=== PATIENT | female | born 1940 | race Caucasian/White ===

== ENCOUNTER 2017-01-10 08:39 | Observation (INO) | payer OTHER ==
--- NOTE | 2017-01-10 08:49 | PDOC ---
History of Present Illness <Tiffanie Hernandez - Last Filed: 01/10/17 09:53> - History of Present Illness Initial Comments: 01/10/17 09:20 The patient is a 76 year old female, with a significant past medical history of hypertension, colitis, non-insulin dependent diabetes (diet controlled), hyperlipidemia, and anemia, who presents to the emergency department via ems from [facility] for blood transfusion today. She recalls her blood count was about 7 this morning. The patient denies any complaints of abdominal pain or lethargy. She states she had a revision done to her knee recently and reports rupturing her patellar tendon a week ago at physical therapy and is scheduled for surgery in 2 weeks. She does, however, report pain to her knee. She denies chest pain, shortness of breath, headache and dizziness. She denies fever, chills, nausea, vomit, diarrhea and constipation. She denies dysuria, frequency, urgency and hematuria. Allergies: penicillins Past surgical history: bilateral knee replacements, small bowel obstruction ( 2014) Social history: denies toxic habits PCP - Dr. Mao/Dr. Adame <Isis Cavanaugh - Last Filed: 01/10/17 12:06> - General Stated Complaint: BLOOD TRANSFUSION Time Seen by Provider: 01/10/17 08:47 Past History - Past Medical History Cardiac Disorders: (tachycardia) HTN: Yes Hypercholesterolemia: Yes - Psycho/Social/Smoking Cessation Hx Anxiety: No Suicidal Ideation: No Smoking History: Former smoker Have you smoked in the past 12 months: No If you are a former smoker, when did you quit?: 20 years ago Hx Alcohol Use: No Substance Use Type: None <Tiffanie Hernandez - Last Filed: 01/10/17 09:53> <Isis Cavanaugh - Last Filed: 01/10/17 12:06> - Past Medical History Allergies/Adverse Reactions: Allergies Allergy/AdvReac Type Severity Reaction Status Date / Time Penicillins Allergy Verified 01/10/17 09:05 Home Medications: Ambulatory Orders Aspirin [ASA -] 81 mg PO DAILY 10/02/14 Cholecalciferol (Vitamin D3) [Vitamin D3] 1,000 unit PO DAILY 10/02/14 Enalapril Maleate [Vasotec -] 20 mg PO DAILY 10/02/14 Gemfibrozil [Lopid] 600 mg PO HS 10/02/14 Glipizide [Glipizide ER] 5 mg PO DAILY 10/02/14 Metoprolol Succinate [Toprol Xl] 100 mg PO DAILY 10/02/14 Simvastatin [Zocor -] 20 mg PO HS 10/02/14 Triamterene/Hydrochlorothiazid [Triamterene-Hctz 37.5-25 mg Cp] 1 each PO DAILY 10/02/14 Acetaminophen [Tylenol -] 1,000 mg PO Q8H PRN 01/10/17 Ascorbate Calcium [Vitamin C] 1,000 mg PO ASDIR 01/10/17 Cyanocobalamin (Vitamin B-12) [Vitamin B12] 1,000 mcg PO DAILY 01/10/17 Docusate Sodium [Colace -] 100 mg PO TID PRN 01/10/17 Enoxaparin [Lovenox -] 40 unit SQ DAILY 01/10/17 Insulin Lispro [Humalog] 0 unit SQ TID 01/10/17 Menthol [Bengay Ultra Strength] 1 each TP DAILY 01/10/17 Mesalamine [Lialda] 1 - 2 tab PO DAILY 01/10/17 Oxycodone HCl [Roxicodone -] 5 mg PO Q4H PRN 01/10/17 Pantoprazole Sodium [Protonix] 40 mg PO DAILY 01/10/17 Review of Systems - Review of Systems Able to Perform ROS?: Yes Comments:: 01/10/17 09:20 GENERAL/CONSTITUTIONAL: No fever or chills. No weakness. HEAD, EYES, EARS, NOSE AND THROAT: No change in vision. No ear pain or discharge. No sore throat. CARDIOVASCULAR: No chest pain or shortness of breath. RESPIRATORY: No cough, wheezing, or hemoptysis. GASTROINTESTINAL: No nausea, vomiting, diarrhea or constipation. GENITOURINARY: No dysuria, frequency, or change in urination. MUSCULOSKELETAL: No joint or muscle swelling or pain. No neck or back pain. SKIN: No rash NEUROLOGIC: No headache, vertigo, loss of consciousness, or change in strength/ sensation. ENDOCRINE: No increased thirst. No abnormal weight change. HEMATOLOGIC/LYMPHATIC: No anemia, easy bleeding, or history of blood clots. ALLERGIC/IMMUNOLOGIC: No hives or skin allergy. <Isis Cavanaugh - Last Filed: 01/10/17 12:06> *Physical Exam - Physical Exam Comments: GENERAL: Awake, alert, and fully oriented, in no acute distress HEAD: No signs of trauma EYES: PERRLA, EOMI, sclera anicteric, conjunctiva clear ENT: Auricles normal inspection, hearing grossly normal, nares patent, oropharynx clear without exudates. Moist mucosa NECK: Normal ROM, supple, no lymphadenopathy, JVD, or masses LUNGS: Breath sounds equal, clear to auscultation bilaterally. No wheezes, and no crackles HEART: Regular rate and rhythm, normal S1 and S2, no murmurs, rubs or gallops ABDOMEN: Soft, nontender, normoactive bowel sounds. No guarding, no rebound. No masses EXTREMITIES: +Well-healed scar overlying the R knee, FROM. +Immobilizer to L knee. Remainder of extremities with normal range of motion, no edema. No clubbing or cyanosis. No cords, erythema, or tenderness NEUROLOGICAL: Cranial nerves II through XII grossly intact. Normal speech. Gait not tested due to recent orthopedic surgery. Motor and sensation intact. SKIN: Warm, Dry, normal turgor, no rashes or lesions noted. <Tiffanie Hernandez - Last Filed: 01/10/17 09:53> - Vital Signs Last Vital Signs Temp Pulse Resp BP Pulse Ox 99.4 F 97 H 18 121/54 100 01/10/17 08:40 01/10/17 08:40 01/10/17 08:40 01/10/17 08:40 01/10/17 08:40 - Physical Exam Comments: 01/10/17 09:20 GENERAL: Awake, alert, and fully oriented, in no acute distress HEAD: No signs of trauma EYES: PERRLA, EOMI, sclera anicteric, conjunctiva clear ENT: Auricles normal inspection, hearing grossly normal, nares patent, oropharynx clear without exudates. Moist mucosa NECK: Normal ROM, supple, no lymphadenopathy, JVD, or masses LUNGS: Breath sounds equal, clear to auscultation bilaterally. No wheezes, and no crackles HEART: Regular rate and rhythm, normal S1 and S2, no murmurs, rubs or gallops ABDOMEN: Soft, nontender, normoactive bowel sounds. No guarding, no rebound. No masses EXTREMITIES: (+) non-ambulatory s/p knee replacement and recent patellar tendon rupture. Normal range of motion, no edema. No clubbing or cyanosis. No cords, erythema, or tenderness NEUROLOGICAL: Cranial nerves II through XII grossly intact. Normal speech, SKIN: Warm, Dry, normal turgor, no rashes or lesions noted. <Isis Cavanaugh - Last Filed: 01/10/17 12:06> ED Treatment Course - LABORATORY CBC & Chemistry Diagram: 01/10/17 09:13 01/10/17 09:13 <Tiffanie Hernandez - Last Filed: 01/10/17 09:53> - LABORATORY CBC & Chemistry Diagram: 01/10/17 09:13 01/10/17 09:13 <Isis Cavanaugh - Last Filed: 01/10/17 12:06> *DC/Admit/Observation/Transfer - Discharge Dispostion Admit: Yes <Tiffanie Hernandez - Last Filed: 01/10/17 09:53> - Attestations Scribe Attestion: 01/10/17 09:21 Documentation prepared by Isis Cavanaugh, acting as medical record transcriber for Tiffanie Hernandez MD, MD <Isis Cavanaugh - Last Filed: 01/10/17 12:06> Diagnosis at time of Disposition: Anemia Qualifiers: Anemia type: unspecified type Qualified Code(s): D64.9 - Anemia, unspecified - Discharge Dispostion Condition at time of disposition: Stable - Referrals
[2017-01-10 09:05] VITALS: BMI 38.5
[2017-01-10 09:45] LABS: BASOPHIL 1.2 % (0-2.0); EOSINOPHIL 12.3 % (0-4.5); MCH 29.2 pg (25.7-33.7); MCHC 32.6 g/dl (32.0-36.0); MEAN CELL VOLUME 89.6 fl (80-96); MEAN PLT VOLUME 7.9 fl (7.5-11.1); NEUTROPHILS 65.7 % (42.8-82.8); PLATELET COUNT 386 K/MM3 (134-434); RDW 15.1 % (11.6-15.6); WHITE BLOOD COUNT 6.3 K/mm3 (4.0-10.0)
[2017-01-10] MEDS ORDERED: PATIENT'S OWN MEDICATION (NON-FORMULARY) (Enalapril Maleate [Vasotec -] 20 MG) PO SCH (10:00)
[2017-01-10 10:05] LABS: ALBUMIN 3.1 g/dl (3.4-5.0); ANION GAP 9 (8-16); BILIRUBIN,TOTAL 0.3 mg/dL (0.2-1.0); CALCIUM 8.7 mg/dL (8.5-10.1); CO2 24 mmol/L (21-32); COCKROFT - GAULT 106.5305; CREATININE 0.7 mg/dL (0.55-1.02); GLUCOSE,RANDOM 211 mg/dL (74-106); LDH 318 U/L (84-246); SGOT/AST 15 U/L (15-37); SGPT/ALT 14 U/L (12-78); TOT PROT 6.3 g/dl (6.4-8.2)
[2017-01-10 10:07] LABS: ALK PHOS 88 U/L (45-117); FERRITIN 253.667 ng/ml (6.9-282.5)
[2017-01-10] MEDS ORDERED: glipiZIDE-XL 2.5 MG TAB.ER.24 PO SCH ×2 (10:15→22:31)
[2017-01-10] MEDS: METOPROLOL SUCCINATE 100 MG TAB.SR.24H (FP) PO SCH (10:15)
[2017-01-10] MEDS ORDERED: MESALAMINE 2.4 GM PO SCH (10:15)
[2017-01-10] MEDS ORDERED: GEMFIBROZIL 600 MG TABLET (FP) PO SCH ×2 (10:15→11:12)
[2017-01-10] MEDS: TRIAMTERENE AND HCTZ - 37.5 MG/25 MG CAPSULE PO SCH (10:15)
[2017-01-10] MEDS ORDERED: ENALAPRIL MALEATE 10 MG TABLET (FP) PO SCH (10:57)
[2017-01-10] MEDS ORDERED: OXYCODONE/APAP 5/325MG COMBO TABLET PO ONE (12:06)
[2017-01-10] MEDS ORDERED: OXYCODONE/APAP 5/325MG COMBO TABLET ONE (12:08)
--- NOTE | 2017-01-10 13:51 | HP ---
Admitting History and Physical - Admission Chief Complaint: anemia History of Present Illness: Sent from [place] for anemia. Recently had revision, re-total left knee placement for loosened hardware. Had surgery in [facility] and then was undergoing physical therapy in [place], when she felt and heard a "crack" in her knee and was found to have a ruptured patella tendon. Will now need to have tendon repair, but since surgery for knee revision has been anemic (hgb 7.5, dropping to 6.9 reportedly yesterday). Prior to surgery has been advised to have blood transfusion. Notes some weakness, but no shortness of breath or chest pain. History Source: Patient, Medical Record Limitations to Obtaining History: No Limitations - Past Medical History Cardiovascular: Yes: HTN, Hyperlipdemia Gastrointestinal: Yes: Ulcerative Colitis Endocrine: Yes: Diabetes Mellitus Additional Past Medical History: patella tendon rupture left leg - Past Surgical History Past Surgical History: Yes: Colonoscopy, Joint Replacement (left knee, s/p recent revision) - Smoking History Smoking history: Former smoker Have you smoked in the past 12 months: No If you are a former smoker, when did you quit?: 20 years ago - Alcohol/Substance Use Hx Alcohol Use: No Home Medications - Allergies Allergies/Adverse Reactions: Allergies Allergy/AdvReac Type Severity Reaction Status Date / Time morphine Allergy Verified 01/10/17 13:01 Penicillins Allergy Verified 01/10/17 09:05 - Home Medications Home Medications: Ambulatory Orders Aspirin [ASA -] 81 mg PO DAILY 10/02/14 Cholecalciferol (Vitamin D3) [Vitamin D3] 1,000 unit PO DAILY 10/02/14 Enalapril Maleate [Vasotec -] 20 mg PO DAILY 10/02/14 Gemfibrozil [Lopid] 600 mg PO HS 10/02/14 Glipizide [Glipizide ER] 5 mg PO DAILY 10/02/14 Metoprolol Succinate [Toprol Xl] 100 mg PO DAILY 10/02/14 Simvastatin [Zocor -] 20 mg PO HS 10/02/14 Triamterene/Hydrochlorothiazid [Triamterene-Hctz 37.5-25 mg Cp] 1 each PO DAILY 10/02/14 Acetaminophen [Tylenol -] 1,000 mg PO Q8H PRN 01/10/17 Ascorbate Calcium [Vitamin C] 1,000 mg PO ASDIR 01/10/17 Cyanocobalamin (Vitamin B-12) [Vitamin B12] 1,000 mcg PO DAILY 01/10/17 Docusate Sodium [Colace -] 100 mg PO TID PRN 01/10/17 Enoxaparin [Lovenox -] 40 unit SQ DAILY 01/10/17 Insulin Lispro [Humalog] 0 unit SQ TID 01/10/17 Menthol [Bengay Ultra Strength] 1 each TP DAILY 01/10/17 Mesalamine [Lialda] 1 - 2 tab PO DAILY 01/10/17 Oxycodone HCl [Roxicodone -] 5 mg PO Q4H PRN 01/10/17 Pantoprazole Sodium [Protonix] 40 mg PO DAILY 01/10/17 Family Disease History - Family Disease History Family History: Unremarkable Review of Systems - Review of Systems Constitutional: denies: Lethargy, Loss of Appetite Eyes: reports: No Symptoms HENT: denies: Difficult Swallowing, Epistaxis, Ringing in Ears Neck: reports: No Symptoms Cardiovascular: denies: Chest Pain, Palpitations Respiratory: denies: Cough, SOB, Wheezing Gastrointestinal: denies: Abdominal Pain, Diarrhea, Nausea, Vomiting Genitourinary: denies: Burning, Discharge, Dysuria Neurological: denies: Change in LOC Physical Examination Vital Signs: Vital Signs Temperature 98.2 F 01/10/17 12:22 Pulse Rate 83 01/10/17 12:22 Respiratory Rate 20 01/10/17 12:22 Blood Pressure 133/56 01/10/17 12:22 O2 Sat by Pulse Oximetry (%) 96 01/10/17 12:22 Constitutional: Yes: No Distress, Calm Eyes: Yes: EOM Intact, PERRL HENT: Yes: Atraumatic, Normocephalic Cardiovascular: Yes: Regular Rate and Rhythm, S1, S2. No: Murmur Respiratory: Yes: Regular, CTA Bilaterally. No: Rales, Rhonchi, Wheezes Gastrointestinal: Yes: Normal Bowel Sounds, Soft. No: Distention, Tenderness Extremities: Yes: Other (left leg with brace, healing incision on knee) Neurological: Yes: Alert, Oriented Labs: Laboratory Results - last 24 hr 01/10/17 01/10/17 01/10/17 09:13 09:13 09:13 WBC 6.3 RBC 2.61 L Hgb 7.6 L D Hct 23.4 L D MCV 89.6 MCHC 32.6 RDW 15.1 D Plt Count 386 MPV 7.9 Neutrophils % 65.7 Lymphocytes % 13.2 Monocytes % 7.6 Eosinophils % 12.3 H D Basophils % 1.2 Retic Count 3.46 H INR 1.71 H Sodium Potassium Chloride Carbon Dioxide Anion Gap BUN Creatinine Creat Clearance w eGFR Random Glucose Calcium Ferritin Total Bilirubin AST ALT Alkaline Phosphatase LD Total Total Protein Albumin Blood Type O POSITIVE Antibody Screen Negative Crossmatch See Detail 01/10/17 09:13 WBC RBC Hgb Hct MCV MCHC RDW Plt Count MPV Neutrophils % Lymphocytes % Monocytes % Eosinophils % Basophils % Retic Count INR Sodium 140 Potassium 4.3 Chloride 107 Carbon Dioxide 24 Anion Gap 9 BUN 17 D Creatinine 0.7 D Creat Clearance w eGFR > 60 Random Glucose 211 H D Calcium 8.7 Ferritin 253.667 Total Bilirubin 0.3 D AST 15 D ALT 14 D Alkaline Phosphatase 88 LD Total 318 H Total Protein 6.3 L Albumin 3.1 L Blood Type Antibody Screen Crossmatch Problem List - Problems (1) Anemia Assessment/Plan: -due to recent surgery (left knee revision of TKR)-will transfuse 2 units PRBC Code(s): D64.9 - ANEMIA, UNSPECIFIED Qualifiers: Anemia type: iron deficiency Qualified Code(s): D64.9 - Anemia, unspecified (2) Patellar tendon rupture Assessment/Plan: -will require further surgery, so to get blood transfusion to optimize for procedure Code(s): S86.819A - STRAIN OF MUSC/TEND AT LOWER LEG LEVEL, UNSP LEG, INIT (3) Status post revision of total replacement of left knee Assessment/Plan: -stable Code(s): Z96.652 - PRESENCE OF LEFT ARTIFICIAL KNEE JOINT (4) Diabetes mellitus Assessment/Plan: -on glipizide Code(s): E11.9 - TYPE 2 DIABETES MELLITUS WITHOUT COMPLICATIONS (5) Hypertension Assessment/Plan: -cont antihypertensives Code(s): I10 - ESSENTIAL (PRIMARY) HYPERTENSION (6) Ulcerative colitis Assessment/Plan: -cot lialda Code(s): K51.90 - ULCERATIVE COLITIS, UNSPECIFIED, WITHOUT COMPLICATIONS
[2017-01-10] MEDS ORDERED: OXYCODONE/APAP 5/325MG COMBO TABLET PO PRN (14:10)
[2017-01-10] MEDS ORDERED: ACETAMINOPHEN 325 MG TABLET (FP) PO PRN (15:08)
[2017-01-10] MEDS ORDERED: oxyCODONE HCL 5 MG TABLET PO PRN (15:08)
[2017-01-10 19:21] LABS: BASOPHIL 1.2 % (0-2.0); EOSINOPHIL 10.8 % (0-4.5); MCH 28.8 pg (25.7-33.7); MEAN CELL VOLUME 87.4 fl (80-96); MEAN PLT VOLUME 8.4 fl (7.5-11.1); NEUTROPHILS 63.7 % (42.8-82.8); PLATELET COUNT 382 K/MM3 (134-434); RDW 15.2 % (11.6-15.6); WHITE BLOOD COUNT 7.5 K/mm3 (4.0-10.0)
[2017-01-10] MEDS ORDERED: ATORVASTATIN CA 10 MG TABLET (FP) PO SCH (22:00)
[2017-01-11 06:41] LABS: SERUM IRON 54 ug/dL (27-139); TOTAL IRON BINDING CAPACITY 229 ug/dL (250-450); UIBC 175 ug/dL (118-369)
[2017-01-11 07:34] LABS: MCH 28.9 pg (25.7-33.7); MCHC 33.7 g/dl (32.0-36.0); MEAN CELL VOLUME 85.9 fl (80-96); MEAN PLT VOLUME 7.9 fl (7.5-11.1); PLATELET COUNT 352 K/MM3 (134-434); RDW 16.2 % (11.6-15.6)
[2017-01-11 07:48] LABS: CALCIUM 9.1 mg/dL (8.5-10.1); COCKROFT - GAULT 149.141; CREATININE 0.5 mg/dL (0.55-1.02)
[2017-01-11 08:11] LABS: HAPTOGLOBIN 320 mg/dL (34-200); TRANSFERRIN 189 mg/dL (200-370)
[2017-01-11 08:55] VITALS: BP 154/69; PULSE 79; TEMP 98
[2017-01-11] MEDS ORDERED: PT OWN MED DRAWER 7, Y5N ONE (09:06)
[2017-01-11] MEDS: TRIAMTERENE AND HCTZ - 37.5 MG/25 MG CAPSULE PO SCH (09:09)
[2017-01-11] MEDS: METOPROLOL SUCCINATE 100 MG TAB.SR.24H (FP) PO SCH (09:09)
[2017-01-11] MEDS ORDERED: CHOLECALCIFEROL (VITAMIN D3) 1,000 UNIT TABLET (FP) PO SCH (10:00)
[2017-01-11] MEDS ORDERED: ASPIRIN 81 MG CHEWABLE TABLETS PO SCH (10:00)
--- NOTE | 2017-01-11 10:25 | DS ---
Physical Examination Vital Signs: Vital Signs Temperature 98 F 01/11/17 08:00 Pulse Rate 79 01/11/17 08:00 Respiratory Rate 18 01/11/17 08:00 Blood Pressure 154/69 01/11/17 08:00 O2 Sat by Pulse Oximetry (%) 99 01/10/17 22:00 Constitutional: Yes: No Distress, Calm Neck: Yes: Supple, Trachea Midline Cardiovascular: Yes: Regular Rate and Rhythm, S1, S2. No: Murmur Respiratory: Yes: Regular, CTA Bilaterally. No: Rales, Rhonchi, Wheezes Gastrointestinal: Yes: Normal Bowel Sounds, Soft, Abdomen, Obese. No: Distention, Tenderness Extremities: Yes: Other (left knee healing incision) Edema: No Neurological: Yes: Alert, Oriented Labs: CBC, BMP 01/11/17 06:00 01/11/17 06:00 Discharge Summary Reason For Visit: ANEMIA Current Active Problems Anemia (Acute) Diabetes mellitus (Acute) Hypertension (Acute) Patellar tendon rupture (Acute) Status post revision of total replacement of left knee (Acute) Ulcerative colitis (Acute) Hospital Course: 76 yo female recent revision of left TKR, admitted for blood transfusion, as found to be anemic after her surgery and will now require tendon repair of left patella tendon, which had ruptured during her physical therapy following the knee replacement Condition: Stable - Instructions Referrals: Eugene Mao MD [Primary Care Provider] - Disposition: [facility] - Home Medications Comprehensive Discharge Medication List: Ambulatory Orders Aspirin [ASA -] 81 mg PO DAILY 10/02/14 Cholecalciferol (Vitamin D3) [Vitamin D3] 1,000 unit PO DAILY 10/02/14 Enalapril Maleate [Vasotec -] 20 mg PO DAILY 10/02/14 Gemfibrozil [Lopid] 600 mg PO HS 10/02/14 Glipizide [Glipizide ER] 5 mg PO DAILY 10/02/14 Metoprolol Succinate [Toprol Xl] 100 mg PO DAILY 10/02/14 Simvastatin [Zocor -] 20 mg PO HS 10/02/14 Triamterene/Hydrochlorothiazid [Triamterene-Hctz 37.5-25 mg Cp] 1 each PO DAILY 10/02/14 Acetaminophen [Tylenol .Extra-Strength -] 1,000 mg PO Q8H PRN 01/10/17 Ascorbate Calcium [Vitamin C] 1,000 mg PO ASDIR 01/10/17 Cyanocobalamin (Vitamin B-12) [Vitamin B12] 1,000 mcg PO DAILY 01/10/17 Docusate Sodium [Colace -] 100 mg PO TID PRN 01/10/17 Enoxaparin [Lovenox -] 40 unit SQ DAILY 01/10/17 Insulin Lispro [Humalog] 0 unit SQ TID 01/10/17 Menthol [Bengay Ultra Strength] 1 each TP DAILY 01/10/17 Mesalamine [Lialda] 1 - 2 tab PO DAILY 01/10/17 Oxycodone HCl [Roxicodone -] 5 mg PO Q4H PRN 01/10/17 Pantoprazole Sodium [Protonix] 40 mg PO DAILY 01/10/17
[2017-01-11] MEDS ORDERED: ENOXAPARIN NA (PORCINE) 40 MG/0.4 ML DISP.SYRIN SQ ONE (11:30)
== END 2017-01-11 14:43 ==
LOC: JER 08:39 → JERBED 09:53 → J8W 16:40
PROVIDERS: ADMIT Specialist; ATTEND Specialist
PROC: 3E013GC Introduction of Other Therapeutic Substance into Subcutaneous Tissue, Percutaneous Approach (ICD-10-PCS; principal; 2017-01-11)
DX: D64.9 Anemia, unspecified (principal); I10 Essential (primary) hypertension; R73.03 Prediabetes; E78.5 Hyperlipidemia, unspecified; R00.0 Tachycardia, unspecified; Z87.891 Personal history of nicotine dependence; Z87.19 Personal history of other diseases of the digestive system; Z79.82 Long term (current) use of aspirin; Z96.652 Presence of left artificial knee joint; Z88.1 Allergy status to other antibiotic agents; Z88.8 Allergy status to other drugs, medicaments and biological substances; Z88.5 Allergy status to narcotic agent
CPT/HCPCS: 36415; 36430; 80048; 80053; 82728; 83010; 83540; 83550; 83615; 84466; 85025; 85027; 85044; 85610; 86850; 86900; 86901; 86922; 99284-25; G0378; P9038; P9058

== ENCOUNTER 2017-02-03 13:15 | Observation (INO) | payer OTHER ==
[2017-02-03 13:47] VITALS: BMI 36.7
--- NOTE | 2017-02-03 14:24 | PDOC ---
History of Present Illness - General History Source: Patient Exam Limitations: No Limitations - History of Present Illness Initial Comments: 02/03/17 15:03 The patient is a 76 year old female brought via [facility] from [facility] living, with a significant past medical history of hypertension, osteoarthritsis, DVT, GI bleed , ulcerative enterocolitis, non-insulin dependent diabetes (diet controlled), hyperlipidemia, and anemia, who presents to the emergency department to be evaluated for anemia and possible blood transfusion. The patient had a debridement of the left knee last week. Prior to that she was worked up for anemia and was administered a blood transfusion after the initial knee surgery in early December 2016. Blood work from the [facility] yesterday showed a hemoglobin of 6.0 and today showed hemoglobin of 5.5 and hematocrit of 17. The patient denies chest pain, shortness of breath, headache and dizziness. Denies fever, chills, nausea, vomit, diarrhea and constipation. Denies dysuria, frequency, urgency and hematuria. Allergies: Morphine, Penicillins Past surgical history: bilateral knee replacements, small bowel obstruction ( 2014) Social history: denies toxic habits PCP - Dr. Mao <Houston Aguilera - Last Filed: 02/03/17 15:03> - General History Source: Patient Exam Limitations: No Limitations <Jennifer Castellano - Last Filed: 02/03/17 17:15> - General Chief Complaint: Blood Transfusion Stated Complaint: BLOOD TRANSFUSION Time Seen by Provider: 02/03/17 13:41 Past History <Houston Aguilera - Last Filed: 02/03/17 15:03> - Past Medical History Anemia: Yes (iron deficiency, vit b12 deficiency) Cardiac Disorders: (tachycardia) GI Disorders: Yes (gerd) HTN: Yes Hypercholesterolemia: Yes - Psycho/Social/Smoking Cessation Hx Anxiety: No Suicidal Ideation: No Smoking History: Former smoker Have you smoked in the past 12 months: No If you are a former smoker, when did you quit?: 30 YEARS AGO Information on smoking cessation initiated: No Hx Alcohol Use: No Drug/Substance Use Hx: No Substance Use Type: None Hx Substance Use Treatment: No <Jennifer Castellano - Last Filed: 02/03/17 17:15> - Past Medical History Allergies/Adverse Reactions: Allergies Allergy/AdvReac Type Severity Reaction Status Date / Time morphine Allergy Severe Nausea Verified 02/03/17 13:47 Penicillins Allergy Unknown Verified 02/03/17 13:47 Home Medications: Ambulatory Orders Aspirin [ASA -] 81 mg PO DAILY 10/02/14 Cholecalciferol (Vitamin D3) [Vitamin D3] 1,000 unit PO DAILY 10/02/14 Enalapril Maleate [Vasotec -] 20 mg PO DAILY 10/02/14 Gemfibrozil [Lopid] 600 mg PO HS 10/02/14 Glipizide [Glipizide ER] 5 mg PO DAILY 10/02/14 Metoprolol Succinate [Toprol Xl] 100 mg PO DAILY 10/02/14 Simvastatin [Zocor -] 20 mg PO HS 10/02/14 Triamterene/Hydrochlorothiazid [Triamterene-Hctz 37.5-25 mg Cp] 1 each PO DAILY 10/02/14 Acetaminophen [Tylenol .Extra-Strength -] 1,000 mg PO Q8H PRN 01/10/17 Ascorbate Calcium [Vitamin C] 1,000 mg PO ASDIR 01/10/17 Docusate Sodium [Colace -] 100 mg PO TID PRN 01/10/17 Insulin Lispro [Humalog] 0 unit SQ TID 01/10/17 Mesalamine [Lialda] 1 - 2 tab PO DAILY 01/10/17 Oxycodone HCl [Roxicodone -] 5 mg PO Q4H PRN 01/10/17 Pantoprazole Sodium [Protonix] 40 mg PO DAILY 01/10/17 Cefazolin (Pre-Docked) [Ancef 1Gm Ivpb (Pre-Docked)] 1 gm IVPB TID 02/03/17 Lactobacillus Acidophilus [Acidophilus] 1 each PO BID 02/03/17 Rifampin 300 mg PO DAILY 02/03/17 Warfarin Na [Coumadin Protocol] 1 each PO HS 02/03/17 Review of Systems - Review of Systems Able to Perform ROS?: Yes Comments:: 02/03/17 15:03 GENERAL/CONSTITUTIONAL: No: fever, chills, weakness, loss of appetite. HEAD, EYES, EARS, NOSE AND THROAT: No: change in vision, ear pain, discharge, sore throat, throat swelling. CARDIOVASCULAR: No: chest pain, lightheadedness, palpitations, syncope RESPIRATORY: No: cough, shortness of breath, wheezing, hemoptysis, stridor. GASTROINTESTINAL: No: nausea, vomiting, abdominal cramping, diarrhea, rectal bleeding, constipation. GENITOURINARY: No: dysuria, hematuria, frequency, urgency, flank pain. MUSCULOSKELET AL: No: back pain, neck pain, joint pain, muscle swelling or pain SKIN AND BREASTS: No: lesions, pallor, rash or easy bruising. NEUROLOGIC: No: headache, vertigo, paresthesias, weakness ENDOCRINE: No: unexplained weight gain or loss HEMATOLOGIC/LYMPHATIC: No: anemia, easy bleeding, swelling nodes <Houston Aguilera - Last Filed: 02/03/17 15:03> *Physical Exam - Vital Signs Last Vital Signs Temp Pulse Resp BP Pulse Ox 98.5 F 95 H 20 118/35 99 02/03/17 13:42 02/03/17 13:42 02/03/17 13:42 02/03/17 13:42 02/03/17 13:42 - Physical Exam Comments: 02/03/17 15:04 GENERAL: (+) Pale appearing. The patient is in no acute distress. HEAD: Normal with no signs of trauma. EYES: PERRLA, EOMI, sclera anicteric, conjunctiva clear. ENT: Ears normal, nares patent, oropharynx clear without exudates. Moist mucous membranes. NECK: Normal range of motion, supple without lymphadenopathy, JVD, or masses. LUNGS: Breath sounds equal, clear to auscultation bilaterally. No wheezes, and no crackles. HEART:Regular rate and rhythm, normal S1 and S2 without murmur, rub or gallop. ABDOMEN: Soft, nontender, normoactive bowel sounds. No guarding, no rebound. EXTREMITIES: Normal range of motion, no edema. No clubbing or cyanosis. No erythema, or tenderness. NEUROLOGICAL: Cranial nerves II through XII grossly intact. Normal speech. No focal neurological deficits. MUSCULOSKELETAL: Back non-tender to palpation, no CVA tenderness SKIN: Warm, Dry, normal turgor, no rashes or lesions noted. <Houston Augilera - Last Filed: 02/03/17 15:03> - Vital Signs Last Vital Signs Temp Pulse Resp BP Pulse Ox 98.5 F 95 H 20 118/35 99 02/03/17 13:42 02/03/17 13:42 02/03/17 13:42 02/03/17 13:42 02/03/17 13:42 <Jennifer Castellano - Last Filed: 02/03/17 17:15> Heart Score/ECG Review #1 ECG reviewed & interpreted by me at: 17:08 02/03/17 17:08 Twelve-lead EKG was performed and reviewed by me. There is normal sinus rhythm with a normal rate of 93bpm. The axis is normal. The intervals are normal - pr: 158ms, QRS:68ms, QTc:432ms. There are no ST elevations or depressions. T waves upright <Jennifer Castellano - Last Filed: 02/03/17 17:15> ED Treatment Course - LABORATORY CBC & Chemistry Diagram: 02/03/17 14:10 02/03/17 14:10 - ADDITIONAL ORDERS Additional order review: Laboratory Results 02/03/17 02/03/17 14:10 14:10 INR 1.43 H Sodium 140 Potassium 4.9 Chloride 102 Carbon Dioxide 24 Anion Gap 14 BUN 15 Creatinine 0.7 D Creat Clearance w eGFR > 60 Random Glucose 100 D Calcium 9.1 Total Bilirubin 0.4 D AST 12 L ALT 11 L D Alkaline Phosphatase 97 Total Protein 6.5 Albumin 2.8 L 02/03/17 14:10 RBC 2.36 L D MCV 87.4 MCHC 32.6 RDW 16.3 H MPV 8.4 Neutrophils % 71.4 Lymphocytes % 12.6 Monocytes % 8.8 Eosinophils % 6.4 H Basophils % 0.8 <Houston Aguilera - Last Filed: 02/03/17 15:03> - LABORATORY CBC & Chemistry Diagram: 02/03/17 14:10 02/03/17 14:10 <Jennifer Castellano - Last Filed: 02/03/17 17:15> Medical Decision Making - Medical Decision Making 02/03/17 14:23 A portion of this note was documented by scribe services under my direction. I have reviewed the details of the note, within reason, and agree with the documentation with the following case summary and management plan written by me. Nursing documentation reviewed and incorporated into medical decision making 02/03/17 15:06 This is a 76 yo F presenting to the ER due to anemia Briefly, she is s/p knee replacement 11/2016 Her post operative course was complicated by patella tendon rupture She was then transferred back to [facility] for repair Pt was returned to the [facility] home and last week was noted to have drainage from her left knee She was returned to [facility] and is s/p wash out On 01/28, Hgb 9.2 Pt noted to have a gradual trend down of her Hgb No chest pain, no shortness of breath, no palpitations, No melena No bloody stools Will repeat labs Will transfuse if necessary Laboratory Tests 02/03/17 02/03/17 02/03/17 14:10 14:10 14:10 WBC 8.2 Hgb 6.7 L* D Hct 20.6 L D Plt Count 330 Neutrophils % 71.4 Lymphocytes % 12.6 INR 1.43 H Sodium 140 Potassium 4.9 Chloride 102 Carbon Dioxide 24 BUN 15 Creatinine 0.7 D Random Glucose 100 D AST 12 L ALT 11 L D 02/03/17 15:[address] Gutierrez Will admit to his service Will order 2 units PRBC 02/03/17 15:07 <Jennifer Castellano - Last Filed: 02/03/17 17:15> *DC/Admit/Observation/Transfer - Attestations Scribe Attestion: 02/03/17 15:05 Documentation prepared by Houston Aguilera, acting as medical technologist for Jennifer Castellano MD <Houston Aguilera - Last Filed: 02/03/17 15:03> - Discharge Dispostion Admit: Yes <Jennifer Castellano - Last Filed: 02/03/17 17:15> Diagnosis at time of Disposition: Anemia Qualifiers: Other causes of anemia: acute posthemorrhagic Qualified Code(s): D64.9 - Anemia , unspecified - Discharge Dispostion Condition at time of disposition: Stable - Referrals
[2017-02-03 14:30] LABS: BASOPHIL 0.8 % (0-2.0); EOSINOPHIL 6.4 % (0-4.5); MCH 28.5 pg (25.7-33.7); MCHC 32.6 g/dl (32.0-36.0); MEAN CELL VOLUME 87.4 fl (80-96); MEAN PLT VOLUME 8.4 fl (7.5-11.1); NEUTROPHILS 71.4 % (42.8-82.8); PLATELET COUNT 330 K/MM3 (134-434); RDW 16.3 % (11.6-15.6); WHITE BLOOD COUNT 8.2 K/mm3 (4.0-10.0)
[2017-02-03 14:45] LABS: INR 1.43 (0.82-1.09); PROTHROMBIN TIME (PATIENT) 15.8 SEC (9.98-11.88)
[2017-02-03 14:46] LABS: ALBUMIN 2.8 g/dl (3.4-5.0); ANION GAP 14 (8-16); BILIRUBIN,TOTAL 0.4 mg/dL (0.2-1.0); CALCIUM 9.1 mg/dL (8.5-10.1); CO2 24 mmol/L (21-32); COCKROFT - GAULT 101.4815; CREATININE 0.7 mg/dL (0.55-1.02); GLUCOSE,RANDOM 100 mg/dL (74-106); SGOT/AST 12 U/L (15-37); SGPT/ALT 11 U/L (12-78); TOT PROT 6.5 g/dl (6.4-8.2)
[2017-02-03 14:47] LABS: ALK PHOS 97 U/L (45-117)
[2017-02-03] MEDS ORDERED: CEFAZOLIN (PRE-DOCKED) 50 ML IVPB ONE (15:57)
[2017-02-03] MEDS ORDERED: DOCUSATE SODIUM 100 MG CAPSULE (FP) PO PRN (16:03)
--- NOTE | 2017-02-03 16:07 | HP ---
Admitting History and Physical - Primary Care Physician PCP: Eugene Mao - Admission Chief Complaint: I feel fine History of Present Illness: Ms Haile is a 76 year old female sent from the SNF for blood transfusion. She states she was recently released from another hospital after having revision of her L TKR and wash out secondary to infection. She says she was released this past weekend and after she left she was found to have a Hgb in the 6s. She went back to the SNF and has been doing well. She says she is feeling fine and is without complaint. She denies lightheadedness, dizziness, passing out, chest pain, palpitations, shortness of breath, nausea, vomiting, diarrhea, constipation, difficulty or pain on urination, or pain in her leg. On history she is very upset about having to stay overnight for blood transfusion. History Source: Patient Limitations to Obtaining History: No Limitations - Past Medical History Cardiovascular: Yes: HTN, Hyperlipdemia Gastrointestinal: Yes: Ulcerative Colitis Endocrine: Yes: Diabetes Mellitus - Past Surgical History Past Surgical History: Yes: Colonoscopy, Joint Replacement (left knee, s/p recent revision) - Smoking History Smoking history: Former smoker Have you smoked in the past 12 months: No If you are a former smoker, when did you quit?: 30 YEARS AGO - Alcohol/Substance Use Hx Alcohol Use: No History of Substance Use: reports: None - Social History Usual Living Arrangement: Yes: [facility] ADL: Independent History of Recent Travel: No Home Medications - Allergies Allergies/Adverse Reactions: Allergies Allergy/AdvReac Type Severity Reaction Status Date / Time morphine Allergy Severe Nausea Verified 02/03/17 13:47 Penicillins Allergy Unknown Verified 02/03/17 13:47 - Home Medications Home Medications: Ambulatory Orders RX: Aspirin [ASA -] 81 mg PO DAILY 10/02/14 RX: Cholecalciferol (Vitamin D3) [Vitamin D3] 1,000 unit PO DAILY 10/02/14 RX: Enalapril Maleate [Vasotec -] 20 mg PO DAILY 10/02/14 RX: Gemfibrozil [Lopid] 600 mg PO HS 10/02/14 RX: Glipizide [Glipizide ER] 5 mg PO DAILY 10/02/14 RX: Metoprolol Succinate [Toprol Xl] 100 mg PO DAILY 10/02/14 RX: Simvastatin [Zocor -] 20 mg PO HS 10/02/14 RX: Triamterene/Hydrochlorothiazid [Triamterene-Hctz 37.5-25 mg Cp] 1 each PO DAILY 10/02/14 Mesalamine [Lialda] 1 - 2 tab PO DAILY 01/10/17 RX: Acetaminophen [Tylenol .Extra-Strength -] 1,000 mg PO Q8H PRN 01/10/17 RX: Ascorbate Calcium [Vitamin C] 1,000 mg PO ASDIR 01/10/17 RX: Docusate Sodium [Colace -] 100 mg PO TID PRN 01/10/17 RX: Insulin Lispro [Humalog] 0 unit SQ TID 01/10/17 RX: Oxycodone HCl [Roxicodone -] 5 mg PO Q4H PRN 01/10/17 RX: Pantoprazole Sodium [Protonix] 40 mg PO DAILY 01/10/17 Cefazolin (Pre-Docked) [Ancef 1Gm Ivpb (Pre-Docked)] 1 gm IVPB TID 02/03/17 Lactobacillus Acidophilus [Acidophilus] 1 each PO BID 02/03/17 RX: Rifampin 300 mg PO DAILY 02/03/17 Warfarin Na [Coumadin Protocol] 1 each PO HS 02/03/17 Family Disease History - Family Disease History Family History: Unremarkable Review of Systems Findings/Remarks: Full review of systems obtained, as per HPI and otherwise negative Physical Examination Vital Signs: Vital Signs Temperature 98.5 F 02/03/17 13:42 Pulse Rate 95 H 02/03/17 13:42 Respiratory Rate 20 02/03/17 13:42 Blood Pressure 118/35 02/03/17 13:42 O2 Sat by Pulse Oximetry (%) 99 02/03/17 13:42 Constitutional: Yes: Well Nourished, No Distress Eyes: Yes: Conjunctiva Clear, EOM Intact HENT: Yes: Atraumatic, Normocephalic Cardiovascular: Yes: Regular Rate and Rhythm. No: Pulse Irregular, Gallop, Murmur, Rub Respiratory: Yes: Regular, CTA Bilaterally. No: Rales, Rhonchi, Wheezes Gastrointestinal: Yes: Normal Bowel Sounds, Soft. No: Distention, Tenderness Extremities: Yes: Other (L knee in brace) Edema: No Labs: CBC, BMP 02/03/17 14:10 02/03/17 14:10 Imaging - Results Chest X-ray: Image Reviewed Problem List - Problems (1) Anemia Assessment/Plan: -admit patient under observation -transfuse 2 units -recheck cbc in am -plan for discharge to continue rehab at [facility] Code(s): D64.9 - ANEMIA, UNSPECIFIED Qualifiers: Other causes of anemia: acute posthemorrhagic Qualified Code(s): D64.9 - Anemia, unspecified (2) Diabetes mellitus Assessment/Plan: -continue home regimen -diabetic diet -FSBS and SSI Code(s): E11.9 - TYPE 2 DIABETES MELLITUS WITHOUT COMPLICATIONS Qualifiers: Diabetes mellitus type: type 2 Diabetes mellitus complication status: without complication Diabetes mellitus equipment operator intermodal yard insulin use: without mcc use Qualified Code(s): E11.9 - Type 2 diabetes mellitus without complications (3) Hypertension Assessment/Plan: -continue home regimen Code(s): I10 - ESSENTIAL (PRIMARY) HYPERTENSION Qualifiers: Hypertension type: essential hypertension Qualified Code(s): I10 - Essential (primary) hypertension (4) Status post revision of total replacement of left knee Assessment/Plan: -with recent washout for infected joint -continue ancef Code(s): Z96.652 - PRESENCE OF LEFT ARTIFICIAL KNEE JOINT
[2017-02-03] MEDS ORDERED: CEFAZOLIN (PRE-DOCKED) 1 GM in DEXTROSE 5%-WATER - 50 ML IVPB ONE (16:11)
[2017-02-03] MEDS: INSULIN SLIDING SCALE (NOVOLOG) 1 VIAL SQ SCH ×2 (20:32→22:07)
[2017-02-03] MEDS ORDERED: PT OWN MED DRAWER 7, Y5N ONE (21:28)
[2017-02-03] MEDS: oxyCODONE HCL 5 MG TABLET PO PRN (21:52)
[2017-02-03] MEDS: ACETAMINOPHEN 500 MG TABLET (FP) PO PRN (21:53)
[2017-02-03] MEDS: LACTOBACILLUS ACIDOPHILUS 1 EACH TAB (FP) PO SCH (21:53)
[2017-02-03] MEDS ORDERED: INSULIN (NOVOLOG) ASPART 100 UNITS/ML 10ML VIAL ONE (21:59)
[2017-02-03] MEDS ORDERED: GEMFIBROZIL 600 MG TABLET (FP) PO SCH (22:00)
[2017-02-04] MEDS ORDERED: PT OWN MED DRAWER 7, Y5N ONE ×2 (06:05→10:54)
[2017-02-04] MEDS: INSULIN SLIDING SCALE (NOVOLOG) 1 VIAL SQ SCH ×2 (06:21→13:12)
[2017-02-04] MEDS ORDERED: glipiZIDE-XL 2.5 MG TAB.ER.24 PO SCH ×2 (07:00→10:00)
[2017-02-04 07:34] LABS: BASOPHIL 1.3 % (0-2.0); EOSINOPHIL 6.8 % (0-4.5); MCH 28.8 pg (25.7-33.7); MCHC 33.7 g/dl (32.0-36.0); MEAN CELL VOLUME 85.4 fl (80-96); MEAN PLT VOLUME 7.6 fl (7.5-11.1); NEUTROPHILS 69.9 % (42.8-82.8); PLATELET COUNT 305 K/MM3 (134-434); RDW 16.1 % (11.6-15.6); WHITE BLOOD COUNT 6.7 K/mm3 (4.0-10.0)
[2017-02-04 07:45] LABS: INR 1.35 (0.82-1.09); PROTHROMBIN TIME (PATIENT) 14.9 SEC (9.98-11.88)
[2017-02-04 08:48] LABS: CALCIUM 8.5 mg/dL (8.5-10.1); COCKROFT - GAULT 127.755; CREATININE 0.6 mg/dL (0.55-1.02); MAGNESIUM 1.7 mg/dL (1.8-2.4); PHOSPHOROUS 2.9 mg/dL (2.5-4.9)
[2017-02-04] MEDS ORDERED: ASCORBIC ACID 500 MG TABLET (FP) PO SCH (10:00)
[2017-02-04] MEDS ORDERED: TRIAMTERENE AND HCTZ - 37.5 MG/25 MG CAPSULE PO SCH (10:00)
[2017-02-04] MEDS ORDERED: METOPROLOL SUCCINATE 100 MG TAB.SR.24H (FP) PO SCH (10:00)
[2017-02-04] MEDS ORDERED: ENALAPRIL MALEATE 10 MG TABLET (FP) PO SCH (10:00)
[2017-02-04] MEDS ORDERED: RIFAMPIN 300 MG CAPSULE PO SCH (10:00)
[2017-02-04] MEDS ORDERED: ASPIRIN 81 MG CHEWABLE TABLETS PO SCH (10:00)
[2017-02-04] MEDS ORDERED: MESALAMINE PO SCH (10:00)
[2017-02-04] MEDS ORDERED: CHOLECALCIFEROL (VITAMIN D3) 1,000 UNIT TABLET (FP) PO SCH (10:00)
[2017-02-04] MEDS ORDERED: PANTOPRAZOLE 40 MG TABLET (FP) PO SCH (10:00)
[2017-02-04] MEDS: LACTOBACILLUS ACIDOPHILUS 1 EACH TAB (FP) PO SCH (10:56)
--- NOTE | 2017-02-04 12:28 | DS ---
Physical Examination Vital Signs: Vital Signs Temperature 99.5 F 02/04/17 09:10 Pulse Rate 91 H 02/04/17 09:10 Respiratory Rate 20 02/04/17 09:10 Blood Pressure 145/65 02/04/17 09:10 O2 Sat by Pulse Oximetry (%) 96 02/04/17 08:00 Constitutional: Yes: Well Nourished, No Distress, Calm Cardiovascular: Yes: Regular Rate and Rhythm. No: Gallop, Murmur, Rub Respiratory: Yes: Regular, CTA Bilaterally. No: Rales, Rhonchi, Wheezes Gastrointestinal: Yes: Normal Bowel Sounds, Soft. No: Distention, Tenderness Extremities: Yes: Other (L knee in brace) Edema: No Labs: CBC, BMP 02/04/17 06:00 02/04/17 06:00 Discharge Summary Reason For Visit: ANEMIA Current Active Problems Anemia (Acute) Hospital Course: (1) Anemia Code(s): D64.9 - ANEMIA, UNSPECIFIED Qualifiers: Other causes of anemia: acute posthemorrhagic Qualified Code(s): D64.9 - Anemia, unspecified (2) Diabetes mellitus Code(s): E11.9 - TYPE 2 DIABETES MELLITUS WITHOUT COMPLICATIONS Qualifiers: Diabetes mellitus type: type 2 Diabetes mellitus complication status: without complication Diabetes mellitus termite technician insulin use: without termite technician use Qualified Code(s): E11.9 - Type 2 diabetes mellitus without complications (3) Hypertension Code(s): I10 - ESSENTIAL (PRIMARY) HYPERTENSION Qualifiers: Hypertension type: essential hypertension Qualified Code(s): I10 - Essential (primary) hypertension (4) Status post revision of total replacement of left knee Code(s): Z96.652 - PRESENCE OF LEFT ARTIFICIAL KNEE JOINT Ms Haile is a 76 year old female who came in for blood transfusion secondary to ABLA. She was without complaint and doing well at rehab, but her CBC was checked and her Hgb was 5.7. She was sent here and her Hgb was 6.7, her baseline is around 9-10. She was admitted under observation and transfused. She tolerated the transfusion well and without difficulty. She is safe for discharge back to SNF. Condition: Good - Instructions Diet, Activity, Other Instructions: resume previous diet and activity Referrals: Eugene Mao MD [Primary Care Provider] - Disposition: HALF-WAY FACILITY - Home Medications Comprehensive Discharge Medication List: Ambulatory Orders Aspirin [ASA -] 81 mg PO DAILY 10/02/14 Cholecalciferol (Vitamin D3) [Vitamin D3] 1,000 unit PO DAILY 10/02/14 Enalapril Maleate [Vasotec -] 20 mg PO DAILY 10/02/14 Gemfibrozil [Lopid] 600 mg PO HS 10/02/14 Glipizide [Glipizide ER] 5 mg PO DAILY 10/02/14 Metoprolol Succinate [Toprol Xl] 100 mg PO DAILY 10/02/14 Simvastatin [Zocor -] 20 mg PO HS 10/02/14 Triamterene/Hydrochlorothiazid [Triamterene-Hctz 37.5-25 mg Cp] 1 each PO DAILY 10/02/14 Acetaminophen [Tylenol .Extra-Strength -] 1,000 mg PO Q8H PRN 01/10/17 Ascorbate Calcium [Vitamin C] 1,000 mg PO ASDIR 01/10/17 Docusate Sodium [Colace -] 100 mg PO TID PRN 01/10/17 Insulin Lispro [Humalog] 0 unit SQ TID 01/10/17 Mesalamine [Lialda] 1 - 2 tab PO DAILY 01/10/17 Oxycodone HCl [Roxicodone -] 5 mg PO Q4H PRN 01/10/17 Pantoprazole Sodium [Protonix] 40 mg PO DAILY 01/10/17 Cefazolin (Pre-Docked) [Ancef 1Gm Ivpb (Pre-Docked)] 1 gm IVPB TID 02/03/17 Lactobacillus Acidophilus [Acidophilus] 1 each PO BID 02/03/17 Rifampin 300 mg PO DAILY 02/03/17 Warfarin Na [Coumadin Protocol] 1 each PO HS 02/03/17
--- NOTE | 2017-02-04 13:27 | EKG ---
Test Reason : Blood Pressure : / mmHG Vent. Rate : 093 BPM Atrial Rate : 093 BPM P-R Int : 158 ms QRS Dur : 068 ms QT Int : 348 ms P-R-T Axes : 000 001 020 degrees QTc Int : 432 ms POOR DATA QUALITY, INTERPRETATION MAY BE ADVERSELY AFFECTED SINUS RHYTHM WITH PREMATURE SUPRAVENTRICULAR COMPLEXES OTHERWISE NORMAL ECG WHEN COMPARED WITH ECG OF 02-OCT-2014 09:42, PREMATURE SUPRAVENTRICULAR COMPLEXES ARE NOW PRESENT Confirmed by SAMIA BEY, ELIGIO ([id number]) on 02/04/2017 1:26:57 PM Referred By: Confirmed By:ELIGIO GRACIA MD
[2017-02-04] MEDS: ACETAMINOPHEN 500 MG TABLET (FP) PO PRN (14:11)
[2017-02-04] MEDS: oxyCODONE HCL 5 MG TABLET PO PRN (14:12)
[2017-02-04 15:22] VITALS: BP 135/57; PULSE 90; TEMP 99
== END 2017-02-04 15:21 ==
LOC: JER 13:15 → JERBED 15:11 → J7W 19:05
PROVIDERS: ADMIT Internal Medicine; ATTEND Internal Medicine
PROC: 3E03329 Introduction of Other Anti-infective into Peripheral Vein, Percutaneous Approach (ICD-10-PCS; principal; 2017-02-03)
PROC: 30243N1 Transfusion of Nonautologous Red Blood Cells into Central Vein, Percutaneous Approach (ICD-10-PCS; 2017-02-03)
DX: D50.0 Iron deficiency anemia secondary to blood loss (chronic) (principal); E11.9 Type 2 diabetes mellitus without complications; I10 Essential (primary) hypertension; E78.5 Hyperlipidemia, unspecified; M19.90 Unspecified osteoarthritis, unspecified site; Z96.652 Presence of left artificial knee joint; Z86.718 Personal history of other venous thrombosis and embolism
CPT/HCPCS: 36415; 36430; 71010-TC; 80048; 80053; 83735; 84100; 85025; 85610; 86850; 86900; 86901; 86922; 93005; 93010; 99285-25; G0378; P9038; P9058

== ENCOUNTER 2017-06-25 16:19 | Inpatient (IN) | payer OTHER ==
--- NOTE | 2017-06-25 16:42 | PDOC ---
Attending Attestation - HPI HPI: 06/25/17 18:01 Pt is a 77 yo F with a PMHx of Anemia, HTN, HLD, GERD, Vitamin B12 Deficiency who presents to the ED with UTI. Patient was seen by Dr. Marcial and was prescribed Macrobid however UTI symptoms still persists. Patient reports for IV abx. Patient denied fevers or chills. She denies frequency, urgency or hematuria. - Physicial Exam PE: 06/25/17 18:01 GENERAL: Awake, alert, and fully oriented, in no acute distress HEAD: No signs of trauma EYES: PERRLA, EOMI, sclera anicteric, conjunctiva clear ENT: Auricles normal inspection, hearing grossly normal, nares patent, oropharynx clear without exudates. Moist mucosa NECK: Normal ROM, supple, no lymphadenopathy, JVD, or masses LUNGS: Breath sounds equal, clear to auscultation bilaterally. No wheezes, and no crackles HEART: Regular rate and rhythm, normal S1 and S2, no murmurs, rubs or gallops ABDOMEN: Soft, nontender, normoactive bowel sounds. No guarding, no rebound. No masses EXTREMITIES: Normal range of motion, no edema. No clubbing or cyanosis. No cords, erythema, or tenderness. +Bilateral knee incisions well healed. NEUROLOGICAL: Cranial nerves II through XII grossly intact. Normal speech, normal gait SKIN: Warm, Dry, normal turgor, no rashes or lesions noted. - Medical Decision Making 06/25/17 18:01 Documentation prepared by Selin Renee, acting as emergency medicine medical director for Nanci Umanzor DO <Selin Renee - Last Filed: 06/25/17 18:01> - Resident Resident Name: HuDahlia - ED Attending Attestation I have performed the following: I have examined & evaluated the patient, The case was reviewed & discussed with the resident, I agree w/resident's findings & plan, Exceptions are as noted - Medical Decision Making 06/25/17 16:42 I, Dr. Nanci Umanzor DO, attest that this document has been prepared under my direction and personally reviewed by me in its entirety. I further attest, that it accurately reflects all work, treatment, procedures and medical decision -making performed by me. 09/28/17 17:18 a/p: 77yo female with ESBL UTI that failed outpt abx -labs -straight cath for ua and ucx -admit for IV ABX 06/25/17 17:[address] marcial for culture results. 06/25/17 18:15 for culture results, sensitive to merrem. ID consult placed. Pt will be admitted to hospitalist for iv abx. 06/25/17 18:33 <Nanci Umanzor - Last Filed: 06/25/17 18:33>
--- NOTE | 2017-06-25 16:53 | PDOC ---
History of Present Illness - General Chief Complaint: Urinary Problem Stated Complaint: REVISIT, ABNORMAL LABS Time Seen by Provider: 06/25/17 16:41 History Source: Patient - History of Present Illness Initial Comments: 06/25/17 16:57 Patient presents at the behest of her PCP, Dr. Mao for IV antibiotic therapy after failed outpatient UTI treatment. Patient's PCP, Dr. Mao, contacted and noted patient was treated with Macrobid (10 days) and urine cultures showed ESBL sensitive to ertapenem and meropenem. Patient denies any SiSx of UTI including hematuria, dysuria, increased urgency/frequency or flank pain. Past History - Past Medical History Allergies/Adverse Reactions: Allergies Allergy/AdvReac Type Severity Reaction Status Date / Time morphine Allergy Severe Nausea Verified 06/25/17 16:37 Penicillins Allergy Unknown Verified 06/25/17 16:37 Home Medications: Ambulatory Orders Albuterol Sulfate [Proair Respiclick] 90 mcg IH Q4H PRN 06/25/17 Ascorbate Calcium [Vitamin C] 500 mg PO DAILY 06/25/17 Aspirin [ASA -] 81 mg PO DAILY 06/25/17 Cholecalciferol (Vitamin D3) [Vitamin D3] 1,000 unit PO DAILY 06/25/17 Cyanocobalamin (Vitamin B-12) [Vitamin B12] 1,000 mcg PO HS 06/25/17 Doxycycline Monohydrate [Mondoxyne Nl] 100 mg PO BID 06/25/17 Ferrous Sulfate 325 mg PO TID 06/25/17 Furosemide 20 mg PO DAILY 06/25/17 Gemfibrozil 600 mg PO HS 06/25/17 Hydralazine HCl 10 mg PO TID 06/25/17 Lansoprazole [Prevacid] 40 mg PO DAILY 06/25/17 Mesalamine 4.8 gm PO DAILY 06/25/17 Metoprolol Tartrate 100 mg PO DAILY 06/25/17 Oxycodone HCl/Acetaminophen [Percocet 5-325 mg Tablet] 2 tab PO PRN PRN Repaglinide [Prandin] 1 mg PO TIDCM 06/25/17 Simvastatin 20 mg PO HS 06/25/17 Anemia: Yes (iron deficiency, vit b12 deficiency) Cardiac Disorders: (tachycardia) GI Disorders: Yes (gerd) HTN: Yes Hypercholesterolemia: Yes - Surgical History Orthopedic Surgery: Yes (L Total Knee Replacement, S/P revision) - Suicide/Smoking/Psychosocial Hx Smoking History: Never smoked Have you smoked in the past 12 months: No If you are a former smoker, when did you quit?: 30 YEARS AGO Information on smoking cessation initiated: No Hx Alcohol Use: No Drug/Substance Use Hx: No Substance Use Type: None Hx Substance Use Treatment: No Review of Systems - Review of Systems Constitutional: No: Chills, Fever HEENTM: No: Eye Pain, Blurred Vision Respiratory: No: Cough, Shortness of Breath Cardiac (ROS): No: Chest Pain, Irregular Heart Rate, Lightheadedness, Palpitations ABD/GI: No: Constipated, Nausea, Vomiting : No: Burning, Dysuria Neurological: No: Headache, Numbness, Tingling, Tremors Psychiatric: No: Anxiety, Depression All Other Systems: Reviewed and Negative *Physical Exam - Vital Signs Last Vital Signs Temp Pulse Resp BP Pulse Ox 98.4 F 85 18 151/64 100 06/25/17 16:35 06/25/17 16:35 06/25/17 16:35 06/25/17 16:35 06/25/17 16:35 - Physical Exam General Appearance: Yes: Nourished, Appropriately Dressed HEENT: positive: EOMI, NANCY Neck: positive: Trachea midline, Supple Cardiovascular: positive: Regular Rhythm, Regular Rate, S1, S2 Gastrointestinal/Abdominal: positive: Normal Bowel Sounds, Soft Musculoskeletal: positive: Normal Inspection. negative: CVA Tenderness Extremity: positive: Normal Capillary Refill, Normal Inspection Integumentary: positive: Normal Color, Dry, Warm Neurologic: positive: cigarette catcher II-XII NML intact, Fully Oriented, Alert ED Treatment Course - LABORATORY CBC & Chemistry Diagram: 06/28/17 06:00 06/28/17 06:00 Medical Decision Making - Medical Decision Making 06/25/17 16:56 Patient is a 77 y.o. female who presents at behest of Dr. Mao for admission for IV antibiotic therapy after failed outpatient treatment on Macrobid. PLAN: 1. UA/UTI 2. ID consult 3. Admission to inpatient medicine service under Dr. Ambrosio. *DC/Admit/Observation/Transfer Diagnosis at time of Disposition: Urinary tract infection due to Enterococcus - Discharge Dispostion Condition at time of disposition: Fair Admit: Yes
[2017-06-25 17:07] LABS: BASOPHIL 1.3 % (0-2.0); EOSINOPHIL 6.1 % (0-4.5); MCH 30.8 pg (25.7-33.7); MCHC 32.7 g/dl (32.0-36.0); MEAN CELL VOLUME 94.3 fl (80-96); MEAN PLT VOLUME 8.1 fl (7.5-11.1); NEUTROPHILS 72.8 % (42.8-82.8); PLATELET COUNT 270 K/MM3 (134-434); RDW 15.9 % (11.6-15.6); WHITE BLOOD COUNT 6.9 K/mm3 (4.0-10.0)
[2017-06-25 17:40] LABS: URINE APPEARANCE SLCLOUDY; URINE BILIRUBIN NEGATIVE (NEGATIVE); URINE BLOOD NEGATIVE (NEGATIVE); URINE COLOR YELLOW; URINE GLUCOSE (UA) NEGATIVE (NEGATIVE); URINE KETONE NEGATIVE (NEGATIVE); URINE LEUK ESTERASE TRACE (NEGATIVE); URINE NITRITE POSITIVE (NEGATIVE); URINE UROBILINOGEN NEGATIVE mg/dL (0.2-1.0)
[2017-06-25 17:43] LABS: ALBUMIN 3.9 g/dl (3.4-5.0); ALK PHOS 106 U/L (45-117); ANION GAP 10 (8-16); BILIRUBIN,TOTAL 0.2 mg/dL (0.2-1.0); CALCIUM 8.8 mg/dL (8.5-10.1); CO2 26 mmol/L (21-32); CREATININE 1.3 mg/dL (0.55-1.02); GLUCOSE,RANDOM 118 mg/dL (74-106); SGOT/AST 14 U/L (15-37); SGPT/ALT 16 U/L (12-78); TOT PROT 6.7 g/dl (6.4-8.2)
[2017-06-25 17:56] LABS: URINE PROTEIN 1+ (NEGATIVE)
[2017-06-25 17:58] LABS: URINE BACTERIA MANY /hpf (NONE SEEN); URINE MUCUS RARE; URINE RBC 6 /hpf (0-3); URINE WBC 21 /hpf (3-5)
[2017-06-25] MEDS ORDERED: MEROPENEM 1,000 MG in DEXTROSE 5%-WATER - 100 ML IVPB ONE (18:01)
[2017-06-25] MEDS ORDERED: ACETAMINOPHEN 325 MG TABLET (FP) PO PRN ×2 (18:17→20:48)
[2017-06-25] MEDS ORDERED: ALBUTEROL SO4 18 GM HFA INHALER IH PRN (18:22)
--- NOTE | 2017-06-25 18:27 | HP ---
CHIEF COMPLAINT: urinary burning PCP: Dr. Mao HISTORY OF PRESENT ILLNESS: This is 77 year old female who was sent over to Er by her primary. Patient was recently treated for a urinary tract infection, on macrobid for 7 days. SHe did not feel improvement of her symptoms to she returned to her primary. Previous urinary culture were taken that were positive for ESBL, sensitive to ertapenam and meropenam. Patient endorses dysuria, and denies fever, chills, hematuria, changes in urinary frequency or flank pain. ER course was notable for: stable vital, anemic with hemoglobin of 7.6. Serum creatinine 1.3. Recent Travel: no PAST MEDICAL HISTORY: Anemia, DM, GERD, HTN, HLD, Bit B 12 def, ulcerative colitis PAST SURGICAL HISTORY: Social History: Smoking:no Alcohol:no Drugs: no Family History: Allergies morphine Allergy (Severe, Verified 06/25/17 16:37) Nausea Penicillins Allergy (Unknown, Verified 06/25/17 16:37) HOME MEDICATIONS: Home Medications Medication Instructions Recorded Albuterol Sulfate [Proair 90 mcg IH Q4H PRN 06/25/17 Respiclick] Ascorbate Calcium [Vitamin C] 500 mg PO DAILY 06/25/17 Aspirin [ASA -] 81 mg PO DAILY 06/25/17 Cholecalciferol (Vitamin D3) 1,000 unit PO DAILY 06/25/17 [Vitamin D3] Cyanocobalamin (Vitamin B-12) 1,000 mcg PO HS 06/25/17 [Vitamin B12] Doxycycline Monohydrate [Mondoxyne 100 mg PO BID 06/25/17 Nl] Ferrous Sulfate 325 mg PO TID 06/25/17 Furosemide 20 mg PO DAILY 06/25/17 Gemfibrozil 600 mg PO HS 06/25/17 Hydralazine HCl 10 mg PO TID 06/25/17 Lansoprazole [Prevacid] 40 mg PO DAILY 06/25/17 Mesalamine 4.8 gm PO DAILY 06/25/17 Metoprolol Tartrate 100 mg PO DAILY 06/25/17 Oxycodone HCl/Acetaminophen 2 tab PO PRN PRN 06/25/17 [Percocet 5-325 mg Tablet] Repaglinide [Prandin] 1 mg PO TIDCM 06/25/17 Simvastatin 20 mg PO HS 06/25/17 REVIEW OF SYSTEMS CONSTITUTIONAL: Absent: fever, chills, diaphoresis, generalized weakness, malaise, loss of appetite, weight change HEENT: Absent: rhinorrhea, nasal congestion, throat pain, throat swelling, difficulty swallowing, mouth swelling, ear pain, eye pain, visual changes CARDIOVASCULAR: Absent: chest pain, syncope, palpitations, irregular heart rate, lightheadedness , peripheral edema RESPIRATORY: Absent: cough, shortness of breath, dyspnea with exertion, orthopnea, wheezing, stridor, hemoptysis GASTROINTESTINAL: Absent: abdominal pain, abdominal distension, nausea, vomiting, diarrhea, constipation, melena, hematochezia GENITOURINARY: Positive:dysuria Absent: , frequency, urgency, hesitancy, hematuria, flank pain, genital pain MUSCULOSKELETAL: Absent: myalgia, arthralgia, joint swelling, back pain, neck pain SKIN: Absent: rash, itching, pallor HEMATOLOGIC/IMMUNOLOGIC: Absent: easy bleeding, easy bruising, lymphadenopathy, frequent infections ENDOCRINE: Absent: unexplained weight gain, unexplained weight loss, heat intolerance, cold intolerance NEUROLOGIC: Absent: headache, focal weakness or paresthesias, dizziness, unsteady gait, seizure, mental status changes, bladder or bowel incontinence PSYCHIATRIC: Absent: anxiety, depression, suicidal or homicidal ideation, hallucinations. PHYSICAL EXAMINATION Vital Signs - 24 hr 06/25/17 16:35 Temperature 98.4 F Pulse Rate 85 Respiratory 18 Rate Blood Pressure 151/64 O2 Sat by Pulse 100 Oximetry (%) GENERAL: Awake, alert, and fully oriented, in no acute distress. HEAD: Normal with no signs of trauma. EYES: Pupils equal, round and reactive to light, extraocular movements intact, sclera anicteric, conjunctiva clear. No lid lag. EARS, NOSE, THROAT: Ears normal, nares patent, oropharynx clear without exudates. Moist mucous membranes. NECK: Normal range of motion, supple without lymphadenopathy, JVD, or masses. LUNGS: Breath sounds equal, clear to auscultation bilaterally. No wheezes, and no crackles. No accessory muscle use. HEART: Regular rate and rhythm, normal S1 and S2 without murmur, rub or gallop. ABDOMEN: Soft, nontender, not distended, normoactive bowel sounds, no guarding, no rebound, no masses. No hepatomegaly or splenomegaly. MUSCULOSKELETAL: Normal range of motion at all joints. No bony deformities or tenderness. No CVA tenderness. UPPER EXTREMITIES: 2+ pulses, warm, well-perfused. No cyanosis. No clubbing. No peripheral edema. LOWER EXTREMITIES: 2+ pulses, warm, well-perfused. No calf tenderness. No peripheral edema. NEUROLOGICAL: Cranial nerves II-XII intact. Normal speech. Normal gait. PSYCHIATRIC: Cooperative. Good eye contact. Appropriate mood and affect. SKIN: Warm, dry, normal turgor, no rashes or lesions noted, normal capillary refill. Laboratory Results - last 24 hr 06/25/17 06/25/17 06/25/17 17:00 17:00 17:18 WBC 6.9 RBC 2.47 L Hgb 7.6 L D Hct 23.3 L MCV 94.3 MCH 30.8 MCHC 32.7 RDW 15.9 H Plt Count 270 MPV 8.1 Neutrophils % 72.8 Lymphocytes % 11.6 Monocytes % 8.2 Eosinophils % 6.1 H Basophils % 1.3 Sodium 143 Potassium 3.9 D Chloride 107 Carbon Dioxide 26 Anion Gap 10 BUN 33 H D Creatinine 1.3 H D Creat Clearance w eGFR 39.93 Random Glucose 118 H D Calcium 8.8 Total Bilirubin 0.2 D AST 14 L ALT 16 D Alkaline Phosphatase 106 Total Protein 6.7 Albumin 3.9 D Urine Color Urine Appearance Urine pH Urine Protein Urine Glucose (UA) Urine Ketones Urine Blood Urine Nitrite Urine Bilirubin Urine Urobilinogen Urine RBC Urine WBC Ur Epithelial Cells Urine Bacteria Urine Mucus Blood Type O POSITIVE Antibody Screen Negative 06/25/17 17:30 WBC RBC Hgb Hct MCV MCH MCHC RDW Plt Count MPV Neutrophils % Lymphocytes % Monocytes % Eosinophils % Basophils % Sodium Potassium Chloride Carbon Dioxide Anion Gap BUN Creatinine Creat Clearance w eGFR Random Glucose Calcium Total Bilirubin AST ALT Alkaline Phosphatase Total Protein Albumin Urine Color Yellow Urine Appearance Slcloudy Urine pH 5.0 Urine Protein 1+ H Urine Glucose (UA) Negative Urine Ketones Negative Urine Blood Negative Urine Nitrite Positive Urine Bilirubin Negative Urine Urobilinogen Negative Urine RBC 6 Urine WBC 21 Ur Epithelial Cells Rare Urine Bacteria Many Urine Mucus Rare Blood Type Antibody Screen ASSESSMENT/PLAN: This is a 77 year old female with a past medical history of DM, HTN, HLD, UTI, sent over by primary for IV antibiotic for urinary tract infection. Patient has been on macrobid for the past 7 days. Recent urine culture from PCP grew esbl. #urinary tract infection that failed outpatient treatment -cbc -urine cultures/blood cultures -IVF -start meropenam 1gm IV q8h #acute kidney injury: -renal/ba=ladder US -urine electrolytes, creatinine -calculate FeNA -hold lasix -avoid nephrotoxic agents -nephro consult #Anemia most likely chronic -previous admission 02/11 patient here for total knee replacement; needed transfusion -on iron replacement at home -repeat cbc -if hemoglobin below 7, transfuse #HTN: -cotn home meds #HLD -cont statin #Diabetes type II: -insulin ss -bgm achs FEN: FLuids: NS 83ml/hr Electrolytes : f/u cmp Diet: diabetic GI prophylaxis: protonix DVT prophylaxis: sq heparin Disposition: med surg IV antibiotics
[2017-06-25] MEDS: SODIUM CHLORIDE 1,000 ML IV SCH (18:52)
--- NOTE | 2017-06-25 19:45 | HP ---
CHIEF COMPLAINT: sent by PCP for urine culture +ESBL PCP: Dr. Mao HISTORY OF PRESENT ILLNESS: This is 77 year old female who was sent over to Er by her primary due to urine culture positive for ESBL. Patient was recently treated for a urinary tract infection, on macrobid for 10 days. ESBL sensitive to ertapenam and meropenam. Patient denies fever, chills, hematuria, dysuria, changes in urinary frequency or flank pain. ER course was notable for: stable vital, anemic with hemoglobin of 7.6. Serum creatinine 1.3. Recent Travel: no PAST MEDICAL HISTORY: Anemia, DM, GERD, HTN, HLD, Bit B 12 def, ulcerative colitis PAST SURGICAL HISTORY: bilatera knee replacement Social History: Smoking:no Alcohol:no Drugs: no Family History: Allergies morphine Allergy (Severe, Verified 06/25/17 16:37) Nausea Penicillins Allergy (Unknown, Verified 06/25/17 16:37) HOME MEDICATIONS: Home Medications Medication Instructions Recorded Albuterol Sulfate [Proair 90 mcg IH Q4H PRN 06/25/17 Respiclick] Ascorbate Calcium [Vitamin C] 500 mg PO DAILY 06/25/17 Aspirin [ASA -] 81 mg PO DAILY 06/25/17 Cholecalciferol (Vitamin D3) 1,000 unit PO DAILY 06/25/17 [Vitamin D3] Cyanocobalamin (Vitamin B-12) 1,000 mcg PO HS 06/25/17 [Vitamin B12] Doxycycline Monohydrate [Mondoxyne 100 mg PO BID 06/25/17 Nl] Ferrous Sulfate 325 mg PO TID 06/25/17 Furosemide 20 mg PO DAILY 06/25/17 Gemfibrozil 600 mg PO HS 06/25/17 Hydralazine HCl 10 mg PO TID 06/25/17 Lansoprazole [Prevacid] 40 mg PO DAILY 06/25/17 Mesalamine 4.8 gm PO DAILY 06/25/17 Metoprolol Tartrate 100 mg PO DAILY 06/25/17 Oxycodone HCl/Acetaminophen 2 tab PO PRN PRN 06/25/17 [Percocet 5-325 mg Tablet] Repaglinide [Prandin] 1 mg PO TIDCM 06/25/17 Simvastatin 20 mg PO HS 06/25/17 REVIEW OF SYSTEMS CONSTITUTIONAL: Absent: fever, chills, diaphoresis, generalized weakness, malaise, loss of appetite, weight change HEENT: Absent: rhinorrhea, nasal congestion, throat pain, throat swelling, difficulty swallowing, mouth swelling, ear pain, eye pain, visual changes CARDIOVASCULAR: Absent: chest pain, syncope, palpitations, irregular heart rate, lightheadedness , peripheral edema RESPIRATORY: Absent: cough, shortness of breath, dyspnea with exertion, orthopnea, wheezing, stridor, hemoptysis GASTROINTESTINAL: Absent: abdominal pain, abdominal distension, nausea, vomiting, diarrhea, constipation, melena, hematochezia GENITOURINARY: Absent: dysuria, frequency, urgency, hesitancy, hematuria, flank pain, genital pain MUSCULOSKELETAL: Absent: myalgia, arthralgia, joint swelling, back pain, neck pain SKIN: Absent: rash, itching, pallor HEMATOLOGIC/IMMUNOLOGIC: Absent: easy bleeding, easy bruising, lymphadenopathy, frequent infections ENDOCRINE: Absent: unexplained weight gain, unexplained weight loss, heat intolerance, cold intolerance NEUROLOGIC: Absent: headache, focal weakness or paresthesias, dizziness, unsteady gait, seizure, mental status changes, bladder or bowel incontinence PSYCHIATRIC: Absent: anxiety, depression, suicidal or homicidal ideation, hallucinations. PHYSICAL EXAMINATION GENERAL: Awake, alert, and fully oriented, in no acute distress. HEAD: Normal with no signs of trauma. EYES: Pupils equal, round and reactive to light, extraocular movements intact, sclera anicteric, conjunctiva clear. No lid lag. EARS, NOSE, THROAT: Ears normal, nares patent, oropharynx clear without exudates. Moist mucous membranes. NECK: Normal range of motion, supple without lymphadenopathy, JVD, or masses. LUNGS: Breath sounds equal, clear to auscultation bilaterally. No wheezes, and no crackles. No accessory muscle use. HEART: Regular rate and rhythm, normal S1 and S2 without murmur, rub or gallop. ABDOMEN: Soft, nontender, not distended, normoactive bowel sounds, no guarding, no rebound, no masses. No hepatomegaly or splenomegaly. MUSCULOSKELETAL: Normal range of motion at all joints. No bony deformities or tenderness. No CVA tenderness. UPPER EXTREMITIES: 2+ pulses, warm, well-perfused. No cyanosis. No clubbing. No peripheral edema. LOWER EXTREMITIES: 2+ pulses, warm, well-perfused. No calf tenderness. Bilateral 2+ pitting edema. Bilateral knee surgery scars, left knee scar slightly erythematous NEUROLOGICAL: Cranial nerves II-XII intact. Normal speech. Normal gait. PSYCHIATRIC: Cooperative. Good eye contact. Appropriate mood and affect. SKIN: Warm, dry, normal turgor, no rashes or lesions noted, normal capillary refill. ASSESSMENT/PLAN: This is a 77 year old female with a past medical history of DM, HTN, HLD, UTI, sent over by primary for IV antibiotic for urinary tract infection. Patient has been on macrobid for the past 7 days. Recent urine culture from PCP grew esbl. #urinary tract infection + ESBL -cbc -urine cultures/blood cultures -IVF -start meropenam 1gm IV q8h #acute kidney injury: -renal/ba=ladder US -urine electrolytes, creatinine -calculate FeNA -hold lasix -avoid nephrotoxic agents -nephro consult #Anemia most likely chronic -previous admission 02/11 patient here for total knee replacement; needed transfusion -on iron replacement at home -repeat cbc -if hemoglobin below 7, transfuse #HTN: -cotn home meds #HLD -cont statin #Diabetes type II: -insulin ss -bgm achs #hx of bilateral knee replacement: -left scar slight erythema FEN: FLuids: NS 83ml/hr Electrolytes : f/u cmp Diet: diabetic GI prophylaxis: protonix DVT prophylaxis: sq heparin Disposition: med surg IV antibiotics Visit type - Emergency Visit Emergency Visit: Yes ED Registration Date: 06/25/17 Care time: The patient presented to the Emergency Department on the above date and was hospitalized for further evaluation of their emergent condition. - New Patient This patient is new to me today: Yes Date on this admission: 06/25/17 - Critical Care Critical Care patient: No
--- NOTE | 2017-06-25 20:03 | PN ---
Teaching Attending Note Name of Resident: Rhonda Sharp ATTENDING PHYSICIAN STATEMENT I saw and evaluated the patient. I reviewed the resident's note and discussed the case with the resident. I agree with the resident's findings and plan as documented. SUBJECTIVE: This is a 77 year old woman with a history of HTN, hyperlipidemia, type 2 DM, anemia, GERD, B12 deficiency, ulcerative colitis who was sent to the ER by her PCP for treatment of a UTI. She has been having dysuria and was diagnosed with a UTI. She was treated with an oral antibiotic with no improvement in her symptoms. Urine culture grew ESBL. She followed up with Dr. Mao and was advised to be admitted for IV antibiotics. She denies fever, chills. OBJECTIVE: Vital Signs Period Temp Pulse Resp BP Sys/Henderson Pulse Ox Last 24 Hr 98.4 F 85 18 151/64 100 Home Medications Medication Instructions Recorded Albuterol Sulfate [Proair 90 mcg IH Q4H PRN 06/25/17 Respiclick] Ascorbate Calcium [Vitamin C] 500 mg PO DAILY 06/25/17 Aspirin [ASA -] 81 mg PO DAILY 06/25/17 Cholecalciferol (Vitamin D3) 1,000 unit PO DAILY 06/25/17 [Vitamin D3] Cyanocobalamin (Vitamin B-12) 1,000 mcg PO HS 06/25/17 [Vitamin B12] Doxycycline Monohydrate [Mondoxyne 100 mg PO BID 06/25/17 Nl] Ferrous Sulfate 325 mg PO TID 06/25/17 Furosemide 20 mg PO DAILY 06/25/17 Gemfibrozil 600 mg PO HS 06/25/17 Hydralazine HCl 10 mg PO TID 06/25/17 Lansoprazole [Prevacid] 40 mg PO DAILY 06/25/17 Mesalamine 4.8 gm PO DAILY 06/25/17 Metoprolol Tartrate 100 mg PO DAILY 06/25/17 Oxycodone HCl/Acetaminophen 2 tab PO PRN PRN 06/25/17 [Percocet 5-325 mg Tablet] Repaglinide [Prandin] 1 mg PO TIDCM 06/25/17 Simvastatin 20 mg PO HS 06/25/17 ASSESSMENT AND PLAN: This is a 77 year old woman with a history of HTN, hyperlipidemia, type 2 DM, anemia, GERD, B12 deficiency, ulcerative colitis who was sent to the ER by her PCP after failing outpatient treatment for ESBL UTI. 1. ESBL UTI - Failed outpatient treatment - Merrem given in ER - ID consult 2. Acute kidney injury - IV fluid - Hold Lasix - Monitor BUN, creatinine 3. Anemia, chronic - Continue B12, ferrous sulfate 4. HTN - Continue Hydralazine, Lopressor - Hold Lasix secondary to SHUBHAM 5. Hyperlipidemia - Continue Zocor, Lopid 6. Ulcerative colitis - Continue Mesalamine 7. Type 2 DM - Hold Prandin - Fingersticks with Novolog sliding scale 8. GERD - Continue Prevacid
[2017-06-25] MEDS ORDERED: oxyCODONE HCL 5 MG TABLET PO PRN (20:48)
[2017-06-25] MEDS ORDERED: INSULIN SLIDING SCALE (NOVOLOG) 1 VIAL SQ SCH (22:00)
[2017-06-25] MEDS: FERROUS SO4 325 MG TABLET (FP) PO SCH (22:49)
[2017-06-25] MEDS: CYANOCOBALAMIN 1,000 MCG TABLET (FP) PO SCH (22:49)
[2017-06-25] MEDS: INSULIN SLIDING SCALE (NOVOLOG) 1 VIAL SQ SCH (22:49)
[2017-06-25] MEDS: ATORVASTATIN CA 10 MG TABLET (FP) PO SCH (22:49)
[2017-06-25] MEDS: hydrALAZINE HCL 10 MG TABLET PO SCH (23:33)
[2017-06-26 00:20] VITALS: BMI 41.3
[2017-06-26] MEDS: HEPARIN NA (PORCINE) 5,000 UNITS/ML 1ML VIAL SQ SCH ×3 (02:38→18:47)
[2017-06-26] MEDS: FERROUS SO4 325 MG TABLET (FP) PO SCH ×3 (06:04→21:49)
[2017-06-26] MEDS: hydrALAZINE HCL 10 MG TABLET PO SCH ×3 (06:04→23:18)
[2017-06-26] MEDS: INSULIN SLIDING SCALE (NOVOLOG) 1 VIAL SQ SCH ×4 (06:04→23:18)
[2017-06-26] MEDS: SODIUM CHLORIDE 1,000 ML IV SCH ×2 (06:05→23:00)
--- NOTE | 2017-06-26 06:11 | PN ---
Physical Exam: SUBJECTIVE: Patient seen and examined OBJECTIVE: Vital Signs Period Temp Pulse Resp BP Sys/Henderson Pulse Ox Last 24 Hr 98.1 F-98.1 F 82-82 20-20 160-160/76-76 98-99 GENERAL: The patient is awake, alert, and fully oriented, in no acute distress. HEAD: Normal with no signs of trauma. EYES: PERRL, extraocular movements intact, sclera anicteric, conjunctiva clear. No ptosis. ENT: Ears normal, nares patent, oropharynx clear without exudates, moist mucous membranes. NECK: Trachea midline, full range of motion, supple. LUNGS: Breath sounds equal, clear to auscultation bilaterally, no wheezes, no crackles, no accessory muscle use. HEART: Regular rate and rhythm, S1, S2 without murmur, rub or gallop. ABDOMEN: Soft, nontender, nondistended, normoactive bowel sounds, no guarding, no rebound, no hepatosplenomegaly, no masses. EXTREMITIES: 2+ pulses, warm, well-perfused, no edema. NEUROLOGICAL: Cranial nerves II through XII grossly intact. Normal speech, gait not observed. PSYCH: Normal mood, normal affect. SKIN: Warm, dry, normal turgor, no rashes or lesions noted Laboratory Results - last 24 hr 06/25/17 22:48 POC Glucometer 131 Active Medications Generic Name Dose Route Start Last Admin Trade Name Freq PRN Reason Stop Dose Admin Acetaminophen 650 mg 06/25/17 18:17 Tylenol - PO Q4H PRN FEVER OR PAIN Acetaminophen 325 mg 06/25/17 20:48 Tylenol - PO Q6H PRN PAIN Albuterol Sulfate 1 puff 06/25/17 18:22 Ventolin Hfa Inhaler - IH Q4H PRN sob Ascorbic Acid 500 mg 06/26/17 10:00 Vitamin C - PO DAILY FORREST Aspirin 81 mg 06/26/17 10:00 Asa - PO DAILY FORREST Atorvastatin Calcium 10 mg 06/25/17 22:00 06/25/17 22:49 Lipitor - PO 10 mg HS FORREST Administration Cholecalciferol 1,000 unit 06/26/17 10:00 Vitamin D3 - PO DAILY FORREST Cyanocobalamin 1,000 mcg 06/25/17 22:00 06/25/17 22:49 Vitamin B12 - PO 1,000 mcg HS FORREST Administration Ferrous Sulfate 325 mg 06/25/17 22:00 06/25/17 22:49 Feosol - PO 325 mg TID FORREST Administration Heparin Sodium (Porcine) 5,000 unit 06/26/17 02:00 06/26/17 02:38 Heparin - SQ 5,000 unit Q8H-IV FORREST Administration Hydralazine HCl 10 mg 06/25/17 22:00 06/25/17 23:33 Apresoline - PO 10 mg TID FORREST Administration Sodium Chloride 1,000 mls @ 83 mls/hr 06/25/17 18:30 06/25/17 18:52 Normal Saline - IV 83 mls/hr ASDIR FORREST Administration Ertapenem 1 gm/ Sodium 50 mls @ 50 mls/hr 06/26/17 10:00 Chloride IVPB DAILY FORREST Protocol Insulin Aspart 1 vial 06/25/17 22:00 06/25/17 22:49 Novolog Vial Sliding Scale - SQ Not Given ACHS FORREST Protocol Metoprolol Tartrate 100 mg 06/26/17 10:00 Lopressor - PO DAILY FORREST Non-Formulary Medication 4.8 gm 06/26/17 10:00 Mesalamine [Mesalamine] PO DAILY FORREST Oxycodone HCl 5 mg 06/25/17 20:48 Roxicodone - PO Q6H PRN PAIN Pantoprazole Sodium 20 mg 06/26/17 10:00 Protonix - PO DAILY FORREST Pneumococcal 13-Valent Conj Vacc 0.5 ml 06/26/17 08:00 Prevnar 13 Syringe - IM 06/26/17 08:01 .ONCE ONE ASSESSMENT/PLAN: This is a 77 year old female with a past medical history of DM, HTN, HLD, UTI, sent over by primary for IV antibiotic for urinary tract infection. Patient has been on macrobid for the past 7 days. Recent urine culture from PCP grew esbl. #urinary tract infection + ESBL -cbc -urine cultures/blood cultures -IVF -start meropenam 1gm IV q8h #acute kidney injury: -renal/ba=ladder US -urine electrolytes, creatinine -calculate FeNA -hold lasix -avoid nephrotoxic agents -nephro consult #Anemia most likely chronic -previous admission 02/11 patient here for total knee replacement; needed transfusion -on iron replacement at home -repeat cbc -if hemoglobin below 7, transfuse #HTN: -cotn home meds #HLD -cont statin #Diabetes type II: -insulin ss -bgm achs #hx of bilateral knee replacement: -left scar slight erythema FEN: FLuids: NS 83ml/hr Electrolytes : f/u cmp Diet: diabetic GI prophylaxis: protonix DVT prophylaxis: sq heparin Disposition: med surg IV antibiotics
[2017-06-26 07:09] LABS: BASOPHIL 1.2 % (0-2.0); EOSINOPHIL 6.7 % (0-4.5); MCH 31.2 pg (25.7-33.7); MCHC 33.1 g/dl (32.0-36.0); MEAN CELL VOLUME 94.2 fl (80-96); MEAN PLT VOLUME 8.4 fl (7.5-11.1); NEUTROPHILS 67.5 % (42.8-82.8); PLATELET COUNT 226 K/MM3 (134-434); RDW 15.5 % (11.6-15.6); WHITE BLOOD COUNT 6.5 K/mm3 (4.0-10.0)
[2017-06-26 07:38] LABS: ALBUMIN 3.2 g/dl (3.4-5.0); ANION GAP 6 (8-16); CALCIUM 8.6 mg/dL (8.5-10.1); CO2 26 mmol/L (21-32); GLUCOSE,RANDOM 78 mg/dL (74-106); MAGNESIUM 1.9 mg/dL (1.8-2.4); PHOSPHOROUS 3.5 mg/dL (2.5-4.9); SGOT/AST 11 U/L (15-37); SGPT/ALT 12 U/L (12-78)
[2017-06-26 07:41] LABS: ALK PHOS 87 U/L (45-117); BILIRUBIN,TOTAL 0.4 mg/dL (0.2-1.0); TOT PROT 5.8 g/dl (6.4-8.2)
[2017-06-26] MEDS ORDERED: PNEUMOC 13-VAL CONJ-DIP CRM/PF 0.5 ML DISP.SYRIN IM ONE (08:00)
[2017-06-26] MEDS ORDERED: REPAGLINIDE 1 MG TABLET PO SCH (08:00)
[2017-06-26] MEDS ORDERED: MESALAMINE 4.8 GM PO SCH (10:00)
[2017-06-26] MEDS ORDERED: FUROSEMIDE 20 MG TABLET (FP) PO SCH (10:00)
--- NOTE | 2017-06-26 10:57 | CONSULT ---
Consult Consult Specialty:: Hematology - Oncology Referred by:: Dr. Mao Reason for Consultation:: Anemia - History of Present Illness Chief Complaint: Presented with ESBL UTI for therapy- found to be anemic- receiving packed cells. - History Source History Provided By: Patient, Medical Record Limitations to Obtaining History: No Limitations - Past Medical History Cardio/Vascular: Yes: HTN, Hyperlipdemia Gastrointestinal: Yes: Ulcerative Colitis ...: No Endocrine: Yes: Diabetes Mellitus - Past Surgical History Past Surgical History: Yes: Colonoscopy, Joint Replacement (left knee, s/p recent revision) Additional Surgical History: Right kneesurgery. 4 operations on left knee. left total knee- fractured patella, ligament tear with repeat knee surgery in 02/11 - Alcohol/Substance Use Hx Alcohol Use: No History of Substance Use: reports: None - Smoking History Smoking history: Former smoker Have you smoked in the past 12 months: No If you are a former smoker, when did you quit?: 30 YEARS AGO - Social History ADL: Independent Occupation: Retired nurse Place of : [facility] History of Recent Travel: No Home Medications - Allergies Allergies/Adverse Reactions: Allergies Allergy/AdvReac Type Severity Reaction Status Date / Time morphine Allergy Severe Nausea Verified 06/25/17 16:37 Penicillins Allergy Unknown Verified 06/25/17 16:37 - Home Medications Home Medications: Ambulatory Orders Albuterol Sulfate [Proair Respiclick] 90 mcg IH Q4H PRN 06/25/17 Ascorbate Calcium [Vitamin C] 500 mg PO DAILY 06/25/17 Aspirin [ASA -] 81 mg PO DAILY 06/25/17 Cholecalciferol (Vitamin D3) [Vitamin D3] 1,000 unit PO DAILY 06/25/17 Cyanocobalamin (Vitamin B-12) [Vitamin B12] 1,000 mcg PO HS 06/25/17 Doxycycline Monohydrate [Mondoxyne Nl] 100 mg PO BID 06/25/17 Ferrous Sulfate 325 mg PO TID 06/25/17 Furosemide 20 mg PO DAILY 06/25/17 Gemfibrozil 600 mg PO HS 06/25/17 Hydralazine HCl 10 mg PO TID 06/25/17 Lansoprazole [Prevacid] 40 mg PO DAILY 06/25/17 Mesalamine 4.8 gm PO DAILY 06/25/17 Metoprolol Tartrate 100 mg PO DAILY 06/25/17 Oxycodone HCl/Acetaminophen [Percocet 5-325 mg Tablet] 2 tab PO PRN PRN Repaglinide [Prandin] 1 mg PO TIDCM 06/25/17 Simvastatin 20 mg PO HS 06/25/17 Family Disease History - Family Disease History Family Disease History: Other: Grandparent (mGF stomach ca ), Father ( post ulcer surgery ) Review of Systems - Review of Systems Constitutional: denies: Fever, Lethargy, Loss of Appetite, Night Sweats, Unintentional Wgt. Loss, Weakness Eyes: denies: Blurred Vision, Double Vision, Recent Change in Vision HENT: denies: Nasal Congestion, Throat Pain Neck: denies: Stiffness, Tenderness Cardiovascular: denies: Chest Pain, Palpitations, Shortness of Breath Respiratory: denies: Hemoptysis, SOB, SOB on Exertion, Wheezing Gastrointestinal: denies: Diarrhea, Dysphagia, Nausea, Rectal Bleeding, Vomiting Genitourinary: denies: Burning, Dysuria, Flank Pain, Frequency, Hematuria, Incontinence Musculoskeletal: reports: Extremity Pain, Joint Pain. denies: Back Pain Integumentary: denies: Eczema, Erythema Neurological: reports: No Symptoms Endocrine: reports: No Symptoms Hematology/Lymphatic: denies: Easily Bruised, Excessive Bleeding, Swollen Glands Psychiatric: reports: No Symptoms Physical Exam Vital Signs: Vital Signs Temperature 98.8 F 06/26/17 06:13 Pulse Rate 83 06/26/17 06:13 Respiratory Rate 20 06/26/17 06:13 Blood Pressure 147/67 06/26/17 06:13 O2 Sat by Pulse Oximetry (%) 98 06/26/17 01:11 Constitutional: Yes: No Distress. No: Cachectic Eyes: Yes: Cataracts, PERRL, Other (s/p left cataract). No: Ptosis, Sclera Icterus HENT: Yes: Normocephalic, Other (dentures- upper and lower). No: Thrush Cardiovascular: Yes: Regular Rate and Rhythm Respiratory: Yes: Regular, CTA Bilaterally, Tachypnea Gastrointestinal: Yes: Abdomen, Obese. No: Distention, Palpable Mass, Splenomegaly Renal/: No: CVA Tenderness - Left, CVA Tenderness - Right Breast(s): Yes: WNL, Left, Right Musculoskeletal: Yes: Joint Swelling, Other (left knee brace) Extremities: No: Cool, Cyanosis Edema: Yes Edema: LLE: 3+, RLE: 3+ Integumentary: No: Erythema, Jaundice, Pressure Ulcer, Rash Neurological: Yes: Alert, Oriented ...Motor Strength: LLE, RLE Psychiatric: Yes: WNL Labs: CBC, BMP 06/26/17 07:02 06/26/17 07:02 Problem List - Problems (1) Anemia Assessment/Plan: November 2016 told by [facility] for [facility] Surgery of Fe++ deficiency. This was PRIOR to initial left knee replacement. Developed left patellar tear and fracture . In Jan, 2017 second knee replacement . Required transfusion of packed cells. Developed Staph infection requiring IV antibiotics for 6 weeks and has continued on oral antibiotics. Was on low dose coumadin and ASA with coumadin discontinued after 3 months post surgery. Review of prior records reveal a NC/NC anemia since November,. Previously as early as 2014had NC/NC anemia. In 01/12-- ferritin--253 Fe++/TIBC---54/229 FE++ sat-- 24% Haptoglobin-- 320 Retic-3.5% History of ulcerative colitis which has been quiescent. Has been on chronic Fe++ therapy , most recently raised from 2-3 pills/day. Had colonoscopy 2 years earlier and upper endscopy 5 yeas It is unclear if we are dealing with a chronic disease anemia , with superimposed infection (UTI), component of renal insufficiency , with a component of blood loss or other possibilities. Will plan for screening tests. . . Code(s): D64.9 - ANEMIA, UNSPECIFIED Qualifiers: Other causes of anemia: acute posthemorrhagic (2) UTI (urinary tract infection) Assessment/Plan: ON Meropenem for Resistant ESBL. Code(s): N39.0 - URINARY TRACT INFECTION, SITE NOT SPECIFIED Assessment/Plan Somewhat concerned about heparin therapy in face of possible blood loss as a contributing factor to anemia. To monitor closely and to obtain stool guaics.
[2017-06-26] MEDS: CHOLECALCIFEROL (VITAMIN D3) 1,000 UNIT TABLET (FP) PO SCH (11:02)
[2017-06-26] MEDS: PANTOPRAZOLE 20 MG TABLET (FP) PO SCH (11:02)
[2017-06-26] MEDS: ASCORBIC ACID 500 MG TABLET (FP) PO SCH (11:02)
[2017-06-26] MEDS: ASPIRIN 81 MG CHEWABLE TABLETS PO SCH (11:02)
[2017-06-26] MEDS: METOPROLOL TARTRATE 50 MG TABLET (FP) PO SCH (11:02)
[2017-06-26] MEDS: ERTAPENEM SODIUM 1 GM in SODIUM CHLORIDE 50 ML IVPB SCH (12:29)
[2017-06-26] MEDS ORDERED: PT OWN MED DRAWER 7, Y5N ONE (13:56)
--- NOTE | 2017-06-26 13:59 | CON.ID ---
Consult Consult Specialty:: infectious diseases Reason for Consultation:: esbl uti - History of Present Illness History of Present Illness: 77 year old female who was sent over to Er by her primary due to urine culture positive for ESBL. Patient was recently treated for a urinary tract infection, on macrobid for 10 days. ESBL sensitive to ertapenam and meropenam. Patient denies fever, chills, hematuria, dysuria, changes in urinary frequency or flank pain. patient has bilateral knee done patient had infection with probably mrsa after the knee surgery and is on chronic suppressive doxy therapy patient on anemia getting transfusion - History Source History Provided By: Patient Limitations to Obtaining History: No Limitations - Past Medical History Cardio/Vascular: Yes: HTN, Hyperlipdemia Gastrointestinal: Yes: Ulcerative Colitis ...: No Endocrine: Yes: Diabetes Mellitus - Past Surgical History Past Surgical History: Yes: Colonoscopy, Joint Replacement (left knee, s/p recent revision) Additional Surgical History: Right kneesurgery. 4 operations on left knee. left total knee- fractured patella, ligament tear with repeat knee surgery in 02/11 - Alcohol/Substance Use Hx Alcohol Use: No History of Substance Use: reports: None - Smoking History Smoking history: Former smoker Have you smoked in the past 12 months: No If you are a former smoker, when did you quit?: 30 YEARS AGO - Social History ADL: Independent Occupation: Retired nurse History of Recent Travel: No Home Medications - Allergies Allergies/Adverse Reactions: Allergies Allergy/AdvReac Type Severity Reaction Status Date / Time morphine Allergy Severe Nausea Verified 06/25/17 16:37 Penicillins Allergy Unknown Verified 06/25/17 16:37 - Home Medications Home Medications: Ambulatory Orders Albuterol Sulfate [Proair Respiclick] 90 mcg IH Q4H PRN 06/25/17 Ascorbate Calcium [Vitamin C] 500 mg PO DAILY 06/25/17 Aspirin [ASA -] 81 mg PO DAILY 06/25/17 Cholecalciferol (Vitamin D3) [Vitamin D3] 1,000 unit PO DAILY 06/25/17 Cyanocobalamin (Vitamin B-12) [Vitamin B12] 1,000 mcg PO HS 06/25/17 Doxycycline Monohydrate [Mondoxyne Nl] 100 mg PO BID 06/25/17 Ferrous Sulfate 325 mg PO TID 06/25/17 Furosemide 20 mg PO DAILY 06/25/17 Gemfibrozil 600 mg PO HS 06/25/17 Hydralazine HCl 10 mg PO TID 06/25/17 Lansoprazole [Prevacid] 40 mg PO DAILY 06/25/17 Mesalamine 4.8 gm PO DAILY 06/25/17 Metoprolol Tartrate 100 mg PO DAILY 06/25/17 Oxycodone HCl/Acetaminophen [Percocet 5-325 mg Tablet] 2 tab PO PRN PRN Repaglinide [Prandin] 1 mg PO TIDCM 06/25/17 Simvastatin 20 mg PO HS 06/25/17 Family Disease History - Family Disease History Family Disease History: Other: Grandparent (mGF stomach ca ), Father ( post ulcer surgery ) Review of Systems - Review of Systems Constitutional: reports: No Symptoms Eyes: reports: No Symptoms HENT: reports: No Symptoms Neck: reports: No Symptoms Cardiovascular: reports: No Symptoms Respiratory: reports: No Symptoms Gastrointestinal: reports: No Symptoms Genitourinary: reports: No Symptoms Breasts: reports: No Symptoms Reported Musculoskeletal: reports: No Symptoms Integumentary: reports: Erythema Neurological: reports: No Symptoms Endocrine: reports: No Symptoms Hematology/Lymphatic: reports: No Symptoms Psychiatric: reports: No Symptoms Physical Exam Vital Signs: Vital Signs Temperature 98.8 F 06/26/17 06:13 Pulse Rate 83 06/26/17 06:13 Respiratory Rate 20 06/26/17 06:13 Blood Pressure 147/67 06/26/17 06:13 O2 Sat by Pulse Oximetry (%) 98 06/26/17 01:11 Constitutional: Yes: Well Nourished, No Distress, Calm Eyes: Yes: Conjunctiva Clear HENT: Yes: Atraumatic Neck: Yes: Supple, Trachea Midline Cardiovascular: Yes: Regular Rate and Rhythm Respiratory: Yes: Regular, CTA Bilaterally Gastrointestinal: Yes: Normal Bowel Sounds, Soft Musculoskeletal: Yes: Other Extremities: Yes: Erythema (rt thigh noted and ankle) Edema: LLE: 1+, RLE: 1+ Neurological: Yes: Alert, Oriented Psychiatric: Yes: Alert, Oriented Labs: CBC, BMP 06/26/17 07:02 06/26/17 07:02 Imaging - Results Ultrasound: Report Reviewed, Image Reviewed Assessment/Plan anemia esbl uti patient has got one dose of meropenam plan will stop cuco and switch to ertapenam rest continue as per primary team
--- NOTE | 2017-06-26 14:03 | PN ---
Progress Note, Physician History of Present Illness: doing well leg looks much better - Current Medication List Current Medications: Active Medications Acetaminophen (Tylenol -) 650 mg PO Q4H PRN PRN Reason: FEVER OR PAIN Acetaminophen (Tylenol -) 325 mg PO Q6H PRN PRN Reason: PAIN Albuterol Sulfate (Ventolin Hfa Inhaler -) 1 puff IH Q4H PRN PRN Reason: sob Ascorbic Acid (Vitamin C -) 500 mg PO DAILY [facility] Last Admin: 06/26/17 11:02 Dose: 500 mg Aspirin (Asa -) 81 mg PO DAILY [facility] Last Admin: 06/26/17 11:02 Dose: 81 mg Atorvastatin Calcium (Lipitor -) 10 mg PO HS [facility] Last Admin: 06/25/17 22:49 Dose: 10 mg Cholecalciferol (Vitamin D3 -) 1,000 unit PO DAILY [facility] Last Admin: 06/26/17 11:02 Dose: 1,000 unit Cyanocobalamin (Vitamin B12 -) 1,000 mcg PO HS [facility] Last Admin: 06/25/17 22:49 Dose: 1,000 mcg Ferrous Sulfate (Feosol -) 325 mg PO TID [facility] Last Admin: 06/26/17 13:58 Dose: 325 mg Heparin Sodium (Porcine) (Heparin -) 5,000 unit SQ Q8H-IV [facility] Last Admin: 06/26/17 11:02 Dose: 5,000 unit Hydralazine HCl (Apresoline -) 10 mg PO TID [facility] Last Admin: 06/26/17 13:58 Dose: 10 mg Sodium Chloride (Normal Saline -) 1,000 mls @ 83 mls/hr IV ASDIR [facility] Last Admin: 06/26/17 06:05 Dose: 83 mls/hr Ertapenem 1 gm/ Sodium (Chloride) 50 mls @ 50 mls/hr IVPB DAILY [facility] PRN Reason: Protocol Last Admin: 06/26/17 12:29 Dose: 50 mls/hr Insulin Aspart (Novolog Vial Sliding Scale -) 1 vial SQ ACHS [facility] PRN Reason: Protocol Last Admin: 06/26/17 12:27 Dose: Not Given Metoprolol Tartrate (Lopressor -) 100 mg PO DAILY [facility] Last Admin: 06/26/17 11:02 Dose: 100 mg Non-Formulary Medication (Mesalamine [Mesalamine]) 4.8 gm PO DAILY [facility] Oxycodone HCl (Roxicodone -) 5 mg PO Q6H PRN PRN Reason: PAIN Pantoprazole Sodium (Protonix -) 20 mg PO DAILY [facility] Last Admin: 06/26/17 11:02 Dose: 20 mg Pneumococcal 13-Valent Conj Vacc (Prevnar 13 Syringe -) 0.5 ml IM .ONCE ONE Stop: 06/26/17 08:01 - Objective Vital Signs: Vital Signs Temperature 98.8 F 06/26/17 06:13 Pulse Rate 83 06/26/17 06:13 Respiratory Rate 20 06/26/17 06:13 Blood Pressure 147/67 06/26/17 06:13 O2 Sat by Pulse Oximetry (%) 98 06/26/17 01:11 Constitutional: Yes: No Distress, Calm, Obese Cardiovascular: Yes: Regular Rate and Rhythm Respiratory: Yes: Regular, CTA Bilaterally Gastrointestinal: Yes: Normal Bowel Sounds, Soft Edema: LLE: 1+, RLE: 1+ Neurological: Yes: Alert, Oriented Psychiatric: Yes: Alert, Oriented Labs: CBC, BMP 06/26/17 07:02 06/26/17 07:02 Assessment/Plan anemia esbl uti plan continue ertapenam cx reports still pending
--- NOTE | 2017-06-26 16:41 | PN ---
Progress Note, Physician Chief Complaint: Ms Haile is without complaint. Says she feels fine. Denies cp, sob, n/v. - Current Medication List Current Medications: Active Medications Acetaminophen (Tylenol -) 650 mg PO Q4H PRN PRN Reason: FEVER OR PAIN Acetaminophen (Tylenol -) 325 mg PO Q6H PRN PRN Reason: PAIN Albuterol Sulfate (Ventolin Hfa Inhaler -) 1 puff IH Q4H PRN PRN Reason: sob Ascorbic Acid (Vitamin C -) 500 mg PO DAILY [facility] Last Admin: 06/26/17 11:02 Dose: 500 mg Aspirin (Asa -) 81 mg PO DAILY [facility] Last Admin: 06/26/17 11:02 Dose: 81 mg Atorvastatin Calcium (Lipitor -) 10 mg PO HS [facility] Last Admin: 06/25/17 22:49 Dose: 10 mg Cholecalciferol (Vitamin D3 -) 1,000 unit PO DAILY [facility] Last Admin: 06/26/17 11:02 Dose: 1,000 unit Cyanocobalamin (Vitamin B12 -) 1,000 mcg PO HS [facility] Last Admin: 06/25/17 22:49 Dose: 1,000 mcg Ferrous Sulfate (Feosol -) 325 mg PO TID [facility] Last Admin: 06/26/17 13:58 Dose: 325 mg Heparin Sodium (Porcine) (Heparin -) 5,000 unit SQ Q8H-IV [facility] Last Admin: 06/26/17 11:02 Dose: 5,000 unit Hydralazine HCl (Apresoline -) 10 mg PO TID [facility] Last Admin: 06/26/17 13:58 Dose: 10 mg Sodium Chloride (Normal Saline -) 1,000 mls @ 83 mls/hr IV ASDIR [facility] Last Admin: 06/26/17 06:05 Dose: 83 mls/hr Ertapenem 1 gm/ Sodium (Chloride) 50 mls @ 50 mls/hr IVPB DAILY [facility] PRN Reason: Protocol Last Admin: 06/26/17 12:29 Dose: 50 mls/hr Insulin Aspart (Novolog Vial Sliding Scale -) 1 vial SQ ACHS [facility] PRN Reason: Protocol Last Admin: 06/26/17 12:27 Dose: Not Given Mesalamine (Asacol Hd -) 1,600 mg PO TID [facility] Metoprolol Tartrate (Lopressor -) 100 mg PO DAILY [facility] Last Admin: 06/26/17 11:02 Dose: 100 mg Oxycodone HCl (Roxicodone -) 5 mg PO Q6H PRN PRN Reason: PAIN Pantoprazole Sodium (Protonix -) 20 mg PO DAILY [facility] Last Admin: 06/26/17 11:02 Dose: 20 mg - Objective Vital Signs: Vital Signs Temperature 37.1 C 06/26/17 06:13 Pulse Rate 83 06/26/17 06:13 Respiratory Rate 20 06/26/17 10:00 Blood Pressure 147/67 06/26/17 06:13 O2 Sat by Pulse Oximetry (%) 98 06/26/17 10:00 Constitutional: Yes: No Distress, Calm, Obese Cardiovascular: Yes: Regular Rate and Rhythm. No: Gallop, Murmur, Rub Respiratory: Yes: Regular, CTA Bilaterally. No: Rales, Rhonchi, Wheezes Gastrointestinal: Yes: Normal Bowel Sounds, Soft. No: Distention, Tenderness Extremities: Yes: Other (L knee in brace) Edema: No Labs: CBC, BMP 06/26/17 07:02 06/26/17 07:02 Problem List - Problems (1) UTI (urinary tract infection) Assessment/Plan: -patient found to have ESBL in urine, sensitive to carbapenems -admitted to the hospital for IV antibiotics -ID following -on ertapenem Code(s): N39.0 - URINARY TRACT INFECTION, SITE NOT SPECIFIED (2) Anemia Assessment/Plan: -patient says has chronic history of anemia that periodically needs transfusion -transfuse 2 units today -recheck in am -transfuse as needed Code(s): D64.9 - ANEMIA, UNSPECIFIED Qualifiers: Other causes of anemia: acute posthemorrhagic (3) Diabetes mellitus Assessment/Plan: -diabetic diet -cover with SSI Code(s): E11.9 - TYPE 2 DIABETES MELLITUS WITHOUT COMPLICATIONS Qualifiers: Diabetes mellitus type: type 2 Diabetes mellitus complication status: without complication Diabetes mellitus fpc insulin use: without termite renewal inspector use Qualified Code(s): E11.9 - Type 2 diabetes mellitus without complications (4) Hypertension Assessment/Plan: -continue metoprolol and hydralazine Code(s): I10 - ESSENTIAL (PRIMARY) HYPERTENSION Qualifiers: Hypertension type: essential hypertension Qualified Code(s): I10 - Essential (primary) hypertension (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
[2017-06-26] MEDS: ATORVASTATIN CA 10 MG TABLET (FP) PO SCH (21:49)
[2017-06-26] MEDS: CYANOCOBALAMIN 1,000 MCG TABLET (FP) PO SCH (21:49)
[2017-06-26] MEDS ORDERED: DOXYCYCLINE HYCLATE 100 MG CAPSULE PO SCH (22:15)
[2017-06-26] MEDS: DOXYCYCLINE HYCLATE 100 MG CAPSULE PO SCH (23:17)
[2017-06-26] MEDS: MESALAMINE 800 MG TABLET.DR PO SCH (23:18)
[2017-06-27] MEDS ORDERED: FUROSEMIDE 40 MG/4 ML INJECTABLE VIAL IVPUSH ONE (06:44)
[2017-06-27] MEDS: HEPARIN NA (PORCINE) 5,000 UNITS/ML 1ML VIAL SQ SCH ×3 (07:05→18:00)
[2017-06-27] MEDS: MESALAMINE 800 MG TABLET.DR PO SCH ×2 (07:06→15:00)
[2017-06-27] MEDS: INSULIN SLIDING SCALE (NOVOLOG) 1 VIAL SQ SCH ×4 (07:49→22:02)
[2017-06-27] MEDS: hydrALAZINE HCL 10 MG TABLET PO SCH ×4 (07:49→22:03)
[2017-06-27] MEDS: FERROUS SO4 325 MG TABLET (FP) PO SCH ×3 (07:50→22:02)
[2017-06-27 08:02] LABS: BASOPHIL 1.2 % (0-2.0); EOSINOPHIL 4.6 % (0-4.5); MCH 30.6 pg (25.7-33.7); MCHC 33.5 g/dl (32.0-36.0); MEAN CELL VOLUME 91.5 fl (80-96); MEAN PLT VOLUME 8.9 fl (7.5-11.1); NEUTROPHILS 77.7 % (42.8-82.8); PLATELET COUNT 281 K/MM3 (134-434); RDW 16.2 % (11.6-15.6); WHITE BLOOD COUNT 12.7 K/mm3 (4.0-10.0)
[2017-06-27] MEDS: SODIUM CHLORIDE 1,000 ML IV SCH (08:02)
[2017-06-27 08:31] LABS: ANION GAP 9 (8-16); CALCIUM 9.3 mg/dL (8.5-10.1); CO2 23 mmol/L (21-32); CREATININE 1.1 mg/dL (0.55-1.02); GLUCOSE,RANDOM 180 mg/dL (74-106); MAGNESIUM 1.9 mg/dL (1.8-2.4); PHOSPHOROUS 3.7 mg/dL (2.5-4.9)
[2017-06-27] MEDS ORDERED: PT OWN MED DRAWER 7, Y5N ONE ×3 (08:38→22:03)
[2017-06-27 08:44] LABS: LDH 225 U/L (84-246); THYROID STIMULATING HORMONE 3.39 uIU/ml (0.358-3.74)
[2017-06-27] MEDS: DOXYCYCLINE HYCLATE 100 MG CAPSULE PO SCH ×2 (09:08→18:00)
[2017-06-27] MEDS: PANTOPRAZOLE 20 MG TABLET (FP) PO SCH (09:09)
[2017-06-27] MEDS: ASPIRIN 81 MG CHEWABLE TABLETS PO SCH (09:10)
[2017-06-27] MEDS: METOPROLOL TARTRATE 50 MG TABLET (FP) PO SCH (09:10)
[2017-06-27] MEDS: CHOLECALCIFEROL (VITAMIN D3) 1,000 UNIT TABLET (FP) PO SCH (09:10)
[2017-06-27] MEDS: ASCORBIC ACID 500 MG TABLET (FP) PO SCH ×2 (09:10→22:02)
[2017-06-27] MEDS: ERTAPENEM SODIUM 1 GM in SODIUM CHLORIDE 50 ML IVPB SCH (10:06)
[2017-06-27] MEDS ORDERED: INSULIN (NOVOLOG) ASPART 100 UNITS/ML 10ML VIAL ONE (12:14)
[2017-06-27] MEDS ORDERED: MESALAMINE 800 MG TABLET.DR PO SCH (13:15)
--- NOTE | 2017-06-27 13:15 | PN ---
Progress Note, Physician History of Present Illness: pt not happy and stated meds were not ordered the way she takes them - Current Medication List Current Medications: Active Medications Acetaminophen (Tylenol -) 650 mg PO Q4H PRN PRN Reason: FEVER OR PAIN Acetaminophen (Tylenol -) 325 mg PO Q6H PRN PRN Reason: PAIN Albuterol Sulfate (Ventolin Hfa Inhaler -) 1 puff IH Q4H PRN PRN Reason: sob Ascorbic Acid (Vitamin C -) 500 mg PO BID [facility] Aspirin (Asa -) 81 mg PO DAILY [facility] Last Admin: 06/27/17 09:10 Dose: 81 mg Atorvastatin Calcium (Lipitor -) 10 mg PO [facility] Last Admin: 06/26/17 21:49 Dose: 10 mg Cholecalciferol (Vitamin D3 -) 1,000 unit PO DAILY [facility] Last Admin: 06/27/17 09:10 Dose: 1,000 unit Cyanocobalamin (Vitamin B12 -) 1,000 mcg PO [facility] Last Admin: 06/26/17 21:49 Dose: 1,000 mcg Doxycycline Hyclate (Vibramycin -) 100 mg PO BID@,18 [facility] Last Admin: 06/27/17 09:08 Dose: 100 mg Ferrous Sulfate (Feosol -) 325 mg PO TID [facility] Last Admin: 06/27/17 07:50 Dose: Not Given Gemfibrozil (Lopid -) 600 mg PO DAILY@0700 [facility] Heparin Sodium (Porcine) (Heparin -) 5,000 unit SQ Q8H-IV [facility] Last Admin: 06/27/17 09:10 Dose: 5,000 unit Hydralazine HCl (Apresoline -) 10 mg PO TID [facility] Last Admin: 06/27/17 08:53 Dose: 10 mg Ertapenem 1 gm/ Sodium (Chloride) 50 mls @ 50 mls/hr IVPB DAILY [facility] PRN Reason: Protocol Last Admin: 06/27/17 10:06 Dose: 50 mls/hr Insulin Aspart (Novolog Vial Sliding Scale -) 1 vial SQ ACHS [facility] PRN Reason: Protocol Last Admin: 06/27/17 12:37 Dose: 2 units Lactobacillus Acidophilus (Bacid -) 1 tab PO DAILY [facility] Mesalamine (Asacol Hd -) 1,600 mg PO TID [facility] Last Admin: 06/27/17 07:06 Dose: Not Given Mesalamine (Asacol Hd -) 2,400 mg PO DAILY [facility] Metoprolol Tartrate (Lopressor -) 100 mg PO DAILY [facility] Last Admin: 06/27/17 09:10 Dose: 100 mg Oxycodone HCl (Roxicodone -) 5 mg PO Q6H PRN PRN Reason: PAIN Pantoprazole Sodium (Protonix -) 20 mg PO DAILY [facility] Last Admin: 06/27/17 09:09 Dose: 20 mg - Objective Vital Signs: Vital Signs Temperature 97.7 F 06/27/17 05:30 Pulse Rate 78 06/27/17 11:00 Respiratory Rate 18 06/27/17 11:00 Blood Pressure 128/58 06/27/17 11:00 O2 Sat by Pulse Oximetry (%) 98 06/26/17 21:00 Constitutional: Yes: No Distress HENT: Yes: Atraumatic Neck: Yes: Supple Cardiovascular: Yes: Regular Rate and Rhythm Respiratory: Yes: CTA Bilaterally Gastrointestinal: Yes: Normal Bowel Sounds Extremities: Yes: WNL Neurological: Yes: Alert, Oriented Labs: CBC, BMP 06/27/17 07:00 06/27/17 07:00 Problem List - Problems (1) UTI (urinary tract infection) Assessment/Plan: on iv abx id on board cxs noted Code(s): N39.0 - URINARY TRACT INFECTION, SITE NOT SPECIFIED (2) Diabetes mellitus Assessment/Plan: doing well on insulin and bgms Code(s): E11.9 - TYPE 2 DIABETES MELLITUS WITHOUT COMPLICATIONS Qualifiers: Diabetes mellitus type: type 2 Diabetes mellitus complication status: without complication Diabetes mellitus exterminator helper insulin use: without exterminator helper use Qualified Code(s): E11.9 - Type 2 diabetes mellitus without complications (3) Hypertension Assessment/Plan: on meds stable Code(s): I10 - ESSENTIAL (PRIMARY) HYPERTENSION Qualifiers: Hypertension type: essential hypertension Qualified Code(s): I10 - Essential (primary) hypertension (4) Ulcerative colitis Assessment/Plan: have adjusted her dose of asacol spoke to pharmacist ramiro about the right dose [phone]...[facility] Code(s): K51.90 - ULCERATIVE COLITIS, UNSPECIFIED, WITHOUT COMPLICATIONS (5) HLD (hyperlipidemia) Assessment/Plan: on meds started her on her gemfibrozil Code(s): E78.5 - HYPERLIPIDEMIA, UNSPECIFIED
--- NOTE | 2017-06-27 15:33 | PN ---
Progress Note, Physician History of Present Illness: Pt seen and examined. Chart/imaging/lab results reviewed. Pt states she feels well overall. Denies fever/chills/dysuria at this time - Current Medication List Current Medications: Active Medications Acetaminophen (Tylenol -) 650 mg PO Q4H PRN PRN Reason: FEVER OR PAIN Acetaminophen (Tylenol -) 325 mg PO Q6H PRN PRN Reason: PAIN Albuterol Sulfate (Ventolin Hfa Inhaler -) 1 puff IH Q4H PRN PRN Reason: sob Ascorbic Acid (Vitamin C -) 500 mg PO BID [facility] Aspirin (Asa -) 81 mg PO DAILY [facility] Last Admin: 06/27/17 09:10 Dose: 81 mg Atorvastatin Calcium (Lipitor -) 10 mg PO [facility] Last Admin: 06/26/17 21:49 Dose: 10 mg Cholecalciferol (Vitamin D3 -) 1,000 unit PO DAILY [facility] Last Admin: 06/27/17 09:10 Dose: 1,000 unit Cyanocobalamin (Vitamin B12 -) 1,000 mcg PO HS [facility] Last Admin: 06/26/17 21:49 Dose: 1,000 mcg Doxycycline Hyclate (Vibramycin -) 100 mg PO BID@10,18 [facility] Last Admin: 06/27/17 09:08 Dose: 100 mg Ferrous Sulfate (Feosol -) 325 mg PO TID [facility] Last Admin: 06/27/17 14:50 Dose: 325 mg Gemfibrozil (Lopid -) 600 mg PO DAILY@0700 [facility] Heparin Sodium (Porcine) (Heparin -) 5,000 unit SQ Q8H-IV [facility] Last Admin: 06/27/17 09:10 Dose: 5,000 unit Hydralazine HCl (Apresoline -) 10 mg PO TID [facility] Last Admin: 06/27/17 14:51 Dose: Not Given Ertapenem 1 gm/ Sodium (Chloride) 50 mls @ 50 mls/hr IVPB DAILY [facility] PRN Reason: Protocol Last Admin: 06/27/17 10:06 Dose: 50 mls/hr Insulin Aspart (Novolog Vial Sliding Scale -) 1 vial SQ ACHS [facility] PRN Reason: Protocol Last Admin: 06/27/17 12:37 Dose: 2 units Lactobacillus Acidophilus (Bacid -) 1 tab PO DAILY [facility] Mesalamine (Asacol Hd -) 2,400 mg PO DAILY [facility] Metoprolol Tartrate (Lopressor -) 100 mg PO DAILY [facility] Last Admin: 06/27/17 09:10 Dose: 100 mg Oxycodone HCl (Roxicodone -) 5 mg PO Q6H PRN PRN Reason: PAIN Pantoprazole Sodium (Protonix -) 20 mg PO DAILY [facility] Last Admin: 06/27/17 09:09 Dose: 20 mg - Objective Vital Signs: Vital Signs Temperature 97.7 F 06/27/17 05:30 Pulse Rate 78 06/27/17 11:00 Respiratory Rate 18 06/27/17 11:00 Blood Pressure 128/58 06/27/17 11:00 O2 Sat by Pulse Oximetry (%) 98 06/26/17 21:00 Constitutional: Yes: No Distress HENT: Yes: WNL Neck: Yes: Supple Cardiovascular: Yes: Regular Rate and Rhythm Respiratory: Yes: CTA Bilaterally Gastrointestinal: Yes: Normal Bowel Sounds, Soft Genitourinary: Yes: WNL Musculoskeletal: Yes: Other (Lt knee immobilizer) Wound/Incision: Yes: Clean/Dry Labs: CBC, BMP 06/27/17 07:00 06/27/17 07:00 Microbiology 06/25/17 17:30 Urine Culture - Preliminary Urine - Urine Clean Catch Lactose Fermenting Neg Bacilli 06/25/17 22:00 Blood Culture - Preliminary Blood - Peripheral Venous NO GROWTH OBTAINED AFTER 24 HOURS, INCUBATION TO CONTINUE FOR 4 DAYS. 06/25/17 22:00 Blood Culture - Preliminary Blood - Peripheral Venous NO GROWTH OBTAINED AFTER 24 HOURS, INCUBATION TO CONTINUE FOR 4 DAYS. Problem List - Problems (1) UTI (urinary tract infection) Code(s): N39.0 - URINARY TRACT INFECTION, SITE NOT SPECIFIED (2) Anemia Code(s): D64.9 - ANEMIA, UNSPECIFIED Qualifiers: Other causes of anemia: acute posthemorrhagic (3) Diabetes mellitus Code(s): E11.9 - TYPE 2 DIABETES MELLITUS WITHOUT COMPLICATIONS Qualifiers: Diabetes mellitus type: type 2 Diabetes mellitus complication status: without complication Diabetes mellitus registered dietetic technician insulin use: without registered dietetic technician use Qualified Code(s): E11.9 - Type 2 diabetes mellitus without complications (4) Status post revision of total replacement of left knee Code(s): Z96.652 - PRESENCE OF LEFT ARTIFICIAL KNEE JOINT Assessment/Plan UTI s/p b/L TKR Leukocytosis - wbc mildly elevated today - continue antibiotics - repeat cbc tomorrow - follow up urine culture isolate/sensitivities
[2017-06-27] MEDS: LACTOBACILLUS ACIDOPHILUS 1 EACH TAB (FP) PO SCH (18:00)
--- NOTE | 2017-06-27 18:09 | PN ---
Progress Note (short form) - Note Progress Note: PAtient seen and examined Denies any complaints Last Vital Signs Temp Pulse Resp BP Pulse Ox 98.7 F 79 16 127/67 98 06/27/17 15:43 06/27/17 15:43 06/27/17 15:43 06/27/17 15:43 06/26/17 21:00 Cor: RSR, No murmurs, No gallops Lungs: Clear to P&A Abd: Soft, Normal bowel sounds, No organomegaly Ext:No significant edema Skin: No rashes, Integument intact Abnormal Lab Results 06/27/17 06/27/17 06/27/17 07:00 07:00 07:00 WBC 12.7 H D RBC 3.37 L D Hgb 10.3 L D Hct 30.8 L D RDW 16.2 H Eosinophils % 4.6 H Retic Count 2.31 H D BUN 27 H Creatinine 1.1 H Random Glucose 180 H D Home Medication List Medication Instructions Recorded Confirmed Type Albuterol Sulfate [Proair 90 mcg IH Q4H PRN 06/25/17 06/25/17 History Respiclick] Ascorbate Calcium [Vitamin C] 500 mg PO DAILY 06/25/17 06/25/17 History Aspirin [ASA -] 81 mg PO DAILY 06/25/17 06/25/17 History Cholecalciferol (Vitamin D3) 1,000 unit PO DAILY 06/25/17 06/25/17 History [Vitamin D3] Cyanocobalamin (Vitamin B-12) 1,000 mcg PO HS 06/25/17 06/25/17 History [Vitamin B12] Doxycycline Monohydrate [Mondoxyne 100 mg PO BID 06/25/17 06/25/17 History Nl] Ferrous Sulfate 325 mg PO TID 06/25/17 06/25/17 History Furosemide 20 mg PO DAILY 06/25/17 06/25/17 History Gemfibrozil 600 mg PO HS 06/25/17 06/25/17 History Hydralazine HCl 10 mg PO TID 06/25/17 06/25/17 History Lansoprazole [Prevacid] 40 mg PO DAILY 06/25/17 06/25/17 History Mesalamine 4.8 gm PO DAILY 06/25/17 06/25/17 History Metoprolol Tartrate 100 mg PO DAILY 06/25/17 06/25/17 History Oxycodone HCl/Acetaminophen 2 tab PO PRN PRN 06/25/17 06/25/17 History [Percocet 5-325 mg Tablet] Repaglinide [Prandin] 1 mg PO TIDCM 06/25/17 06/25/17 History Simvastatin 20 mg PO HS 06/25/17 06/25/17 History Active Medications Generic Name Dose Route Start Last Admin Trade Name Freq PRN Reason Stop Dose Admin Acetaminophen 650 mg 06/25/17 18:17 Tylenol - PO Q4H PRN FEVER OR PAIN Acetaminophen 325 mg 06/25/17 20:48 Tylenol - PO Q6H PRN PAIN Albuterol Sulfate 1 puff 06/25/17 18:22 Ventolin Hfa Inhaler - IH Q4H PRN sob Ascorbic Acid 500 mg 06/27/17 22:00 Vitamin C - PO BID [facility] Aspirin 81 mg 06/26/17 10:00 06/27/17 09:10 Asa - PO 81 mg DAILY [facility] Administration Atorvastatin Calcium 10 mg 06/25/17 22:00 06/26/17 21:49 Lipitor - PO 10 mg HS [facility] Administration Cholecalciferol 1,000 unit 06/26/17 10:00 06/27/17 09:10 Vitamin D3 - PO 1,000 unit DAILY [facility] Administration Cyanocobalamin 1,000 mcg 06/25/17 22:00 06/26/17 21:49 Vitamin B12 - PO 1,000 mcg HS [facility] Administration Doxycycline Hyclate 100 mg 06/26/17 22:15 06/27/17 18:00 Vibramycin - PO 100 mg BID@ [facility] Administration Ferrous Sulfate 325 mg 06/25/17 22:00 06/27/17 14:50 Feosol - PO 325 mg TID [facility] Administration Gemfibrozil 600 mg 06/28/17 07:00 Lopid - PO DAILY@0700 [facility] Heparin Sodium (Porcine) 5,000 unit 06/26/17 02:00 06/27/17 18:00 Heparin - SQ 5,000 unit Q8H-IV [facility] Administration Hydralazine HCl 10 mg 06/25/17 22:00 06/27/17 14:51 Apresoline - PO Not Given TID [facility] Ertapenem 1 gm/ Sodium 50 mls @ 50 mls/hr 06/26/17 10:00 06/27/17 10:06 Chloride IVPB 50 mls/hr DAILY [facility] Administration Protocol Insulin Aspart 1 vial 06/25/17 22:00 06/27/17 17:31 Novolog Vial Sliding Scale - SQ Not Given ACHS [facility] Protocol Lactobacillus Acidophilus 1 tab 06/27/17 13:15 06/27/17 18:00 Bacid - PO 1 tab DAILY [facility] Administration Mesalamine 2,400 mg 06/27/17 13:15 Asacol Hd - PO DAILY [facility] Metoprolol Tartrate 100 mg 06/26/17 10:00 06/27/17 09:10 Lopressor - PO 100 mg DAILY [facility] Administration Oxycodone HCl 5 mg 06/25/17 20:48 Roxicodone - PO Q6H PRN PAIN Pantoprazole Sodium 20 mg 06/26/17 10:00 06/27/17 09:09 Protonix - PO 20 mg DAILY [facility] Administration A/P 77 y/o patient witharch 2017 told by [facility] of Fe++ deficiency. This was PRIOR to initial left knee replacement. Developed left patellar tear and fracture . In Jan, 2017 second knee replacement . Required transfusion of packed cells. Developed Staph infection requiring IV antibiotics for 6 weeks and has continued on oral antibiotics. Was on low dose coumadin and ASA with coumadin discontinued after 3 months post surgery. Review of prior records reveal a NC/NC anemia since November,. Previously as early as 2014had NC/NC anemia. In 01/12-- ferritin--253 Fe++/TIBC---54/229 FE++ sat-- 24% Haptoglobin-- 320 Retic-3.5% History of ulcerative colitis which has been quiescent. Has been on chronic Fe++ therapy , most recently raised from 2-3 pills/day. Had colonoscopy 2 years earlier and upper endscopy 2 yrs. ago has colonoscopy Q 2yrs. due to h/o ulcerative colitis check iron studies/ferritin/ESR/CRP on heparin [facility]
[2017-06-27] MEDS: ATORVASTATIN CA 10 MG TABLET (FP) PO SCH (22:02)
[2017-06-27] MEDS: CYANOCOBALAMIN 1,000 MCG TABLET (FP) PO SCH (22:02)
[2017-06-28] MEDS: HEPARIN NA (PORCINE) 5,000 UNITS/ML 1ML VIAL SQ SCH ×3 (01:52→17:51)
[2017-06-28] MEDS ORDERED: PT OWN MED DRAWER 7, Y5N ONE ×4 (06:10→20:59)
[2017-06-28] MEDS: FERROUS SO4 325 MG TABLET (FP) PO SCH ×3 (06:41→21:29)
[2017-06-28] MEDS: hydrALAZINE HCL 10 MG TABLET PO SCH ×3 (06:42→21:29)
[2017-06-28] MEDS: GEMFIBROZIL 600 MG TABLET (FP) PO SCH (06:42)
[2017-06-28] MEDS: INSULIN SLIDING SCALE (NOVOLOG) 1 VIAL SQ SCH ×4 (06:46→21:33)
[2017-06-28 07:17] LABS: ALBUMIN 3.4 g/dl (3.4-5.0); ANION GAP 10 (8-16); CO2 26 mmol/L (21-32); GLUCOSE,RANDOM 120 mg/dL (74-106)
[2017-06-28 07:20] LABS: ALK PHOS 83 U/L (45-117); BILIRUBIN,TOTAL 0.6 mg/dL (0.2-1.0); CREATININE 1.1 mg/dL (0.55-1.02); SGOT/AST 14 U/L (15-37); SGPT/ALT 14 U/L (12-78); TOT PROT 5.9 g/dl (6.4-8.2)
[2017-06-28 07:24] LABS: BASOPHIL 1.3 % (0-2.0); EOSINOPHIL 7.2 % (0-4.5); MCH 31.3 pg (25.7-33.7); MCHC 34.1 g/dl (32.0-36.0); MEAN CELL VOLUME 91.9 fl (80-96); MEAN PLT VOLUME 9.2 fl (7.5-11.1); NEUTROPHILS 68.6 % (42.8-82.8); PLATELET COUNT 228 K/MM3 (134-434); RDW 15.5 % (11.6-15.6); WHITE BLOOD COUNT 7.5 K/mm3 (4.0-10.0)
[2017-06-28] MEDS: ASCORBIC ACID 500 MG TABLET (FP) PO SCH ×2 (10:25→21:29)
[2017-06-28] MEDS: LACTOBACILLUS ACIDOPHILUS 1 EACH TAB (FP) PO SCH (10:25)
[2017-06-28] MEDS: CHOLECALCIFEROL (VITAMIN D3) 1,000 UNIT TABLET (FP) PO SCH (10:25)
[2017-06-28] MEDS: ASPIRIN 81 MG CHEWABLE TABLETS PO SCH (10:25)
[2017-06-28] MEDS: DOXYCYCLINE HYCLATE 100 MG CAPSULE PO SCH ×2 (10:25→17:51)
[2017-06-28] MEDS: METOPROLOL TARTRATE 50 MG TABLET (FP) PO SCH (10:25)
[2017-06-28] MEDS: PANTOPRAZOLE 20 MG TABLET (FP) PO SCH (10:26)
[2017-06-28] MEDS: ERTAPENEM SODIUM 1 GM in SODIUM CHLORIDE 50 ML IVPB SCH (10:26)
--- NOTE | 2017-06-28 13:07 | PN ---
Progress Note, Physician History of Present Illness: pt doing well still asacol dose she does not want to take as prescribed by dr phan the kind of asacol they have in hospital can keira be prescrobed the way dr phan did requested patient to bring her own meds - Current Medication List Current Medications: Active Medications Acetaminophen (Tylenol -) 650 mg PO Q4H PRN PRN Reason: FEVER OR PAIN Acetaminophen (Tylenol -) 325 mg PO Q6H PRN PRN Reason: PAIN Albuterol Sulfate (Ventolin Hfa Inhaler -) 1 puff IH Q4H PRN PRN Reason: sob Ascorbic Acid (Vitamin C -) 500 mg PO BID [facility] Last Admin: 06/28/17 10:25 Dose: 500 mg Aspirin (Asa -) 81 mg PO DAILY [facility] Last Admin: 06/28/17 10:25 Dose: 81 mg Atorvastatin Calcium (Lipitor -) 10 mg PO HS [facility] Last Admin: 06/27/17 22:02 Dose: 10 mg Cholecalciferol (Vitamin D3 -) 1,000 unit PO DAILY [facility] Last Admin: 06/28/17 10:25 Dose: 1,000 unit Cyanocobalamin (Vitamin B12 -) 1,000 mcg PO HS [facility] Last Admin: 06/27/17 22:02 Dose: 1,000 mcg Doxycycline Hyclate (Vibramycin -) 100 mg PO BID@18 [facility] Last Admin: 06/28/17 10:25 Dose: 100 mg Ferrous Sulfate (Feosol -) 325 mg PO TID [facility] Last Admin: 06/28/17 06:41 Dose: 325 mg Gemfibrozil (Lopid -) 600 mg PO DAILY@0700 [facility] Last Admin: 06/28/17 06:42 Dose: 600 mg Heparin Sodium (Porcine) (Heparin -) 5,000 unit SQ Q8H-IV [facility] Last Admin: 06/28/17 10:26 Dose: 5,000 unit Hydralazine HCl (Apresoline -) 10 mg PO TID [facility] Last Admin: 06/28/17 06:42 Dose: 10 mg Ertapenem 1 gm/ Sodium (Chloride) 50 mls @ 50 mls/hr IVPB DAILY [facility] PRN Reason: Protocol Last Admin: 06/28/17 10:26 Dose: 50 mls/hr Insulin Aspart (Novolog Vial Sliding Scale -) 1 vial SQ ACHS [facility] PRN Reason: Protocol Last Admin: 06/28/17 11:47 Dose: 2 units Lactobacillus Acidophilus (Bacid -) 1 tab PO DAILY [facility] Last Admin: 06/28/17 10:25 Dose: 1 tab Metoprolol Tartrate (Lopressor -) 100 mg PO DAILY [facility] Last Admin: 06/28/17 10:25 Dose: 100 mg Oxycodone HCl (Roxicodone -) 5 mg PO Q6H PRN PRN Reason: PAIN Pantoprazole Sodium (Protonix -) 20 mg PO DAILY [facility] Last Admin: 06/28/17 10:26 Dose: 20 mg - Objective Vital Signs: Vital Signs Temperature 98.2 F 06/28/17 07:36 Pulse Rate 90 06/28/17 10:00 Respiratory Rate 18 06/28/17 10:00 Blood Pressure 122/57 06/28/17 10:00 O2 Sat by Pulse Oximetry (%) 98 06/26/17 21:00 Constitutional: Yes: No Distress HENT: Yes: Atraumatic Neck: Yes: Supple Cardiovascular: Yes: Regular Rate and Rhythm Respiratory: Yes: CTA Bilaterally Gastrointestinal: Yes: Normal Bowel Sounds Extremities: Yes: WNL Neurological: Yes: Alert, Oriented Labs: CBC, BMP 06/28/17 06:00 06/28/17 06:00 Problem List - Problems (1) UTI (urinary tract infection) Assessment/Plan: on iv abx id on board cxs noted Code(s): N39.0 - URINARY TRACT INFECTION, SITE NOT SPECIFIED (2) Diabetes mellitus Assessment/Plan: doing well on insulin and bgms Code(s): E11.9 - TYPE 2 DIABETES MELLITUS WITHOUT COMPLICATIONS Qualifiers: Diabetes mellitus type: type 2 Diabetes mellitus complication status: without complication Diabetes mellitus [facility] insulin use: without [facility] use Qualified Code(s): E11.9 - Type 2 diabetes mellitus without complications; E11.9 - Type 2 diabetes mellitus without complications; E11.9 - Type 2 diabetes mellitus without complications; E11.9 - Type 2 diabetes mellitus without complications (3) Hypertension Assessment/Plan: on meds stable Code(s): I10 - ESSENTIAL (PRIMARY) HYPERTENSION Qualifiers: Hypertension type: essential hypertension Qualified Code(s): I10 - Essential (primary) hypertension; I10 - Essential (primary) hypertension; I10 - Essential (primary) hypertension (4) Ulcerative colitis Assessment/Plan: requested pt to bring her own meds she is refusing to take meds the way it is prescribed in hosp, i told her that we have different formulation of asacol in hosp Code(s): K51.90 - ULCERATIVE COLITIS, UNSPECIFIED, WITHOUT COMPLICATIONS (5) HLD (hyperlipidemia) Assessment/Plan: on meds started her on her gemfibrozil Code(s): E78.5 - HYPERLIPIDEMIA, UNSPECIFIED Assessment/Plan covering for dr phan
--- NOTE | 2017-06-28 13:20 | PN ---
Progress Note, Physician History of Present Illness: Patient states she feels well. Denies dysuria, suprapubic pain, or flank tenderness. - Current Medication List Current Medications: Active Medications Acetaminophen (Tylenol -) 650 mg PO Q4H PRN PRN Reason: FEVER OR PAIN Acetaminophen (Tylenol -) 325 mg PO Q6H PRN PRN Reason: PAIN Albuterol Sulfate (Ventolin Hfa Inhaler -) 1 puff IH Q4H PRN PRN Reason: sob Ascorbic Acid (Vitamin C -) 500 mg PO BID [facility] Last Admin: 06/28/17 10:25 Dose: 500 mg Aspirin (Asa -) 81 mg PO DAILY [facility] Last Admin: 06/28/17 10:25 Dose: 81 mg Atorvastatin Calcium (Lipitor -) 10 mg PO HS [facility] Last Admin: 06/27/17 22:02 Dose: 10 mg Cholecalciferol (Vitamin D3 -) 1,000 unit PO DAILY [facility] Last Admin: 06/28/17 10:25 Dose: 1,000 unit Cyanocobalamin (Vitamin B12 -) 1,000 mcg PO HS [facility] Last Admin: 06/27/17 22:02 Dose: 1,000 mcg Doxycycline Hyclate (Vibramycin -) 100 mg PO BID@10,18 [facility] Last Admin: 06/28/17 10:25 Dose: 100 mg Ferrous Sulfate (Feosol -) 325 mg PO TID [facility] Last Admin: 06/28/17 06:41 Dose: 325 mg Gemfibrozil (Lopid -) 600 mg PO DAILY@0700 [facility] Last Admin: 06/28/17 06:42 Dose: 600 mg Heparin Sodium (Porcine) (Heparin -) 5,000 unit SQ Q8H-IV [facility] Last Admin: 06/28/17 10:26 Dose: 5,000 unit Hydralazine HCl (Apresoline -) 10 mg PO TID [facility] Last Admin: 06/28/17 06:42 Dose: 10 mg Ertapenem 1 gm/ Sodium (Chloride) 50 mls @ 50 mls/hr IVPB DAILY [facility] PRN Reason: Protocol Last Admin: 06/28/17 10:26 Dose: 50 mls/hr Insulin Aspart (Novolog Vial Sliding Scale -) 1 vial SQ ACHS [facility] PRN Reason: Protocol Last Admin: 06/28/17 11:47 Dose: 2 units Lactobacillus Acidophilus (Bacid -) 1 tab PO DAILY [facility] Last Admin: 06/28/17 10:25 Dose: 1 tab Metoprolol Tartrate (Lopressor -) 100 mg PO DAILY [facility] Last Admin: 06/28/17 10:25 Dose: 100 mg Oxycodone HCl (Roxicodone -) 5 mg PO Q6H PRN PRN Reason: PAIN Pantoprazole Sodium (Protonix -) 20 mg PO DAILY [facility] Last Admin: 06/28/17 10:26 Dose: 20 mg - Objective Vital Signs: Vital Signs Temperature 98.2 F 06/28/17 07:36 Pulse Rate 90 06/28/17 10:00 Respiratory Rate 18 06/28/17 10:00 Blood Pressure 122/57 06/28/17 10:00 O2 Sat by Pulse Oximetry (%) 98 06/26/17 21:00 Constitutional: Yes: No Distress, Calm HENT: Yes: WNL Neck: Yes: Supple Cardiovascular: Yes: Regular Rate and Rhythm Respiratory: Yes: CTA Bilaterally Gastrointestinal: Yes: Normal Bowel Sounds, Soft Genitourinary: Yes: WNL Extremities: Yes: Other (b/l TKR) Integumentary: Yes: WNL Neurological: Yes: Alert Psychiatric: Yes: WNL Labs: CBC, BMP 06/28/17 06:00 06/28/17 06:00 Problem List - Problems (1) UTI (urinary tract infection) Code(s): N39.0 - URINARY TRACT INFECTION, SITE NOT SPECIFIED (2) Anemia Code(s): D64.9 - ANEMIA, UNSPECIFIED Qualifiers: Other causes of anemia: acute posthemorrhagic (3) Diabetes mellitus Code(s): E11.9 - TYPE 2 DIABETES MELLITUS WITHOUT COMPLICATIONS Qualifiers: Diabetes mellitus type: type 2 Diabetes mellitus complication status: without complication Diabetes mellitus detention insulin use: without detention use Qualified Code(s): E11.9 - Type 2 diabetes mellitus without complications; E11.9 - Type 2 diabetes mellitus without complications; E11.9 - Type 2 diabetes mellitus without complications; E11.9 - Type 2 diabetes mellitus without complications (4) Status post revision of total replacement of left knee Code(s): Z96.652 - PRESENCE OF LEFT ARTIFICIAL KNEE JOINT Assessment/Plan UTI ESBL + E. Coli s/p b/L TKR Leukocytosis - wbc normal today - continue current antibiotics, recommend 10 days total of Ertapenem - patient currently stable
[2017-06-28] MEDS: ATORVASTATIN CA 10 MG TABLET (FP) PO SCH (21:29)
[2017-06-28] MEDS: CYANOCOBALAMIN 1,000 MCG TABLET (FP) PO SCH (21:29)
[2017-06-28] MEDS: MESALAMINE 800 MG TABLET.DR PO SCH (21:30)
[2017-06-29] MEDS: HEPARIN NA (PORCINE) 5,000 UNITS/ML 1ML VIAL SQ SCH ×3 (02:08→18:05)
[2017-06-29] MEDS ORDERED: PT OWN MED DRAWER 7, Y5N ONE ×6 (05:50→21:03)
[2017-06-29 06:06] LABS: SERUM IRON 49 ug/dL (27-139); TOTAL IRON BINDING CAPACITY 239 ug/dL (250-450); UIBC 190 ug/dL (118-369)
[2017-06-29] MEDS: INSULIN SLIDING SCALE (NOVOLOG) 1 VIAL SQ SCH ×4 (06:16→21:31)
[2017-06-29] MEDS: GEMFIBROZIL 600 MG TABLET (FP) PO SCH ×2 (06:18→21:24)
[2017-06-29] MEDS: FERROUS SO4 325 MG TABLET (FP) PO SCH ×3 (06:18→21:30)
[2017-06-29] MEDS: hydrALAZINE HCL 10 MG TABLET PO SCH ×3 (06:18→21:30)
[2017-06-29] MEDS: MESALAMINE 800 MG TABLET.DR PO SCH ×5 (08:29→21:31)
[2017-06-29] MEDS: ERTAPENEM SODIUM 1 GM in SODIUM CHLORIDE 50 ML IVPB SCH (10:50)
[2017-06-29] MEDS: ASCORBIC ACID 500 MG TABLET (FP) PO SCH ×2 (10:51→21:30)
[2017-06-29] MEDS: PANTOPRAZOLE 20 MG TABLET (FP) PO SCH (10:51)
[2017-06-29] MEDS: ASPIRIN 81 MG CHEWABLE TABLETS PO SCH (10:51)
[2017-06-29] MEDS: DOXYCYCLINE HYCLATE 100 MG CAPSULE PO SCH ×2 (10:51→18:05)
[2017-06-29] MEDS: METOPROLOL TARTRATE 50 MG TABLET (FP) PO SCH (10:51)
[2017-06-29] MEDS: CHOLECALCIFEROL (VITAMIN D3) 1,000 UNIT TABLET (FP) PO SCH (10:51)
[2017-06-29] MEDS: LACTOBACILLUS ACIDOPHILUS 1 EACH TAB (FP) PO SCH (10:51)
--- NOTE | 2017-06-29 11:13 | PN ---
Progress Note, Physician Chief Complaint: Ms Haile is without complaint. Says she feels fine. Denies cp, sob, n/v. - Current Medication List Current Medications: Active Medications Acetaminophen (Tylenol -) 650 mg PO Q4H PRN PRN Reason: FEVER OR PAIN Acetaminophen (Tylenol -) 325 mg PO Q6H PRN PRN Reason: PAIN Albuterol Sulfate (Ventolin Hfa Inhaler -) 1 puff IH Q4H PRN PRN Reason: sob Ascorbic Acid (Vitamin C -) 500 mg PO BID [facility] Last Admin: 06/29/17 10:51 Dose: 500 mg Aspirin (Asa -) 81 mg PO DAILY [facility] Last Admin: 06/29/17 10:51 Dose: 81 mg Atorvastatin Calcium (Lipitor -) 10 mg PO HS [facility] Last Admin: 06/28/17 21:29 Dose: 10 mg Cholecalciferol (Vitamin D3 -) 1,000 unit PO DAILY [facility] Last Admin: 06/29/17 10:51 Dose: 1,000 unit Cyanocobalamin (Vitamin B12 -) 1,000 mcg PO HS [facility] Last Admin: 06/28/17 21:29 Dose: 1,000 mcg Doxycycline Hyclate (Vibramycin -) 100 mg PO BID@10,18 [facility] Last Admin: 06/29/17 10:51 Dose: 100 mg Ferrous Sulfate (Feosol -) 325 mg PO TID [facility] Last Admin: 06/29/17 06:18 Dose: 325 mg Gemfibrozil (Lopid -) 600 mg PO DAILY@2100 [facility] Heparin Sodium (Porcine) (Heparin -) 5,000 unit SQ Q8H-IV [facility] Last Admin: 06/29/17 10:50 Dose: 5,000 unit Hydralazine HCl (Apresoline -) 10 mg PO TID [facility] Last Admin: 06/29/17 06:18 Dose: 10 mg Ertapenem 1 gm/ Sodium (Chloride) 50 mls @ 50 mls/hr IVPB DAILY [facility] PRN Reason: Protocol Last Admin: 06/29/17 10:50 Dose: 50 mls/hr Insulin Aspart (Novolog Vial Sliding Scale -) 1 vial SQ ACHS [facility] PRN Reason: Protocol Last Admin: 06/29/17 06:16 Dose: Not Given Lactobacillus Acidophilus (Bacid -) 2 tab PO DAILY [facility] Mesalamine (Asacol Hd -) 1,600 mg PO TID [facility] Last Admin: 06/29/17 08:39 Dose: Not Given Metoprolol Tartrate (Lopressor -) 100 mg PO DAILY [facility] Last Admin: 06/29/17 10:51 Dose: 100 mg Pantoprazole Sodium (Protonix -) 20 mg PO DAILY [facility] Last Admin: 06/29/17 10:51 Dose: 20 mg - Objective Vital Signs: Vital Signs Temperature 36.5 C 06/29/17 06:56 Pulse Rate 91 H 06/29/17 06:56 Respiratory Rate 20 06/29/17 06:56 Blood Pressure 142/70 06/29/17 06:56 O2 Sat by Pulse Oximetry (%) 98 06/28/17 21:00 Constitutional: Yes: No Distress, Calm, Obese Cardiovascular: Yes: Regular Rate and Rhythm. No: Gallop, Murmur, Rub Respiratory: Yes: Regular, CTA Bilaterally. No: Rales, Rhonchi, Wheezes Gastrointestinal: Yes: Normal Bowel Sounds, Soft. No: Distention, Tenderness Extremities: Yes: Other (L knee in brace) Edema: No Labs: CBC, BMP 06/28/17 06:00 06/28/17 06:00 Problem List - Problems (1) UTI (urinary tract infection) Code(s): N39.0 - URINARY TRACT INFECTION, SITE NOT SPECIFIED (2) Anemia Code(s): D64.9 - ANEMIA, UNSPECIFIED Qualifiers: Other causes of anemia: acute posthemorrhagic (3) Diabetes mellitus Code(s): E11.9 - TYPE 2 DIABETES MELLITUS WITHOUT COMPLICATIONS Qualifiers: Diabetes mellitus type: type 2 Diabetes mellitus complication status: without complication Diabetes mellitus intermodal customer service insulin use: without intermodal customer service use Qualified Code(s): E11.9 - Type 2 diabetes mellitus without complications; E11.9 - Type 2 diabetes mellitus without complications; E11.9 - Type 2 diabetes mellitus without complications; E11.9 - Type 2 diabetes mellitus without complications (4) Hypertension Code(s): I10 - ESSENTIAL (PRIMARY) HYPERTENSION Qualifiers: Hypertension type: essential hypertension Qualified Code(s): I10 - Essential (primary) hypertension; I10 - Essential (primary) hypertension; I10 - Essential (primary) hypertension (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 Code(s): Z96.652 - PRESENCE OF LEFT ARTIFICIAL KNEE JOINT (6) Ulcerative colitis Code(s): K51.90 - ULCERATIVE COLITIS, UNSPECIFIED, WITHOUT COMPLICATIONS Assessment/Plan (1) UTI (urinary tract infection) Assessment/Plan: -patient found to have ESBL in urine, sensitive to carbapenems -ID following -continue ertapenem, day 5/10 -? if can have PICC line placed and finish course at home, will d/w ID Code(s): N39.0 - URINARY TRACT INFECTION, SITE NOT SPECIFIED (2) Anemia Assessment/Plan: -s/p 2 units -recheck today Code(s): D64.9 - ANEMIA, UNSPECIFIED Qualifiers: Other causes of anemia: acute posthemorrhagic (3) Diabetes mellitus Assessment/Plan: -diabetic diet -cover with SSI Code(s): E11.9 - TYPE 2 DIABETES MELLITUS WITHOUT COMPLICATIONS Qualifiers: Diabetes mellitus type: type 2 Diabetes mellitus complication status: without complication Diabetes mellitus chcf insulin use: without intermodal customer service use Qualified Code(s): E11.9 - Type 2 diabetes mellitus without complications (4) Hypertension Assessment/Plan: -continue metoprolol and hydralazine Code(s): I10 - ESSENTIAL (PRIMARY) HYPERTENSION Qualifiers: Hypertension type: essential hypertension Qualified Code(s): I10 - Essential (primary) hypertension (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 Disposition -possible discharge tomorrow on home antibiotics
--- NOTE | 2017-06-29 13:09 | PN ---
Progress Note, Physician History of Present Illness: doing well no issues - Current Medication List Current Medications: Active Medications Acetaminophen (Tylenol -) 650 mg PO Q4H PRN PRN Reason: FEVER OR PAIN Acetaminophen (Tylenol -) 325 mg PO Q6H PRN PRN Reason: PAIN Albuterol Sulfate (Ventolin Hfa Inhaler -) 1 puff IH Q4H PRN PRN Reason: sob Ascorbic Acid (Vitamin C -) 500 mg PO BID [facility] Last Admin: 06/29/17 10:51 Dose: 500 mg Aspirin (Asa -) 81 mg PO DAILY [facility] Last Admin: 06/29/17 10:51 Dose: 81 mg Atorvastatin Calcium (Lipitor -) 10 mg PO [facility] Last Admin: 06/28/17 21:29 Dose: 10 mg Cholecalciferol (Vitamin D3 -) 1,000 unit PO DAILY [facility] Last Admin: 06/29/17 10:51 Dose: 1,000 unit Cyanocobalamin (Vitamin B12 -) 1,000 mcg PO [facility] Last Admin: 06/28/17 21:29 Dose: 1,000 mcg Doxycycline Hyclate (Vibramycin -) 100 mg PO BID@18 [facility] Last Admin: 06/29/17 10:51 Dose: 100 mg Ferrous Sulfate (Feosol -) 325 mg PO TID [facility] Last Admin: 06/29/17 06:18 Dose: 325 mg Gemfibrozil (Lopid -) 600 mg PO DAILY@2100 [facility] Heparin Sodium (Porcine) (Heparin -) 5,000 unit SQ Q8H-IV [facility] Last Admin: 06/29/17 10:50 Dose: 5,000 unit Hydralazine HCl (Apresoline -) 10 mg PO TID [facility] Last Admin: 06/29/17 06:18 Dose: 10 mg Ertapenem 1 gm/ Sodium (Chloride) 50 mls @ 50 mls/hr IVPB DAILY [facility] PRN Reason: Protocol Last Admin: 06/29/17 10:50 Dose: 50 mls/hr Insulin Aspart (Novolog Vial Sliding Scale -) 1 vial SQ ACHS [facility] PRN Reason: Protocol Last Admin: 06/29/17 12:18 Dose: Not Given Lactobacillus Acidophilus (Bacid -) 2 tab PO DAILY [facility] Mesalamine (Asacol Hd -) 1,600 mg PO TID [facility] Last Admin: 06/29/17 08:39 Dose: Not Given Metoprolol Tartrate (Lopressor -) 100 mg PO DAILY [facility] Last Admin: 06/29/17 10:51 Dose: 100 mg Pantoprazole Sodium (Protonix -) 20 mg PO DAILY [facility] Last Admin: 06/29/17 10:51 Dose: 20 mg - Objective Vital Signs: Vital Signs Temperature 98.0 F 06/29/17 10:00 Pulse Rate 76 06/29/17 10:00 Respiratory Rate 18 06/29/17 10:00 Blood Pressure 136/72 06/29/17 10:00 O2 Sat by Pulse Oximetry (%) 98 06/28/17 21:00 Constitutional: Yes: No Distress, Calm Eyes: Yes: Conjunctiva Clear Cardiovascular: Yes: Regular Rate and Rhythm Respiratory: Yes: Regular, CTA Bilaterally Gastrointestinal: Yes: Normal Bowel Sounds, Soft Musculoskeletal: Yes: WNL Extremities: Yes: Other Neurological: Yes: Alert, Oriented Psychiatric: Yes: Alert, Oriented Labs: CBC, BMP 06/28/17 06:00 06/28/17 06:00 Assessment/Plan anemia esbl uti plan continue ertapenam cx reports noted 14 days total rest as per primary team
[2017-06-29 13:30] LABS: EOSINOPHIL 7.6 % (0-4.5); MCH 30.9 pg (25.7-33.7); MCHC 33.4 g/dl (32.0-36.0); MEAN CELL VOLUME 92.5 fl (80-96); PLATELET COUNT 254 K/MM3 (134-434); RDW 15.7 % (11.6-15.6); WHITE BLOOD COUNT 7.3 K/mm3 (4.0-10.0)
[2017-06-29 13:57] LABS: ANION GAP 11 (8-16); CO2 24 mmol/L (21-32); GLUCOSE,RANDOM 142 mg/dL (74-106); MAGNESIUM 1.9 mg/dL (1.8-2.4); PHOSPHOROUS 3.6 mg/dL (2.5-4.9)
[2017-06-29] MEDS: ATORVASTATIN CA 10 MG TABLET (FP) PO SCH (21:31)
[2017-06-29] MEDS: CYANOCOBALAMIN 1,000 MCG TABLET (FP) PO SCH (21:31)
[2017-06-30 00:06] LABS: A/G RATIO 1.3 (0.7-1.7); ALBUMIN 3.9 g/dL (2.9-4.4); ALPHA-1-GLOBULIN 0.3 g/dL (0.0-0.4); GAMMA GLOBULIN 0.7 g/dL (0.4-1.8); GLOBULIN, TOTAL 3.1 g/dL (2.2-3.9); M-SPIKE Not Observed g/dL (Not Observed)
[2017-06-30] MEDS: HEPARIN NA (PORCINE) 5,000 UNITS/ML 1ML VIAL SQ SCH ×3 (02:16→17:28)
[2017-06-30] MEDS: MESALAMINE 800 MG TABLET.DR PO SCH ×4 (06:21→22:39)
[2017-06-30] MEDS: FERROUS SO4 325 MG TABLET (FP) PO SCH ×3 (06:28→22:39)
[2017-06-30] MEDS: hydrALAZINE HCL 50 MG TABLET (FP) PO SCH ×3 (06:28→22:40)
[2017-06-30] MEDS: INSULIN SLIDING SCALE (NOVOLOG) 1 VIAL SQ SCH ×4 (06:31→23:08)
[2017-06-30 07:38] LABS: BASOPHIL 1.8 % (0-2.0); EOSINOPHIL 7.7 % (0-4.5); MCH 30.8 pg (25.7-33.7); MCHC 33.3 g/dl (32.0-36.0); MEAN CELL VOLUME 92.4 fl (80-96); MEAN PLT VOLUME 9.2 fl (7.5-11.1); NEUTROPHILS 62.3 % (42.8-82.8); PLATELET COUNT 202 K/MM3 (134-434); RDW 15.4 % (11.6-15.6); WHITE BLOOD COUNT 5.5 K/mm3 (4.0-10.0)
[2017-06-30 07:54] LABS: ANION GAP 7 (8-16); CALCIUM 8.8 mg/dL (8.5-10.1); CO2 25 mmol/L (21-32); GLUCOSE,RANDOM 101 mg/dL (74-106); MAGNESIUM 1.9 mg/dL (1.8-2.4); PHOSPHOROUS 3.9 mg/dL (2.5-4.9)
[2017-06-30] MEDS ORDERED: PICC LINE 8 ML FLUSH PROTOCOL IVPUSH PRN (09:19)
[2017-06-30] MEDS: DOXYCYCLINE HYCLATE 100 MG CAPSULE PO SCH ×2 (09:52→17:28)
[2017-06-30] MEDS: PANTOPRAZOLE 20 MG TABLET (FP) PO SCH (09:52)
[2017-06-30] MEDS: ASPIRIN 81 MG CHEWABLE TABLETS PO SCH (09:52)
[2017-06-30] MEDS: LACTOBACILLUS ACIDOPHILUS 1 EACH TAB (FP) PO SCH (09:52)
[2017-06-30] MEDS: METOPROLOL TARTRATE 50 MG TABLET (FP) PO SCH (09:52)
[2017-06-30] MEDS: CHOLECALCIFEROL (VITAMIN D3) 1,000 UNIT TABLET (FP) PO SCH (09:53)
[2017-06-30] MEDS: ASCORBIC ACID 500 MG TABLET (FP) PO SCH ×2 (09:53→22:40)
[2017-06-30] MEDS: ERTAPENEM SODIUM 1 GM in SODIUM CHLORIDE 50 ML IVPB SCH (09:55)
[2017-06-30] MEDS ORDERED: INSULIN (NOVOLOG) ASPART 100 UNITS/ML 10ML VIAL ONE ×2 (12:00→17:16)
--- NOTE | 2017-06-30 12:32 | PN ---
Progress Note, Physician Chief Complaint: Ms Haile is without complaint. Says she feels fine. Denies cp, sob, n/v. - Current Medication List Current Medications: Active Medications Acetaminophen (Tylenol -) 650 mg PO Q4H PRN PRN Reason: FEVER OR PAIN Acetaminophen (Tylenol -) 325 mg PO Q6H PRN PRN Reason: PAIN Albuterol Sulfate (Ventolin Hfa Inhaler -) 1 puff IH Q4H PRN PRN Reason: sob Ascorbic Acid (Vitamin C -) 500 mg PO BID [facility] Last Admin: 06/30/17 09:53 Dose: 500 mg Aspirin (Asa -) 81 mg PO DAILY [facility] Last Admin: 06/30/17 09:52 Dose: 81 mg Atorvastatin Calcium (Lipitor -) 10 mg PO HS [facility] Last Admin: 06/29/17 21:31 Dose: 10 mg Cholecalciferol (Vitamin D3 -) 1,000 unit PO DAILY [facility] Last Admin: 06/30/17 09:53 Dose: 1,000 unit Cyanocobalamin (Vitamin B12 -) 1,000 mcg PO HS [facility] Last Admin: 06/29/17 21:31 Dose: 1,000 mcg Doxycycline Hyclate (Vibramycin -) 100 mg PO BID@10,18 [facility] Last Admin: 06/30/17 09:52 Dose: 100 mg Ferrous Sulfate (Feosol -) 325 mg PO TID [facility] Last Admin: 06/30/17 06:28 Dose: 325 mg Gemfibrozil (Lopid -) 600 mg PO DAILY@2100 [facility] Last Admin: 06/29/17 21:24 Dose: Not Given Heparin Sodium (Porcine) (Heparin -) 5,000 unit SQ Q8H-IV [facility] Last Admin: 06/30/17 10:23 Dose: 5,000 unit Hydralazine HCl (Apresoline -) 50 mg PO TID [facility] Last Admin: 06/30/17 06:28 Dose: 50 mg IV Flush (Picc Line Flush) 8 ml IVPUSH PRN PRN PRN Reason: Protocol Ertapenem 1 gm/ Sodium (Chloride) 50 mls @ 50 mls/hr IVPB DAILY [facility] PRN Reason: Protocol Last Admin: 06/30/17 09:55 Dose: 50 mls/hr Insulin Aspart (Novolog Vial Sliding Scale -) 1 vial SQ ACHS [facility] PRN Reason: Protocol Last Admin: 06/30/17 11:52 Dose: 2 units Lactobacillus Acidophilus (Bacid -) 2 tab PO DAILY [facility] Last Admin: 06/30/17 09:52 Dose: 2 tab Mesalamine (Asacol Hd -) 1,600 mg PO TID [facility] Last Admin: 06/30/17 09:53 Dose: 1,600 mg Metoprolol Tartrate (Lopressor -) 100 mg PO DAILY [facility] Last Admin: 06/30/17 09:52 Dose: 100 mg Pantoprazole Sodium (Protonix -) 20 mg PO DAILY [facility] Last Admin: 06/30/17 09:52 Dose: 20 mg - Objective Vital Signs: Vital Signs Temperature 36.5 C 06/30/17 06:42 Pulse Rate 83 06/30/17 08:30 Respiratory Rate 20 06/30/17 08:30 Blood Pressure 144/74 06/30/17 08:30 O2 Sat by Pulse Oximetry (%) 97 06/30/17 09:00 Constitutional: Yes: No Distress, Calm, Obese Cardiovascular: Yes: Regular Rate and Rhythm. No: Gallop, Murmur, Rub Respiratory: Yes: Regular, CTA Bilaterally. No: Rales, Rhonchi, Wheezes Gastrointestinal: Yes: Normal Bowel Sounds, Soft. No: Distention, Tenderness Extremities: Yes: Other (L knee in brace) Edema: No Labs: CBC, BMP 06/30/17 06:30 06/30/17 06:30 Problem List - Problems (1) UTI (urinary tract infection) Code(s): N39.0 - URINARY TRACT INFECTION, SITE NOT SPECIFIED (2) Anemia Code(s): D64.9 - ANEMIA, UNSPECIFIED Qualifiers: Other causes of anemia: acute posthemorrhagic (3) Diabetes mellitus Code(s): E11.9 - TYPE 2 DIABETES MELLITUS WITHOUT COMPLICATIONS Qualifiers: Diabetes mellitus type: type 2 Diabetes mellitus complication status: without complication Diabetes mellitus assisted insulin use: without core laying machine operator use Qualified Code(s): E11.9 - Type 2 diabetes mellitus without complications; E11.9 - Type 2 diabetes mellitus without complications; E11.9 - Type 2 diabetes mellitus without complications; E11.9 - Type 2 diabetes mellitus without complications (4) Hypertension Code(s): I10 - ESSENTIAL (PRIMARY) HYPERTENSION Qualifiers: Hypertension type: essential hypertension Qualified Code(s): I10 - Essential (primary) hypertension; I10 - Essential (primary) hypertension; I10 - Essential (primary) hypertension (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 Code(s): Z96.652 - PRESENCE OF LEFT ARTIFICIAL KNEE JOINT (6) Ulcerative colitis Code(s): K51.90 - ULCERATIVE COLITIS, UNSPECIFIED, WITHOUT COMPLICATIONS Assessment/Plan (1) UTI (urinary tract infection) Assessment/Plan: -patient found to have ESBL in urine, sensitive to carbapenems -ID following -continue ertapenem, day 6/14 -may have to finish the course in the hospital Code(s): N39.0 - URINARY TRACT INFECTION, SITE NOT SPECIFIED (2) Anemia Assessment/Plan: -s/p 2 units -decreasing -hematology following -will recheck tomorrow, may need further transfusion Code(s): D64.9 - ANEMIA, UNSPECIFIED Qualifiers: Other causes of anemia: acute posthemorrhagic (3) Diabetes mellitus Assessment/Plan: -diabetic diet -cover with SSI Code(s): E11.9 - TYPE 2 DIABETES MELLITUS WITHOUT COMPLICATIONS Qualifiers: Diabetes mellitus type: type 2 Diabetes mellitus complication status: without complication Diabetes mellitus core laying machine operator insulin use: without assisted use Qualified Code(s): E11.9 - Type 2 diabetes mellitus without complications (4) Hypertension Assessment/Plan: -continue metoprolol and hydralazine Code(s): I10 - ESSENTIAL (PRIMARY) HYPERTENSION Qualifiers: Hypertension type: essential hypertension Qualified Code(s): I10 - Essential (primary) hypertension (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
--- NOTE | 2017-06-30 13:33 | PN ---
Progress Note, Physician History of Present Illness: stable no new issues - Current Medication List Current Medications: Active Medications Acetaminophen (Tylenol -) 650 mg PO Q4H PRN PRN Reason: FEVER OR PAIN Acetaminophen (Tylenol -) 325 mg PO Q6H PRN PRN Reason: PAIN Albuterol Sulfate (Ventolin Hfa Inhaler -) 1 puff IH Q4H PRN PRN Reason: sob Ascorbic Acid (Vitamin C -) 500 mg PO BID [facility] Last Admin: 06/30/17 09:53 Dose: 500 mg Aspirin (Asa -) 81 mg PO DAILY [facility] Last Admin: 06/30/17 09:52 Dose: 81 mg Atorvastatin Calcium (Lipitor -) 10 mg PO HS [facility] Last Admin: 06/29/17 21:31 Dose: 10 mg Cholecalciferol (Vitamin D3 -) 1,000 unit PO DAILY [facility] Last Admin: 06/30/17 09:53 Dose: 1,000 unit Cyanocobalamin (Vitamin B12 -) 1,000 mcg PO HS [facility] Last Admin: 06/29/17 21:31 Dose: 1,000 mcg Doxycycline Hyclate (Vibramycin -) 100 mg PO BID@1018 [facility] Last Admin: 06/30/17 09:52 Dose: 100 mg Ferrous Sulfate (Feosol -) 325 mg PO TID [facility] Last Admin: 06/30/17 06:28 Dose: 325 mg Gemfibrozil (Lopid -) 600 mg PO DAILY@2100 [facility] Last Admin: 06/29/17 21:24 Dose: Not Given Heparin Sodium (Porcine) (Heparin -) 5,000 unit SQ Q8H-IV [facility] Last Admin: 06/30/17 10:23 Dose: 5,000 unit Hydralazine HCl (Apresoline -) 50 mg PO TID [facility] Last Admin: 06/30/17 06:28 Dose: 50 mg IV Flush (Picc Line Flush) 8 ml IVPUSH PRN PRN PRN Reason: Protocol Ertapenem 1 gm/ Sodium (Chloride) 50 mls @ 50 mls/hr IVPB DAILY [facility] PRN Reason: Protocol Last Admin: 06/30/17 09:55 Dose: 50 mls/hr Insulin Aspart (Novolog Vial Sliding Scale -) 1 vial SQ ACHS [facility] PRN Reason: Protocol Last Admin: 06/30/17 11:52 Dose: 2 units Lactobacillus Acidophilus (Bacid -) 2 tab PO DAILY [facility] Last Admin: 06/30/17 09:52 Dose: 2 tab Mesalamine (Asacol Hd -) 1,600 mg PO TID [facility] Last Admin: 06/30/17 09:53 Dose: 1,600 mg Metoprolol Tartrate (Lopressor -) 100 mg PO DAILY [facility] Last Admin: 06/30/17 09:52 Dose: 100 mg Pantoprazole Sodium (Protonix -) 20 mg PO DAILY [facility] Last Admin: 06/30/17 09:52 Dose: 20 mg - Objective Vital Signs: Vital Signs Temperature 97.7 F 06/30/17 06:42 Pulse Rate 83 06/30/17 08:30 Respiratory Rate 20 06/30/17 08:30 Blood Pressure 144/74 06/30/17 08:30 O2 Sat by Pulse Oximetry (%) 97 06/30/17 09:00 Constitutional: Yes: No Distress, Calm Cardiovascular: Yes: Regular Rate and Rhythm Respiratory: Yes: Regular, CTA Bilaterally Gastrointestinal: Yes: Normal Bowel Sounds, Soft Musculoskeletal: Yes: WNL Extremities: Yes: Other Neurological: Yes: Alert, Oriented Psychiatric: Yes: Alert, Oriented Labs: CBC, BMP 06/30/17 06:30 06/30/17 06:30 Assessment/Plan Problem List - Problems (1) UTI (urinary tract infection) Code(s): N39.0 - URINARY TRACT INFECTION, SITE NOT SPECIFIED (2) Anemia Code(s): D64.9 - ANEMIA, UNSPECIFIED Qualifiers: Other causes of anemia: acute posthemorrhagic (3) Diabetes mellitus Code(s): E11.9 - TYPE 2 DIABETES MELLITUS WITHOUT COMPLICATIONS Qualifiers: Diabetes mellitus type: type 2 Diabetes mellitus complication status: without complication Diabetes mellitus rat exterminator insulin use: without rat exterminator use Qualified Code(s): E11.9 - Type 2 diabetes mellitus without complications; E11.9 - Type 2 diabetes mellitus without complications; E11.9 - Type 2 diabetes mellitus without complications; E11.9 - Type 2 diabetes mellitus without complications (4) Hypertension Code(s): I10 - ESSENTIAL (PRIMARY) HYPERTENSION Qualifiers: Hypertension type: essential hypertension Qualified Code(s): I10 - Essential (primary) hypertension; I10 - Essential (primary) hypertension; I10 - Essential (primary) hypertension (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 Code(s): Z96.652 - PRESENCE OF LEFT ARTIFICIAL KNEE JOINT (6) Ulcerative colitis Code(s): K51.90 - ULCERATIVE COLITIS, UNSPECIFIED, WITHOUT COMPLICATIONS plan continue ertapenam continue to monitor
--- NOTE | 2017-06-30 21:57 | PN ---
Progress Note (short form) - Note Progress Note: Pt seen and examined. Feels well. denies any complains, in chair ,Out of bed Cor: RSR, No murmurs, No gallops Lungs: Clear to P&A Abd: Soft, Normal bowel sounds, No organomegaly Ext:No significant edema Skin: No rashes, Integument intact LE: LLE in brace, no swelling noted bilaterally. Last Vital Signs Temp Pulse Resp BP Pulse Ox 98.7 F 71 20 138/75 97 06/30/17 18:19 06/30/17 18:19 06/30/17 18:19 06/30/17 18:19 06/30/17 09:00 CBC, BMP 06/30/17 06:30 06/30/17 06:30 Current Medications Generic Name Dose Route Start Last Admin Trade Name Freq PRN Reason Stop Dose Admin Acetaminophen 650 mg 06/25/17 18:17 Tylenol - PO Q4H PRN FEVER OR PAIN Acetaminophen 325 mg 06/25/17 20:48 Tylenol - PO Q6H PRN PAIN Albuterol Sulfate 1 puff 06/25/17 18:22 Ventolin Hfa Inhaler - IH Q4H PRN sob Ascorbic Acid 500 mg 06/27/17 22:00 06/30/17 09:53 Vitamin C - PO 500 mg BID [facility] Administration Aspirin 81 mg 06/26/17 10:00 06/30/17 09:52 Asa - PO 81 mg DAILY [facility] Administration Atorvastatin Calcium 10 mg 06/25/17 22:00 06/29/17 21:31 Lipitor - PO 10 mg HS [facility] Administration Cholecalciferol 1,000 unit 06/26/17 10:00 06/30/17 09:53 Vitamin D3 - PO 1,000 unit DAILY [facility] Administration Cyanocobalamin 1,000 mcg 06/25/17 22:00 06/29/17 21:31 Vitamin B12 - PO 1,000 mcg HS [facility] Administration Doxycycline Hyclate 100 mg 06/26/17 22:15 06/30/17 17:28 Vibramycin - PO 100 mg BID@ [facility] Administration Ferrous Sulfate 325 mg 06/25/17 22:00 06/30/17 13:59 Feosol - PO 325 mg TID [facility] Administration Gemfibrozil 600 mg 06/29/17 21:00 06/29/17 21:24 Lopid - PO Not Given DAILY@2100 [facility] Heparin Sodium (Porcine) 5,000 unit 06/26/17 02:00 06/30/17 17:28 Heparin - SQ 5,000 unit Q8H-IV [facility] Administration Hydralazine HCl 50 mg 06/30/17 06:00 06/30/17 13:59 Apresoline - PO 50 mg TID [facility] Administration IV Flush 8 ml 06/30/17 09:19 Picc Line Flush IVPUSH PRN PRN Protocol Ertapenem 1 gm/ Sodium 50 mls @ 50 mls/hr 06/26/17 10:00 06/30/17 09:55 Chloride IVPB 50 mls/hr DAILY [facility] Administration Protocol Insulin Aspart 1 vial 06/25/17 22:00 06/30/17 17:28 Novolog Vial Sliding Scale - SQ 2 units ACHS [facility] Administration Protocol Lactobacillus Acidophilus 2 tab 06/30/17 10:00 06/30/17 09:52 Bacid - PO 2 tab DAILY [facility] Administration Mesalamine 1,600 mg 06/28/17 22:00 06/30/17 13:59 Asacol Hd - PO 1,600 mg TID [facility] Administration Metoprolol Tartrate 100 mg 06/26/17 10:00 06/30/17 09:52 Lopressor - PO 100 mg DAILY [facility] Administration Pantoprazole Sodium 20 mg 06/26/17 10:00 06/30/17 09:52 Protonix - PO 20 mg DAILY [facility] Administration Patient with normochromic normocytic anemia ACD/ACI trend down of hgb noted check stool for occult will follow regular transfusion thresholds
[2017-06-30] MEDS: GEMFIBROZIL 600 MG TABLET (FP) PO SCH (22:39)
[2017-06-30] MEDS: CYANOCOBALAMIN 1,000 MCG TABLET (FP) PO SCH (22:40)
[2017-06-30] MEDS: ATORVASTATIN CA 10 MG TABLET (FP) PO SCH (22:40)
[2017-07-01] MEDS: HEPARIN NA (PORCINE) 5,000 UNITS/ML 1ML VIAL SQ SCH ×3 (01:48→17:32)
[2017-07-01] MEDS ORDERED: PT OWN MED DRAWER 7, Y5N ONE (06:17)
[2017-07-01] MEDS: FERROUS SO4 325 MG TABLET (FP) PO SCH ×3 (06:44→21:29)
[2017-07-01] MEDS: hydrALAZINE HCL 50 MG TABLET (FP) PO SCH ×3 (06:44→21:29)
[2017-07-01] MEDS: INSULIN SLIDING SCALE (NOVOLOG) 1 VIAL SQ SCH ×4 (06:48→21:30)
[2017-07-01 07:31] LABS: BASOPHIL 1.4 % (0-2.0); EOSINOPHIL 7.2 % (0-4.5); MCH 30.7 pg (25.7-33.7); MEAN CELL VOLUME 92.9 fl (80-96); MEAN PLT VOLUME 9.8 fl (7.5-11.1); RDW 15.4 % (11.6-15.6); WHITE BLOOD COUNT 6.2 K/mm3 (4.0-10.0)
[2017-07-01 08:02] LABS: ANION GAP 8 (8-16); CALCIUM 8.7 mg/dL (8.5-10.1); CO2 25 mmol/L (21-32); MAGNESIUM 1.9 mg/dL (1.8-2.4)
[2017-07-01 08:05] LABS: GLUCOSE,RANDOM 108 mg/dL (74-106); PHOSPHOROUS 3.7 mg/dL (2.5-4.9)
[2017-07-01] MEDS: MESALAMINE 800 MG TABLET.DR PO SCH ×2 (08:42→14:15)
[2017-07-01 09:37] LABS: PLATELET COMMENT2 FEW LARGE PLTS; PLATELET COUNT 198 K/MM3 (134-434); PLATELET ESTIMATE ADEQUATE (NORMAL)
[2017-07-01] MEDS: ASCORBIC ACID 500 MG TABLET (FP) PO SCH ×2 (10:23→21:29)
[2017-07-01] MEDS: ERTAPENEM SODIUM 1 GM in SODIUM CHLORIDE 50 ML IVPB SCH (10:23)
[2017-07-01] MEDS: LACTOBACILLUS ACIDOPHILUS 1 EACH TAB (FP) PO SCH (10:23)
[2017-07-01] MEDS: CHOLECALCIFEROL (VITAMIN D3) 1,000 UNIT TABLET (FP) PO SCH (10:23)
[2017-07-01] MEDS: METOPROLOL TARTRATE 50 MG TABLET (FP) PO SCH (10:24)
[2017-07-01] MEDS: ASPIRIN 81 MG CHEWABLE TABLETS PO SCH (10:24)
[2017-07-01] MEDS: DOXYCYCLINE HYCLATE 100 MG CAPSULE PO SCH ×2 (10:24→17:32)
[2017-07-01] MEDS: PANTOPRAZOLE 20 MG TABLET (FP) PO SCH (10:24)
[2017-07-01] MEDS ORDERED: INSULIN (NOVOLOG) ASPART 100 UNITS/ML 10ML VIAL ONE ×3 (11:52→20:37)
--- NOTE | 2017-07-01 14:28 | PN ---
Progress Note, Physician History of Present Illness: doing well no issues - Current Medication List Current Medications: Active Medications Acetaminophen (Tylenol -) 650 mg PO Q4H PRN PRN Reason: FEVER OR PAIN Acetaminophen (Tylenol -) 325 mg PO Q6H PRN PRN Reason: PAIN Albuterol Sulfate (Ventolin Hfa Inhaler -) 1 puff IH Q4H PRN PRN Reason: sob Ascorbic Acid (Vitamin C -) 500 mg PO BID [facility] Last Admin: 07/01/17 10:23 Dose: 500 mg Aspirin (Asa -) 81 mg PO DAILY [facility] Last Admin: 07/01/17 10:24 Dose: 81 mg Atorvastatin Calcium (Lipitor -) 10 mg PO HS [facility] Last Admin: 06/30/17 22:40 Dose: 10 mg Cholecalciferol (Vitamin D3 -) 1,000 unit PO DAILY [facility] Last Admin: 07/01/17 10:23 Dose: 1,000 unit Cyanocobalamin (Vitamin B12 -) 1,000 mcg PO HS [facility] Last Admin: 06/30/17 22:40 Dose: 1,000 mcg Doxycycline Hyclate (Vibramycin -) 100 mg PO BID@10,18 [facility] Last Admin: 07/01/17 10:24 Dose: 100 mg Ferrous Sulfate (Feosol -) 325 mg PO TID [facility] Last Admin: 07/01/17 14:14 Dose: 325 mg Gemfibrozil (Lopid -) 600 mg PO DAILY@2100 [facility] Last Admin: 06/30/17 22:39 Dose: 600 mg Heparin Sodium (Porcine) (Heparin -) 5,000 unit SQ Q8H-IV [facility] Last Admin: 07/01/17 10:23 Dose: 5,000 unit Hydralazine HCl (Apresoline -) 50 mg PO TID [facility] Last Admin: 07/01/17 14:14 Dose: 50 mg IV Flush (Picc Line Flush) 8 ml IVPUSH PRN PRN PRN Reason: Protocol Ertapenem 1 gm/ Sodium (Chloride) 50 mls @ 50 mls/hr IVPB DAILY [facility] PRN Reason: Protocol Last Admin: 07/01/17 10:23 Dose: 50 mls/hr Insulin Aspart (Novolog Vial Sliding Scale -) 1 vial SQ ACHS [facility] PRN Reason: Protocol Last Admin: 07/01/17 11:54 Dose: 2 units Lactobacillus Acidophilus (Bacid -) 2 tab PO DAILY [facility] Last Admin: 07/01/17 10:23 Dose: 2 tab Mesalamine (Asacol Hd -) 1,600 mg PO TID [facility] Last Admin: 07/01/17 14:15 Dose: 1,600 mg Metoprolol Tartrate (Lopressor -) 100 mg PO DAILY [facility] Last Admin: 07/01/17 10:24 Dose: 100 mg Pantoprazole Sodium (Protonix -) 20 mg PO DAILY [facility] Last Admin: 07/01/17 10:24 Dose: 20 mg - Objective Vital Signs: Vital Signs Temperature 98.6 F 07/01/17 09:17 Pulse Rate 88 07/01/17 09:17 Respiratory Rate 20 07/01/17 09:17 Blood Pressure 129/50 07/01/17 09:17 O2 Sat by Pulse Oximetry (%) 98 06/30/17 21:00 Constitutional: Yes: No Distress, Calm, Obese Cardiovascular: Yes: Regular Rate and Rhythm Respiratory: Yes: Regular, CTA Bilaterally Gastrointestinal: Yes: Normal Bowel Sounds, Soft Musculoskeletal: Yes: WNL Extremities: Yes: Other Neurological: Yes: Alert, Oriented Psychiatric: Yes: Alert, Oriented Labs: CBC, BMP 07/01/17 07:20 07/01/17 07:20 Assessment/Plan Problem List - Problems (1) UTI (urinary tract infection) Code(s): N39.0 - URINARY TRACT INFECTION, SITE NOT SPECIFIED (2) Anemia Code(s): D64.9 - ANEMIA, UNSPECIFIED Qualifiers: Other causes of anemia: acute posthemorrhagic (3) Diabetes mellitus Code(s): E11.9 - TYPE 2 DIABETES MELLITUS WITHOUT COMPLICATIONS Qualifiers: Diabetes mellitus type: type 2 Diabetes mellitus complication status: without complication Diabetes mellitus termite treater insulin use: without termite treater use Qualified Code(s): E11.9 - Type 2 diabetes mellitus without complications; E11.9 - Type 2 diabetes mellitus without complications; E11.9 - Type 2 diabetes mellitus without complications; E11.9 - Type 2 diabetes mellitus without complications (4) Hypertension Code(s): I10 - ESSENTIAL (PRIMARY) HYPERTENSION Qualifiers: Hypertension type: essential hypertension Qualified Code(s): I10 - Essential (primary) hypertension; I10 - Essential (primary) hypertension; I10 - Essential (primary) hypertension (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
--- NOTE | 2017-07-01 16:08 | PN ---
Progress Note, Physician Chief Complaint: Ms Haile is without complaint. Says she feels fine. Denies cp, sob, n/v. - Current Medication List Current Medications: Active Medications Acetaminophen (Tylenol -) 650 mg PO Q4H PRN PRN Reason: FEVER OR PAIN Acetaminophen (Tylenol -) 325 mg PO Q6H PRN PRN Reason: PAIN Albuterol Sulfate (Ventolin Hfa Inhaler -) 1 puff IH Q4H PRN PRN Reason: sob Ascorbic Acid (Vitamin C -) 500 mg PO BID [facility] Last Admin: 07/01/17 10:23 Dose: 500 mg Aspirin (Asa -) 81 mg PO DAILY [facility] Last Admin: 07/01/17 10:24 Dose: 81 mg Atorvastatin Calcium (Lipitor -) 10 mg PO HS [facility] Last Admin: 06/30/17 22:40 Dose: 10 mg Cholecalciferol (Vitamin D3 -) 1,000 unit PO DAILY [facility] Last Admin: 07/01/17 10:23 Dose: 1,000 unit Cyanocobalamin (Vitamin B12 -) 1,000 mcg PO HS [facility] Last Admin: 06/30/17 22:40 Dose: 1,000 mcg Doxycycline Hyclate (Vibramycin -) 100 mg PO BID@10,18 [facility] Last Admin: 07/01/17 10:24 Dose: 100 mg Ferrous Sulfate (Feosol -) 325 mg PO TID [facility] Last Admin: 07/01/17 14:14 Dose: 325 mg Gemfibrozil (Lopid -) 600 mg PO DAILY@2100 [facility] Last Admin: 06/30/17 22:39 Dose: 600 mg Heparin Sodium (Porcine) (Heparin -) 5,000 unit SQ Q8H-IV [facility] Last Admin: 07/01/17 10:23 Dose: 5,000 unit Hydralazine HCl (Apresoline -) 50 mg PO TID [facility] Last Admin: 07/01/17 14:14 Dose: 50 mg IV Flush (Picc Line Flush) 8 ml IVPUSH PRN PRN PRN Reason: Protocol Ertapenem 1 gm/ Sodium (Chloride) 50 mls @ 50 mls/hr IVPB DAILY [facility] PRN Reason: Protocol Last Admin: 07/01/17 10:23 Dose: 50 mls/hr Insulin Aspart (Novolog Vial Sliding Scale -) 1 vial SQ ACHS [facility] PRN Reason: Protocol Last Admin: 07/01/17 11:54 Dose: 2 units Lactobacillus Acidophilus (Bacid -) 2 tab PO DAILY [facility] Last Admin: 07/01/17 10:23 Dose: 2 tab Mesalamine (Asacol Hd -) 1,600 mg PO TID [facility] Last Admin: 07/01/17 14:15 Dose: 1,600 mg Metoprolol Tartrate (Lopressor -) 100 mg PO DAILY [facility] Last Admin: 07/01/17 10:24 Dose: 100 mg Pantoprazole Sodium (Protonix -) 20 mg PO DAILY [facility] Last Admin: 07/01/17 10:24 Dose: 20 mg - Objective Vital Signs: Vital Signs Temperature 36.9 C 07/01/17 15:44 Pulse Rate 71 07/01/17 15:44 Respiratory Rate 18 07/01/17 15:44 Blood Pressure 135/58 07/01/17 15:44 O2 Sat by Pulse Oximetry (%) 98 06/30/17 21:00 Constitutional: Yes: No Distress, Calm, Obese Cardiovascular: Yes: Regular Rate and Rhythm. No: Gallop, Murmur, Rub Respiratory: Yes: Regular, CTA Bilaterally. No: Rales, Rhonchi, Wheezes Gastrointestinal: Yes: Normal Bowel Sounds, Soft. No: Distention, Tenderness Extremities: Yes: Other (L knee in brace) Edema: No Labs: CBC, BMP 07/01/17 07:20 07/01/17 07:20 Problem List - Problems (1) UTI (urinary tract infection) Code(s): N39.0 - URINARY TRACT INFECTION, SITE NOT SPECIFIED (2) Anemia Code(s): D64.9 - ANEMIA, UNSPECIFIED Qualifiers: Other causes of anemia: acute posthemorrhagic (3) Diabetes mellitus Code(s): E11.9 - TYPE 2 DIABETES MELLITUS WITHOUT COMPLICATIONS Qualifiers: Diabetes mellitus type: type 2 Diabetes mellitus complication status: without complication Diabetes mellitus fci insulin use: without termite helper use Qualified Code(s): E11.9 - Type 2 diabetes mellitus without complications; E11.9 - Type 2 diabetes mellitus without complications; E11.9 - Type 2 diabetes mellitus without complications; E11.9 - Type 2 diabetes mellitus without complications (4) Hypertension Code(s): I10 - ESSENTIAL (PRIMARY) HYPERTENSION Qualifiers: Hypertension type: essential hypertension Qualified Code(s): I10 - Essential (primary) hypertension; I10 - Essential (primary) hypertension; I10 - Essential (primary) hypertension (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 Code(s): Z96.652 - PRESENCE OF LEFT ARTIFICIAL KNEE JOINT (6) Ulcerative colitis Code(s): K51.90 - ULCERATIVE COLITIS, UNSPECIFIED, WITHOUT COMPLICATIONS Assessment/Plan (1) UTI (urinary tract infection) Assessment/Plan: -patient found to have ESBL in urine, sensitive to carbapenems -ID following -continue ertapenem, day7/14 -may have to finish the course in the hospital Code(s): N39.0 - URINARY TRACT INFECTION, SITE NOT SPECIFIED (2) Anemia Assessment/Plan: -s/p 2 units -stable Code(s): D64.9 - ANEMIA, UNSPECIFIED Qualifiers: Other causes of anemia: acute posthemorrhagic (3) Diabetes mellitus Assessment/Plan: -diabetic diet -cover with SSI Code(s): E11.9 - TYPE 2 DIABETES MELLITUS WITHOUT COMPLICATIONS Qualifiers: Diabetes mellitus type: type 2 Diabetes mellitus complication status: without complication Diabetes mellitus termite helper insulin use: without termite helper use Qualified Code(s): E11.9 - Type 2 diabetes mellitus without complications (4) Hypertension Assessment/Plan: -continue metoprolol and hydralazine Code(s): I10 - ESSENTIAL (PRIMARY) HYPERTENSION Qualifiers: Hypertension type: essential hypertension Qualified Code(s): I10 - Essential (primary) hypertension (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
[2017-07-01] MEDS: GEMFIBROZIL 600 MG TABLET (FP) PO SCH (21:08)
[2017-07-01] MEDS: CYANOCOBALAMIN 1,000 MCG TABLET (FP) PO SCH (21:29)
[2017-07-01] MEDS: ATORVASTATIN CA 10 MG TABLET (FP) PO SCH (21:29)
[2017-07-01] MEDS: DEEP SEA IH SCH (22:10)
[2017-07-02] MEDS: HEPARIN NA (PORCINE) 5,000 UNITS/ML 1ML VIAL SQ SCH ×3 (01:58→18:45)
[2017-07-02] MEDS: hydrALAZINE HCL 50 MG TABLET (FP) PO SCH ×3 (05:41→21:43)
[2017-07-02] MEDS: FERROUS SO4 325 MG TABLET (FP) PO SCH ×3 (05:41→21:43)
[2017-07-02] MEDS: INSULIN SLIDING SCALE (NOVOLOG) 1 VIAL SQ SCH ×5 (06:15→21:47)
[2017-07-02 08:11] LABS: BASOPHIL 1.4 % (0-2.0); EOSINOPHIL 7.3 % (0-4.5); MCH 30.5 pg (25.7-33.7); MCHC 32.7 g/dl (32.0-36.0); MEAN CELL VOLUME 93.4 fl (80-96); MEAN PLT VOLUME 8.9 fl (7.5-11.1); NEUTROPHILS 67.5 % (42.8-82.8); PLATELET COUNT 196 K/MM3 (134-434); RDW 15.1 % (11.6-15.6); WHITE BLOOD COUNT 5.7 K/mm3 (4.0-10.0)
[2017-07-02 08:39] LABS: ANION GAP 11 (8-16); CALCIUM 9.1 mg/dL (8.5-10.1); CO2 23 mmol/L (21-32); CREATININE 0.9 mg/dL (0.55-1.02); GLUCOSE,RANDOM 125 mg/dL (74-106); MAGNESIUM 2.1 mg/dL (1.8-2.4); PHOSPHOROUS 3.7 mg/dL (2.5-4.9)
[2017-07-02] MEDS ORDERED: PT OWN MED DRAWER 7, Y5N ONE ×3 (09:33→18:39)
[2017-07-02] MEDS: [UNRECOGNIZED DRUG - REMARK] PO SCH (09:36)
[2017-07-02] MEDS: PANTOPRAZOLE 20 MG TABLET (FP) PO SCH (09:36)
[2017-07-02] MEDS: METOPROLOL TARTRATE 50 MG TABLET (FP) PO SCH (09:36)
[2017-07-02] MEDS: ERTAPENEM SODIUM 1 GM in SODIUM CHLORIDE 50 ML IVPB SCH (09:37)
[2017-07-02] MEDS: CHOLECALCIFEROL (VITAMIN D3) 1,000 UNIT TABLET (FP) PO SCH (09:37)
[2017-07-02] MEDS: ASPIRIN 81 MG CHEWABLE TABLETS PO SCH (09:37)
[2017-07-02] MEDS: DOXYCYCLINE HYCLATE 100 MG CAPSULE PO SCH ×2 (09:37→18:45)
[2017-07-02] MEDS: DEEP SEA IH SCH ×4 (09:37→21:50)
[2017-07-02] MEDS: LACTOBACILLUS ACIDOPHILUS 1 EACH TAB (FP) PO SCH (09:37)
[2017-07-02] MEDS: ASCORBIC ACID 500 MG TABLET (FP) PO SCH ×2 (09:37→21:43)
--- NOTE | 2017-07-02 11:53 | PN ---
Progress Note, Physician Chief Complaint: Ms Haile is without complaint. Says she feels fine. Denies cp, sob, n/v. - Current Medication List Current Medications: Active Medications Acetaminophen (Tylenol -) 650 mg PO Q4H PRN PRN Reason: FEVER OR PAIN Acetaminophen (Tylenol -) 325 mg PO Q6H PRN PRN Reason: PAIN Albuterol Sulfate (Ventolin Hfa Inhaler -) 1 puff IH Q4H PRN PRN Reason: sob Ascorbic Acid (Vitamin C -) 500 mg PO BID [facility] Last Admin: 07/02/17 09:37 Dose: 500 mg Aspirin (Asa -) 81 mg PO DAILY [facility] Last Admin: 07/02/17 09:37 Dose: 81 mg Atorvastatin Calcium (Lipitor -) 10 mg PO HS [facility] Last Admin: 07/01/17 21:29 Dose: 10 mg Cholecalciferol (Vitamin D3 -) 1,000 unit PO DAILY [facility] Last Admin: 07/02/17 09:37 Dose: 1,000 unit Cyanocobalamin (Vitamin B12 -) 1,000 mcg PO HS [facility] Last Admin: 07/01/17 21:29 Dose: 1,000 mcg Doxycycline Hyclate (Vibramycin -) 100 mg PO BID@10,18 [facility] Last Admin: 07/02/17 09:37 Dose: 100 mg Ferrous Sulfate (Feosol -) 325 mg PO TID [facility] Last Admin: 07/02/17 05:41 Dose: 325 mg Gemfibrozil (Lopid -) 600 mg PO DAILY@2100 [facility] Last Admin: 07/01/17 21:08 Dose: 600 mg Heparin Sodium (Porcine) (Heparin -) 5,000 unit SQ Q8H-IV [facility] Last Admin: 07/02/17 09:50 Dose: 5,000 unit Hydralazine HCl (Apresoline -) 50 mg PO TID [facility] Last Admin: 07/02/17 05:41 Dose: 50 mg IV Flush (Picc Line Flush) 8 ml IVPUSH PRN PRN PRN Reason: Protocol Ertapenem 1 gm/ Sodium (Chloride) 50 mls @ 50 mls/hr IVPB DAILY [facility] PRN Reason: Protocol Last Admin: 07/02/17 09:37 Dose: 50 mls/hr Insulin Aspart (Novolog Vial Sliding Scale -) 1 vial SQ ACHS [facility] PRN Reason: Protocol Last Admin: 07/02/17 09:41 Dose: 2 units Lactobacillus Acidophilus (Bacid -) 2 tab PO DAILY [facility] Last Admin: 07/02/17 09:37 Dose: 2 tab Metoprolol Tartrate (Lopressor -) 100 mg PO DAILY [facility] Last Admin: 07/02/17 09:36 Dose: 100 mg Non-Formulary Med- Mesalamine 1.2 Dr Tab 4 each PO AM@0800 [facility] Last Admin: 07/02/17 09:36 Dose: 4 each Non-Formulary Med- ([place]) 1 each IH QID [facility] Last Admin: 07/02/17 09:37 Dose: 1 each Pantoprazole Sodium (Protonix -) 20 mg PO DAILY [facility] Last Admin: 07/02/17 09:36 Dose: 20 mg - Objective Vital Signs: Vital Signs Temperature 36.8 C 07/02/17 07:28 Pulse Rate 82 07/02/17 07:28 Respiratory Rate 20 07/02/17 09:00 Blood Pressure 139/73 07/02/17 07:28 O2 Sat by Pulse Oximetry (%) 95 07/02/17 09:00 Constitutional: Yes: No Distress, Calm, Obese Cardiovascular: Yes: Regular Rate and Rhythm. No: Gallop, Murmur, Rub Respiratory: Yes: Regular, CTA Bilaterally. No: Rales, Rhonchi, Wheezes Gastrointestinal: Yes: Normal Bowel Sounds, Soft. No: Distention, Tenderness Extremities: Yes: Other (L knee in brace) Edema: No Labs: CBC, BMP 07/02/17 07:20 07/02/17 07:20 Problem List - Problems (1) UTI (urinary tract infection) Code(s): N39.0 - URINARY TRACT INFECTION, SITE NOT SPECIFIED (2) Anemia Code(s): D64.9 - ANEMIA, UNSPECIFIED Qualifiers: Other causes of anemia: acute posthemorrhagic (3) Diabetes mellitus Code(s): E11.9 - TYPE 2 DIABETES MELLITUS WITHOUT COMPLICATIONS Qualifiers: Diabetes mellitus type: type 2 Diabetes mellitus complication status: without complication Diabetes mellitus ferry terminal agent insulin use: without senior care use Qualified Code(s): E11.9 - Type 2 diabetes mellitus without complications; E11.9 - Type 2 diabetes mellitus without complications; E11.9 - Type 2 diabetes mellitus without complications; E11.9 - Type 2 diabetes mellitus without complications (4) Hypertension Code(s): I10 - ESSENTIAL (PRIMARY) HYPERTENSION Qualifiers: Hypertension type: essential hypertension Qualified Code(s): I10 - Essential (primary) hypertension; I10 - Essential (primary) hypertension; I10 - Essential (primary) hypertension (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 Code(s): Z96.652 - PRESENCE OF LEFT ARTIFICIAL KNEE JOINT (6) Ulcerative colitis Code(s): K51.90 - ULCERATIVE COLITIS, UNSPECIFIED, WITHOUT COMPLICATIONS Assessment/Plan (1) UTI (urinary tract infection) Assessment/Plan: -patient found to have ESBL in urine, sensitive to carbapenems -ID following -continue ertapenem, day8/14 -currently cannot set up home antibiotics, will finish course in hospital unless another option presents itself Code(s): N39.0 - URINARY TRACT INFECTION, SITE NOT SPECIFIED (2) Anemia Assessment/Plan: -s/p 2 units -stable Code(s): D64.9 - ANEMIA, UNSPECIFIED Qualifiers: Other causes of anemia: acute posthemorrhagic (3) Diabetes mellitus Assessment/Plan: -diabetic diet -cover with SSI Code(s): E11.9 - TYPE 2 DIABETES MELLITUS WITHOUT COMPLICATIONS Qualifiers: Diabetes mellitus type: type 2 Diabetes mellitus complication status: without complication Diabetes mellitus senior care insulin use: without senior care use Qualified Code(s): E11.9 - Type 2 diabetes mellitus without complications (4) Hypertension Assessment/Plan: -continue metoprolol and hydralazine Code(s): I10 - ESSENTIAL (PRIMARY) HYPERTENSION Qualifiers: Hypertension type: essential hypertension Qualified Code(s): I10 - Essential (primary) hypertension (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
--- NOTE | 2017-07-02 14:03 | PN ---
Progress Note, Physician History of Present Illness: doing well no issues - Current Medication List Current Medications: Active Medications Acetaminophen (Tylenol -) 650 mg PO Q4H PRN PRN Reason: FEVER OR PAIN Acetaminophen (Tylenol -) 325 mg PO Q6H PRN PRN Reason: PAIN Albuterol Sulfate (Ventolin Hfa Inhaler -) 1 puff IH Q4H PRN PRN Reason: sob Ascorbic Acid (Vitamin C -) 500 mg PO BID [facility] Last Admin: 07/02/17 09:37 Dose: 500 mg Aspirin (Asa -) 81 mg PO DAILY [facility] Last Admin: 07/02/17 09:37 Dose: 81 mg Atorvastatin Calcium (Lipitor -) 10 mg PO HS [facility] Last Admin: 07/01/17 21:29 Dose: 10 mg Cholecalciferol (Vitamin D3 -) 1,000 unit PO DAILY [facility] Last Admin: 07/02/17 09:37 Dose: 1,000 unit Cyanocobalamin (Vitamin B12 -) 1,000 mcg PO HS [facility] Last Admin: 07/01/17 21:29 Dose: 1,000 mcg Doxycycline Hyclate (Vibramycin -) 100 mg PO BID@1018 [facility] Last Admin: 07/02/17 09:37 Dose: 100 mg Ferrous Sulfate (Feosol -) 325 mg PO TID [facility] Last Admin: 07/02/17 05:41 Dose: 325 mg Gemfibrozil (Lopid -) 600 mg PO DAILY@2100 [facility] Last Admin: 07/01/17 21:08 Dose: 600 mg Heparin Sodium (Porcine) (Heparin -) 5,000 unit SQ Q8H-IV [facility] Last Admin: 07/02/17 09:50 Dose: 5,000 unit Hydralazine HCl (Apresoline -) 50 mg PO TID [facility] Last Admin: 07/02/17 05:41 Dose: 50 mg IV Flush (Picc Line Flush) 8 ml IVPUSH PRN PRN PRN Reason: Protocol Ertapenem 1 gm/ Sodium (Chloride) 50 mls @ 50 mls/hr IVPB DAILY [facility] PRN Reason: Protocol Last Admin: 07/02/17 09:37 Dose: 50 mls/hr Insulin Aspart (Novolog Vial Sliding Scale -) 1 vial SQ ACHS [facility] PRN Reason: Protocol Last Admin: 07/02/17 12:40 Dose: 2 units Lactobacillus Acidophilus (Bacid -) 2 tab PO DAILY [facility] Last Admin: 07/02/17 09:37 Dose: 2 tab Metoprolol Tartrate (Lopressor -) 100 mg PO DAILY [facility] Last Admin: 07/02/17 09:36 Dose: 100 mg Non-Formulary Med- Mesalamine 1.2 Tab 4 each PO AM@0800 [facility] Last Admin: 07/02/17 09:36 Dose: 4 each Non-Formulary Med- (Deep Sea Nasal [place]) 1 each IH QID [facility] Last Admin: 07/02/17 09:37 Dose: 1 each Pantoprazole Sodium (Protonix -) 20 mg PO DAILY [facility] Last Admin: 07/02/17 09:36 Dose: 20 mg - Objective Vital Signs: Vital Signs Temperature 98.2 F 07/02/17 07:28 Pulse Rate 82 07/02/17 07:28 Respiratory Rate 20 07/02/17 09:00 Blood Pressure 139/73 07/02/17 07:28 O2 Sat by Pulse Oximetry (%) 95 07/02/17 09:00 Constitutional: Yes: No Distress, Calm Cardiovascular: Yes: Regular Rate and Rhythm Respiratory: Yes: Regular, CTA Bilaterally Gastrointestinal: Yes: Normal Bowel Sounds, Soft Musculoskeletal: Yes: WNL Extremities: Yes: Other Neurological: Yes: Alert, Oriented Psychiatric: Yes: Alert, Oriented Labs: CBC, BMP 07/02/17 07:20 07/02/17 07:20 Assessment/Plan Problem List - Problems (1) UTI (urinary tract infection) Code(s): N39.0 - URINARY TRACT INFECTION, SITE NOT SPECIFIED (2) Anemia Code(s): D64.9 - ANEMIA, UNSPECIFIED Qualifiers: Other causes of anemia: acute posthemorrhagic (3) Diabetes mellitus Code(s): E11.9 - TYPE 2 DIABETES MELLITUS WITHOUT COMPLICATIONS Qualifiers: Diabetes mellitus type: type 2 Diabetes mellitus complication status: without complication Diabetes mellitus middle or intermediate school principal insulin use: without middle or intermediate school principal use Qualified Code(s): E11.9 - Type 2 diabetes mellitus without complications; E11.9 - Type 2 diabetes mellitus without complications; E11.9 - Type 2 diabetes mellitus without complications; E11.9 - Type 2 diabetes mellitus without complications (4) Hypertension Code(s): I10 - ESSENTIAL (PRIMARY) HYPERTENSION Qualifiers: Hypertension type: essential hypertension Qualified Code(s): I10 - Essential (primary) hypertension; I10 - Essential (primary) hypertension; I10 - Essential (primary) hypertension (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
[2017-07-02] MEDS: CYANOCOBALAMIN 1,000 MCG TABLET (FP) PO SCH (21:43)
[2017-07-02] MEDS: ATORVASTATIN CA 10 MG TABLET (FP) PO SCH (21:43)
[2017-07-02] MEDS: GEMFIBROZIL 600 MG TABLET (FP) PO SCH (21:43)
[2017-07-03] MEDS: HEPARIN NA (PORCINE) 5,000 UNITS/ML 1ML VIAL SQ SCH ×3 (01:41→21:46)
[2017-07-03] MEDS: INSULIN SLIDING SCALE (NOVOLOG) 1 VIAL SQ SCH ×4 (06:50→21:46)
[2017-07-03] MEDS: hydrALAZINE HCL 50 MG TABLET (FP) PO SCH ×3 (06:50→21:45)
[2017-07-03] MEDS: FERROUS SO4 325 MG TABLET (FP) PO SCH ×3 (06:50→21:45)
[2017-07-03] MEDS: ASPIRIN 81 MG CHEWABLE TABLETS PO SCH (10:20)
[2017-07-03] MEDS: CHOLECALCIFEROL (VITAMIN D3) 1,000 UNIT TABLET (FP) PO SCH (10:20)
[2017-07-03] MEDS: METOPROLOL TARTRATE 50 MG TABLET (FP) PO SCH (10:20)
[2017-07-03] MEDS: [UNRECOGNIZED DRUG - REMARK] PO SCH (10:20)
[2017-07-03] MEDS: PANTOPRAZOLE 20 MG TABLET (FP) PO SCH (10:20)
[2017-07-03] MEDS: ASCORBIC ACID 500 MG TABLET (FP) PO SCH ×2 (10:20→21:45)
[2017-07-03] MEDS: DOXYCYCLINE HYCLATE 100 MG CAPSULE PO SCH ×2 (10:20→17:38)
[2017-07-03] MEDS: LACTOBACILLUS ACIDOPHILUS 1 EACH TAB (FP) PO SCH (10:20)
[2017-07-03] MEDS: ERTAPENEM SODIUM 1 GM in SODIUM CHLORIDE 50 ML IVPB SCH (10:20)
[2017-07-03] MEDS: DEEP SEA IH SCH ×4 (10:21→21:46)
--- NOTE | 2017-07-03 12:42 | PN ---
Progress Note, Physician Chief Complaint: Ms Haile is without complaint. Says she feels fine. Denies cp, sob, n/v. - Current Medication List Current Medications: Active Medications Acetaminophen (Tylenol -) 650 mg PO Q4H PRN PRN Reason: FEVER OR PAIN Acetaminophen (Tylenol -) 325 mg PO Q6H PRN PRN Reason: PAIN Albuterol Sulfate (Ventolin Hfa Inhaler -) 1 puff IH Q4H PRN PRN Reason: sob Ascorbic Acid (Vitamin C -) 500 mg PO BID [facility] Last Admin: 07/03/17 10:20 Dose: 500 mg Aspirin (Asa -) 81 mg PO DAILY [facility] Last Admin: 07/03/17 10:20 Dose: 81 mg Atorvastatin Calcium (Lipitor -) 10 mg PO HS [facility] Last Admin: 07/02/17 21:43 Dose: 10 mg Cholecalciferol (Vitamin D3 -) 1,000 unit PO DAILY [facility] Last Admin: 07/03/17 10:20 Dose: 1,000 unit Cyanocobalamin (Vitamin B12 -) 1,000 mcg PO HS [facility] Last Admin: 07/02/17 21:43 Dose: 1,000 mcg Doxycycline Hyclate (Vibramycin -) 100 mg PO BID@10,18 [facility] Last Admin: 07/03/17 10:20 Dose: 100 mg Ferrous Sulfate (Feosol -) 325 mg PO TID [facility] Last Admin: 07/03/17 06:50 Dose: 325 mg Gemfibrozil (Lopid -) 600 mg PO DAILY@2100 [facility] Last Admin: 07/02/17 21:43 Dose: 600 mg Heparin Sodium (Porcine) (Heparin -) 5,000 unit SQ TID [facility] Hydralazine HCl (Apresoline -) 50 mg PO TID [facility] Last Admin: 07/03/17 06:50 Dose: 50 mg IV Flush (Picc Line Flush) 8 ml IVPUSH PRN PRN PRN Reason: Protocol Ertapenem 1 gm/ Sodium (Chloride) 50 mls @ 50 mls/hr IVPB DAILY [facility] PRN Reason: Protocol Last Admin: 07/03/17 10:20 Dose: 50 mls/hr Insulin Aspart (Novolog Vial Sliding Scale -) 1 vial SQ ACHS [facility] PRN Reason: Protocol Last Admin: 07/03/17 11:48 Dose: Not Given Lactobacillus Acidophilus (Bacid -) 2 tab PO DAILY [facility] Last Admin: 07/03/17 10:20 Dose: 2 tab Metoprolol Tartrate (Lopressor -) 100 mg PO DAILY [facility] Last Admin: 07/03/17 10:20 Dose: 100 mg Non-Formulary Med- Mesalamine 1.2 Dr Tab 4 each PO AM@0800 [facility] Last Admin: 07/03/17 10:20 Dose: 4 each Non-Formulary Med- (Deep Sea Nasal [place]) 1 each IH QID [facility] Last Admin: 07/03/17 10:21 Dose: 1 each Pantoprazole Sodium (Protonix -) 20 mg PO DAILY [facility] Last Admin: 07/03/17 10:20 Dose: 20 mg - Objective Vital Signs: Vital Signs Temperature 36.8 C 07/03/17 09:00 Pulse Rate 90 07/03/17 09:00 Respiratory Rate 18 07/03/17 09:00 Blood Pressure 157/67 07/03/17 09:00 O2 Sat by Pulse Oximetry (%) 98 07/02/17 21:00 Constitutional: Yes: No Distress, Calm, Obese Cardiovascular: Yes: Regular Rate and Rhythm. No: Gallop, Murmur, Rub Respiratory: Yes: Regular, CTA Bilaterally. No: Rales, Rhonchi, Wheezes Gastrointestinal: Yes: Normal Bowel Sounds, Soft. No: Distention, Tenderness Extremities: Yes: Other (L knee in brace) Edema: No Labs: CBC, BMP 07/02/17 07:20 07/02/17 07:20 Problem List - Problems (1) UTI (urinary tract infection) Code(s): N39.0 - URINARY TRACT INFECTION, SITE NOT SPECIFIED (2) Anemia Code(s): D64.9 - ANEMIA, UNSPECIFIED Qualifiers: Other causes of anemia: acute posthemorrhagic (3) Diabetes mellitus Code(s): E11.9 - TYPE 2 DIABETES MELLITUS WITHOUT COMPLICATIONS Qualifiers: Diabetes mellitus type: type 2 Diabetes mellitus complication status: without complication Diabetes mellitus manager long term care insulin use: without intermediate use Qualified Code(s): E11.9 - Type 2 diabetes mellitus without complications; E11.9 - Type 2 diabetes mellitus without complications; E11.9 - Type 2 diabetes mellitus without complications; E11.9 - Type 2 diabetes mellitus without complications (4) Hypertension Code(s): I10 - ESSENTIAL (PRIMARY) HYPERTENSION Qualifiers: Hypertension type: essential hypertension Qualified Code(s): I10 - Essential (primary) hypertension; I10 - Essential (primary) hypertension; I10 - Essential (primary) hypertension (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 Code(s): Z96.652 - PRESENCE OF LEFT ARTIFICIAL KNEE JOINT (6) Ulcerative colitis Code(s): K51.90 - ULCERATIVE COLITIS, UNSPECIFIED, WITHOUT COMPLICATIONS Assessment/Plan (1) UTI (urinary tract infection) Assessment/Plan: -patient found to have ESBL in urine, sensitive to carbapenems -ID following -continue ertapenem, day 06/11 -cannot do home antibiotics, finish course here Code(s): N39.0 - URINARY TRACT INFECTION, SITE NOT SPECIFIED (2) Anemia Assessment/Plan: -s/p 2 units -stable Code(s): D64.9 - ANEMIA, UNSPECIFIED Qualifiers: Other causes of anemia: acute posthemorrhagic (3) Diabetes mellitus Assessment/Plan: -diabetic diet -cover with SSI Code(s): E11.9 - TYPE 2 DIABETES MELLITUS WITHOUT COMPLICATIONS Qualifiers: Diabetes mellitus type: type 2 Diabetes mellitus complication status: without complication Diabetes mellitus intermediate insulin use: without manager long term care use Qualified Code(s): E11.9 - Type 2 diabetes mellitus without complications (4) Hypertension Assessment/Plan: -continue metoprolol and hydralazine Code(s): I10 - ESSENTIAL (PRIMARY) HYPERTENSION Qualifiers: Hypertension type: essential hypertension Qualified Code(s): I10 - Essential (primary) hypertension (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
--- NOTE | 2017-07-03 14:47 | PN ---
Progress Note, Physician History of Present Illness: patient stable no new issues - Current Medication List Current Medications: Active Medications Acetaminophen (Tylenol -) 650 mg PO Q4H PRN PRN Reason: FEVER OR PAIN Acetaminophen (Tylenol -) 325 mg PO Q6H PRN PRN Reason: PAIN Albuterol Sulfate (Ventolin Hfa Inhaler -) 1 puff IH Q4H PRN PRN Reason: sob Ascorbic Acid (Vitamin C -) 500 mg PO BID [facility] Last Admin: 07/03/17 10:20 Dose: 500 mg Aspirin (Asa -) 81 mg PO DAILY [facility] Last Admin: 07/03/17 10:20 Dose: 81 mg Atorvastatin Calcium (Lipitor -) 10 mg PO HS [facility] Last Admin: 07/02/17 21:43 Dose: 10 mg Cholecalciferol (Vitamin D3 -) 1,000 unit PO DAILY [facility] Last Admin: 07/03/17 10:20 Dose: 1,000 unit Cyanocobalamin (Vitamin B12 -) 1,000 mcg PO HS [facility] Last Admin: 07/02/17 21:43 Dose: 1,000 mcg Doxycycline Hyclate (Vibramycin -) 100 mg PO BID@10,18 [facility] Last Admin: 07/03/17 10:20 Dose: 100 mg Ferrous Sulfate (Feosol -) 325 mg PO TID [facility] Last Admin: 07/03/17 13:43 Dose: 325 mg Gemfibrozil (Lopid -) 600 mg PO DAILY@2100 [facility] Last Admin: 07/02/17 21:43 Dose: 600 mg Heparin Sodium (Porcine) (Heparin -) 5,000 unit SQ TID [facility] Last Admin: 07/03/17 13:43 Dose: 5,000 unit Hydralazine HCl (Apresoline -) 50 mg PO TID [facility] Last Admin: 07/03/17 13:43 Dose: 50 mg IV Flush (Picc Line Flush) 8 ml IVPUSH PRN PRN PRN Reason: Protocol Ertapenem 1 gm/ Sodium (Chloride) 50 mls @ 50 mls/hr IVPB DAILY [facility] PRN Reason: Protocol Last Admin: 07/03/17 10:20 Dose: 50 mls/hr Insulin Aspart (Novolog Vial Sliding Scale -) 1 vial SQ ACHS [facility] PRN Reason: Protocol Last Admin: 07/03/17 11:48 Dose: Not Given Lactobacillus Acidophilus (Bacid -) 2 tab PO DAILY [facility] Last Admin: 07/03/17 10:20 Dose: 2 tab Metoprolol Tartrate (Lopressor -) 100 mg PO DAILY [facility] Last Admin: 07/03/17 10:20 Dose: 100 mg Non-Formulary Med- Mesalamine 1.2 Dr Tab 4 each PO AM@0800 [facility] Last Admin: 07/03/17 10:20 Dose: 4 each Non-Formulary Med- (Deep Sea Nasal [place]) 1 each IH QID [facility] Last Admin: 07/03/17 13:44 Dose: Not Given Pantoprazole Sodium (Protonix -) 20 mg PO DAILY [facility] Last Admin: 07/03/17 10:20 Dose: 20 mg - Objective Vital Signs: Vital Signs Temperature 98.3 F 07/03/17 09:00 Pulse Rate 90 07/03/17 09:00 Respiratory Rate 18 07/03/17 09:00 Blood Pressure 157/67 07/03/17 09:00 O2 Sat by Pulse Oximetry (%) 96 07/03/17 09:00 Constitutional: Yes: No Distress, Calm Cardiovascular: Yes: Regular Rate and Rhythm Respiratory: Yes: Regular, CTA Bilaterally Gastrointestinal: Yes: Normal Bowel Sounds, Soft Musculoskeletal: Yes: WNL Extremities: Yes: WNL Neurological: Yes: Alert, Oriented Psychiatric: Yes: Alert, Oriented Labs: CBC, BMP 07/02/17 07:20 07/02/17 07:20 Assessment/Plan Problem List - Problems (1) UTI (urinary tract infection) Code(s): N39.0 - URINARY TRACT INFECTION, SITE NOT SPECIFIED (2) Anemia Code(s): D64.9 - ANEMIA, UNSPECIFIED Qualifiers: Other causes of anemia: acute posthemorrhagic (3) Diabetes mellitus Code(s): E11.9 - TYPE 2 DIABETES MELLITUS WITHOUT COMPLICATIONS Qualifiers: Diabetes mellitus type: type 2 Diabetes mellitus complication status: without complication Diabetes mellitus long term care social worker insulin use: without jail use Qualified Code(s): E11.9 - Type 2 diabetes mellitus without complications; E11.9 - Type 2 diabetes mellitus without complications; E11.9 - Type 2 diabetes mellitus without complications; E11.9 - Type 2 diabetes mellitus without complications (4) Hypertension Code(s): I10 - ESSENTIAL (PRIMARY) HYPERTENSION Qualifiers: Hypertension type: essential hypertension Qualified Code(s): I10 - Essential (primary) hypertension; I10 - Essential (primary) hypertension; I10 - Essential (primary) hypertension (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
[2017-07-03] MEDS: CYANOCOBALAMIN 1,000 MCG TABLET (FP) PO SCH (21:45)
[2017-07-03] MEDS: GEMFIBROZIL 600 MG TABLET (FP) PO SCH (21:45)
[2017-07-03] MEDS: ATORVASTATIN CA 10 MG TABLET (FP) PO SCH (21:45)
[2017-07-04] MEDS: HEPARIN NA (PORCINE) 5,000 UNITS/ML 1ML VIAL SQ SCH ×3 (06:02→22:48)
[2017-07-04] MEDS: FERROUS SO4 325 MG TABLET (FP) PO SCH ×3 (06:02→22:47)
[2017-07-04] MEDS: hydrALAZINE HCL 50 MG TABLET (FP) PO SCH ×3 (06:02→22:48)
[2017-07-04] MEDS: INSULIN SLIDING SCALE (NOVOLOG) 1 VIAL SQ SCH ×4 (06:05→22:49)
[2017-07-04] MEDS ORDERED: PT OWN MED DRAWER 7, Y5N ONE ×2 (11:04→22:37)
[2017-07-04] MEDS: ASPIRIN 81 MG CHEWABLE TABLETS PO SCH (11:17)
[2017-07-04] MEDS: DOXYCYCLINE HYCLATE 100 MG CAPSULE PO SCH ×2 (11:17→17:23)
[2017-07-04] MEDS: [UNRECOGNIZED DRUG - REMARK] PO SCH (11:17)
[2017-07-04] MEDS: CHOLECALCIFEROL (VITAMIN D3) 1,000 UNIT TABLET (FP) PO SCH (11:18)
[2017-07-04] MEDS: LACTOBACILLUS ACIDOPHILUS 1 EACH TAB (FP) PO SCH (11:18)
[2017-07-04] MEDS: METOPROLOL TARTRATE 50 MG TABLET (FP) PO SCH (11:18)
[2017-07-04] MEDS: ASCORBIC ACID 500 MG TABLET (FP) PO SCH ×2 (11:19→22:47)
[2017-07-04] MEDS: DEEP SEA IH SCH ×4 (11:19→22:58)
[2017-07-04] MEDS: ERTAPENEM SODIUM 1 GM in SODIUM CHLORIDE 50 ML IVPB SCH (11:19)
[2017-07-04] MEDS: PANTOPRAZOLE 20 MG TABLET (FP) PO SCH (11:19)
--- NOTE | 2017-07-04 12:02 | PN ---
Progress Note, Physician History of Present Illness: patient stable no new issues - Current Medication List Current Medications: Active Medications Acetaminophen (Tylenol -) 650 mg PO Q4H PRN PRN Reason: FEVER OR PAIN Acetaminophen (Tylenol -) 325 mg PO Q6H PRN PRN Reason: PAIN Albuterol Sulfate (Ventolin Hfa Inhaler -) 1 puff IH Q4H PRN PRN Reason: sob Ascorbic Acid (Vitamin C -) 500 mg PO BID [facility] Last Admin: 07/04/17 11:19 Dose: 500 mg Aspirin (Asa -) 81 mg PO DAILY [facility] Last Admin: 07/04/17 11:17 Dose: 81 mg Atorvastatin Calcium (Lipitor -) 10 mg PO HS [facility] Last Admin: 07/03/17 21:45 Dose: 10 mg Cholecalciferol (Vitamin D3 -) 1,000 unit PO DAILY [facility] Last Admin: 07/04/17 11:18 Dose: 1,000 unit Cyanocobalamin (Vitamin B12 -) 1,000 mcg PO [facility] Last Admin: 07/03/17 21:45 Dose: 1,000 mcg Doxycycline Hyclate (Vibramycin -) 100 mg PO BID@ [facility] Last Admin: 07/04/17 11:17 Dose: 100 mg Ferrous Sulfate (Feosol -) 325 mg PO TID [facility] Last Admin: 07/04/17 06:02 Dose: 325 mg Gemfibrozil (Lopid -) 600 mg PO DAILY@2100 [facility] Last Admin: 07/03/17 21:45 Dose: 600 mg Heparin Sodium (Porcine) (Heparin -) 5,000 unit SQ TID [facility] Last Admin: 07/04/17 06:02 Dose: 5,000 unit Hydralazine HCl (Apresoline -) 50 mg PO TID [facility] Last Admin: 07/04/17 06:02 Dose: 50 mg IV Flush (Picc Line Flush) 8 ml IVPUSH PRN PRN PRN Reason: Protocol Ertapenem 1 gm/ Sodium (Chloride) 50 mls @ 50 mls/hr IVPB DAILY [facility] PRN Reason: Protocol Last Admin: 07/04/17 11:19 Dose: 50 mls/hr Insulin Aspart (Novolog Vial Sliding Scale -) 1 vial SQ ACHS [facility] PRN Reason: Protocol Last Admin: 07/04/17 06:05 Dose: Not Given Lactobacillus Acidophilus (Bacid -) 2 tab PO DAILY [facility] Last Admin: 07/04/17 11:18 Dose: 2 tab Metoprolol Tartrate (Lopressor -) 100 mg PO DAILY [facility] Last Admin: 07/04/17 11:18 Dose: 100 mg Non-Formulary Med- Mesalamine 1.2 Dr Tab 4 each PO AM@0800 [facility] Last Admin: 07/04/17 11:17 Dose: 4 each Non-Formulary Med- (Deep Sea Nasal [place]) 1 each IH QID [facility] Last Admin: 07/04/17 11:19 Dose: 1 each Pantoprazole Sodium (Protonix -) 20 mg PO DAILY [facility] Last Admin: 07/04/17 11:19 Dose: 20 mg - Objective Vital Signs: Vital Signs Temperature 98.7 F 07/04/17 10:00 Pulse Rate 83 07/04/17 10:00 Respiratory Rate 18 07/04/17 10:00 Blood Pressure 132/54 07/04/17 10:00 O2 Sat by Pulse Oximetry (%) 98 07/03/17 21:00 Constitutional: Yes: No Distress, Calm Cardiovascular: Yes: Regular Rate and Rhythm Respiratory: Yes: Regular, CTA Bilaterally Gastrointestinal: Yes: Normal Bowel Sounds, Soft Musculoskeletal: Yes: WNL Extremities: Yes: WNL Neurological: Yes: Alert, Oriented Psychiatric: Yes: Alert, Oriented Labs: CBC, BMP 07/02/17 07:20 07/02/17 07:20 Assessment/Plan Problem List - Problems (1) UTI (urinary tract infection) Code(s): N39.0 - URINARY TRACT INFECTION, SITE NOT SPECIFIED (2) Anemia Code(s): D64.9 - ANEMIA, UNSPECIFIED Qualifiers: Other causes of anemia: acute posthemorrhagic (3) Diabetes mellitus Code(s): E11.9 - TYPE 2 DIABETES MELLITUS WITHOUT COMPLICATIONS Qualifiers: Diabetes mellitus type: type 2 Diabetes mellitus complication status: without complication Diabetes mellitus middle or intermediate school principal insulin use: without middle or intermediate school principal use Qualified Code(s): E11.9 - Type 2 diabetes mellitus without complications; E11.9 - Type 2 diabetes mellitus without complications; E11.9 - Type 2 diabetes mellitus without complications; E11.9 - Type 2 diabetes mellitus without complications (4) Hypertension Code(s): I10 - ESSENTIAL (PRIMARY) HYPERTENSION Qualifiers: Hypertension type: essential hypertension Qualified Code(s): I10 - Essential (primary) hypertension; I10 - Essential (primary) hypertension; I10 - Essential (primary) hypertension (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
--- NOTE | 2017-07-04 13:26 | PN ---
Progress Note, Physician Chief Complaint: Concerned about the long hospital stay for UTI History of Present Illness: Patient with a recent history of Urine C/S ESBL and anemia of chronic disease is sitting in chair in room. No dysuria and tolerating meals. On Antibiotics as per ID MD. Hb still low but stable. BGM stable range. - Current Medication List Current Medications: Active Medications Acetaminophen (Tylenol -) 650 mg PO Q4H PRN PRN Reason: FEVER OR PAIN Acetaminophen (Tylenol -) 325 mg PO Q6H PRN PRN Reason: PAIN Albuterol Sulfate (Ventolin Hfa Inhaler -) 1 puff IH Q4H PRN PRN Reason: sob Ascorbic Acid (Vitamin C -) 500 mg PO BID [facility] Last Admin: 07/04/17 11:19 Dose: 500 mg Aspirin (Asa -) 81 mg PO DAILY [facility] Last Admin: 07/04/17 11:17 Dose: 81 mg Atorvastatin Calcium (Lipitor -) 10 mg PO [facility] Last Admin: 07/03/17 21:45 Dose: 10 mg Cholecalciferol (Vitamin D3 -) 1,000 unit PO DAILY [facility] Last Admin: 07/04/17 11:18 Dose: 1,000 unit Cyanocobalamin (Vitamin B12 -) 1,000 mcg PO [facility] Last Admin: 07/03/17 21:45 Dose: 1,000 mcg Doxycycline Hyclate (Vibramycin -) 100 mg PO BID@10,18 [facility] Last Admin: 07/04/17 11:17 Dose: 100 mg Ferrous Sulfate (Feosol -) 325 mg PO TID [facility] Last Admin: 07/04/17 06:02 Dose: 325 mg Gemfibrozil (Lopid -) 600 mg PO DAILY@2100 [facility] Last Admin: 07/03/17 21:45 Dose: 600 mg Heparin Sodium (Porcine) (Heparin -) 5,000 unit SQ TID [facility] Last Admin: 07/04/17 06:02 Dose: 5,000 unit Hydralazine HCl (Apresoline -) 50 mg PO TID [facility] Last Admin: 07/04/17 06:02 Dose: 50 mg IV Flush (Picc Line Flush) 8 ml IVPUSH PRN PRN PRN Reason: Protocol Ertapenem 1 gm/ Sodium (Chloride) 50 mls @ 50 mls/hr IVPB DAILY [facility] PRN Reason: Protocol Last Admin: 07/04/17 11:19 Dose: 50 mls/hr Insulin Aspart (Novolog Vial Sliding Scale -) 1 vial SQ ACHS [facility] PRN Reason: Protocol Last Admin: 07/04/17 12:25 Dose: Not Given Lactobacillus Acidophilus (Bacid -) 2 tab PO DAILY [facility] Last Admin: 07/04/17 11:18 Dose: 2 tab Metoprolol Tartrate (Lopressor -) 100 mg PO DAILY [facility] Last Admin: 07/04/17 11:18 Dose: 100 mg Non-Formulary Med- Mesalamine 1.2 Dr Tab 4 each PO AM@0800 [facility] Last Admin: 07/04/17 11:17 Dose: 4 each Non-Formulary Med- (Deep Sea Nasal [place]) 1 each IH QID [facility] Last Admin: 07/04/17 11:19 Dose: 1 each Pantoprazole Sodium (Protonix -) 20 mg PO DAILY [facility] Last Admin: 07/04/17 11:19 Dose: 20 mg - Objective Vital Signs: Vital Signs Temperature 98.7 F 07/04/17 10:00 Pulse Rate 83 07/04/17 10:00 Respiratory Rate 18 07/04/17 10:00 Blood Pressure 132/54 07/04/17 10:00 O2 Sat by Pulse Oximetry (%) 98 07/03/17 21:00 Constitutional: Yes: Calm Cardiovascular: Yes: Regular Rate and Rhythm Respiratory: Yes: Diminished Genitourinary: No: CVA Tenderness - Left, CVA Tenderness - Right Edema: LLE: 1+ (Mild edema under brace) Neurological: Yes: Alert, Oriented Labs: CBC, BMP 07/02/17 07:20 07/02/17 07:20 Problem List - Problems (1) UTI (urinary tract infection) Assessment/Plan: On Antibiotics as per I.D. Afebrile Code(s): N39.0 - URINARY TRACT INFECTION, SITE NOT SPECIFIED (2) Anemia Assessment/Plan: Chronic but needed packed cells. Seen by Hematology MD Code(s): D64.9 - ANEMIA, UNSPECIFIED Qualifiers: Other causes of anemia: acute posthemorrhagic (3) Diabetes mellitus Assessment/Plan: BGM's being monitored and stable Code(s): E11.9 - TYPE 2 DIABETES MELLITUS WITHOUT COMPLICATIONS Qualifiers: Diabetes mellitus type: type 2 Diabetes mellitus complication status: without complication Diabetes mellitus intermediate school teacher insulin use: without nursing home use Qualified Code(s): E11.9 - Type 2 diabetes mellitus without complications; E11.9 - Type 2 diabetes mellitus without complications; E11.9 - Type 2 diabetes mellitus without complications; E11.9 - Type 2 diabetes mellitus without complications (4) Status post revision of total replacement of left knee Assessment/Plan: developed infection after revision performed [facility]. Code(s): Z96.652 - PRESENCE OF LEFT ARTIFICIAL KNEE JOINT
[2017-07-04] MEDS: ATORVASTATIN CA 10 MG TABLET (FP) PO SCH (22:47)
[2017-07-04] MEDS: GEMFIBROZIL 600 MG TABLET (FP) PO SCH (22:48)
[2017-07-04] MEDS: CYANOCOBALAMIN 1,000 MCG TABLET (FP) PO SCH (22:48)
[2017-07-05] MEDS: HEPARIN NA (PORCINE) 5,000 UNITS/ML 1ML VIAL SQ SCH ×3 (06:30→22:27)
[2017-07-05] MEDS: FERROUS SO4 325 MG TABLET (FP) PO SCH ×3 (06:30→22:27)
[2017-07-05] MEDS: hydrALAZINE HCL 50 MG TABLET (FP) PO SCH ×3 (06:30→22:27)
[2017-07-05] MEDS: INSULIN SLIDING SCALE (NOVOLOG) 1 VIAL SQ SCH ×4 (06:31→22:33)
[2017-07-05] MEDS ORDERED: PT OWN MED DRAWER 7, Y5N ONE (09:01)
[2017-07-05 09:09] LABS: ANION GAP 12 (8-16); CALCIUM 9.4 mg/dL (8.5-10.1); CO2 22 mmol/L (21-32); CREATININE 1.1 mg/dL (0.55-1.02); GLUCOSE,RANDOM 109 mg/dL (74-106)
[2017-07-05] MEDS: DOXYCYCLINE HYCLATE 100 MG CAPSULE PO SCH ×2 (10:05→18:02)
[2017-07-05] MEDS: ASCORBIC ACID 500 MG TABLET (FP) PO SCH ×2 (10:05→22:28)
[2017-07-05] MEDS: CHOLECALCIFEROL (VITAMIN D3) 1,000 UNIT TABLET (FP) PO SCH (10:05)
[2017-07-05] MEDS: METOPROLOL TARTRATE 50 MG TABLET (FP) PO SCH (10:05)
[2017-07-05] MEDS: PANTOPRAZOLE 20 MG TABLET (FP) PO SCH (10:05)
[2017-07-05] MEDS: LACTOBACILLUS ACIDOPHILUS 1 EACH TAB (FP) PO SCH (10:05)
[2017-07-05] MEDS: ASPIRIN 81 MG CHEWABLE TABLETS PO SCH (10:05)
[2017-07-05] MEDS: ERTAPENEM SODIUM 1 GM in SODIUM CHLORIDE 50 ML IVPB SCH (10:06)
[2017-07-05] MEDS: [UNRECOGNIZED DRUG - REMARK] PO SCH (10:06)
[2017-07-05] MEDS: DEEP SEA IH SCH ×4 (10:06→22:28)
[2017-07-05 10:25] LABS: BASOPHIL 1.4 % (0-2.0); EOSINOPHIL 8.1 % (0-4.5); MCH 30.4 pg (25.7-33.7); MCHC 32.9 g/dl (32.0-36.0); MEAN CELL VOLUME 92.5 fl (80-96); MEAN PLT VOLUME 9.7 fl (7.5-11.1); PLATELET COUNT 211 K/MM3 (134-434); RDW 15.1 % (11.6-15.6); WHITE BLOOD COUNT 5.5 K/mm3 (4.0-10.0)
[2017-07-05] MEDS ORDERED: INSULIN (NOVOLOG) ASPART 100 UNITS/ML 10ML VIAL ONE (10:37)
--- NOTE | 2017-07-05 11:53 | PN ---
Progress Note, Physician Chief Complaint: No complaints today.Sitting at bedside. History of Present Illness: Patient with complicate dhistory of revision of left knee replacement and ruptured patella tendon and fracture post op at S in [facility] is currently being treated for ESBL UTI and anemia. Hb stable at 9.2Gm today. BGM's in range. Slight increse in BUN/Creatinine; to repeat lab AM. - Current Medication List Current Medications: Active Medications Acetaminophen (Tylenol -) 650 mg PO Q4H PRN PRN Reason: FEVER OR PAIN Acetaminophen (Tylenol -) 325 mg PO Q6H PRN PRN Reason: PAIN Albuterol Sulfate (Ventolin Hfa Inhaler -) 1 puff IH Q4H PRN PRN Reason: sob Ascorbic Acid (Vitamin C -) 500 mg PO BID [facility] Last Admin: 07/05/17 10:05 Dose: 500 mg Aspirin (Asa -) 81 mg PO DAILY [facility] Last Admin: 07/05/17 10:05 Dose: 81 mg Atorvastatin Calcium (Lipitor -) 10 mg PO [facility] Last Admin: 07/04/17 22:47 Dose: 10 mg Cholecalciferol (Vitamin D3 -) 1,000 unit PO DAILY [facility] Last Admin: 07/05/17 10:05 Dose: 1,000 unit Cyanocobalamin (Vitamin B12 -) 1,000 mcg PO [facility] Last Admin: 07/04/17 22:48 Dose: 1,000 mcg Doxycycline Hyclate (Vibramycin -) 100 mg PO BID@10,18 [facility] Last Admin: 07/05/17 10:05 Dose: 100 mg Ferrous Sulfate (Feosol -) 325 mg PO TID [facility] Last Admin: 07/05/17 06:30 Dose: 325 mg Gemfibrozil (Lopid -) 600 mg PO DAILY@2100 [facility] Last Admin: 07/04/17 22:48 Dose: 600 mg Heparin Sodium (Porcine) (Heparin -) 5,000 unit SQ TID [facility] Last Admin: 07/05/17 06:30 Dose: 5,000 unit Hydralazine HCl (Apresoline -) 50 mg PO TID [facility] Last Admin: 07/05/17 06:30 Dose: 50 mg IV Flush (Picc Line Flush) 8 ml IVPUSH PRN PRN PRN Reason: Protocol Ertapenem 1 gm/ Sodium (Chloride) 50 mls @ 50 mls/hr IVPB DAILY [facility] PRN Reason: Protocol Last Admin: 07/05/17 10:06 Dose: 50 mls/hr Insulin Aspart (Novolog Vial Sliding Scale -) 1 vial SQ ACHS [facility] PRN Reason: Protocol Last Admin: 07/05/17 11:01 Dose: 2 units Lactobacillus Acidophilus (Bacid -) 2 tab PO DAILY [facility] Last Admin: 07/05/17 10:05 Dose: 2 tab Metoprolol Tartrate (Lopressor -) 100 mg PO DAILY [facility] Last Admin: 07/05/17 10:05 Dose: 100 mg Non-Formulary Med- Mesalamine 1.2 Dr Tab 4 each PO AM@0800 [facility] Last Admin: 07/05/17 10:06 Dose: 4 each Non-Formulary Med- (Deep Sea Nasal [place]) 1 each IH QID [facility] Last Admin: 07/05/17 10:06 Dose: Not Given Pantoprazole Sodium (Protonix -) 20 mg PO DAILY [facility] Last Admin: 07/05/17 10:05 Dose: 20 mg - Objective Vital Signs: Vital Signs Temperature 98.4 F 07/05/17 10:00 Pulse Rate 90 07/05/17 10:00 Respiratory Rate 18 07/05/17 10:00 Blood Pressure 144/67 07/05/17 10:00 O2 Sat by Pulse Oximetry (%) 97 07/04/17 21:08 Constitutional: Yes: Calm Cardiovascular: Yes: Regular Rate and Rhythm Respiratory: Yes: Diminished. No: Rales, Rhonchi Gastrointestinal: Yes: Soft, Abdomen, Obese Genitourinary: No: [place] Present Extremities: Yes: Other (left leg with Velcro brace.) Edema: LLE: 1+, RLE: 1+ Neurological: Yes: Alert, Oriented Labs: CBC, BMP 07/05/17 09:45 07/05/17 06:45 Problem List - Problems (1) UTI (urinary tract infection) Assessment/Plan: On IV antibiotics as per [facility]AV[facility]Y. Code(s): N39.0 - URINARY TRACT INFECTION, SITE NOT SPECIFIED (2) Anemia Assessment/Plan: Hemoglobin improved to 9.2 GM today. To Follow. Code(s): D64.9 - ANEMIA, UNSPECIFIED Qualifiers: Other causes of anemia: acute posthemorrhagic (3) Diabetes mellitus Assessment/Plan: BGM's noted. 143 last reading. Code(s): E11.9 - TYPE 2 DIABETES MELLITUS WITHOUT COMPLICATIONS Qualifiers: Diabetes mellitus type: type 2 Diabetes mellitus complication status: without complication Diabetes mellitus skilled nursing insulin use: without skilled nursing use Qualified Code(s): E11.9 - Type 2 diabetes mellitus without complications; E11.9 - Type 2 diabetes mellitus without complications; E11.9 - Type 2 diabetes mellitus without complications; E11.9 - Type 2 diabetes mellitus without complications (4) Status post revision of total replacement of left knee Assessment/Plan: leg elevated and non painful while at rest. Brace in place. Code(s): Z96.652 - PRESENCE OF LEFT ARTIFICIAL KNEE JOINT
--- NOTE | 2017-07-05 13:00 | PN ---
Progress Note, Physician History of Present Illness: patient stable no new issues - Current Medication List Current Medications: Active Medications Acetaminophen (Tylenol -) 650 mg PO Q4H PRN PRN Reason: FEVER OR PAIN Acetaminophen (Tylenol -) 325 mg PO Q6H PRN PRN Reason: PAIN Albuterol Sulfate (Ventolin Hfa Inhaler -) 1 puff IH Q4H PRN PRN Reason: sob Ascorbic Acid (Vitamin C -) 500 mg PO BID [facility] Last Admin: 07/05/17 10:05 Dose: 500 mg Aspirin (Asa -) 81 mg PO DAILY [facility] Last Admin: 07/05/17 10:05 Dose: 81 mg Atorvastatin Calcium (Lipitor -) 10 mg PO [facility] Last Admin: 07/04/17 22:47 Dose: 10 mg Cholecalciferol (Vitamin D3 -) 1,000 unit PO DAILY [facility] Last Admin: 07/05/17 10:05 Dose: 1,000 unit Cyanocobalamin (Vitamin B12 -) 1,000 mcg PO [facility] Last Admin: 07/04/17 22:48 Dose: 1,000 mcg Doxycycline Hyclate (Vibramycin -) 100 mg PO BID@10,18 [facility] Last Admin: 07/05/17 10:05 Dose: 100 mg Ferrous Sulfate (Feosol -) 325 mg PO TID [facility] Last Admin: 07/05/17 06:30 Dose: 325 mg Gemfibrozil (Lopid -) 600 mg PO DAILY@2100 [facility] Last Admin: 07/04/17 22:48 Dose: 600 mg Heparin Sodium (Porcine) (Heparin -) 5,000 unit SQ TID [facility] Last Admin: 07/05/17 06:30 Dose: 5,000 unit Hydralazine HCl (Apresoline -) 50 mg PO TID [facility] Last Admin: 07/05/17 06:30 Dose: 50 mg IV Flush (Picc Line Flush) 8 ml IVPUSH PRN PRN PRN Reason: Protocol Ertapenem 1 gm/ Sodium (Chloride) 50 mls @ 50 mls/hr IVPB DAILY [facility] PRN Reason: Protocol Last Admin: 07/05/17 10:06 Dose: 50 mls/hr Insulin Aspart (Novolog Vial Sliding Scale -) 1 vial SQ ACHS [facility] PRN Reason: Protocol Last Admin: 07/05/17 11:01 Dose: 2 units Lactobacillus Acidophilus (Bacid -) 2 tab PO DAILY [facility] Last Admin: 07/05/17 10:05 Dose: 2 tab Metoprolol Tartrate (Lopressor -) 100 mg PO DAILY [facility] Last Admin: 07/05/17 10:05 Dose: 100 mg Non-Formulary Med- Mesalamine 1.2 Dr Tab 4 each PO AM@0800 [facility] Last Admin: 07/05/17 10:06 Dose: 4 each Non-Formulary Med- (Deep Sea Nasal [place]) 1 each IH QID [facility] Last Admin: 07/05/17 10:06 Dose: Not Given Pantoprazole Sodium (Protonix -) 20 mg PO DAILY [facility] Last Admin: 07/05/17 10:05 Dose: 20 mg - Objective Vital Signs: Vital Signs Temperature 98.4 F 07/05/17 10:00 Pulse Rate 90 07/05/17 10:00 Respiratory Rate 18 07/05/17 10:00 Blood Pressure 144/67 07/05/17 10:00 O2 Sat by Pulse Oximetry (%) 98 07/05/17 10:00 Constitutional: Yes: No Distress, Calm Cardiovascular: Yes: Regular Rate and Rhythm Respiratory: Yes: Regular, CTA Bilaterally Gastrointestinal: Yes: Normal Bowel Sounds, Soft Musculoskeletal: Yes: WNL Extremities: Yes: WNL Neurological: Yes: Alert, Oriented Psychiatric: Yes: Alert Labs: CBC, BMP 07/05/17 09:45 07/05/17 06:45 Assessment/Plan Problem List - Problems (1) UTI (urinary tract infection) Code(s): N39.0 - URINARY TRACT INFECTION, SITE NOT SPECIFIED (2) Anemia Code(s): D64.9 - ANEMIA, UNSPECIFIED Qualifiers: Other causes of anemia: acute posthemorrhagic (3) Diabetes mellitus Code(s): E11.9 - TYPE 2 DIABETES MELLITUS WITHOUT COMPLICATIONS Qualifiers: Diabetes mellitus type: type 2 Diabetes mellitus complication status: without complication Diabetes mellitus shelter insulin use: without long term care pharmacist use Qualified Code(s): E11.9 - Type 2 diabetes mellitus without complications; E11.9 - Type 2 diabetes mellitus without complications; E11.9 - Type 2 diabetes mellitus without complications; E11.9 - Type 2 diabetes mellitus without complications (4) Hypertension Code(s): I10 - ESSENTIAL (PRIMARY) HYPERTENSION Qualifiers: Hypertension type: essential hypertension Qualified Code(s): I10 - Essential (primary) hypertension; I10 - Essential (primary) hypertension; I10 - Essential (primary) hypertension (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
[2017-07-05] MEDS: GEMFIBROZIL 600 MG TABLET (FP) PO SCH (21:51)
[2017-07-05] MEDS: ATORVASTATIN CA 10 MG TABLET (FP) PO SCH (22:27)
[2017-07-05] MEDS: CYANOCOBALAMIN 1,000 MCG TABLET (FP) PO SCH (22:28)
[2017-07-06] MEDS: FERROUS SO4 325 MG TABLET (FP) PO SCH ×3 (06:12→22:28)
[2017-07-06] MEDS: hydrALAZINE HCL 50 MG TABLET (FP) PO SCH ×3 (06:12→22:28)
[2017-07-06] MEDS: INSULIN SLIDING SCALE (NOVOLOG) 1 VIAL SQ SCH ×5 (06:13→22:38)
[2017-07-06] MEDS: HEPARIN NA (PORCINE) 5,000 UNITS/ML 1ML VIAL SQ SCH ×3 (06:13→22:28)
[2017-07-06 07:46] LABS: BASOPHIL 1.4 % (0-2.0); EOSINOPHIL 9.8 % (0-4.5); MCH 30.5 pg (25.7-33.7); MCHC 32.8 g/dl (32.0-36.0); MEAN PLT VOLUME 9.8 fl (7.5-11.1); NEUTROPHILS 64.4 % (42.8-82.8); PLATELET COUNT 198 K/MM3 (134-434); WHITE BLOOD COUNT 5.1 K/mm3 (4.0-10.0)
[2017-07-06 08:10] LABS: ANION GAP 9 (8-16); CALCIUM 9.2 mg/dL (8.5-10.1); CO2 23 mmol/L (21-32); CREATININE 0.9 mg/dL (0.55-1.02); GLUCOSE,RANDOM 121 mg/dL (74-106)
[2017-07-06] MEDS ORDERED: PT OWN MED DRAWER 7, Y5N ONE (08:33)
[2017-07-06] MEDS: ERTAPENEM SODIUM 1 GM in SODIUM CHLORIDE 50 ML IVPB SCH (10:44)
[2017-07-06] MEDS: METOPROLOL TARTRATE 50 MG TABLET (FP) PO SCH (10:45)
[2017-07-06] MEDS: ASPIRIN 81 MG CHEWABLE TABLETS PO SCH (10:45)
[2017-07-06] MEDS: CHOLECALCIFEROL (VITAMIN D3) 1,000 UNIT TABLET (FP) PO SCH (10:45)
[2017-07-06] MEDS: DOXYCYCLINE HYCLATE 100 MG CAPSULE PO SCH ×2 (10:45→17:45)
[2017-07-06] MEDS: LACTOBACILLUS ACIDOPHILUS 1 EACH TAB (FP) PO SCH (10:45)
[2017-07-06] MEDS: ASCORBIC ACID 500 MG TABLET (FP) PO SCH ×2 (10:45→22:28)
[2017-07-06] MEDS: PANTOPRAZOLE 20 MG TABLET (FP) PO SCH (10:45)
[2017-07-06] MEDS: DEEP SEA IH SCH ×4 (10:46→22:39)
[2017-07-06] MEDS: [UNRECOGNIZED DRUG - REMARK] PO SCH (10:46)
[2017-07-06] MEDS ORDERED: INSULIN (NOVOLOG) ASPART 100 UNITS/ML 10ML VIAL ONE (11:54)
--- NOTE | 2017-07-06 15:16 | PN ---
Physical Exam: SUBJECTIVE: Patient seen and examined OBJECTIVE: Vital Signs Period Temp Pulse Resp BP Sys/[place]erson Pulse Ox Last 24 Hr 97.4 F-99.8 F 69-86 16-18 118-160/6-88 97-99 GENERAL: The patient is awake, alert, and fully oriented, in no acute distress. HEAD: Normal with no signs of trauma. EYES: PERRL, extraocular movements intact, sclera anicteric, conjunctiva clear. No ptosis. ENT: Ears normal, nares patent, oropharynx clear without exudates, moist mucous membranes. NECK: Trachea midline, full range of motion, supple. LUNGS: Breath sounds equal, clear to auscultation bilaterally, no wheezes, no crackles, no accessory muscle use. HEART: Regular rate and rhythm, S1, S2 without murmur, rub or gallop. ABDOMEN: Soft, nontender, nondistended, normoactive bowel sounds, no guarding, no rebound, no hepatosplenomegaly, no masses. EXTREMITIES: 2+ pulses, warm, well-perfused, no edema. NEUROLOGICAL: Cranial nerves II through XII grossly intact. Normal speech, gait not observed. PSYCH: Normal mood, normal affect. SKIN: Warm, dry, normal turgor, no rashes or lesions noted Laboratory Results - last 24 hr 07/05/17 07/05/17 07/05/17 17:00 18:01 22:31 WBC RBC Hgb Hct MCV MCH MCHC RDW Plt Count MPV Neutrophils % Lymphocytes % Monocytes % Eosinophils % Basophils % Sodium Potassium Chloride Carbon Dioxide Anion Gap BUN Creatinine POC Glucometer 151 146 Random Glucose Calcium Stool Occult Blood Negative 07/06/17 07/06/17 07/06/17 06:11 06:45 06:45 WBC 5.1 RBC 2.70 L Hgb 8.2 L D Hct 25.1 L MCV 93.0 MCH 30.5 MCHC 32.8 RDW 15.0 Plt Count 198 MPV 9.8 Neutrophils % 64.4 Lymphocytes % 14.3 Monocytes % 10.1 Eosinophils % 9.8 H Basophils % 1.4 Sodium 143 Potassium 4.2 Chloride 111 H Carbon Dioxide 23 Anion Gap 9 BUN 32 H Creatinine 0.9 POC Glucometer 140 Random Glucose 121 H Calcium 9.2 Stool Occult Blood 07/06/17 11:59 WBC RBC Hgb Hct MCV MCH MCHC RDW Plt Count MPV Neutrophils % Lymphocytes % Monocytes % Eosinophils % Basophils % Sodium Potassium Chloride Carbon Dioxide Anion Gap BUN Creatinine POC Glucometer 167 Random Glucose Calcium Stool Occult Blood Active Medications Generic Name Dose Route Start Last Admin Trade Name Brenda PRN Reason Stop Dose Admin Acetaminophen 650 mg 06/25/17 18:17 Tylenol - PO Q4H PRN FEVER OR PAIN Acetaminophen 325 mg 06/25/17 20:48 Tylenol - PO Q6H PRN PAIN Albuterol Sulfate 1 puff 06/25/17 18:22 Ventolin Hfa Inhaler - IH Q4H PRN sob Ascorbic Acid 500 mg 06/27/17 22:00 07/06/17 10:45 Vitamin C - PO 500 mg BID [facility] Administration Aspirin 81 mg 06/26/17 10:00 07/06/17 10:45 Asa - PO 81 mg DAILY [facility] Administration Atorvastatin Calcium 10 mg 06/25/17 22:00 07/05/17 22:27 Lipitor - PO 10 mg HS [facility] Administration Cholecalciferol 1,000 unit 06/26/17 10:00 07/06/17 10:45 Vitamin D3 - PO 1,000 unit DAILY [facility] Administration Cyanocobalamin 1,000 mcg 06/25/17 22:00 07/05/17 22:28 Vitamin B12 - PO 1,000 mcg HS [facility] Administration Doxycycline Hyclate 100 mg 06/26/17 22:15 07/06/17 10:45 Vibramycin - PO 100 mg BID@18 [facility] Administration Ferrous Sulfate 325 mg 06/25/17 22:00 07/06/17 14:11 Feosol - PO 325 mg TID [facility] Administration Gemfibrozil 600 mg 06/29/17 21:00 07/05/17 21:51 Lopid - PO 600 mg DAILY@2100 [facility] Administration Heparin Sodium (Porcine) 5,000 unit 07/03/17 14:00 07/06/17 14:11 Heparin - SQ 5,000 unit TID [facility] Administration Hydralazine HCl 50 mg 06/30/17 06:00 07/06/17 14:11 Apresoline - PO 50 mg TID [facility] Administration IV Flush 8 ml 06/30/17 09:19 Picc Line Flush IVPUSH PRN PRN Protocol Ertapenem 1 gm/ Sodium 50 mls @ 50 mls/hr 06/26/17 10:00 07/06/17 10:44 Chloride IVPB 50 mls/hr DAILY [facility] Administration Protocol Insulin Aspart 1 vial 06/25/17 22:00 07/06/17 12:01 Novolog Vial Sliding Scale - SQ 2 units ACHS [facility] Administration Protocol Lactobacillus Acidophilus 2 tab 06/30/17 10:00 07/06/17 10:45 Bacid - PO 2 tab DAILY [facility] Administration Metoprolol Tartrate 100 mg 06/26/17 10:00 07/06/17 10:45 Lopressor - PO 100 mg DAILY [facility] Administration Non-Formulary Med- 4 each 07/02/17 08:00 07/06/17 10:[address] PO 4 each Tab AM@0800 [facility] Administration Non-Formulary Med- 1 each 07/01/17 22:00 07/06/17 14:14 Deep Sea Nasal [place] IH Not Given QID [facility] Pantoprazole Sodium 20 mg 06/26/17 10:00 07/06/17 10:45 Protonix - PO 20 mg DAILY [facility] Administration ASSESSMENT/PLAN: A: 77yo woman with UTI and asymptomatic anemia P: #UTI - Ertapenem - ID following #Anemia - trend CBC - no active bleeding noted - B12 - FeSO4 - transfuse for Hgb<7.0 #DM - FS qACHS - ISS #s/p revision of left TKR - doxycycline 100mg bid - partial weight bearing #HTN - metoprolol - hydralazine #HLD - Lopid - Lipitor F/E/N - replete prn - Low Na diabetic diet PPX - OOB - sqh Dispo- d/c home when hgb stabilizes Visit type - Emergency Visit Emergency Visit: Yes ED Registration Date: 06/25/17 Care time: The patient presented to the Emergency Department on the above date and was hospitalized for further evaluation of their emergent condition. - New Patient This patient is new to me today: Yes Date on this admission: 07/06/17 - Critical Care Critical Care patient: No
--- NOTE | 2017-07-06 18:40 | PN ---
Progress Note, Physician History of Present Illness: patient stable no new issues - Current Medication List Current Medications: Active Medications Acetaminophen (Tylenol -) 650 mg PO Q4H PRN PRN Reason: FEVER OR PAIN Acetaminophen (Tylenol -) 325 mg PO Q6H PRN PRN Reason: PAIN Albuterol Sulfate (Ventolin Hfa Inhaler -) 1 puff IH Q4H PRN PRN Reason: sob Ascorbic Acid (Vitamin C -) 500 mg PO BID [facility] Last Admin: 07/06/17 10:45 Dose: 500 mg Aspirin (Asa -) 81 mg PO DAILY [facility] Last Admin: 07/06/17 10:45 Dose: 81 mg Atorvastatin Calcium (Lipitor -) 10 mg PO HS [facility] Last Admin: 07/05/17 22:27 Dose: 10 mg Cholecalciferol (Vitamin D3 -) 1,000 unit PO DAILY [facility] Last Admin: 07/06/17 10:45 Dose: 1,000 unit Cyanocobalamin (Vitamin B12 -) 1,000 mcg PO [facility] Last Admin: 07/05/17 22:28 Dose: 1,000 mcg Doxycycline Hyclate (Vibramycin -) 100 mg PO BID@10,18 [facility] Last Admin: 07/06/17 17:45 Dose: 100 mg Ferrous Sulfate (Feosol -) 325 mg PO TID [facility] Last Admin: 07/06/17 14:11 Dose: 325 mg Gemfibrozil (Lopid -) 600 mg PO DAILY@2100 [facility] Last Admin: 07/05/17 21:51 Dose: 600 mg Heparin Sodium (Porcine) (Heparin -) 5,000 unit SQ TID [facility] Last Admin: 07/06/17 14:11 Dose: 5,000 unit Hydralazine HCl (Apresoline -) 50 mg PO TID [facility] Last Admin: 07/06/17 14:11 Dose: 50 mg IV Flush (Picc Line Flush) 8 ml IVPUSH PRN PRN PRN Reason: Protocol Ertapenem 1 gm/ Sodium (Chloride) 50 mls @ 50 mls/hr IVPB DAILY [facility] PRN Reason: Protocol Last Admin: 07/06/17 10:44 Dose: 50 mls/hr Insulin Aspart (Novolog Vial Sliding Scale -) 1 vial SQ ACHS [facility] PRN Reason: Protocol Last Admin: 07/06/17 17:45 Dose: Not Given Lactobacillus Acidophilus (Bacid -) 2 tab PO DAILY [facility] Last Admin: 07/06/17 10:45 Dose: 2 tab Metoprolol Tartrate (Lopressor -) 100 mg PO DAILY [facility] Last Admin: 07/06/17 10:45 Dose: 100 mg Non-Formulary Med- Mesalamine 1.2 Dr Tab 4 each PO AM@0800 [facility] Last Admin: 07/06/17 10:46 Dose: 4 each Non-Formulary Med- (Deep Sea Nasal [place]) 1 each IH QID [facility] Last Admin: 07/06/17 17:45 Dose: Not Given Pantoprazole Sodium (Protonix -) 20 mg PO DAILY [facility] Last Admin: 07/06/17 10:45 Dose: 20 mg - Objective Vital Signs: Vital Signs Temperature 98.7 F 07/06/17 17:46 Pulse Rate 70 07/06/17 17:46 Respiratory Rate 20 07/06/17 17:46 Blood Pressure 135/62 07/06/17 17:46 O2 Sat by Pulse Oximetry (%) 99 07/06/17 09:00 Constitutional: Yes: No Distress, Calm Gastrointestinal: Yes: Normal Bowel Sounds, Soft Musculoskeletal: Yes: WNL Extremities: Yes: WNL Neurological: Yes: Alert, Oriented Psychiatric: Yes: Alert, Oriented Labs: CBC, BMP 07/06/17 06:45 07/06/17 06:45 Assessment/Plan Problem List - Problems (1) UTI (urinary tract infection) Code(s): N39.0 - URINARY TRACT INFECTION, SITE NOT SPECIFIED (2) Anemia Code(s): D64.9 - ANEMIA, UNSPECIFIED Qualifiers: Other causes of anemia: acute posthemorrhagic (3) Diabetes mellitus Code(s): E11.9 - TYPE 2 DIABETES MELLITUS WITHOUT COMPLICATIONS Qualifiers: Diabetes mellitus type: type 2 Diabetes mellitus complication status: without complication Diabetes mellitus prison insulin use: without prison use Qualified Code(s): E11.9 - Type 2 diabetes mellitus without complications; E11.9 - Type 2 diabetes mellitus without complications; E11.9 - Type 2 diabetes mellitus without complications; E11.9 - Type 2 diabetes mellitus without complications (4) Hypertension Code(s): I10 - ESSENTIAL (PRIMARY) HYPERTENSION Qualifiers: Hypertension type: essential hypertension Qualified Code(s): I10 - Essential (primary) hypertension; I10 - Essential (primary) hypertension; I10 - Essential (primary) hypertension (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
[2017-07-06] MEDS: GEMFIBROZIL 600 MG TABLET (FP) PO SCH (20:51)
[2017-07-06] MEDS: ATORVASTATIN CA 10 MG TABLET (FP) PO SCH (22:28)
[2017-07-06] MEDS: CYANOCOBALAMIN 1,000 MCG TABLET (FP) PO SCH (22:28)
[2017-07-07] MEDS: FERROUS SO4 325 MG TABLET (FP) PO SCH ×3 (05:38→21:29)
[2017-07-07] MEDS: HEPARIN NA (PORCINE) 5,000 UNITS/ML 1ML VIAL SQ SCH ×3 (05:38→21:29)
[2017-07-07] MEDS: hydrALAZINE HCL 50 MG TABLET (FP) PO SCH ×3 (05:38→21:29)
[2017-07-07] MEDS: INSULIN SLIDING SCALE (NOVOLOG) 1 VIAL SQ SCH ×4 (06:26→23:00)
[2017-07-07 07:14] LABS: BASOPHIL 2.5 % (0-2.0); EOSINOPHIL 10.3 % (0-4.5); MCH 30.2 pg (25.7-33.7); MCHC 32.2 g/dl (32.0-36.0); MEAN CELL VOLUME 93.7 fl (80-96); MEAN PLT VOLUME 9.7 fl (7.5-11.1); NEUTROPHILS 59.6 % (42.8-82.8); PLATELET COUNT 204 K/MM3 (134-434); RDW 14.6 % (11.6-15.6); WHITE BLOOD COUNT 4.4 K/mm3 (4.0-10.0)
[2017-07-07 07:41] LABS: ANION GAP 10 (8-16); CALCIUM 8.9 mg/dL (8.5-10.1); CO2 23 mmol/L (21-32); CREATININE 0.9 mg/dL (0.55-1.02); GLUCOSE,RANDOM 110 mg/dL (74-106)
[2017-07-07] MEDS: ERTAPENEM SODIUM 1 GM in SODIUM CHLORIDE 50 ML IVPB SCH (10:34)
[2017-07-07] MEDS: CHOLECALCIFEROL (VITAMIN D3) 1,000 UNIT TABLET (FP) PO SCH (10:35)
[2017-07-07] MEDS: ASPIRIN 81 MG CHEWABLE TABLETS PO SCH (10:35)
[2017-07-07] MEDS: DEEP SEA IH SCH ×3 (10:35→21:35)
[2017-07-07] MEDS: DOXYCYCLINE HYCLATE 100 MG CAPSULE PO SCH ×2 (10:35→17:57)
[2017-07-07] MEDS: [UNRECOGNIZED DRUG - REMARK] PO SCH (10:35)
[2017-07-07] MEDS: LACTOBACILLUS ACIDOPHILUS 1 EACH TAB (FP) PO SCH (10:35)
[2017-07-07] MEDS: PANTOPRAZOLE 20 MG TABLET (FP) PO SCH (10:35)
[2017-07-07] MEDS: METOPROLOL TARTRATE 50 MG TABLET (FP) PO SCH (10:35)
[2017-07-07] MEDS: ASCORBIC ACID 500 MG TABLET (FP) PO SCH ×2 (10:35→21:29)
[2017-07-07] MEDS ORDERED: PT OWN MED DRAWER 7, Y5N ONE ×2 (11:11→15:10)
--- NOTE | 2017-07-07 11:24 | PN ---
Progress Note, Physician Chief Complaint: Ms Haile is without complaint. Says she feels fine. Denies cp, sob, n/v. - Current Medication List Current Medications: Active Medications Acetaminophen (Tylenol -) 650 mg PO Q4H PRN PRN Reason: FEVER OR PAIN Acetaminophen (Tylenol -) 325 mg PO Q6H PRN PRN Reason: PAIN Albuterol Sulfate (Ventolin Hfa Inhaler -) 1 puff IH Q4H PRN PRN Reason: sob Ascorbic Acid (Vitamin C -) 500 mg PO BID [facility] Last Admin: 07/07/17 10:35 Dose: 500 mg Aspirin (Asa -) 81 mg PO DAILY [facility] Last Admin: 07/07/17 10:35 Dose: 81 mg Atorvastatin Calcium (Lipitor -) 10 mg PO HS [facility] Last Admin: 07/06/17 22:28 Dose: 10 mg Cholecalciferol (Vitamin D3 -) 1,000 unit PO DAILY [facility] Last Admin: 07/07/17 10:35 Dose: 1,000 unit Cyanocobalamin (Vitamin B12 -) 1,000 mcg PO HS [facility] Last Admin: 07/06/17 22:28 Dose: 1,000 mcg Doxycycline Hyclate (Vibramycin -) 100 mg PO BID@10,18 [facility] Last Admin: 07/07/17 10:35 Dose: 100 mg Ferrous Sulfate (Feosol -) 325 mg PO TID [facility] Last Admin: 07/07/17 05:38 Dose: 325 mg Gemfibrozil (Lopid -) 600 mg PO DAILY@2100 [facility] Last Admin: 07/06/17 20:51 Dose: 600 mg Heparin Sodium (Porcine) (Heparin -) 5,000 unit SQ TID [facility] Last Admin: 07/07/17 05:38 Dose: 5,000 unit Hydralazine HCl (Apresoline -) 50 mg PO TID [facility] Last Admin: 07/07/17 05:38 Dose: 50 mg IV Flush (Picc Line Flush) 8 ml IVPUSH PRN PRN PRN Reason: Protocol Ertapenem 1 gm/ Sodium (Chloride) 50 mls @ 50 mls/hr IVPB DAILY [facility] PRN Reason: Protocol Last Admin: 07/07/17 10:34 Dose: 50 mls/hr Insulin Aspart (Novolog Vial Sliding Scale -) 1 vial SQ ACHS [facility] PRN Reason: Protocol Last Admin: 07/07/17 06:26 Dose: Not Given Lactobacillus Acidophilus (Bacid -) 2 tab PO DAILY [facility] Last Admin: 07/07/17 10:35 Dose: 2 tab Metoprolol Tartrate (Lopressor -) 100 mg PO DAILY [facility] Last Admin: 07/07/17 10:35 Dose: 100 mg Non-Formulary Med- Mesalamine 1.2 Dr Tab 4 each PO AM@0800 [facility] Last Admin: 07/07/17 10:35 Dose: 4 each Non-Formulary Med- (Deep Sea Nasal [place]) 1 each IH QID [facility] Last Admin: 07/07/17 10:35 Dose: Not Given Pantoprazole Sodium (Protonix -) 20 mg PO DAILY [facility] Last Admin: 07/07/17 10:35 Dose: 20 mg - Objective Vital Signs: Vital Signs Temperature 36.8 C 07/07/17 05:49 Pulse Rate 80 07/07/17 05:49 Respiratory Rate 20 07/07/17 05:49 Blood Pressure 132/45 07/07/17 05:49 O2 Sat by Pulse Oximetry (%) 99 07/06/17 21:00 Constitutional: Yes: Well Nourished, No Distress, Calm Cardiovascular: Yes: Regular Rate and Rhythm. No: Gallop, Murmur, Rub Respiratory: Yes: Regular, CTA Bilaterally. No: Rales, Rhonchi, Wheezes Gastrointestinal: Yes: Normal Bowel Sounds, Soft. No: Distention, Tenderness Extremities: Yes: Other (L knee in brace) Edema: No Labs: CBC, BMP 07/07/17 06:30 07/07/17 06:30 Problem List - Problems (1) UTI (urinary tract infection) Code(s): N39.0 - URINARY TRACT INFECTION, SITE NOT SPECIFIED (2) Anemia Code(s): D64.9 - ANEMIA, UNSPECIFIED Qualifiers: Other causes of anemia: acute posthemorrhagic (3) Diabetes mellitus Code(s): E11.9 - TYPE 2 DIABETES MELLITUS WITHOUT COMPLICATIONS Qualifiers: Diabetes mellitus type: type 2 Diabetes mellitus complication status: without complication Diabetes mellitus fdc insulin use: without fdc use Qualified Code(s): E11.9 - Type 2 diabetes mellitus without complications; E11.9 - Type 2 diabetes mellitus without complications; E11.9 - Type 2 diabetes mellitus without complications; E11.9 - Type 2 diabetes mellitus without complications (4) Hypertension Code(s): I10 - ESSENTIAL (PRIMARY) HYPERTENSION Qualifiers: Hypertension type: essential hypertension Qualified Code(s): I10 - Essential (primary) hypertension; I10 - Essential (primary) hypertension; I10 - Essential (primary) hypertension (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 Code(s): Z96.652 - PRESENCE OF LEFT ARTIFICIAL KNEE JOINT (6) Ulcerative colitis Code(s): K51.90 - ULCERATIVE COLITIS, UNSPECIFIED, WITHOUT COMPLICATIONS Assessment/Plan (1) UTI (urinary tract infection) Assessment/Plan: -patient found to have ESBL in urine, sensitive to carbapenems -ID following -continue ertapenem, day 13/14 -can discharge tomorrow after antibiotic dose Code(s): N39.0 - URINARY TRACT INFECTION, SITE NOT SPECIFIED (2) Anemia Assessment/Plan: -s/p 2 units -stable Code(s): D64.9 - ANEMIA, UNSPECIFIED Qualifiers: Other causes of anemia: acute posthemorrhagic (3) Diabetes mellitus Assessment/Plan: -diabetic diet -cover with SSI Code(s): E11.9 - TYPE 2 DIABETES MELLITUS WITHOUT COMPLICATIONS Qualifiers: Diabetes mellitus type: type 2 Diabetes mellitus complication status: without complication Diabetes mellitus rat exterminator insulin use: without rat exterminator use Qualified Code(s): E11.9 - Type 2 diabetes mellitus without complications (4) Hypertension Assessment/Plan: -continue metoprolol and hydralazine Code(s): I10 - ESSENTIAL (PRIMARY) HYPERTENSION Qualifiers: Hypertension type: essential hypertension Qualified Code(s): I10 - Essential (primary) hypertension (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 Dispo -plan for discharge tomorrow
--- NOTE | 2017-07-07 14:37 | PN ---
Progress Note, Physician History of Present Illness: patient stable no new issues - Current Medication List Current Medications: Active Medications Acetaminophen (Tylenol -) 650 mg PO Q4H PRN PRN Reason: FEVER OR PAIN Acetaminophen (Tylenol -) 325 mg PO Q6H PRN PRN Reason: PAIN Albuterol Sulfate (Ventolin Hfa Inhaler -) 1 puff IH Q4H PRN PRN Reason: sob Ascorbic Acid (Vitamin C -) [address] [facility] Last Admin: 07/07/17 10:35 Dose: 500 mg Aspirin (Asa -) [address] [facility] Last Admin: 07/07/17 10:35 Dose: 81 mg Atorvastatin Calcium (Lipitor -) [address] [facility] Last Admin: 07/06/17 22:28 Dose: 10 mg Cholecalciferol (Vitamin D3 -) 1,[address] [facility] Last Admin: 07/07/17 10:35 Dose: 1,000 unit Cyanocobalamin (Vitamin B12 -) 1,[address] [facility] Last Admin: 07/06/17 22:28 Dose: 1,000 mcg Doxycycline Hyclate (Vibramycin -) 100 mg PO BID@18 [facility] Last Admin: 07/07/17 10:35 Dose: 100 mg Ferrous Sulfate (Feosol -) [address] [facility] Last Admin: 07/07/17 05:38 Dose: 325 mg Gemfibrozil (Lopid -) 600 mg PO DAILY@2100 [facility] Last Admin: 07/06/17 20:51 Dose: 600 mg Heparin Sodium (Porcine) (Heparin -) 5,[address] [facility] Last Admin: 07/07/17 05:38 Dose: 5,000 unit Hydralazine HCl (Apresoline -) [address] [facility] Last Admin: 07/07/17 05:38 Dose: 50 mg IV Flush (Picc Line Flush) 8 ml IVPUSH PRN PRN PRN Reason: Protocol Ertapenem 1 gm/ Sodium (Chloride) 50 mls @ 50 mls/hr IVPB DAILY [facility] PRN Reason: Protocol Last Admin: 07/07/17 10:34 Dose: 50 mls/hr Insulin Aspart (Novolog Vial Sliding Scale -) [address] [facility] PRN Reason: Protocol Last Admin: 07/07/17 06:26 Dose: Not Given Lactobacillus Acidophilus (Bacid -) [address] [facility] Last Admin: 07/07/17 10:35 Dose: 2 tab Metoprolol Tartrate (Lopressor -) [address] [facility] Last Admin: 07/07/17 10:35 Dose: 100 mg Non-Formulary Med- Mesalamine 1.2 Dr Tab 4 each PO AM@0800 [facility] Last Admin: 07/07/17 10:35 Dose: 4 each Non-Formulary Med- (Deep Sea Nasal [place]) [address] [facility] Last Admin: 07/07/17 10:35 Dose: Not Given Pantoprazole Sodium (Protonix -) [address] [facility] Last Admin: 07/07/17 10:35 Dose: 20 mg - Objective Vital Signs: Vital Signs Temperature 98.2 F 07/07/17 05:49 Pulse Rate 80 07/07/17 05:49 Respiratory Rate 20 07/07/17 05:49 Blood Pressure 132/45 07/07/17 05:49 O2 Sat by Pulse Oximetry (%) 99 07/06/17 21:00 Constitutional: Yes: No Distress, Calm Cardiovascular: Yes: Regular Rate and Rhythm Respiratory: Yes: Regular, CTA Bilaterally Gastrointestinal: Yes: Normal Bowel Sounds, Soft Musculoskeletal: Yes: WNL Extremities: Yes: WNL Neurological: Yes: Alert, Oriented Psychiatric: Yes: Alert, Oriented Labs: CBC, BMP 07/07/17 06:30 07/07/17 06:30 Assessment/Plan Problem List - Problems (1) UTI (urinary tract infection) Code(s): N39.0 - URINARY TRACT INFECTION, SITE NOT SPECIFIED (2) Anemia Code(s): D64.9 - ANEMIA, UNSPECIFIED Qualifiers: Other causes of anemia: acute posthemorrhagic (3) Diabetes mellitus Code(s): E11.9 - TYPE 2 DIABETES MELLITUS WITHOUT COMPLICATIONS Qualifiers: Diabetes mellitus type: type 2 Diabetes mellitus complication status: without complication Diabetes mellitus terminal carman insulin use: without mcfp use Qualified Code(s): E11.9 - Type 2 diabetes mellitus without complications; E11.9 - Type 2 diabetes mellitus without complications; E11.9 - Type 2 diabetes mellitus without complications; E11.9 - Type 2 diabetes mellitus without complications (4) Hypertension Code(s): I10 - ESSENTIAL (PRIMARY) HYPERTENSION Qualifiers: Hypertension type: essential hypertension Qualified Code(s): I10 - Essential (primary) hypertension; I10 - Essential (primary) hypertension; I10 - Essential (primary) hypertension (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 Code(s): Z96.652 - PRESENCE OF LEFT ARTIFICIAL KNEE JOINT (6) Ulcerative colitis Code(s): K51.90 - ULCERATIVE COLITIS, UNSPECIFIED, WITHOUT COMPLICATIONS plan continue ertapenam last day wed continue to monitor
[2017-07-07] MEDS: GEMFIBROZIL 600 MG TABLET (FP) PO SCH (21:29)
[2017-07-07] MEDS: ATORVASTATIN CA 10 MG TABLET (FP) PO SCH (21:29)
[2017-07-07] MEDS: CYANOCOBALAMIN 1,000 MCG TABLET (FP) PO SCH (21:29)
[2017-07-08] MEDS: hydrALAZINE HCL 50 MG TABLET (FP) PO SCH (05:43)
[2017-07-08] MEDS: HEPARIN NA (PORCINE) 5,000 UNITS/ML 1ML VIAL SQ SCH (05:43)
[2017-07-08] MEDS: FERROUS SO4 325 MG TABLET (FP) PO SCH (05:43)
[2017-07-08] MEDS: INSULIN SLIDING SCALE (NOVOLOG) 1 VIAL SQ SCH ×2 (06:08→12:50)
[2017-07-08 09:55] VITALS: BP 139/64; PULSE 86; TEMP 98.6
[2017-07-08] MEDS: ASCORBIC ACID 500 MG TABLET (FP) PO SCH (11:21)
[2017-07-08] MEDS: DOXYCYCLINE HYCLATE 100 MG CAPSULE PO SCH (11:22)
[2017-07-08] MEDS: PANTOPRAZOLE 20 MG TABLET (FP) PO SCH (11:22)
[2017-07-08] MEDS: ASPIRIN 81 MG CHEWABLE TABLETS PO SCH (11:22)
[2017-07-08] MEDS: CHOLECALCIFEROL (VITAMIN D3) 1,000 UNIT TABLET (FP) PO SCH (11:22)
[2017-07-08] MEDS: DEEP SEA IH SCH (11:24)
[2017-07-08] MEDS: [UNRECOGNIZED DRUG - REMARK] PO SCH (11:27)
[2017-07-08] MEDS ORDERED: PT OWN MED DRAWER 7, Y5N ONE (11:33)
[2017-07-08] MEDS: LACTOBACILLUS ACIDOPHILUS 1 EACH TAB (FP) PO SCH (11:37)
[2017-07-08] MEDS: ERTAPENEM SODIUM 1 GM in SODIUM CHLORIDE 50 ML IVPB SCH (11:39)
[2017-07-08] MEDS: METOPROLOL TARTRATE 50 MG TABLET (FP) PO SCH (11:47)
--- NOTE | 2017-07-08 12:10 | DS ---
Physical Examination Vital Signs: Vital Signs Temperature 37.0 C 07/08/17 09:54 Pulse Rate 86 07/08/17 09:54 Respiratory Rate 20 07/08/17 09:54 Blood Pressure 139/64 07/08/17 09:54 O2 Sat by Pulse Oximetry (%) 98 07/07/17 21:00 Constitutional: Yes: No Distress, Calm, Obese Cardiovascular: Yes: Regular Rate and Rhythm. No: Gallop, Murmur, Rub Respiratory: Yes: Regular, CTA Bilaterally. No: Rales, Rhonchi, Wheezes Gastrointestinal: Yes: Normal Bowel Sounds, Soft. No: Distention, Tenderness Extremities: Yes: Other (LLE in brace) Edema: No Labs: CBC, BMP 07/07/17 06:30 07/07/17 06:30 Discharge Summary Reason For Visit: URINARY TRACT INFECTION Current Active Problems HLD (hyperlipidemia) (Acute) UTI (urinary tract infection) (Acute) UTI (urinary tract infection) due to Enterococcus (Acute) Hospital Course: (1) UTI (urinary tract infection) Code(s): N39.0 - URINARY TRACT INFECTION, SITE NOT SPECIFIED (2) Anemia Code(s): D64.9 - ANEMIA, UNSPECIFIED Qualifiers: Other causes of anemia: acute posthemorrhagic (3) Diabetes mellitus Code(s): E11.9 - TYPE 2 DIABETES MELLITUS WITHOUT COMPLICATIONS Qualifiers: Diabetes mellitus type: type 2 Diabetes mellitus complication status: without complication Diabetes mellitus terminal clerk insulin use: without terminal clerk use Qualified Code(s): E11.9 - Type 2 diabetes mellitus without complications; E11.9 - Type 2 diabetes mellitus without complications; E11.9 - Type 2 diabetes mellitus without complications; E11.9 - Type 2 diabetes mellitus without complications (4) Hypertension Code(s): I10 - ESSENTIAL (PRIMARY) HYPERTENSION Qualifiers: Hypertension type: essential hypertension Qualified Code(s): I10 - Essential (primary) hypertension; I10 - Essential (primary) hypertension; I10 - Essential (primary) hypertension (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 Code(s): Z96.652 - PRESENCE OF LEFT ARTIFICIAL KNEE JOINT (6) Ulcerative colitis Code(s): K51.90 - ULCERATIVE COLITIS, UNSPECIFIED, WITHOUT COMPLICATIONS Ms Perez is a pleasant 77 year old female who comes in with an ESBL UTI. This was found as an outpatient and she was sent in for IV antibiotics since it was only sensitive to carbapenems. She was admitted and started on ertapenem. She tolerated this well. Outpatient antibiotics was attempted but unfortunately this was not possible. Because of this she finished her course in the hospital. She is currently doing well and is without complaint. She is safe for discharge home without change in medication regimen Condition: Good - Instructions Diet, Activity, Other Instructions: diabetic diet. resume previous diet. Referrals: Cheryl Mcmahon MD [Staff Physician] - Eugene Mao MD [Primary Care Provider] - Disposition: VNS/HOME HEALTH CARE - Home Medications Comprehensive Discharge Medication List: Ambulatory Orders Albuterol Sulfate [Proair Respiclick] 90 mcg IH Q4H PRN 06/25/17 Ascorbate Calcium [Vitamin C] 500 mg PO DAILY 06/25/17 Aspirin [ASA -] 81 mg PO DAILY 06/25/17 Cholecalciferol (Vitamin D3) [Vitamin D3] 1,000 unit PO DAILY 06/25/17 Cyanocobalamin (Vitamin B-12) [Vitamin B12] 1,000 mcg PO HS 06/25/17 Doxycycline Monohydrate [Mondoxyne Nl] 100 mg PO BID 06/25/17 Ferrous Sulfate 325 mg PO TID 06/25/17 Furosemide 20 mg PO DAILY 06/25/17 Gemfibrozil 600 mg PO HS 06/25/17 Hydralazine HCl 10 mg PO TID 06/25/17 Lansoprazole [Prevacid] 40 mg PO DAILY 06/25/17 Mesalamine 4.8 gm PO DAILY 06/25/17 Metoprolol Tartrate 100 mg PO DAILY 06/25/17 Oxycodone HCl/Acetaminophen [Percocet 5-325 mg Tablet] 2 tab PO PRN PRN Repaglinide [Prandin] 1 mg PO TIDCM 06/25/17 Simvastatin 20 mg PO HS 06/25/17 Lactobacillus Acidophilus [Bacid -] 2 tab PO DAILY tab 07/08/17
--- NOTE | 2017-07-08 12:44 | PN ---
Progress Note, Physician History of Present Illness: patient stable no new issues - Current Medication List Current Medications: Active Medications Acetaminophen (Tylenol -) 650 mg PO Q4H PRN PRN Reason: FEVER OR PAIN Acetaminophen (Tylenol -) 325 mg PO Q6H PRN PRN Reason: PAIN Albuterol Sulfate (Ventolin Hfa Inhaler -) 1 puff IH Q4H PRN PRN Reason: sob Ascorbic Acid (Vitamin C -) 500 mg PO BID [facility] Last Admin: 07/08/17 11:21 Dose: 500 mg Aspirin (Asa -) 81 mg PO DAILY [facility] Last Admin: 07/08/17 11:22 Dose: 81 mg Atorvastatin Calcium (Lipitor -) 10 mg PO HS [facility] Last Admin: 07/07/17 21:29 Dose: 10 mg Cholecalciferol (Vitamin D3 -) 1,000 unit PO DAILY [facility] Last Admin: 07/08/17 11:22 Dose: 1,000 unit Cyanocobalamin (Vitamin B12 -) 1,000 mcg PO HS [facility] Last Admin: 07/07/17 21:29 Dose: 1,000 mcg Doxycycline Hyclate (Vibramycin -) 100 mg PO BID@1018 [facility] Last Admin: 07/08/17 11:22 Dose: 100 mg Ferrous Sulfate (Feosol -) 325 mg PO TID [facility] Last Admin: 07/08/17 05:43 Dose: 325 mg Gemfibrozil (Lopid -) 600 mg PO DAILY@2100 [facility] Last Admin: 07/07/17 21:29 Dose: 600 mg Heparin Sodium (Porcine) (Heparin -) 5,000 unit SQ TID [facility] Last Admin: 07/08/17 05:43 Dose: 5,000 unit Hydralazine HCl (Apresoline -) 50 mg PO TID [facility] Last Admin: 07/08/17 05:43 Dose: 50 mg IV Flush (Picc Line Flush) 8 ml IVPUSH PRN PRN PRN Reason: Protocol Ertapenem 1 gm/ Sodium (Chloride) 50 mls @ 50 mls/hr IVPB DAILY [facility] PRN Reason: Protocol Last Admin: 07/08/17 11:39 Dose: 50 mls/hr Insulin Aspart (Novolog Vial Sliding Scale -) 1 vial SQ ACHS [facility] PRN Reason: Protocol Last Admin: 07/08/17 06:08 Dose: Not Given Lactobacillus Acidophilus (Bacid -) 2 tab PO DAILY [facility] Last Admin: 07/08/17 11:37 Dose: 2 tab Metoprolol Tartrate (Lopressor -) 100 mg PO DAILY [facility] Last Admin: 07/08/17 11:47 Dose: 100 mg Non-Formulary Med- Mesalamine 1.2 Tab 4 each PO AM@0800 [facility] Last Admin: 07/08/17 11:27 Dose: 4 each Non-Formulary Med- (Deep Sea Nasal [place]) 1 each IH QID [facility] Last Admin: 07/08/17 11:24 Dose: 1 each Pantoprazole Sodium (Protonix -) 20 mg PO DAILY [facility] Last Admin: 07/08/17 11:22 Dose: 20 mg - Objective Vital Signs: Vital Signs Temperature 98.6 F 07/08/17 09:54 Pulse Rate 86 07/08/17 09:54 Respiratory Rate 20 07/08/17 09:54 Blood Pressure 139/64 07/08/17 09:54 O2 Sat by Pulse Oximetry (%) 98 07/07/17 21:00 Constitutional: Yes: No Distress, Calm HENT: Yes: Atraumatic Neck: Yes: Supple, Trachea Midline Respiratory: Yes: Regular, CTA Bilaterally Gastrointestinal: Yes: Normal Bowel Sounds, Soft Musculoskeletal: Yes: WNL Extremities: Yes: WNL Neurological: Yes: Alert, Oriented Psychiatric: Yes: Alert Labs: CBC, BMP 07/07/17 06:30 07/07/17 06:30 Assessment/Plan Problem List - Problems (1) UTI (urinary tract infection) Code(s): N39.0 - URINARY TRACT INFECTION, SITE NOT SPECIFIED (2) Anemia Code(s): D64.9 - ANEMIA, UNSPECIFIED Qualifiers: Other causes of anemia: acute posthemorrhagic (3) Diabetes mellitus Code(s): E11.9 - TYPE 2 DIABETES MELLITUS WITHOUT COMPLICATIONS Qualifiers: Diabetes mellitus type: type 2 Diabetes mellitus complication status: without complication Diabetes mellitus hammer driver insulin use: without group home use Qualified Code(s): E11.9 - Type 2 diabetes mellitus without complications; E11.9 - Type 2 diabetes mellitus without complications; E11.9 - Type 2 diabetes mellitus without complications; E11.9 - Type 2 diabetes mellitus without complications (4) Hypertension Code(s): I10 - ESSENTIAL (PRIMARY) HYPERTENSION Qualifiers: Hypertension type: essential hypertension Qualified Code(s): I10 - Essential (primary) hypertension; I10 - Essential (primary) hypertension; I10 - Essential (primary) hypertension (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 Code(s): Z96.652 - PRESENCE OF LEFT ARTIFICIAL KNEE JOINT (6) Ulcerative colitis Code(s): K51.90 - ULCERATIVE COLITIS, UNSPECIFIED, WITHOUT COMPLICATIONS plan continue ertapenam stop abx after today no more treatment follow up as planned
== END 2017-07-08 13:17 | disposition home health service (06) | DRG 690 ==
LOC: JER 16:19 → JERBED 18:14 → J8W 20:52
PROVIDERS: ADMIT Internal Medicine; ATTEND Internal Medicine
PROC: 30233N1 Transfusion of Nonautologous Red Blood Cells into Peripheral Vein, Percutaneous Approach (ICD-10-PCS; principal; 2017-06-26)
DX: N39.0 Urinary tract infection, site not specified (principal); K51.80 Other ulcerative colitis without complications; N17.9 Acute kidney failure, unspecified; D62 Acute posthemorrhagic anemia; Z68.41 Body mass index [BMI] 40.0-44.9, adult; B96.29 Other Escherichia coli [E. coli] as the cause of diseases classified elsewhere; I10 Essential (primary) hypertension; E78.5 Hyperlipidemia, unspecified; K21.9 Gastro-esophageal reflux disease without esophagitis; E53.8 Deficiency of other specified B group vitamins; R00.0 Tachycardia, unspecified; D72.828 Other elevated white blood cell count; E11.9 Type 2 diabetes mellitus without complications; D64.9 Anemia, unspecified; Z87.891 Personal history of nicotine dependence; Z96.653 Presence of artificial knee joint, bilateral
CPT/HCPCS: 36415; 36430; 76775-TC; 76856-TC; 80048; 80053; 81003; 81015; 82272; 82607; 82728; 82746; 82784; 83010; 83540; 83550; 83615; 83735; 84100; 84155; 84156; 84157; 84165; 84439; 84443; 85025; 85044; 85651; 86140; 86334; 86850; 86880; 86900; 86901; 86922; 87040; 87086; 87186; 97116-GP; 97161-GP; 99284-25; J1644; P9038; P9058

== ENCOUNTER 2018-04-22 17:58 | Inpatient (IN) | payer OTHER ==
--- NOTE | 2018-04-22 18:43 | PDOC ---
Rapid Medical Evaluation Time Seen by Provider: 04/22/18 18:31 Medical Evaluation: Allergies Allergy/AdvReac Type Severity Reaction Status Date / Time morphine Allergy Severe Nausea Verified 06/25/17 16:37 Penicillins Allergy Unknown Verified 06/25/17 16:37 04/22/18 18:34 Pt presents for admission for falls. Pt states she has multiple surgeries on the L leg. Hx of previous L knee joint infection. PCP Dr. Mao. Pt also with UTI at this time. Pt currently on doxicyclin Exam: Ambulatory, AAOx3, L knee in brace Orders: CBC, CMP, UA, UC, L knee x-ray Pt to proceed to the ED for further evaluation Discharge Disposition - Diagnosis Falls - Referrals - Patient Instructions - Post Discharge Activity
[2018-04-22 19:58] LABS: BASO % 1.2 % (0-2.0); EOS % 5.2 % (0-4.5); HEMATOCRIT 29.7 % (32.4-45.2); HEMOGLOBIN 9.8 GM/dL (10.7-15.3); LYMPH % 14.4 % (8-40); MCH 29.8 pg (25.7-33.7); MEAN CELL VOLUME 90.4 fl (80-96); MEAN PLT VOLUME 9.2 fl (7.5-11.1); MONO % 7.8 % (3.8-10.2); NEUT % 71.4 % (42.8-82.8); PLATELET COUNT 254 K/MM3 (134-434); RBC 3.29 M/mm3 (3.60-5.2)
[2018-04-22 20:22] LABS: ALBUMIN 4.1 g/dl (3.4-5.0); ANION GAP 8 (8-16); BILIRUBIN,TOTAL 0.3 mg/dL (0.2-1.0); BLOOD UREA NITROGEN 29 mg/dL (7-18); CALCIUM 9.8 mg/dL (8.5-10.1); CHLORIDE 111 mmol/L (98-107); CO2 27 mmol/L (21-32); GLUCOSE,RANDOM 157 mg/dL (74-106); POTASSIUM 4.5 mmol/L (3.5-5.1); SGOT/AST 15 U/L (15-37); SGPT/ALT 21 U/L (12-78); SODIUM 146 mmol/L (136-145); TOT PROT 6.8 g/dl (6.4-8.2)
[2018-04-22 20:23] LABS: ALK PHOS 87 U/L (45-117)
--- NOTE | 2018-04-22 20:23 | PDOC ---
History of Present Illness - General Exam Limitations: No Limitations - History of Present Illness Initial Comments: 04/22/18 20:45 The patient is a 77 year old female, with a significant past medical history of Anemia, HTN, HLD, GERD, Vitamin B12 Deficiency, who presents to the emergency department with left knee pain and a recurrent UTI. She had surgery on her left leg approximately a year ago. She describes her left knee pain to be similar to her baseline pain. At this time she currently has a UTI and is on doxycycline. As per patient, she was sent over by her PCP, Dr. Mao, for admission for IV antibiotics and evaluation of her left knee. She denies recent fevers, chills, headache or dizziness. She denies recent nausea, vomit, diarrhea or constipation. She denies recent chest pain or shortness of breath. Allergies: Penicillins. Past surgical history: Multiple surgeries to the left knee. Social history: Nonsmoker. Denies EtOH use and recreational drug use. Primary Care Physician: Dr. Mao <Nara Mena - Last Filed: 04/22/18 20:49> - General History Source: Patient <Houston Almaguer - Last Filed: 04/22/18 22:55> - General Chief Complaint: Pain, Acute Stated Complaint: PCP SENT Time Seen by Provider: 04/22/18 18:31 Past History <Nara Mena - Last Filed: 04/22/18 20:49> - Past Medical History Anemia: Yes (iron deficiency, vit b12 deficiency) Cardiac Disorders: (tachycardia) COPD: No GI Disorders: Yes (gerd) HTN: Yes Hypercholesterolemia: Yes - Surgical History Orthopedic Surgery: Yes (L Total Knee Replacement, S/P revision) - Suicide/Smoking/Psychosocial Hx Smoking History: Never smoked Have you smoked in the past 12 months: No If you are a former smoker, when did you quit?: 30 YEARS AGO Hx Alcohol Use: No Drug/Substance Use Hx: No Substance Use Type: None Hx Substance Use Treatment: No <Houston Almaguer - Last Filed: 04/22/18 22:55> - Past Medical History Allergies/Adverse Reactions: Allergies Allergy/AdvReac Type Severity Reaction Status Date / Time Penicillins Allergy Unknown Verified 04/22/18 18:39 Home Medications: Ambulatory Orders Aspirin [ASA -] 81 mg PO DAILY 06/25/17 Cholecalciferol (Vitamin D3) [Vitamin D3] 1,000 unit PO DAILY 06/25/17 Doxycycline Monohydrate [Mondoxyne Nl] 100 mg PO BID 06/25/17 Ferrous Sulfate 325 mg PO TID 06/25/17 Hydralazine HCl 10 mg PO TID 06/25/17 Lansoprazole [Prevacid] 40 mg PO DAILY 06/25/17 Mesalamine 4.8 gm PO DAILY 06/25/17 Metoprolol Tartrate 100 mg PO DAILY 06/25/17 Repaglinide [Prandin] 1 mg PO TIDCM 06/25/17 Simvastatin 20 mg PO HS 06/25/17 Lactobacillus Acidophilus [Bacid -] 2 tab PO DAILY tab 07/08/17 Alprazolam [Xanax] 0.25 mg PO DAILY 04/22/18 Review of Systems - Review of Systems Able to Perform ROS?: Yes Comments:: 04/22/18 20:45 CONSTITUTIONAL: Absent: fever, no chills, no fatigue EYES: Absent: visual changes ENT: Absent: ear pain, no sore throat CARDIOVASCULAR: Absent: chest pain, no palpitations RESPIRATORY: Absent: cough, no SOB GI: Absent: abdominal pain, no nausea, no vomiting, no constipation, no diarrhea GENITOURINARY: Present: Recurrent UTI. MUSKULOSKELETAL: Present: Left knee pain. Absent: back pain, no myalgia SKIN: Absent: rash NEURO: Absent: headache All Other Systems: Reviewed and Negative <Nara Mena - Last Filed: 04/22/18 20:49> *Physical Exam - Vital Signs Last Vital Signs Temp Pulse Resp BP Pulse Ox 98.9 F 75 16 164/80 99 04/22/18 18:41 04/22/18 18:41 04/22/18 18:41 04/22/18 18:41 04/22/18 18:41 - Physical Exam Comments: 04/22/18 20:45 +GENERAL: Morbidly obese. Well developed. Awake and alert. No acute distress. HEENT: Normocephalic, atraumatic. PERRLA, EOMI. No conjunctival pallor. Sclera are non- icteric. Moist mucous membranes. Oropharynx is clear. NECK: Supple. Full ROM. No JVD. Carotid pulses 2+ and symmetric, without bruits. No thyromegaly. No lymphadenopathy. CARDIOVASCULAR: Regular rate and rhythm. No murmurs, rubs, or gallops. Distal pulses are 2+ and symmetric. PULMONARY: No evidence of respiratory distress. Lungs clear to auscultation bilaterally. No wheezing, rales or rhonchi. ABDOMINAL: Soft. Non-tender. Non-distended. No rebound or guarding. No organomegaly. Normoactive bowel sounds. +MUSCULOSKELETAL Left lower extremity well healing surgical scar of the anterior aspect of the left knee with mild swelling and no surrounding erythema or cellulitis. Left knee in brace. No CVA tenderness. EXTREMITIES: No cyanosis. No clubbing. No edema. No calf tenderness. SKIN: Warm and dry. Normal capillary refill. No rashes. No jaundice. NEUROLOGICAL: Alert, awake, appropriate. Cranial nerves 2-12 intact. No deficits to light touch and temperature in face, upper extremities and lower extremities. No motor deficits in the in face, upper extremities and lower extremities. Normoreflexic in the upper and lower extremities. Normal speech. Toes are down- going bilaterally. Gait is normal without ataxia. PSYCHIATRIC: Cooperative. Good eye contact. Appropriate mood and affect. <Nara Mena - Last Filed: 04/22/18 20:49> - Vital Signs Last Vital Signs Temp Pulse Resp BP Pulse Ox 98.9 F 75 16 164/80 99 04/22/18 18:41 04/22/18 18:41 04/22/18 18:41 04/22/18 18:41 04/22/18 18:41 <Houston Almaguer - Last Filed: 04/22/18 22:55> Heart Score/ECG Review #1 04/22/18 20:46 EKG performed at: 22 April 2018 at 20:28:34 Vent Rate 83 bpm ME interval 194 ms QRS duration 74 ms QT/QTc 388/455 ms P-R-T axes 42 -5 44 Poor data quality, interpretation may be adversely affected Normal sinus rhythm. Septal infarct, age undetermined Abnormal ECG <Nara Mena - Last Filed: 04/22/18 20:49> ED Treatment Course - LABORATORY CBC & Chemistry Diagram: 04/22/18 19:51 04/22/18 19:51 - ADDITIONAL ORDERS Additional order review: Laboratory Results 04/22/18 19:51 Sodium 146 H Potassium 4.5 Chloride 111 H Carbon Dioxide 27 Anion Gap 8 BUN 29 H Creatinine 1.0 Creat Clearance w eGFR 54.05 Random Glucose 157 H Calcium 9.8 Total Bilirubin 0.3 AST 15 ALT 21 Alkaline Phosphatase 87 Total Protein 6.8 Albumin 4.1 04/22/18 19:51 RBC 3.29 L MCV 90.4 MCHC 33.0 RDW 15.0 MPV 9.2 Neutrophils % 71.4 Lymphocytes % 14.4 Monocytes % 7.8 Eosinophils % 5.2 H Basophils % 1.2 <Nara Mena - Last Filed: 04/22/18 20:49> - LABORATORY CBC & Chemistry Diagram: 04/22/18 19:51 04/22/18 19:51 - ADDITIONAL ORDERS Additional order review: 04/22/18 19:51 RBC 3.29 L MCV 90.4 MCHC 33.0 RDW 15.0 MPV 9.2 Neutrophils % 71.4 Lymphocytes % 14.4 Monocytes % 7.8 Eosinophils % 5.2 H Basophils % 1.2 <Houston Almaguer - Last Filed: 04/22/18 22:55> *DC/Admit/Observation/Transfer - Attestations Scribe Attestion: 04/22/18 20:49 Documentation prepared by Nara Mena, acting as durable medical equipment technician for Houston Almaguer DO. <Nara Mena - Last Filed: 04/22/18 20:49> - Discharge Dispostion Decision to Admit order: Yes <Houston Almaguer - Last Filed: 04/22/18 22:55> Diagnosis at time of Disposition: Falls, Left knee pain, Dysuria - Discharge Dispostion Condition at time of disposition: Stable - Referrals Referrals: Eugene Mao MD [Primary Care Provider] - - Patient Instructions - Post Discharge Activity
[2018-04-22 21:57] LABS: INR 1.15 (0.82-1.09)
[2018-04-22 22:52] LABS: URINE APPEARANCE CLEAR; URINE BILIRUBIN NEGATIVE (<2.0 mg/dL); URINE COLOR LTYELLOW; URINE GLUCOSE (UA) NEGATIVE (NEGATIVE); URINE KETONE NEGATIVE (NEGATIVE); URINE LEUK ESTERASE NEGATIVE (NEGATIVE); URINE NITRITE NEGATIVE (NEGATIVE); URINE UROBILINOGEN NEGATIVE mg/dL (0.2-1.0)
[2018-04-22 22:53] LABS: URINE PROTEIN 2+ (NEGATIVE)
[2018-04-22 22:54] LABS: EPI CELLS RARE /HPF (FEW); URINE BACTERIA MODERATE /hpf (NONE SEEN); URINE MUCUS RARE
--- NOTE | 2018-04-23 00:10 | HP ---
Admitting History and Physical - Primary Care Physician PCP: Eugene Mao - Admission Chief Complaint: Left Knee Pain, Dysuria History of Present Illness: 77 y/o woman from home with a past medical history of HTN, HLD, Anemia, GERD, Vitamin B12 Deficiency. Who presents to the ED with L-knee pain and dysuria. Patient is being treated for a UTI and on Doxycyline. The patient had surgery on her left leg approximately a year ago. She describes her left knee pain to be similar to her baseline pain. As per patient, she was sent over by her PCP, Dr. Mao, for admission for IV antibiotics and evaluation of her left knee. Patient denies recent fevers, chills, headache or dizziness. Patient denies recent nausea, vomit, diarrhea or constipation. Patient denies recent chest pain or shortness of breath. History Source: Patient Limitations to Obtaining History: No Limitations - Past Medical History Cardiovascular: Yes: HTN, Hyperlipdemia Gastrointestinal: Yes: Ulcerative Colitis Endocrine: Yes: Diabetes Mellitus - Past Surgical History Past Surgical History: Yes: Colonoscopy, Joint Replacement (left knee, s/p recent revision) - Smoking History Smoking history: Never smoked Have you smoked in the past 12 months: No If you are a former smoker, when did you quit?: 30 YEARS AGO - Alcohol/Substance Use Hx Alcohol Use: No History of Substance Use: reports: None - Social History Usual Living Arrangement: Yes: Alone ADL: Independent Occupation: Retired nurse History of Recent Travel: No Home Medications - Allergies Allergies/Adverse Reactions: Allergies Allergy/AdvReac Type Severity Reaction Status Date / Time Penicillins Allergy Unknown Verified 04/22/18 18:39 - Home Medications Home Medications: Ambulatory Orders Aspirin [ASA -] 81 mg PO DAILY 06/25/17 Cholecalciferol (Vitamin D3) [Vitamin D3] 1,000 unit PO DAILY 06/25/17 Doxycycline Monohydrate [Mondoxyne Nl] 100 mg PO BID 06/25/17 Ferrous Sulfate 325 mg PO TID 06/25/17 Lansoprazole [Prevacid] 40 mg PO DAILY 06/25/17 Mesalamine 4.8 gm PO DAILY 06/25/17 Metoprolol Tartrate 100 mg PO DAILY 06/25/17 Repaglinide [Prandin] 1 mg PO TIDCM 06/25/17 Simvastatin 20 mg PO HS 06/25/17 Lactobacillus Acidophilus [Bacid -] 2 tab PO DAILY tab 07/08/17 Alprazolam [Xanax] 0.25 mg PO DAILY 04/22/18 Hydralazine HCl 50 mg PO TID 04/23/18 Family Disease History - Family Disease History Family Disease History: Other: Grandparent (mGF stomach ca ), Father ( post ulcer surgery ) Review of Systems - Review of Systems Constitutional: reports: No Symptoms Eyes: reports: No Symptoms HENT: reports: No Symptoms Neck: reports: No Symptoms Cardiovascular: reports: No Symptoms Respiratory: reports: No Symptoms Gastrointestinal: reports: No Symptoms Genitourinary: reports: Dysuria Breasts: reports: No Symptoms Reported Musculoskeletal: reports: Joint Pain Integumentary: reports: No Symptoms Neurological: reports: No Symptoms Endocrine: reports: Increased Thirst Hematology/Lymphatic: reports: No Symptoms Psychiatric: reports: No Symptoms Physical Examination Vital Signs: Vital Signs Temperature 98.9 F 04/22/18 18:41 Pulse Rate 75 04/22/18 18:41 Respiratory Rate 16 04/22/18 18:41 Blood Pressure 164/80 04/22/18 18:41 O2 Sat by Pulse Oximetry (%) 99 04/22/18 18:41 Constitutional: Yes: Well Nourished, Mild Distress, Obese Eyes: Yes: WNL, Conjunctiva Clear, EOM Intact, PERRL HENT: Yes: WNL, Atraumatic, Normocephalic Neck: Yes: WNL, Supple, Trachea Midline Cardiovascular: Yes: Regular Rate and Rhythm, Murmur (grade 2 systolic) Respiratory: Yes: WNL, Regular, CTA Bilaterally Gastrointestinal: Yes: WNL, Normal Bowel Sounds, Soft, Abdomen, Obese ...Rectal Exam: Yes: Deferred Renal/: Yes: WNL Breast(s): Yes: WNL Musculoskeletal: Yes: Joint Stiffness, Joint Swelling Extremities: Yes: Erythema Peripheral Pulses WNL: Yes Neurological: Yes: WNL, Alert, Oriented ...Motor Strength: WNL Psychiatric: Yes: WNL, Alert, Oriented Labs: CBC, BMP 04/22/18 19:51 04/22/18 19:51 Laboratory Results - last 24 hr 04/22/18 04/22/18 04/22/18 19:51 19:51 19:51 WBC 8.0 RBC 3.29 L Hgb 9.8 L Hct 29.7 L D MCV 90.4 MCH 29.8 MCHC 33.0 RDW 15.0 Plt Count 254 D MPV 9.2 Absolute Neuts (auto) 5.7 Neutrophils % 71.4 Lymphocytes % 14.4 Monocytes % 7.8 Eosinophils % 5.2 H Basophils % 1.2 Nucleated RBC % 0 PT with INR 13.00 INR 1.15 H Sodium 146 H Potassium 4.5 Chloride 111 H Carbon Dioxide 27 Anion Gap 8 BUN 29 H Creatinine 1.0 Creat Clearance w eGFR 54.05 Random Glucose 157 H Calcium 9.8 Total Bilirubin 0.3 AST 15 ALT 21 Alkaline Phosphatase 87 Total Protein 6.8 Albumin 4.1 Urine Color Urine Appearance Urine pH Ur Specific [place] Urine Protein Urine Glucose (UA) Urine Ketones Urine Blood Urine Nitrite Urine Bilirubin Urine Urobilinogen Ur Leukocyte Esterase Urine WBC (Auto) Urine RBC (Auto) Ur Epithelial Cells Urine Bacteria Urine Mucus 04/22/18 22:41 WBC RBC Hgb Hct MCV MCH MCHC RDW Plt Count MPV Absolute Neuts (auto) Neutrophils % Lymphocytes % Monocytes % Eosinophils % Basophils % Nucleated RBC % PT with INR INR Sodium Potassium Chloride Carbon Dioxide Anion Gap BUN Creatinine Creat Clearance w eGFR Random Glucose Calcium Total Bilirubin AST ALT Alkaline Phosphatase Total Protein Albumin Urine Color Ltyellow Urine Appearance Clear Urine pH 5.0 Ur Specific [place] 1.016 Urine Protein 2+ H Urine Glucose (UA) Negative Urine Ketones Negative Urine Blood Negative Urine Nitrite Negative Urine Bilirubin Negative Urine Urobilinogen Negative Ur Leukocyte Esterase Negative Urine WBC (Auto) <1 Urine RBC (Auto) None Ur Epithelial Cells Rare Urine Bacteria Moderate Urine Mucus Rare Current Medications Generic Name Dose Route Start Last Admin Trade Name Freq PRN Reason Stop Dose Admin Acetaminophen 650 mg 04/23/18 04:24 Tylenol - PO Q6H PRN PAIN OR FEVER Alprazolam 0.25 mg 04/23/18 10:00 Xanax - PO DAILY [facility] Aspirin 81 mg 04/23/18 10:00 Asa - PO DAILY [facility] Atorvastatin Calcium 10 mg 04/23/18 22:00 Lipitor - PO HS [facility] Cholecalciferol 1,000 unit 04/23/18 10:00 Vitamin D3 - PO DAILY [facility] Ferrous Sulfate 325 mg 04/23/18 06:00 04/23/18 06:32 Feosol - PO 325 mg TID [facility] Administration Heparin Sodium (Porcine) 5,000 unit 04/23/18 10:00 Heparin - SQ BID [facility] Hydralazine HCl 50 mg 04/23/18 06:45 04/23/18 06:37 Apresoline - PO 50 mg TID [facility] Administration Levofloxacin 250 mg in 50 mls @ 50 mls/hr 04/23/18 10:00 Levaquin 250 Mg Premixed Ivpb - IVPB DAILY [facility] Protocol Metoprolol Tartrate 100 mg 04/23/18 10:00 Lopressor - PO DAILY [facility] Non-Formulary Medication 4.8 gm 04/23/18 10:00 Mesalamine [Mesalamine] PO DAILY [facility] Pantoprazole Sodium 40 mg 04/23/18 10:00 Protonix - PO DAILY [facility] Repaglinide 1 mg 04/23/18 08:00 Prandin - PO TIDCM [facility] Intake & Output 04/20/18 04/21/18 04/22/18 04/23/18 23:59 23:59 23:59 23:59 Weight 99.79 kg Imaging - Results Chest X-ray: Report Reviewed, Image Reviewed X-ray: Report Reviewed, Image Reviewed EKG: Pending Problem List - Problems (1) Dysuria Code(s): R30.0 - DYSURIA (2) Left knee pain Code(s): M25.562 - PAIN IN LEFT KNEE (3) Diabetes mellitus Code(s): E11.9 - TYPE 2 DIABETES MELLITUS WITHOUT COMPLICATIONS Qualifiers: (4) HLD (hyperlipidemia) Code(s): E78.5 - HYPERLIPIDEMIA, UNSPECIFIED (5) Hypertension Code(s): I10 - ESSENTIAL (PRIMARY) HYPERTENSION Qualifiers: (6) Status post revision of total replacement of left knee Code(s): Z96.652 - PRESENCE OF LEFT ARTIFICIAL KNEE JOINT (7) Ulcerative colitis Code(s): K51.90 - ULCERATIVE COLITIS, UNSPECIFIED, WITHOUT COMPLICATIONS Assessment/Plan 77 y/o woman placed in Observation for Intractable L- knee pain, Dysuria for further evaluation of their emergent condition. Plan: 1. Admit to M/S for L- knee pain, UTI, patient reports having dysuria, taking Doxycycline without improvement- Failed Out Patient Therapy, UA, Urine cultured obtained and sent to lab-pending UC. Will start on Levaquin IV secondary to PCN allergy, monitor CBC, BMP, Tylenol prn 2. L-Knee Pain likely secondary to age related disease, hx multiple leg sx, L- knee-pending, Tylenol prn, PT Eval appreciated, Appreciate Ortho consult, continue knee immobilizer, Chief Dispatcher Service for STR, Fall Precautions 3. Hypertension- stable, monitor BP, continue home meds 4. HLD- continue statin, monitor LFTs 5. GERD- continue PPI 6. Anemia- at baseline, will transfuse if Hgb < 7.0, Monitor CBC 7. Vitamin B12 Deficiency- continue B12 8. FEN- continue tube feedings, replete lyes prn 9. DVT ppx, SCDs, Heparin SQ Code Status: Full Code Dispo: Requires Inpatient Care Visit type - Emergency Visit Emergency Visit: Yes ED Registration Date: 04/22/18 Care time: The patient presented to the Emergency Department on the above date and was hospitalized for further evaluation of their emergent condition. - New Patient This patient is new to me today: Yes Date on this admission: 04/23/18 - Critical Care Critical Care patient: No Hospitalist Screening - Colonoscopy Questionnaire Colonoscopy Questionnaire: Colonoscopy Questionnaire - Patient: 50 - 75 years old and never had a screening colonoscopy: No History of colon or rectal polyps, or CA: No History of IBD, Crohn's disease or UC: Yes History of abdominal radiation therapy as a child: No - Relative: 1 with colon or rectal CA, or polyps at age 60 or younger: No Colon or rectal CA diagnosed at age 45 or younger: No Multiple relatives with colon or rectal CA: No - Outcome: Screening Result: Positive Screen
[2018-04-23] MEDS ORDERED: ACETAMINOPHEN 325 MG TABLET (FP) PO PRN (04:24)
[2018-04-23] MEDS ORDERED: hydrALAZINE HCL 10 MG TABLET PO SCH (06:00)
[2018-04-23] MEDS ORDERED: HEMOQUE TEST 1 EACH EACH ONE (06:03)
[2018-04-23] MEDS ORDERED: hydrALAZINE HCL 25 MG TABLET (FP) ONE (06:31)
[2018-04-23] MEDS: FERROUS SO4 325 MG TABLET (FP) PO SCH ×3 (06:32→21:33)
[2018-04-23] MEDS: hydrALAZINE HCL 50 MG TABLET (FP) PO SCH ×3 (06:37→21:33)
[2018-04-23] MEDS: ASPIRIN 81 MG CHEWABLE TABLETS PO SCH (10:08)
[2018-04-23] MEDS: METOPROLOL TARTRATE 50 MG TABLET (FP) PO SCH (10:08)
[2018-04-23] MEDS: PANTOPRAZOLE 40 MG TABLET (FP) PO SCH (10:08)
[2018-04-23] MEDS: REPAGLINIDE 1 MG TABLET PO SCH ×3 (10:09→17:09)
[2018-04-23] MEDS: CHOLECALCIFEROL (VITAMIN D3) 1,000 UNIT TABLET (FP) PO SCH (10:09)
[2018-04-23] MEDS: HEPARIN NA (PORCINE) 5,000 UNITS/ML 1ML VIAL SQ SCH ×2 (10:19→21:49)
[2018-04-23 10:29] LABS: BASO % 1.1 % (0-2.0); EOS % 4.3 % (0-4.5); HEMATOCRIT 29.8 % (32.4-45.2); HEMOGLOBIN 9.9 GM/dL (10.7-15.3); LYMPH % 11.7 % (8-40); MCH 29.8 pg (25.7-33.7); MCHC 33.1 g/dl (32.0-36.0); MEAN CELL VOLUME 89.9 fl (80-96); MONO % 7.9 % (3.8-10.2); PLATELET COUNT 240 K/MM3 (134-434); RBC 3.31 M/mm3 (3.60-5.2); RDW 15.1 % (11.6-15.6); WHITE BLOOD COUNT 7.4 K/mm3 (4.0-10.0)
[2018-04-23 10:54] LABS: ANION GAP 7 (8-16); BLOOD UREA NITROGEN 24 mg/dL (7-18); CALCIUM 9.2 mg/dL (8.5-10.1); CHLORIDE 110 mmol/L (98-107); CO2 28 mmol/L (21-32); CREATININE 0.8 mg/dL (0.55-1.02); GLUCOSE,RANDOM 129 mg/dL (74-106); SODIUM 145 mmol/L (136-145)
--- NOTE | 2018-04-23 11:32 | EKG ---
Test Reason : Blood Pressure : / mmHG Vent. Rate : 083 BPM Atrial Rate : 083 BPM P-R Int : 194 ms QRS Dur : 074 ms QT Int : 388 ms P-R-T Axes : 042 -05 044 degrees QTc Int : 455 ms POOR DATA QUALITY, INTERPRETATION MAY BE ADVERSELY AFFECTED NORMAL SINUS RHYTHM SEPTAL INFARCT , AGE UNDETERMINED ABNORMAL ECG WHEN COMPARED WITH ECG OF 03-FEB-2017 16:52, PREMATURE SUPRAVENTRICULAR COMPLEXES ARE NO LONGER PRESENT SEPTAL INFARCT IS NOW PRESENT Confirmed by SAMIA BEY, ELIGIO ([id number]) on 04/23/2018 11:31:41 AM Referred By: Confirmed By:ELIGIO GRACIA MD
[2018-04-23] MEDS: ALPRAZolam 0.25 MG TABLET PO SCH (11:37)
[2018-04-23] MEDS ORDERED: PT OWN MED DRAWER 7, Y5N ONE ×2 (12:27→14:25)
[2018-04-23] MEDS: MESALAMINE 4.8 GM PO SCH (14:03)
--- NOTE | 2018-04-23 16:18 | CON.ORTH ---
Consult Reason for Consultation:: left knee pain s/p revision TKR - Past Medical History Cardio/Vascular: Yes: HTN, Hyperlipdemia Gastrointestinal: Yes: Ulcerative Colitis Endocrine: Yes: Diabetes Mellitus - Past Surgical History Past Surgical History: Yes: Colonoscopy, Joint Replacement (left knee, s/p recent revision) - Alcohol/Substance Use Hx Alcohol Use: No History of Substance Use: reports: None - Smoking History Smoking history: Never smoked Have you smoked in the past 12 months: No If you are a former smoker, when did you quit?: 30 YEARS AGO - Social History ADL: Independent Occupation: Retired nurse History of Recent Travel: No Home Medications - Allergies Allergies/Adverse Reactions: Allergies Allergy/AdvReac Type Severity Reaction Status Date / Time Penicillins Allergy Unknown Verified 04/22/18 18:39 - Home Medications Home Medications: Ambulatory Orders Aspirin [ASA -] 81 mg PO DAILY 06/25/17 Cholecalciferol (Vitamin D3) [Vitamin D3] 1,000 unit PO DAILY 06/25/17 Doxycycline Monohydrate [Mondoxyne Nl] 100 mg PO BID 06/25/17 Ferrous Sulfate 325 mg PO TID 06/25/17 Lansoprazole [Prevacid] 40 mg PO DAILY 06/25/17 Mesalamine 4.8 gm PO DAILY 06/25/17 Metoprolol Tartrate 100 mg PO DAILY 06/25/17 Repaglinide [Prandin] 1 mg PO TIDCM 06/25/17 Simvastatin 20 mg PO HS 06/25/17 Lactobacillus Acidophilus [Bacid -] 2 tab PO DAILY tab 07/08/17 Alprazolam [Xanax] 0.25 mg PO DAILY 04/22/18 Hydralazine HCl 50 mg PO TID 04/23/18 Methenamine Hippurate [Hiprex [Nf] -] 1 gm PO DAILY 04/23/18 Vit C/E/Zn/Principal Associate/Lut/Gale/Bio/Saf [Retaine Vision Softgel] PO DAILY 04/23/18 Family Disease History - Family Disease History Family Disease History: Other: Grandparent (mGF stomach ca ), Father ( post ulcer surgery ) Physical Exam for Ortho Vital Signs: Vital Signs Temperature 97.7 F 04/23/18 15:36 Pulse Rate 68 04/23/18 15:36 Respiratory Rate 20 04/23/18 15:36 Blood Pressure 164/67 04/23/18 15:36 O2 Sat by Pulse Oximetry (%) 96 04/23/18 12:05 Labs: CBC, BMP 04/23/18 10:17 04/23/18 10:17 INR, PTT INR 1.15 (0.82-1.09) H 04/22/18 19:51 - Lower Extremity Knee: Yes: Left, Other (nontender, 1+ effusion however pt states that this is normal for her since her surgery, no erythema, unable to SLR, calf soft, nt, nvi ) Imaging - Results X-ray: Report Reviewed, Image Reviewed Assessment/Plan 77 y/o woman from home with a past medical history of HTN, HLD, Anemia, GERD, Vitamin B12 Deficiency. Who presents to the ED with L-knee pain and dysuria. Patient is being treated for a UTI and on Doxycyline. The patient had surgery on her left leg approximately a year ago. She describes her left knee pain to be similar to her baseline pain. Has had multiple surgeries at [facility]. She had revision TKR in which she ruptured her patella tendon. She developed a septic joint prior to having the tendon repaired. She has now been on abx since and has follow-ed up regularly with her ortho at [facility]. She has an appt for the beginning of April. a/p- Left knee revision TKR, chronic patella tendon rupture, on chronic suppressive abx NTD from our pov Pt needs to follow-up with her Orthopedic surgeon at [facility] abx as per ID for UTI PT, wbat if able Pt has appt with surgeon in a few weeks ok to d/c from ortho pov when medically stable d/w Dr. Richter
--- NOTE | 2018-04-23 16:20 | PN ---
Progress Note (short form) - Note Progress Note: Patient documented on by Symphosether today in H&P. Will stop levaquin secondary to normal UA. Will continue chronic doxycycline. Evaluation for placement.
[2018-04-23] MEDS: DOXYCYCLINE HYCLATE 100 MG CAPSULE PO SCH (21:33)
[2018-04-23] MEDS: NYSTATIN POWDER 100,000 UNITS/GM - 15 GM TOPICAL POWDER TP SCH (21:34)
[2018-04-23] MEDS: ATORVASTATIN CA 10 MG TABLET (FP) PO SCH (21:34)
[2018-04-24] MEDS: hydrALAZINE HCL 50 MG TABLET (FP) PO SCH ×3 (06:54→22:05)
[2018-04-24] MEDS: FERROUS SO4 325 MG TABLET (FP) PO SCH ×3 (06:54→22:05)
[2018-04-24 07:52] LABS: BASO % 1.3 % (0-2.0); HEMATOCRIT 27.3 % (32.4-45.2); HEMOGLOBIN 9.3 GM/dL (10.7-15.3); MCH 30.7 pg (25.7-33.7); MEAN CELL VOLUME 90.3 fl (80-96); MEAN PLT VOLUME 9.3 fl (7.5-11.1); MONO % 9.3 % (3.8-10.2); NEUT % 65.4 % (42.8-82.8); PLATELET COUNT 207 K/MM3 (134-434); RBC 3.02 M/mm3 (3.60-5.2); RDW 15.2 % (11.6-15.6); WHITE BLOOD COUNT 6.1 K/mm3 (4.0-10.0)
[2018-04-24] MEDS ORDERED: PT OWN MED DRAWER 7, Y5N ONE ×3 (07:55→17:10)
[2018-04-24] MEDS: REPAGLINIDE 1 MG TABLET PO SCH ×3 (07:56→17:20)
[2018-04-24 08:29] LABS: ANION GAP 6 (8-16); BLOOD UREA NITROGEN 21 mg/dL (7-18); CHLORIDE 111 mmol/L (98-107); CO2 29 mmol/L (21-32); CREATININE 0.9 mg/dL (0.55-1.02); GLUCOSE,RANDOM 116 mg/dL (74-106); POTASSIUM 4.4 mmol/L (3.5-5.1); SODIUM 146 mmol/L (136-145)
[2018-04-24] MEDS: CHOLECALCIFEROL (VITAMIN D3) 1,000 UNIT TABLET (FP) PO SCH (09:10)
[2018-04-24] MEDS: DOXYCYCLINE HYCLATE 100 MG CAPSULE PO SCH ×2 (09:10→17:20)
[2018-04-24] MEDS: PANTOPRAZOLE 40 MG TABLET (FP) PO SCH (09:10)
[2018-04-24] MEDS: HEPARIN NA (PORCINE) 5,000 UNITS/ML 1ML VIAL SQ SCH ×2 (09:10→22:05)
[2018-04-24] MEDS: LACTOBACILLUS ACIDOPHILUS 1 TABLET PO SCH (09:10)
[2018-04-24] MEDS: ASPIRIN 81 MG CHEWABLE TABLETS PO SCH (09:10)
[2018-04-24] MEDS: METOPROLOL TARTRATE 50 MG TABLET (FP) PO SCH (09:10)
[2018-04-24] MEDS: PATIENT'S OWN MEDICATION (NON-FORMULARY) (Methenamine Hippurate 1 GM) PO SCH (09:11)
[2018-04-24] MEDS: MESALAMINE 4.8 GM PO SCH (09:11)
[2018-04-24] MEDS: NYSTATIN POWDER 100,000 UNITS/GM - 15 GM TOPICAL POWDER TP SCH ×2 (09:12→22:39)
[2018-04-24] MEDS: ALPRAZolam 0.25 MG TABLET PO SCH (09:14)
[2018-04-24] MEDS: [UNRECOGNIZED DRUG - MIXTURE] PO SCH (09:17)
--- NOTE | 2018-04-24 10:24 | PN ---
Progress Note, Physician Chief Complaint: Still c/o knee pain evaluted by ortho no intervention History of Present Illness: 77 y/o woman from home with a past medical history of HTN, HLD, Anemia, GERD, Vitamin B12 Deficiency, presented to the ED with L-knee pain and dysuria. Patient is being treated for a UTI and on Doxycyline, UA is normal, U culture not performed, evaluted by ortho recommonded F/U with operating surgeon at [facility].PT evaluation and cont chronic suppressive abx after Left knee revision TKR , chronic patella tendon rupture, on chronic suppressive abx - Current Medication List Current Medications: Active Medications Acetaminophen (Tylenol -) 650 mg PO Q6H PRN PRN Reason: PAIN OR FEVER Alprazolam (Xanax -) 0.25 mg PO DAILY [facility] Last Admin: 04/24/18 09:14 Dose: Not Given Aspirin (Asa -) 81 mg PO DAILY [facility] Last Admin: 04/24/18 09:10 Dose: 81 mg Atorvastatin Calcium (Lipitor -) 10 mg PO [facility] Last Admin: 04/23/18 21:34 Dose: 10 mg Cholecalciferol (Vitamin D3 -) 1,000 unit PO DAILY [facility] Last Admin: 04/24/18 09:10 Dose: 1,000 unit Doxycycline Hyclate (Vibramycin -) 100 mg PO BID@1000,1800 [facility] Last Admin: 04/24/18 09:10 Dose: 100 mg Ferrous Sulfate (Feosol -) 325 mg PO TID [facility] Last Admin: 04/24/18 06:54 Dose: 325 mg Heparin Sodium (Porcine) (Heparin -) 5,000 unit SQ BID [facility] Last Admin: 04/24/18 09:10 Dose: 5,000 unit Hydralazine HCl (Apresoline -) 50 mg PO TID [facility] Last Admin: 04/24/18 06:54 Dose: 50 mg Lactobacillus Acidophilus (Bacid -) 2 tab PO DAILY [facility] Last Admin: 04/24/18 09:10 Dose: 2 tab Metoprolol Tartrate (Lopressor -) 100 mg PO DAILY [facility] Last Admin: 04/24/18 09:10 Dose: 100 mg Non-Formulary Medication (Mesalamine [Mesalamine]) 4.8 gm PO DAILY [facility] Last Admin: 04/24/18 09:11 Dose: 4.8 gm Non-Formulary Medication (Methenamine Hippurate) 1 gm PO DAILY [facility] Last Admin: 04/24/18 09:11 Dose: 1 gm Non-Formulary Medication (Vit C/E/Zn/Sr. Media Manager/Lut/Gale/Bio/Saf [Retaine Vision Softgel ]) 1 tab.sr PO DAILY [facility] Last Admin: 04/24/18 09:17 Dose: Not Given Nystatin (Nystop Powder -) 1 applic TP BID [facility] Last Admin: 04/24/18 09:12 Dose: 1 applic Pantoprazole Sodium (Protonix -) 40 mg PO DAILY [facility] Last Admin: 04/24/18 09:10 Dose: 40 mg Repaglinide (Prandin -) 1 mg PO TIDCM [facility] Last Admin: 04/24/18 07:56 Dose: 1 mg - Objective Vital Signs: Vital Signs Temperature 98.1 F 04/24/18 05:47 Pulse Rate 69 04/24/18 05:47 Respiratory Rate 20 04/24/18 05:47 Blood Pressure 149/69 04/24/18 05:47 O2 Sat by Pulse Oximetry (%) 96 04/24/18 05:00 Elderly F not in distress HEENT:Mm moist , no anemia, PERRLA, EOMI NECK: No JVD No Bruit CHEST: CTA B/L CVS; S1S2 R no m/g/r ABD{ Obses non tender Bs + EXT: Lweft Knee swollen and paiful CLAIM BENEFIT SPECIALIST: AIOx3 non focal Labs: CBC, BMP 04/24/18 06:30 04/24/18 06:30 INR, PTT INR 1.15 (0.82-1.09) H 04/22/18 19:51 Microbiology 04/22/18 22:41 Urine - Urine Clean Catch Urine Culture - Final Escherichia Coli Esbl Psychologist Social Problem List - Problems (1) Left knee pain Assessment/Plan: S/P TKR evaluated by orthopedics on abx Code(s): M25.562 - PAIN IN LEFT KNEE Qualifiers: Chronicity: chronic Qualified Code(s): M25.562 - Pain in left knee; G89.29 - Other chronic pain (2) Diabetes mellitus Assessment/Plan: Cont current management Code(s): E11.9 - TYPE 2 DIABETES MELLITUS WITHOUT COMPLICATIONS Qualifiers: (3) Dysuria Assessment/Plan: Grew Fermenters GNR awaiting sensitivity Code(s): R30.0 - DYSURIA (4) HLD (hyperlipidemia) Assessment/Plan: On Statin Code(s): E78.5 - HYPERLIPIDEMIA, UNSPECIFIED (5) Hypertension Assessment/Plan: Well controlled cont all hiome meds Code(s): I10 - ESSENTIAL (PRIMARY) HYPERTENSION Qualifiers: (6) UTI (urinary tract infection) Assessment/Plan: Grew Fermenters GNR awaiting sensitivity Code(s): N39.0 - URINARY TRACT INFECTION, SITE NOT SPECIFIED Qualifiers: Urinary tract infection type: acute cystitis Hematuria presence: without hematuria Qualified Code(s): N30.00 - Acute cystitis without hematuria Assessment/Plan Cont current management F/U PT evaluation
--- NOTE | 2018-04-24 15:22 | PN ---
Progress Note, Physician - Current Medication List Current Medications: Active Medications Acetaminophen (Tylenol -) 650 mg PO Q6H PRN PRN Reason: PAIN OR FEVER Acetaminophen/Codeine Phosphate (Tylenol # 3 -) 1 tab PO Q6H PRN PRN Reason: PAIN LEVEL 4 - 6 Alprazolam (Xanax -) 0.25 mg PO DAILY [facility] Last Admin: 04/24/18 09:14 Dose: Not Given Aspirin (Asa -) 81 mg PO DAILY [facility] Last Admin: 04/24/18 09:10 Dose: 81 mg Atorvastatin Calcium (Lipitor -) 10 mg PO HS [facility] Last Admin: 04/23/18 21:34 Dose: 10 mg Cholecalciferol (Vitamin D3 -) 1,000 unit PO DAILY [facility] Last Admin: 04/24/18 09:10 Dose: 1,000 unit Doxycycline Hyclate (Vibramycin -) 100 mg PO BID@1000,1800 [facility] Last Admin: 04/24/18 09:10 Dose: 100 mg Ferrous Sulfate (Feosol -) 325 mg PO TID [facility] Last Admin: 04/24/18 14:17 Dose: 325 mg Heparin Sodium (Porcine) (Heparin -) 5,000 unit SQ BID [facility] Last Admin: 04/24/18 09:10 Dose: 5,000 unit Hydralazine HCl (Apresoline -) 50 mg PO TID [facility] Last Admin: 04/24/18 14:17 Dose: 50 mg Lactobacillus Acidophilus (Bacid -) 2 tab PO DAILY [facility] Last Admin: 04/24/18 09:10 Dose: 2 tab Metoprolol Tartrate (Lopressor -) 100 mg PO DAILY [facility] Last Admin: 04/24/18 09:10 Dose: 100 mg Non-Formulary Medication (Mesalamine [Mesalamine]) 4.8 gm PO DAILY [facility] Last Admin: 04/24/18 09:11 Dose: 4.8 gm Non-Formulary Medication (Methenamine Hippurate) 1 gm PO DAILY [facility] Last Admin: 04/24/18 09:11 Dose: 1 gm Non-Formulary Medication (Vit C/E/Zn/Manager Furniture/Lut/Gale/Bio/Saf [Retaine Vision Softgel ]) 1 tab.sr PO DAILY [facility] Last Admin: 04/24/18 09:17 Dose: Not Given Nystatin (Nystop Powder -) 1 applic TP BID [facility] Last Admin: 04/24/18 09:12 Dose: 1 applic Pantoprazole Sodium (Protonix -) 40 mg PO DAILY [facility] Last Admin: 04/24/18 09:10 Dose: 40 mg Repaglinide (Prandin -) 1 mg PO TIDCM [facility] Last Admin: 04/24/18 11:56 Dose: 1 mg - Objective Vital Signs: Vital Signs Temperature 98.7 F 04/24/18 14:11 Pulse Rate 67 04/24/18 14:11 Respiratory Rate 20 04/24/18 14:11 Blood Pressure 154/97 04/24/18 14:11 O2 Sat by Pulse Oximetry (%) 96 04/24/18 10:00 Labs: CBC, BMP 04/24/18 06:30 04/24/18 06:30 INR, PTT INR 1.15 (0.82-1.09) H 04/22/18 19:51
--- NOTE | 2018-04-24 15:27 | CON.ID ---
Consult Consult Specialty:: infectious diseases Reason for Consultation:: uti - History of Present Illness Chief Complaint: pain in the legs History of Present Illness: 77 y/o woman from home with a past medical history of HTN, HLD, Anemia, GERD, Vitamin B12 Deficiency. admitted with L-knee pain and dysuria. Patient is being treated for a UTI and on Doxycyline. The patient had surgery on her left leg approximately a year ago. She describes her left knee pain to be similar to her baseline pain. As per patient, she was sent over by her PCP, Dr. Mao, for admission for IV antibiotics and evaluation of her left knee. Patient denies recent fevers, chills, headache or dizziness. Patient denies recent nausea, vomit, diarrhea or constipation. Patient denies recent chest pain or shortness of breath. currently patient is completely asymptomatic - History Source History Provided By: Patient Limitations to Obtaining History: No Limitations - Past Medical History Cardio/Vascular: Yes: HTN, Hyperlipdemia Gastrointestinal: Yes: Ulcerative Colitis Endocrine: Yes: Diabetes Mellitus - Past Surgical History Past Surgical History: Yes: Colonoscopy, Joint Replacement (left knee, s/p recent revision) - Alcohol/Substance Use Hx Alcohol Use: No History of Substance Use: reports: None - Smoking History Smoking history: Never smoked Have you smoked in the past 12 months: No If you are a former smoker, when did you quit?: 30 YEARS AGO - Social History ADL: Independent Occupation: Retired nurse History of Recent Travel: No Home Medications - Allergies Allergies/Adverse Reactions: Allergies Allergy/AdvReac Type Severity Reaction Status Date / Time Penicillins Allergy Unknown Verified 04/22/18 18:39 - Home Medications Home Medications: Ambulatory Orders Aspirin [ASA -] 81 mg PO DAILY 06/25/17 Cholecalciferol (Vitamin D3) [Vitamin D3] 1,000 unit PO DAILY 06/25/17 Doxycycline Monohydrate [Mondoxyne Nl] 100 mg PO BID 06/25/17 Ferrous Sulfate 325 mg PO TID 06/25/17 Lansoprazole [Prevacid] 40 mg PO DAILY 06/25/17 Mesalamine 4.8 gm PO DAILY 06/25/17 Metoprolol Tartrate 100 mg PO DAILY 06/25/17 Repaglinide [Prandin] 1 mg PO TIDCM 06/25/17 Simvastatin 20 mg PO HS 06/25/17 Lactobacillus Acidophilus [Bacid -] 2 tab PO DAILY tab 07/08/17 Alprazolam [Xanax] 0.25 mg PO DAILY 04/22/18 Hydralazine HCl 50 mg PO TID 04/23/18 Methenamine Hippurate [Hiprex [Nf] -] 1 gm PO DAILY 04/23/18 Vit C/E/Zn/Auto Electrician/Lut/Gale/Bio/Saf [Retaine Vision Softgel] PO DAILY 04/23/18 Family Disease History - Family Disease History Family Disease History: Other: Grandparent (mGF stomach ca ), Father ( post ulcer surgery ) Review of Systems - Review of Systems Constitutional: reports: No Symptoms Eyes: reports: No Symptoms HENT: reports: No Symptoms Neck: reports: No Symptoms Cardiovascular: reports: No Symptoms Respiratory: reports: No Symptoms Gastrointestinal: reports: No Symptoms Genitourinary: reports: No Symptoms Musculoskeletal: reports: Joint Pain Integumentary: reports: No Symptoms Neurological: reports: No Symptoms Endocrine: reports: No Symptoms Hematology/Lymphatic: reports: No Symptoms Psychiatric: reports: No Symptoms Physical Exam Vital Signs: Vital Signs Temperature 98.7 F 04/24/18 14:11 Pulse Rate 67 04/24/18 14:11 Respiratory Rate 20 04/24/18 14:11 Blood Pressure 154/97 04/24/18 14:11 O2 Sat by Pulse Oximetry (%) 96 04/24/18 10:00 Constitutional: Yes: Well Nourished, Calm, Mild Distress Cardiovascular: Yes: Regular Rate and Rhythm Respiratory: Yes: Regular, CTA Bilaterally Gastrointestinal: Yes: Normal Bowel Sounds, Soft Musculoskeletal: Yes: Other Extremities: Yes: Other Neurological: Yes: Alert, Oriented Psychiatric: Yes: Alert, Oriented Labs: CBC, BMP 04/24/18 06:30 04/24/18 06:30 Imaging - Results Chest X-ray: Report Reviewed, Image Reviewed Assessment/Plan Problem List - Problems (1) Dysuria Code(s): R30.0 - DYSURIA (2) Left knee pain Code(s): M25.562 - PAIN IN LEFT KNEE (3) Diabetes mellitus Code(s): E11.9 - TYPE 2 DIABETES MELLITUS WITHOUT COMPLICATIONS Qualifiers: (4) HLD (hyperlipidemia) Code(s): E78.5 - HYPERLIPIDEMIA, UNSPECIFIED (5) Hypertension Code(s): I10 - ESSENTIAL (PRIMARY) HYPERTENSION Qualifiers: (6) Status post revision of total replacement of left knee Code(s): Z96.652 - PRESENCE OF LEFT ARTIFICIAL KNEE JOINT (7) Ulcerative colitis Code(s): K51.90 - ULCERATIVE COLITIS, UNSPECIFIED, WITHOUT COMPLICATIONS patients cx report noted currently asymptomatic plan await for identification of the bacteria once identified then will decide if she need abx no abx at this time rest continue current mgmt
--- NOTE | 2018-04-24 18:02 | PN ---
Progress Note (short form) - Note Progress Note: Pt seen. She already has an appointment to follow up at [facility] with her Orthopedic Surgeon. Will follow PRN
[2018-04-24] MEDS: ATORVASTATIN CA 10 MG TABLET (FP) PO SCH (22:05)
[2018-04-25] MEDS: ACETAMINOPHEN WITH CODEINE 300MG/30MG TABLET PO PRN (00:14)
[2018-04-25] MEDS: FERROUS SO4 325 MG TABLET (FP) PO SCH ×3 (06:31→21:19)
[2018-04-25] MEDS: hydrALAZINE HCL 50 MG TABLET (FP) PO SCH ×3 (06:31→21:19)
[2018-04-25 07:31] LABS: BASO % 1.4 % (0-2.0); EOS % 6.3 % (0-4.5); HEMATOCRIT 27.2 % (32.4-45.2); HEMOGLOBIN 9.2 GM/dL (10.7-15.3); LYMPH % 20.1 % (8-40); MCH 30.5 pg (25.7-33.7); MCHC 33.8 g/dl (32.0-36.0); MEAN CELL VOLUME 90.2 fl (80-96); MONO % 8.2 % (3.8-10.2); PLATELET COUNT 194 K/MM3 (134-434); RBC 3.02 M/mm3 (3.60-5.2); WHITE BLOOD COUNT 5.5 K/mm3 (4.0-10.0)
[2018-04-25] MEDS: REPAGLINIDE 1 MG TABLET PO SCH ×3 (07:47→17:09)
[2018-04-25 07:57] LABS: CHLORIDE 109 mmol/L (98-107); POTASSIUM 4.1 mmol/L (3.5-5.1); SODIUM 143 mmol/L (136-145)
[2018-04-25 08:03] LABS: ANION GAP 7 (8-16); BLOOD UREA NITROGEN 26 mg/dL (7-18); CALCIUM 8.8 mg/dL (8.5-10.1); CO2 27 mmol/L (21-32); CREATININE 0.9 mg/dL (0.55-1.02); GLUCOSE,RANDOM 119 mg/dL (74-106)
--- NOTE | 2018-04-25 09:08 | CONSULT ---
Consult - text type - Consultation Consultation Note: 77 yo female w mult medical problems. Hx of recent utis and urge and stress incontinence pt will be tx to rehab and undergoing ortho rehab Would need urodynamics prior to starting urologic meds in light of retention and incontinence
--- NOTE | 2018-04-25 09:44 | PN ---
Progress Note, Physician History of Present Illness: stable no complaints - Current Medication List Current Medications: Active Medications Acetaminophen (Tylenol -) 650 mg PO Q6H PRN PRN Reason: PAIN OR FEVER Acetaminophen/Codeine Phosphate (Tylenol # 3 -) 1 tab PO Q6H PRN PRN Reason: PAIN LEVEL 4 - 6 Last Admin: 04/25/18 00:14 Dose: 1 tab Alprazolam (Xanax -) 0.25 mg PO DAILY [facility] Last Admin: 04/24/18 09:14 Dose: Not Given Aspirin (Asa -) 81 mg PO DAILY [facility] Last Admin: 04/24/18 09:10 Dose: 81 mg Atorvastatin Calcium (Lipitor -) 10 mg PO HS [facility] Last Admin: 04/24/18 22:05 Dose: 10 mg Cholecalciferol (Vitamin D3 -) 1,000 unit PO DAILY [facility] Last Admin: 04/24/18 09:10 Dose: 1,000 unit Doxycycline Hyclate (Vibramycin -) 100 mg PO BID@1000,1800 [facility] Last Admin: 04/24/18 17:20 Dose: 100 mg Ferrous Sulfate (Feosol -) 325 mg PO TID [facility] Last Admin: 04/25/18 06:31 Dose: 325 mg Heparin Sodium (Porcine) (Heparin -) 5,000 unit SQ BID [facility] Last Admin: 04/24/18 22:05 Dose: 5,000 unit Hydralazine HCl (Apresoline -) 50 mg PO TID [facility] Last Admin: 04/25/18 06:31 Dose: 50 mg Lactobacillus Acidophilus (Bacid -) 2 tab PO DAILY [facility] Last Admin: 04/24/18 09:10 Dose: 2 tab Metoprolol Tartrate (Lopressor -) 100 mg PO DAILY [facility] Last Admin: 04/24/18 09:10 Dose: 100 mg Non-Formulary Medication (Mesalamine [Mesalamine]) 4.8 gm PO DAILY [facility] Last Admin: 04/24/18 09:11 Dose: 4.8 gm Non-Formulary Medication (Methenamine Hippurate) 1 gm PO DAILY [facility] Last Admin: 04/24/18 09:11 Dose: 1 gm Non-Formulary Medication (Vit C/E/Zn/Script Developer/Lut/Gale/Bio/Saf [Retaine Vision Softgel ]) 1 tab.sr PO DAILY [facility] Last Admin: 04/24/18 09:17 Dose: Not Given Nystatin (Nystop Powder -) 1 applic TP BID [facility] Last Admin: 04/24/18 22:39 Dose: 1 applic Pantoprazole Sodium (Protonix -) 40 mg PO DAILY [facility] Last Admin: 04/24/18 09:10 Dose: 40 mg Repaglinide (Prandin -) 1 mg PO TIDCM [facility] Last Admin: 04/25/18 07:47 Dose: 1 mg - Objective Vital Signs: Vital Signs Temperature 97.7 F 04/25/18 05:43 Pulse Rate 71 04/25/18 05:43 Respiratory Rate 20 04/25/18 05:43 Blood Pressure 153/81 04/25/18 05:43 O2 Sat by Pulse Oximetry (%) 96 04/25/18 02:00 Constitutional: Yes: No Distress, Calm Cardiovascular: Yes: Regular Rate and Rhythm Respiratory: Yes: Regular, CTA Bilaterally Gastrointestinal: Yes: Normal Bowel Sounds, Soft Musculoskeletal: Yes: WNL Extremities: Yes: Other Neurological: Yes: Alert, Oriented Psychiatric: Yes: Alert, Oriented Labs: CBC, BMP 04/25/18 06:00 04/25/18 06:00 INR, PTT INR 1.15 (0.82-1.09) H 04/22/18 19:51 Assessment/Plan Problem List - Problems (1) Dysuria Code(s): R30.0 - DYSURIA (2) Left knee pain Code(s): M25.562 - PAIN IN LEFT KNEE (3) Diabetes mellitus Code(s): E11.9 - TYPE 2 DIABETES MELLITUS WITHOUT COMPLICATIONS Qualifiers: (4) HLD (hyperlipidemia) Code(s): E78.5 - HYPERLIPIDEMIA, UNSPECIFIED (5) Hypertension Code(s): I10 - ESSENTIAL (PRIMARY) HYPERTENSION Qualifiers: (6) Status post revision of total replacement of left knee Code(s): Z96.652 - PRESENCE OF LEFT ARTIFICIAL KNEE JOINT (7) Ulcerative colitis Code(s): K51.90 - ULCERATIVE COLITIS, UNSPECIFIED, WITHOUT COMPLICATIONS urology note noted plan await for identification of bacteria' rest continue current mgmt
[2018-04-25] MEDS: DOXYCYCLINE HYCLATE 100 MG CAPSULE PO SCH ×2 (09:48→17:09)
[2018-04-25] MEDS: ALPRAZolam 0.25 MG TABLET PO SCH (09:48)
[2018-04-25] MEDS: CHOLECALCIFEROL (VITAMIN D3) 1,000 UNIT TABLET (FP) PO SCH (09:48)
[2018-04-25] MEDS: ASPIRIN 81 MG CHEWABLE TABLETS PO SCH (09:48)
[2018-04-25] MEDS: METOPROLOL TARTRATE 50 MG TABLET (FP) PO SCH (09:48)
[2018-04-25] MEDS: PATIENT'S OWN MEDICATION (NON-FORMULARY) (Methenamine Hippurate 1 GM) PO SCH ×2 (09:49→21:20)
[2018-04-25] MEDS: MESALAMINE 4.8 GM PO SCH (09:50)
[2018-04-25] MEDS: PANTOPRAZOLE 40 MG TABLET (FP) PO SCH (09:51)
[2018-04-25] MEDS: HEPARIN NA (PORCINE) 5,000 UNITS/ML 1ML VIAL SQ SCH ×2 (09:51→21:19)
[2018-04-25] MEDS: LACTOBACILLUS ACIDOPHILUS 1 TABLET PO SCH (09:51)
[2018-04-25] MEDS: NYSTATIN POWDER 100,000 UNITS/GM - 15 GM TOPICAL POWDER TP SCH ×2 (09:52→21:20)
[2018-04-25] MEDS: [UNRECOGNIZED DRUG - MIXTURE] PO SCH (10:30)
--- NOTE | 2018-04-25 11:29 | PN ---
Progress Note, Physician Chief Complaint: Still c/o knee pain evaluted by ortho no intervention, U Grew ESBL E Colli History of Present Illness: 77 y/o woman from home with a past medical history of HTN, HLD, Anemia, GERD, Vitamin B12 Deficiency, presented to the ED with L-knee pain and dysuria. Patient is being treated for a UTI and on Doxycyline, UA is normal, U culture not performed, evaluted by ortho recommonded F/U with operating surgeon at [facility].PT evaluation and cont chronic suppressive abx after Left knee revision TKR , chronic patella tendon rupture, on chronic suppressive abx - Current Medication List Current Medications: Active Medications Acetaminophen (Tylenol -) 650 mg PO Q6H PRN PRN Reason: PAIN OR FEVER Acetaminophen/Codeine Phosphate (Tylenol # 3 -) 1 tab PO Q6H PRN PRN Reason: PAIN LEVEL 4 - 6 Last Admin: 04/25/18 00:14 Dose: 1 tab Alprazolam (Xanax -) 0.25 mg PO DAILY [facility] Last Admin: 04/25/18 09:48 Dose: 0.25 mg Aspirin (Asa -) 81 mg PO DAILY [facility] Last Admin: 04/25/18 09:48 Dose: 81 mg Atorvastatin Calcium (Lipitor -) 10 mg PO [facility] Last Admin: 04/24/18 22:05 Dose: 10 mg Cholecalciferol (Vitamin D3 -) 1,000 unit PO DAILY [facility] Last Admin: 04/25/18 09:48 Dose: 1,000 unit Doxycycline Hyclate (Vibramycin -) 100 mg PO BID@1000,1800 [facility] Last Admin: 04/25/18 09:48 Dose: 100 mg Ferrous Sulfate (Feosol -) 325 mg PO TID [facility] Last Admin: 04/25/18 06:31 Dose: 325 mg Heparin Sodium (Porcine) (Heparin -) 5,000 unit SQ BID [facility] Last Admin: 04/25/18 09:51 Dose: 5,000 unit Hydralazine HCl (Apresoline -) 50 mg PO TID [facility] Last Admin: 04/25/18 06:31 Dose: 50 mg Meropenem 500 mg/ Dextrose 100 mls @ 200 mls/hr IVPB Q12H [facility] Lactobacillus Acidophilus (Bacid -) 2 tab PO DAILY [facility] Last Admin: 04/25/18 09:51 Dose: 2 tab Metoprolol Tartrate (Lopressor -) 100 mg PO DAILY [facility] Last Admin: 04/25/18 09:48 Dose: 100 mg Non-Formulary Medication (Mesalamine [Mesalamine]) 4.8 gm PO DAILY [facility] Last Admin: 04/25/18 09:50 Dose: 4.8 gm Non-Formulary Medication (Vit C/E/Zn/Thread Separator/Lut/Gale/Bio/Saf [Retaine Vision Softgel ]) 1 tab.sr PO DAILY [facility] Last Admin: 04/25/18 10:30 Dose: Not Given Non-Formulary Medication (Methenamine Hippurate) 1 gm PO BID [facility] Nystatin (Nystop Powder -) 1 applic TP BID [facility] Last Admin: 04/25/18 09:52 Dose: 1 applic Pantoprazole Sodium (Protonix -) 40 mg PO DAILY [facility] Last Admin: 04/25/18 09:51 Dose: 40 mg Repaglinide (Prandin -) 1 mg PO TIDCM [facility] Last Admin: 04/25/18 07:47 Dose: 1 mg - Objective Vital Signs: Vital Signs Temperature 97.7 F 04/25/18 05:43 Pulse Rate 71 04/25/18 05:43 Respiratory Rate 20 04/25/18 05:43 Blood Pressure 153/81 04/25/18 05:43 O2 Sat by Pulse Oximetry (%) 96 04/25/18 02:00 Elderly F not in distress HEENT:Mm moist , no anemia, PERRLA, EOMI NECK: No JVD No Bruit CHEST: CTA B/L CVS; S1S2 R no m/g/r ABD{ Obses non tender Bs + EXT: Lweft Knee swollen and paiful DISPLAY DECORATOR: AIOx3 non focal Labs: CBC, BMP 04/25/18 06:00 04/25/18 06:00 INR, PTT INR 1.15 (0.82-1.09) H 04/22/18 19:51 Problem List - Problems (1) Left knee pain Assessment/Plan: S/P TKR evaluated by orthopedics on abx Code(s): M25.562 - PAIN IN LEFT KNEE Qualifiers: Chronicity: chronic Qualified Code(s): M25.562 - Pain in left knee; G89.29 - Other chronic pain (2) Diabetes mellitus Assessment/Plan: Cont current management Code(s): E11.9 - TYPE 2 DIABETES MELLITUS WITHOUT COMPLICATIONS Qualifiers: (3) Dysuria Assessment/Plan: Grew ESBL E Ciolli will satrt Meropenem Id on the case Code(s): R30.0 - DYSURIA (4) HLD (hyperlipidemia) Assessment/Plan: On Statin Code(s): E78.5 - HYPERLIPIDEMIA, UNSPECIFIED (5) Hypertension Assessment/Plan: Well controlled cont all hiome meds Code(s): I10 - ESSENTIAL (PRIMARY) HYPERTENSION Qualifiers: (6) UTI (urinary tract infection) Assessment/Plan: Grew Fermenters GNR ESBL E Colli on IV Meropenem Code(s): N39.0 - URINARY TRACT INFECTION, SITE NOT SPECIFIED Qualifiers: Urinary tract infection type: acute cystitis Hematuria presence: without hematuria Qualified Code(s): N30.00 - Acute cystitis without hematuria
[2018-04-25] MEDS: MEROPENEM 500 MG in DEXTROSE 5%-WATER 100 ML IVPB SCH (12:46)
[2018-04-25 16:03] VITALS: BMI 38.2
[2018-04-25] MEDS ORDERED: PT OWN MED DRAWER 7, Y5N ONE (21:05)
[2018-04-25] MEDS: ATORVASTATIN CA 10 MG TABLET (FP) PO SCH (21:19)
[2018-04-26] MEDS: MEROPENEM 500 MG in DEXTROSE 5%-WATER 100 ML IVPB SCH ×3 (00:17→11:34)
[2018-04-26] MEDS: ACETAMINOPHEN WITH CODEINE 300MG/30MG TABLET PO PRN (00:27)
[2018-04-26] MEDS: hydrALAZINE HCL 50 MG TABLET (FP) PO SCH ×3 (06:21→22:20)
[2018-04-26] MEDS: FERROUS SO4 325 MG TABLET (FP) PO SCH ×3 (06:21→22:20)
[2018-04-26 07:27] LABS: BASO % 1.5 % (0-2.0); EOS % 6.5 % (0-4.5); HEMATOCRIT 26.9 % (32.4-45.2); LYMPH % 19.4 % (8-40); MCH 30.3 pg (25.7-33.7); MCHC 33.5 g/dl (32.0-36.0); MEAN CELL VOLUME 90.4 fl (80-96); MEAN PLT VOLUME 9.3 fl (7.5-11.1); MONO % 8.7 % (3.8-10.2); NEUT % 63.9 % (42.8-82.8); PLATELET COUNT 203 K/MM3 (134-434); RBC 2.98 M/mm3 (3.60-5.2); RDW 14.8 % (11.6-15.6); WHITE BLOOD COUNT 5.4 K/mm3 (4.0-10.0)
[2018-04-26] MEDS: REPAGLINIDE 1 MG TABLET PO SCH ×3 (07:33→17:29)
[2018-04-26 07:56] LABS: ALBUMIN 3.3 g/dl (3.4-5.0); ANION GAP 5 (8-16); BLOOD UREA NITROGEN 29 mg/dL (7-18); CALCIUM 8.6 mg/dL (8.5-10.1); CHLORIDE 109 mmol/L (98-107); CO2 28 mmol/L (21-32); CREATININE 0.9 mg/dL (0.55-1.02); GLUCOSE,RANDOM 124 mg/dL (74-106); POTASSIUM 4.5 mmol/L (3.5-5.1); SGPT/ALT 19 U/L (12-78); SODIUM 142 mmol/L (136-145)
[2018-04-26 07:59] LABS: ALK PHOS 77 U/L (45-117); BILIRUBIN,TOTAL 0.2 mg/dL (0.2-1.0); SGOT/AST 14 U/L (15-37); TOT PROT 5.9 g/dl (6.4-8.2)
[2018-04-26] MEDS: MESALAMINE 4.8 GM PO SCH (09:35)
[2018-04-26] MEDS: PANTOPRAZOLE 40 MG TABLET (FP) PO SCH ×2 (09:36→09:51)
[2018-04-26] MEDS: HEPARIN NA (PORCINE) 5,000 UNITS/ML 1ML VIAL SQ SCH ×2 (09:36→22:20)
[2018-04-26] MEDS: LACTOBACILLUS ACIDOPHILUS 1 TABLET PO SCH (09:36)
[2018-04-26] MEDS: CHOLECALCIFEROL (VITAMIN D3) 1,000 UNIT TABLET (FP) PO SCH (09:37)
[2018-04-26] MEDS: METOPROLOL TARTRATE 50 MG TABLET (FP) PO SCH (09:37)
[2018-04-26] MEDS: ASPIRIN 81 MG CHEWABLE TABLETS PO SCH (09:37)
[2018-04-26] MEDS: NYSTATIN POWDER 100,000 UNITS/GM - 15 GM TOPICAL POWDER TP SCH ×2 (09:39→22:21)
[2018-04-26] MEDS: PATIENT'S OWN MEDICATION (NON-FORMULARY) (Methenamine Hippurate 1 GM) PO SCH ×2 (09:39→22:20)
[2018-04-26] MEDS: [UNRECOGNIZED DRUG - MIXTURE] PO SCH (09:40)
[2018-04-26] MEDS: ALPRAZolam 0.25 MG TABLET PO SCH (09:40)
[2018-04-26] MEDS ORDERED: ERTAPENEM SODIUM 1 GM/50 ML PRE-DOCKED IVPB SCH (11:00)
--- NOTE | 2018-04-26 11:01 | PN ---
Progress Note, Physician History of Present Illness: patient stable no issues has some dysuria cx report noted - Current Medication List Current Medications: Active Medications Acetaminophen (Tylenol -) 650 mg PO Q6H PRN PRN Reason: PAIN OR FEVER Acetaminophen/Codeine Phosphate (Tylenol # 3 -) 1 tab PO Q6H PRN PRN Reason: PAIN LEVEL 4 - 6 Last Admin: 04/26/18 00:27 Dose: 1 tab Alprazolam (Xanax -) 0.25 mg PO DAILY [facility] Last Admin: 04/26/18 09:40 Dose: Not Given Aspirin (Asa -) 81 mg PO DAILY [facility] Last Admin: 04/26/18 09:37 Dose: 81 mg Atorvastatin Calcium (Lipitor -) 10 mg PO HS [facility] Last Admin: 04/25/18 21:19 Dose: 10 mg Cholecalciferol (Vitamin D3 -) 1,000 unit PO DAILY [facility] Last Admin: 04/26/18 09:37 Dose: 1,000 unit Ertapenem (Invanz (Pre-Docked)) 1 gm IVPB DAILY [facility] Ferrous Sulfate (Feosol -) 325 mg PO TID [facility] Last Admin: 04/26/18 06:21 Dose: 325 mg Heparin Sodium (Porcine) (Heparin -) 5,000 unit SQ BID [facility] Last Admin: 04/26/18 09:36 Dose: 5,000 unit Hydralazine HCl (Apresoline -) 50 mg PO TID [facility] Last Admin: 04/26/18 06:21 Dose: 50 mg Lactobacillus Acidophilus (Bacid -) 2 tab PO DAILY [facility] Last Admin: 04/26/18 09:36 Dose: 2 tab Metoprolol Tartrate (Lopressor -) 100 mg PO DAILY [facility] Last Admin: 04/26/18 09:37 Dose: 100 mg Non-Formulary Medication (Mesalamine [Mesalamine]) 4.8 gm PO DAILY [facility] Last Admin: 04/26/18 09:35 Dose: 4.8 gm Non-Formulary Medication (Vit C/E/Zn/Mitochondrial Disorders Counselor/Lut/Gale/Bio/Saf [Retaine Vision Softgel ]) 1 tab.sr PO DAILY [facility] Last Admin: 04/26/18 09:40 Dose: Not Given Non-Formulary Medication (Methenamine Hippurate) 1 gm PO BID [facility] Last Admin: 04/26/18 09:39 Dose: 1 gm Nystatin (Nystop Powder -) 1 applic TP BID [facility] Last Admin: 04/26/18 09:39 Dose: 1 applic Pantoprazole Sodium (Protonix -) 40 mg PO DAILY [facility] Last Admin: 04/26/18 09:51 Dose: Not Given Repaglinide (Prandin -) 1 mg PO TIDCM [facility] Last Admin: 04/26/18 07:33 Dose: 1 mg - Objective Vital Signs: Vital Signs Temperature 98.4 F 04/26/18 05:34 Pulse Rate 74 04/26/18 05:34 Respiratory Rate 20 04/26/18 05:34 Blood Pressure 151/72 04/26/18 05:34 O2 Sat by Pulse Oximetry (%) 98 04/26/18 02:00 Constitutional: Yes: No Distress, Calm Cardiovascular: Yes: Regular Rate and Rhythm Respiratory: Yes: Regular, CTA Bilaterally Gastrointestinal: Yes: Normal Bowel Sounds, Soft Musculoskeletal: Yes: Other Extremities: Yes: Other Neurological: Yes: Alert, Oriented Psychiatric: Yes: Alert, Oriented Labs: CBC, BMP 04/26/18 06:00 04/26/18 06:00 INR, PTT INR 1.15 (0.82-1.09) H 04/22/18 19:51 Assessment/Plan Problem List - Problems (1) Dysuria Code(s): R30.0 - DYSURIA (2) Left knee pain Code(s): M25.562 - PAIN IN LEFT KNEE (3) Diabetes mellitus Code(s): E11.9 - TYPE 2 DIABETES MELLITUS WITHOUT COMPLICATIONS Qualifiers: (4) HLD (hyperlipidemia) Code(s): E78.5 - HYPERLIPIDEMIA, UNSPECIFIED (5) Hypertension Code(s): I10 - ESSENTIAL (PRIMARY) HYPERTENSION Qualifiers: (6) Status post revision of total replacement of left knee Code(s): Z96.652 - PRESENCE OF LEFT ARTIFICIAL KNEE JOINT (7) Ulcerative colitis Code(s): K51.90 - ULCERATIVE COLITIS, UNSPECIFIED, WITHOUT COMPLICATIONS urology note noted plan will treat patient with ertapenam for 2 weeks in view of patient going to get urologic procedure which is being planned on her rest as per the team
[2018-04-26] MEDS: ERTAPENEM SODIUM 1 GM in SODIUM CHLORIDE 50 ML IVPB SCH (12:53)
--- NOTE | 2018-04-26 14:28 | PN ---
Progress Note, Physician Chief Complaint: Ms Haile has no new complaints. Still with chronic L knee pain. No cp, sob, n/ v. - Current Medication List Current Medications: Active Medications Acetaminophen (Tylenol -) 650 mg PO Q6H PRN PRN Reason: PAIN OR FEVER Acetaminophen/Codeine Phosphate (Tylenol # 3 -) 1 tab PO Q6H PRN PRN Reason: PAIN LEVEL 4 - 6 Last Admin: 04/26/18 00:27 Dose: 1 tab Alprazolam (Xanax -) 0.25 mg PO DAILY [facility] Last Admin: 04/26/18 09:40 Dose: Not Given Aspirin (Asa -) 81 mg PO DAILY [facility] Last Admin: 04/26/18 09:37 Dose: 81 mg Atorvastatin Calcium (Lipitor -) 10 mg PO HS [facility] Last Admin: 04/25/18 21:19 Dose: 10 mg Cholecalciferol (Vitamin D3 -) 1,000 unit PO DAILY [facility] Last Admin: 04/26/18 09:37 Dose: 1,000 unit Ferrous Sulfate (Feosol -) 325 mg PO TID [facility] Last Admin: 04/26/18 06:21 Dose: 325 mg Heparin Sodium (Porcine) (Heparin -) 5,000 unit SQ BID [facility] Last Admin: 04/26/18 09:36 Dose: 5,000 unit Hydralazine HCl (Apresoline -) 50 mg PO TID [facility] Last Admin: 04/26/18 06:21 Dose: 50 mg Ertapenem 1 gm/ Sodium (Chloride) 50 mls @ 100 mls/hr IVPB DAILY [facility] Last Admin: 04/26/18 12:53 Dose: 100 mls/hr Lactobacillus Acidophilus (Bacid -) 2 tab PO DAILY [facility] Last Admin: 04/26/18 09:36 Dose: 2 tab Metoprolol Tartrate (Lopressor -) 100 mg PO DAILY [facility] Last Admin: 04/26/18 09:37 Dose: 100 mg Non-Formulary Medication (Mesalamine [Mesalamine]) 4.8 gm PO DAILY [facility] Last Admin: 04/26/18 09:35 Dose: 4.8 gm Non-Formulary Medication (Vit C/E/Zn/Fuel Yard Operator/Lut/Gale/Bio/Saf [Retaine Vision Softgel ]) 1 tab.sr PO DAILY [facility] Last Admin: 04/26/18 09:40 Dose: Not Given Non-Formulary Medication (Methenamine Hippurate) 1 gm PO BID [facility] Last Admin: 04/26/18 09:39 Dose: 1 gm Nystatin (Nystop Powder -) 1 applic TP BID [facility] Last Admin: 04/26/18 09:39 Dose: 1 applic Pantoprazole Sodium (Protonix -) 40 mg PO DAILY [facility] Last Admin: 04/26/18 09:51 Dose: Not Given Repaglinide (Prandin -) 1 mg PO TIDCM [facility] Last Admin: 04/26/18 11:53 Dose: 1 mg - Objective Vital Signs: Vital Signs Temperature 36.7 C 04/26/18 14:05 Pulse Rate 59 L 04/26/18 14:05 Respiratory Rate 20 04/26/18 14:05 Blood Pressure 148/55 04/26/18 14:05 O2 Sat by Pulse Oximetry (%) 100 04/26/18 10:00 Constitutional: Yes: No Distress, Calm, Obese Cardiovascular: Yes: Regular Rate and Rhythm. No: Gallop, Murmur, Rub Respiratory: Yes: Regular, CTA Bilaterally. No: Rales, Rhonchi, Wheezes Gastrointestinal: Yes: Normal Bowel Sounds, Soft. No: Distention, Tenderness Extremities: Yes: Other (LLE in brace) Edema: No Labs: CBC, BMP 04/26/18 06:00 04/26/18 06:00 INR, PTT INR 1.15 (0.82-1.09) H 04/22/18 19:51 Problem List - Problems (1) UTI (urinary tract infection) Assessment/Plan: -now growing e coli ESBL -was not ESBL in the outpatient setting -case d/w Dr Mcmahon -change to ertapenem, will need 14 days Code(s): N39.0 - URINARY TRACT INFECTION, SITE NOT SPECIFIED Qualifiers: Urinary tract infection type: acute cystitis Hematuria presence: without hematuria Qualified Code(s): N30.00 - Acute cystitis without hematuria (2) Left knee pain Assessment/Plan: -chronic -continue current management Code(s): M25.562 - PAIN IN LEFT KNEE Qualifiers: Chronicity: chronic Qualified Code(s): M25.562 - Pain in left knee; G89.29 - Other chronic pain (3) Diabetes mellitus Assessment/Plan: -diabetic diet -continue repaglinide Code(s): E11.9 - TYPE 2 DIABETES MELLITUS WITHOUT COMPLICATIONS Qualifiers: (4) HLD (hyperlipidemia) Assessment/Plan: -continue statin Code(s): E78.5 - HYPERLIPIDEMIA, UNSPECIFIED (5) Hypertension Assessment/Plan: -controlled Code(s): I10 - ESSENTIAL (PRIMARY) HYPERTENSION Qualifiers:
[2018-04-26] MEDS: ATORVASTATIN CA 10 MG TABLET (FP) PO SCH (22:20)
[2018-04-27] MEDS: FERROUS SO4 325 MG TABLET (FP) PO SCH ×2 (06:21→14:21)
[2018-04-27] MEDS: hydrALAZINE HCL 50 MG TABLET (FP) PO SCH ×2 (06:21→14:22)
[2018-04-27 07:36] LABS: BASO % 1.2 % (0-2.0); EOS % 5.8 % (0-4.5); HEMATOCRIT 26.5 % (32.4-45.2); LYMPH % 18.2 % (8-40); MCH 30.7 pg (25.7-33.7); MCHC 33.8 g/dl (32.0-36.0); MEAN CELL VOLUME 90.9 fl (80-96); MEAN PLT VOLUME 9.1 fl (7.5-11.1); MONO % 8.3 % (3.8-10.2); NEUT % 66.5 % (42.8-82.8); PLATELET COUNT 200 K/MM3 (134-434); RBC 2.92 M/mm3 (3.60-5.2); RDW 14.9 % (11.6-15.6)
[2018-04-27 08:01] LABS: CHLORIDE 111 mmol/L (98-107); POTASSIUM 4.6 mmol/L (3.5-5.1); SODIUM 143 mmol/L (136-145)
[2018-04-27 08:16] LABS: ANION GAP 8 (8-16); BLOOD UREA NITROGEN 28 mg/dL (7-18); CALCIUM 8.8 mg/dL (8.5-10.1); CO2 24 mmol/L (21-32); CREATININE 0.9 mg/dL (0.55-1.02); GLUCOSE,RANDOM 115 mg/dL (74-106); PHOSPHOROUS 3.8 mg/dL (2.5-4.9)
[2018-04-27] MEDS: REPAGLINIDE 1 MG TABLET PO SCH ×3 (08:45→17:16)
[2018-04-27] MEDS: ERTAPENEM SODIUM 1 GM in SODIUM CHLORIDE 50 ML IVPB SCH (10:49)
[2018-04-27] MEDS: HEPARIN NA (PORCINE) 5,000 UNITS/ML 1ML VIAL SQ SCH (10:50)
[2018-04-27] MEDS: PANTOPRAZOLE 40 MG TABLET (FP) PO SCH (10:50)
[2018-04-27] MEDS: LACTOBACILLUS ACIDOPHILUS 1 TABLET PO SCH (10:50)
[2018-04-27] MEDS: MESALAMINE 4.8 GM PO SCH (10:51)
[2018-04-27] MEDS: ASPIRIN 81 MG CHEWABLE TABLETS PO SCH (10:51)
[2018-04-27] MEDS: PATIENT'S OWN MEDICATION (NON-FORMULARY) (Methenamine Hippurate 1 GM) PO SCH (10:53)
[2018-04-27] MEDS: NYSTATIN POWDER 100,000 UNITS/GM - 15 GM TOPICAL POWDER TP SCH (10:53)
[2018-04-27] MEDS: [UNRECOGNIZED DRUG - MIXTURE] PO SCH (10:54)
[2018-04-27] MEDS: ALPRAZolam 0.25 MG TABLET PO SCH (10:54)
[2018-04-27] MEDS: METOPROLOL TARTRATE 50 MG TABLET (FP) PO SCH (10:59)
[2018-04-27] MEDS: CHOLECALCIFEROL (VITAMIN D3) 1,000 UNIT TABLET (FP) PO SCH (10:59)
--- NOTE | 2018-04-27 12:50 | DS ---
Physical Examination Vital Signs: Vital Signs Temperature 36.9 C 04/27/18 06:07 Pulse Rate 72 04/27/18 10:00 Respiratory Rate 18 04/27/18 10:00 Blood Pressure 155/65 04/27/18 10:00 O2 Sat by Pulse Oximetry (%) 98 04/26/18 20:10 Constitutional: Yes: No Distress, Calm, Obese Cardiovascular: Yes: Regular Rate and Rhythm. No: Gallop, Murmur, Rub Respiratory: Yes: Regular, CTA Bilaterally. No: Rales, Rhonchi, Wheezes Gastrointestinal: Yes: Normal Bowel Sounds, Soft. No: Tenderness Extremities: Yes: WNL Edema: No Labs: CBC, BMP 04/27/18 06:15 04/27/18 06:15 Discharge Summary Reason For Visit: DYSURIA/LEFT KNEE PAIN Current Active Problems Dysuria (Acute) Falls (Acute) Left knee pain (Acute) Hospital Course: (1) UTI (urinary tract infection) Code(s): N39.0 - URINARY TRACT INFECTION, SITE NOT SPECIFIED Qualifiers: Urinary tract infection type: acute cystitis Hematuria presence: without hematuria Qualified Code(s): N30.00 - Acute cystitis without hematuria (2) Left knee pain Code(s): M25.562 - PAIN IN LEFT KNEE Qualifiers: Chronicity: chronic Qualified Code(s): M25.562 - Pain in left knee; G89.29 - Other chronic pain (3) Diabetes mellitus Code(s): E11.9 - TYPE 2 DIABETES MELLITUS WITHOUT COMPLICATIONS Qualifiers: (4) HLD (hyperlipidemia) Code(s): E78.5 - HYPERLIPIDEMIA, UNSPECIFIED (5) Hypertension Code(s): I10 - ESSENTIAL (PRIMARY) HYPERTENSION Qualifiers: Ms Haile is a very pleasant 77 year old female who comes in with dysuria and found to have ESBL UTI. She was admitted to the hospital and seen by Dr Mcmahon. She was started on ertapenem. She can be discharged to SNF on meropenem for a total of 14 days, she currently needs 12 more days starting 04/28. She also has a history of L knee pain secondary to replacement with chronic infection. She should continue doxycycline for this. PICC line to be placed for outpatient antibiotics. 31 minutes spent in preparation of this discharge Condition: Good - Instructions Diet, Activity, Other Instructions: diabetic/sodium controlled diet. Up with assistance, further activity per PT at SNF. Continue merrem 1gm q8h x12d Referrals: Cheryl Mcmahon MD [Staff Physician] - Imer Ash MD., [Staff Physician] - Eugene Mao MD [Primary Care Provider] - Disposition: INTERMEDIATE FACILITY - Home Medications Comprehensive Discharge Medication List: Ambulatory Orders Aspirin [ASA -] 81 mg PO DAILY 06/25/17 Cholecalciferol (Vitamin D3) [Vitamin D3] 1,000 unit PO DAILY 06/25/17 Doxycycline Monohydrate [Mondoxyne Nl] 100 mg PO BID 06/25/17 Ferrous Sulfate 325 mg PO TID 06/25/17 Lansoprazole [Prevacid] 40 mg PO DAILY 06/25/17 Mesalamine 4.8 gm PO DAILY 06/25/17 Metoprolol Tartrate 100 mg PO DAILY 06/25/17 Repaglinide [Prandin] 1 mg PO TIDCM 06/25/17 Simvastatin 20 mg PO HS 06/25/17 Lactobacillus Acidophilus [Bacid -] 2 tab PO DAILY tab 07/08/17 Alprazolam [Xanax] 0.25 mg PO DAILY 04/22/18 Hydralazine HCl 50 mg PO TID 04/23/18 Methenamine Hippurate [Hiprex [Nf] -] 1 gm PO DAILY 04/23/18 Vit C/E/Zn/Java Xml Developer/Lut/Gale/Bio/Saf [Retaine Vision Softgel] PO DAILY 04/23/18 Acetaminophen W/ Codeine #3 [Tylenol # 3 -] 1 tab PO Q6H PRN tablet MDD 4 tabs 04/27/18 Acetaminophen [Tylenol .Regular Strength -] 650 mg PO Q6H PRN tablet 04/27/18 Meropenem [Merrem] 1 gm IV Q8H 12 Days vial 04/27/18 Nystatin Powder [Nystop Powder -] 1 applic TP BID applic 04/27/18
[2018-04-27] MEDS ORDERED: PICC LINE 8 ML FLUSH PROTOCOL IVPUSH PRN (14:08)
--- NOTE | 2018-04-27 14:19 | PN ---
Progress Note, Physician History of Present Illness: stable no new issues feeling well - Current Medication List Current Medications: Active Medications Acetaminophen (Tylenol -) 650 mg PO Q6H PRN PRN Reason: PAIN OR FEVER Acetaminophen/Codeine Phosphate (Tylenol # 3 -) 1 tab PO Q6H PRN PRN Reason: PAIN LEVEL 4 - 6 Last Admin: 04/26/18 00:27 Dose: 1 tab Alprazolam (Xanax -) 0.25 mg PO DAILY [facility] Last Admin: 04/27/18 10:54 Dose: Not Given Aspirin (Asa -) 81 mg PO DAILY [facility] Last Admin: 04/27/18 10:51 Dose: 81 mg Atorvastatin Calcium (Lipitor -) 10 mg PO HS [facility] Last Admin: 04/26/18 22:20 Dose: 10 mg Cholecalciferol (Vitamin D3 -) 1,000 unit PO DAILY [facility] Last Admin: 04/27/18 10:59 Dose: 1,000 unit Ferrous Sulfate (Feosol -) 325 mg PO TID [facility] Last Admin: 04/27/18 06:21 Dose: 325 mg Heparin Sodium (Porcine) (Heparin -) 5,000 unit SQ BID [facility] Last Admin: 04/27/18 10:50 Dose: 5,000 unit Hydralazine HCl (Apresoline -) 50 mg PO TID [facility] Last Admin: 04/27/18 06:21 Dose: 50 mg IV Flush (Picc Line Flush) 8 ml IVPUSH PRN PRN PRN Reason: Protocol Meropenem 1 gm/ Dextrose 100 mls @ 200 mls/hr IVPB Q8H-IV [facility] Lactobacillus Acidophilus (Bacid -) 2 tab PO DAILY [facility] Last Admin: 04/27/18 10:50 Dose: 2 tab Metoprolol Tartrate (Lopressor -) 100 mg PO DAILY [facility] Last Admin: 04/27/18 10:59 Dose: 100 mg Non-Formulary Medication (Mesalamine [Mesalamine]) 4.8 gm PO DAILY [facility] Last Admin: 04/27/18 10:51 Dose: 4.8 gm Non-Formulary Medication (Vit C/E/Zn/Glass Inspector/Lut/Gale/Bio/Saf [Retaine Vision Softgel ]) 1 tab.sr PO DAILY [facility] Last Admin: 04/27/18 10:54 Dose: Not Given Non-Formulary Medication (Methenamine Hippurate) 1 gm PO BID [facility] Last Admin: 04/27/18 10:53 Dose: 1 gm Nystatin (Nystop Powder -) 1 applic TP BID [facility] Last Admin: 04/27/18 10:53 Dose: 1 applic Pantoprazole Sodium (Protonix -) 40 mg PO DAILY [facility] Last Admin: 04/27/18 10:50 Dose: Not Given Repaglinide (Prandin -) 1 mg PO TIDCM [facility] Last Admin: 04/27/18 12:15 Dose: 1 mg - Objective Vital Signs: Vital Signs Temperature 98.4 F 04/27/18 06:07 Pulse Rate 72 04/27/18 10:00 Respiratory Rate 18 04/27/18 10:00 Blood Pressure 155/65 04/27/18 10:00 O2 Sat by Pulse Oximetry (%) 98 04/26/18 20:10 Constitutional: Yes: No Distress, Calm Cardiovascular: Yes: Regular Rate and Rhythm Respiratory: Yes: Regular, CTA Bilaterally Gastrointestinal: Yes: Normal Bowel Sounds, Soft Musculoskeletal: Yes: WNL Extremities: Yes: Other Neurological: Yes: Alert, Oriented Psychiatric: Yes: Alert, Oriented Labs: CBC, BMP 04/27/18 06:15 04/27/18 06:15 INR, PTT INR 1.15 (0.82-1.09) H 04/22/18 19:51 Assessment/Plan Problem List - Problems (1) Dysuria Code(s): R30.0 - DYSURIA (2) Left knee pain Code(s): M25.562 - PAIN IN LEFT KNEE (3) Diabetes mellitus Code(s): E11.9 - TYPE 2 DIABETES MELLITUS WITHOUT COMPLICATIONS Qualifiers: (4) HLD (hyperlipidemia) Code(s): E78.5 - HYPERLIPIDEMIA, UNSPECIFIED (5) Hypertension Code(s): I10 - ESSENTIAL (PRIMARY) HYPERTENSION Qualifiers: (6) Status post revision of total replacement of left knee Code(s): Z96.652 - PRESENCE OF LEFT ARTIFICIAL KNEE JOINT (7) Ulcerative colitis Code(s): K51.90 - ULCERATIVE COLITIS, UNSPECIFIED, WITHOUT COMPLICATIONS urology note noted plan will treat patient with meropenam for 2 weeks in view of patient going to get urologic procedure which is being planned on her rest as per the team
[2018-04-27 14:41] VITALS: BP 145/74; PULSE 68; TEMP 98.1
[2018-04-27] MEDS ORDERED: MEROPENEM 1 GM in DEXTROSE 5%-WATER 100 ML IVPB SCH (18:00)
== END 2018-04-27 19:00 | DRG 690 ==
LOC: JER 17:58 → JERBED 22:55 → INTOOBSV 22:55 → UNDOADMOB 22:55 → JERBED 23:53 → UNDOADMIN 23:53 → J7W 04-23 11:11 → JERBED 04-23 11:11 → J7W 04-23 13:43 → OBSVTOIN 04-26 10:59
PROVIDERS: ADMIT Internal Medicine; ATTEND Internal Medicine
DX: N39.0 Urinary tract infection, site not specified (principal); M25.562 Pain in left knee; G89.29 Other chronic pain; E11.9 Type 2 diabetes mellitus without complications; E78.5 Hyperlipidemia, unspecified; I10 Essential (primary) hypertension; Z16.12 Extended spectrum beta lactamase (ESBL) resistance; B96.20 Unspecified Escherichia coli [E. coli] as the cause of diseases classified elsewhere; K21.9 Gastro-esophageal reflux disease without esophagitis; E66.9 Obesity, unspecified; Z68.38 Body mass index [BMI] 38.0-38.9, adult
CPT/HCPCS: 36415; 36569; 71045-TC-FY; 73562-TC-LT-FY; 77001-TC-FY; 80048; 80053; 81003; 81015; 83735; 84100; 85025; 85610; 87086; 87186; 93005; 93010; 97116-GP; 97162-GP; 99283-25; C1751; G0378; J1644

== ENCOUNTER 2019-01-28 18:48 | Observation (INO) | payer OTHER ==
--- NOTE | 2019-01-28 19:53 | PDOC ---
Documentation entered by Yin Arora SCRIBE, acting as scribe for Janine Pedraza MD. Janine Pedraza MD: This documentation has been prepared by the Maite dominguez Adrianna, SCRIBE, under my direction and personally reviewed by me in its entirety. I confirm that the documentation accurately reflects all work, treatment, procedures, and medical decision making performed by me. Attending Attestation - Resident Resident Name: AracelisJesse - ED Attending Attestation I have performed the following: I have examined & evaluated the patient, The case was reviewed & discussed with the resident, I agree w/resident's findings & plan - HPI HPI: 78 Y F, with pmh of anemia, HTN, HLD, GERD, and Vitamin B12 deficiency, ulcerative colitis on mesalamine, presenting with abnormal lab values. Patient had lab work done with Dr. Mao yesterday, and her hemoglobin was measured at 7.1. She was advised to come to the ED for treatment. Patient is currently on Xarelto, but did not take meds today. She has no complaints while in the ED. Patient has had anemia workup in the past, but was diagnosed as unspecified per transmission specialist last colonoscopy ~2 years ago, well managed on meds for her UC. Denies fever, chills, chest pain, SOB, palpitation, dizziness, weakness, N, V, D , abdominal pain, bladder and bowel problems, leg swelling, No sick contacts or travel. No new changes in medications. No suspicious food intake Allergies: Penicillins Past Medical History: anemia, HTN, HLD, GERD, and Vitamin B12 deficiency Social history: Lives with family. No tobacco, ETOH or drug use. Surgical history: Multiple L knee surgeries Meds: as documented in EMR PMD: Dr. Eugene Mao 01/28/19 20:36 01/28/19 23:33 01/28/19 23:52 - Physicial Exam PE: Agree with the resident's HPI and PE as documented in the electronic medical record. NAD, well appearing, PERRL, EOMI, pale conjunctiva, anicteric; neck supple. lungs clear, RRR, abdomen soft obese, nontender. no focal neuro deficits. + peripheral edema. normal color for ethnicity, WWP. RLE in long cast 01/28/19 20:37 01/28/19 23:50 - Medical Decision Making 01/28/19 19:53 See HPI for details Vital signs reviewed, wnl. Prior notes reviewed, including admissions, discharges and consultations. laboratory results and imaging reviewed, basic labs and lytes notable for acute on chronic anemia, hb 7.9/24.4 Cardiac panel_neg trop EKG normal sinus rhythm at 69 bpm, no interval abnormalities, narrow QRS, ST and T wave segments and morphology normal. ED course - txs, transfuse 1unit prbc for anemia, Hb<8 - rectal exam, unremarkable, dark stool on iron supp, guaiac neg, not occult GIB admit obs for acute on chronic anemia, transfusion, medical management. pt amenable to impression and plan, agreeable to observation status 01/28/19 23:51 01/29/19 00:40 Heart Score/ECG Review #1 ECG reviewed & interpreted by me at: 19:00 General ECG Interpretation: Sinus Rhythm, Normal Rate, Normal Intervals 01/28/19 19:55 EKG normal sinus rhythm at 69 bpm, no interval abnormalities, narrow QRS, ST and T wave segments and morphology normal.
[2019-01-28] MEDS ORDERED: RIVAROXABAN 10 MG TABLET PO ONE (20:52)
--- NOTE | 2019-01-28 20:52 | PDOC ---
History of Present Illness - General History Source: Patient Exam Limitations: No Limitations - History of Present Illness Initial Comments: 01/28/19 20:52 78F with PMH of HTN, HLD, Anemia (of unspecified cause), GERD, Vitamin B12 Deficiency sent by PCP for low H/H. The patient denies any acute complaints including CP, SOB, fever, chills, nausea, vomiting, melena, hematochezia, hematuria, syncope, changes in vision. She states that she had routine bloodwork done which found a low H/H and she was told to come to the ED. <Jesse Hsu - Last Filed: 01/29/19 00:31> <Janine Pedraza - Last Filed: 01/29/19 00:40> - General Chief Complaint: Abnormal Lab Results (Outside) Stated Complaint: ABNORMAL LABS Time Seen by Provider: 01/28/19 19:26 Past History - Past Medical History Anemia: Yes (iron deficiency, vit b12 deficiency) Cardiac Disorders: (tachycardia) COPD: No GI Disorders: Yes (gerd) HTN: Yes Hypercholesterolemia: Yes - Surgical History Orthopedic Surgery: Yes (L Total Knee Replacement, S/P revision) - Suicide/Smoking/Psychosocial Hx Smoking History: Former smoker Have you smoked in the past 12 months: No If you are a former smoker, when did you quit?: 30 YEARS AGO Information on smoking cessation initiated: No Hx Alcohol Use: No Drug/Substance Use Hx: No Substance Use Type: None Hx Substance Use Treatment: No <Jesse Hsu - Last Filed: 01/29/19 00:31> <Janine Pedraza - Last Filed: 01/29/19 00:40> - Past Medical History Allergies/Adverse Reactions: Allergies Allergy/AdvReac Type Severity Reaction Status Date / Time Penicillins Allergy Unknown Verified 01/28/19 18:57 Home Medications: Ambulatory Orders Cholecalciferol (Vitamin D3) [Vitamin D3] 1,000 unit PO DAILY 06/25/17 Doxycycline Monohydrate [Mondoxyne Nl] 100 mg PO BID 06/25/17 Ferrous Sulfate 325 mg PO TID 06/25/17 Mesalamine 4.8 gm PO DAILY 06/25/17 Metoprolol Tartrate 100 mg PO DAILY 06/25/17 Repaglinide [Prandin] 1 mg PO TIDCM 06/25/17 Simvastatin 20 mg PO HS 06/25/17 Lactobacillus Acidophilus [Bacid -] 2 tab PO DAILY tab 07/08/17 Alprazolam [Xanax] 0.25 mg PO DAILY 04/22/18 Hydralazine HCl 100 mg PO TID 04/23/18 Acetaminophen [Tylenol .Regular Strength -] 650 mg PO Q6H PRN tablet 04/27/18 Oxycodone HCl [Roxicodone] 5 mg PO PRN 01/28/19 Pantoprazole Sodium 40 mg PO DAILY 01/28/19 Rivaroxaban [Xarelto] 10 mg PO DAILY 01/28/19 Review of Systems - Review of Systems Able to Perform ROS?: Yes Comments:: 01/28/19 21:02 GENERAL/CONSTITUTIONAL: No fever or chills. No weakness. HEAD, EYES, EARS, NOSE AND THROAT: No change in vision. No ear pain or discharge. No sore throat. CARDIOVASCULAR: No chest pain, palpitations, or lightheadedness. RESPIRATORY: No cough, wheezing, shortness of breath, or hemoptysis. GASTROINTESTINAL: No nausea, vomiting, diarrhea, constipation, or abdominal pain. GENITOURINARY: No dysuria, frequency, hematuria, or change in urination. MUSCULOSKELETAL: No joint or muscle swelling or pain. No neck or back pain. SKIN: No rash or lesions. NEUROLOGIC: No headache, numbness, tingling, focal weakness, loss of consciousness, or change in strength/sensation. ENDOCRINE: No increased thirst. No abnormal weight change. HEMATOLOGIC/LYMPHATIC: + for anemia. ALLERGIC/IMMUNOLOGIC: No hives or skin allergy. Is the patient limited Kinyarwanda proficient: No <Jesse Hsu - Last Filed: 01/29/19 00:31> *Physical Exam - Vital Signs Last Vital Signs Temp Pulse Resp BP Pulse Ox 98.6 F 69 18 132/41 L 100 01/28/19 18:55 01/28/19 18:55 01/28/19 18:55 01/28/19 18:55 01/28/19 18:55 - Physical Exam Comments: 01/28/19 21:02 GENERAL: Well developed, well nourished. Awake and alert. No acute distress. HEENT: Normocephalic, atraumatic. Hearing grossly normal. Moist mucous membranes. PERRLA, EOMI. No conjunctival pallor. Sclera are non-icteric. NECK: Supple. Full ROM. No JVD. CARDIOVASCULAR: Regular rate and rhythm. No murmurs, rubs, or gallops. PULMONARY: No evidence of respiratory distress. Lungs clear to auscultation bilaterally. No wheezing, rales or rhonchi. ABDOMINAL: Soft. Non-tender. Non-distended. No rebound or guarding. No organomegaly. Normoactive bowel sounds. GENITOURINARY: No CVA tenderness bilaterally. MUSCULOSKELETAL: Normal range of motion at all joints. No bony deformities or tenderness. EXTREMITIES: No cyanosis. No clubbing. No edema. No calf tenderness or swelling. SKIN: Warm and dry. Normal capillary refill. No rashes. No jaundice. NEUROLOGICAL: Alert, awake, appropriate. Cranial nerves 2-12 grossly intact. Normal speech. PSYCHIATRIC: Cooperative. Good eye contact. Appropriate mood and affect. <Jesse Hsu - Last Filed: 01/29/19 00:31> - Vital Signs Last Vital Signs Temp Pulse Resp BP Pulse Ox 98.6 F 69 18 132/41 L 100 01/28/19 18:55 01/28/19 18:55 01/28/19 18:55 01/28/19 18:55 01/28/19 18:55 <Janine Pedraza - Last Filed: 01/29/19 00:40> ED Treatment Course - LABORATORY CBC & Chemistry Diagram: 01/28/19 20:35 01/28/19 20:35 <Jesse Hsu - Last Filed: 01/29/19 00:31> - LABORATORY CBC & Chemistry Diagram: 01/28/19 20:35 01/28/19 20:35 - ADDITIONAL ORDERS Additional order review: Laboratory Results 01/28/19 01/28/19 01/28/19 23:35 23:30 20:35 PT with INR INR Sodium Potassium Chloride Carbon Dioxide Anion Gap BUN Creatinine Creat Clearance w eGFR Random Glucose Calcium Total Bilirubin AST ALT Alkaline Phosphatase Creatine Kinase Troponin I Total Protein Albumin Stool Occult Blood Negative Blood Type Cancelled Antibody Screen Cancelled Crossmatch See Detail 01/28/19 01/28/19 20:35 20:35 PT with INR 13.50 H INR 1.14 H Sodium 140 Potassium 4.2 Chloride 111 H Carbon Dioxide 22 Anion Gap 7 L BUN 33 H Creatinine 1.1 Creat Clearance w eGFR 48.29 Random Glucose 110 H Calcium 9.1 Total Bilirubin 0.2 AST 14 L ALT 16 Alkaline Phosphatase 98 Creatine Kinase 41 Troponin I < 0.02 Total Protein 6.3 L Albumin 3.5 Stool Occult Blood Blood Type Antibody Screen Crossmatch 01/28/19 20:35 RBC 2.71 L MCV 89.9 MCHC 32.3 RDW 16.1 H MPV 9.7 Neutrophils % 73.5 Lymphocytes % 12.1 D Monocytes % 8.5 Eosinophils % 4.5 Basophils % 1.4 - Medications Given in the ED: ED Medications Discontinued Medications Generic Name Dose Route Start Last Admin Trade Name Freq PRN Reason Stop Dose Admin Atorvastatin Calcium 10 mg 01/28/19 23:49 01/29/19 00:11 Lipitor - PO 01/28/19 23:50 10 mg ONCE ONE Administration Doxycycline Hyclate 100 mg 01/28/19 23:49 01/29/19 00:11 Vibramycin - PO 01/28/19 23:50 100 mg ONCE ONE Administration Hydralazine HCl 100 mg 01/28/19 23:45 01/29/19 00:11 Apresoline - PO 01/28/19 23:46 100 mg ONCE ONE Administration Metoprolol Tartrate 100 mg 01/28/19 23:44 01/29/19 00:04 Lopressor - PO 01/28/19 23:45 Not Given ONCE ONE Rivaroxaban 10 mg 01/28/19 20:52 01/28/19 21:30 Xarelto PO 01/28/19 20:53 10 mg ONCE ONE Administration <Janine Pedraza - Last Filed: 01/29/19 00:40> Medical Decision Making - Medical Decision Making 01/28/19 21:03 78F with h/o anemia who presents with low H/H found on routine labs. Pt denies any acute complaints but has hx of cardiovascular disease. Labs sent and pending. 01/29/19 00:[address] Cunningham for admission. <Jesse Hsu - Last Filed: 01/29/19 00:31> *DC/Admit/Observation/Transfer - Discharge Dispostion Decision to Admit order: Yes <Jesse Hsu - Last Filed: 01/29/19 00:31> - Discharge Dispostion Decision to Admit order Date/Time: 01/29/19 00:40 <Janine Pedraza - Last Filed: 01/29/19 00:40> Diagnosis at time of Disposition: Anemia Qualifiers: Anemia type: other cause Other causes of anemia: acute posthemorrhagic Qualified Code(s): D62 - Acute posthemorrhagic anemia - Discharge Dispostion Condition at time of disposition: Guarded - Referrals Referrals: Eugene Mao MD [Primary Care Provider] - - Patient Instructions - Post Discharge Activity
[2019-01-28 21:14] LABS: BASO % 1.4 % (0-2.0); EOS % 4.5 % (0-4.5); HEMATOCRIT 24.4 % (32.4-45.2); HEMOGLOBIN 7.9 GM/dL (10.7-15.3); LYMPH % 12.1 % (8-40); MCHC 32.3 g/dl (32.0-36.0); MEAN CELL VOLUME 89.9 fl (80-96); MEAN PLT VOLUME 9.7 fl (7.5-11.1); MONO % 8.5 % (3.8-10.2); NEUT % 73.5 % (42.8-82.8); PLATELET COUNT 206 K/MM3 (134-434); RBC 2.71 M/mm3 (3.60-5.2); RDW 16.1 % (11.6-15.6); WHITE BLOOD COUNT 6.2 K/mm3 (4.0-10.0)
[2019-01-28 21:28] LABS: INR 1.14 (0.83-1.09); PROTHROMBIN TIME (PATIENT) 13.5 SEC (9.7-13.0)
[2019-01-28 21:30] LABS: ALBUMIN 3.5 g/dl (3.4-5.0); ALK PHOS 98 U/L (45-117); ANION GAP 7 MMOL/L (8-16); BILIRUBIN,TOTAL 0.2 mg/dL (0.2-1); BLOOD UREA NITROGEN 33 mg/dL (7-18); CALCIUM 9.1 mg/dL (8.5-10.1); CHLORIDE 111 mmol/L (98-107); CO2 22 mmol/L (21-32); CREATININE 1.1 mg/dL (0.55-1.3); GLUCOSE,RANDOM 110 mg/dL (74-106); POTASSIUM 4.2 mmol/L (3.5-5.1); SGOT/AST 14 U/L (15-37); SGPT/ALT 16 U/L (13-61); SODIUM 140 mmol/L (136-145); TOT PROT 6.3 g/dl (6.4-8.2)
[2019-01-28] MEDS ORDERED: METOPROLOL TARTRATE 50 MG TABLET (FP) PO ONE (23:44)
[2019-01-28] MEDS ORDERED: hydrALAZINE HCL 50 MG TABLET (FP) PO ONE (23:45)
[2019-01-28] MEDS ORDERED: DOXYCYCLINE HYCLATE 100 MG CAPSULE PO ONE (23:49)
[2019-01-28] MEDS ORDERED: ATORVASTATIN CA 10 MG TABLET (FP) PO ONE (23:49)
--- NOTE | 2019-01-28 23:59 | PN ---
Teaching Attending Note Name of Resident: Brien Cunningham ATTENDING PHYSICIAN STATEMENT I saw and evaluated the patient. I reviewed the resident's note and discussed the case with the resident. I agree with the resident's findings and plan as documented. SUBJECTIVE: Seen and examined; please refer to resident note for further historical information. Briefly, she is a 78 y/o female patient of Dr. Mao who was sent in from PCP office for low Hb; she is currently in rehab for patellar repair. She was found to have a Hb 7.1 there and is 7.9 here; there is concern with her CV history that she should be above 8. No syncope, no dizziness, no melena/ hematochezia and no hemetemesis. Negative FOBT in the ER. Last iron studies 2017 reviewed; was transfused for nc/nc anemia in the past at [facility] after pattelar repair. Normocytic anemia. Monitor her on observation and transfusing 1 unit. She has seen Dr. Taveras before in the past for hematology. Has been on iron (was increased 2 to 3 pills 2016) and has hx of UC which means she has been getting q2year colonoscopy. She has had EGD in the past. She is on xarelto. 10 sys ROS done and negative aside from HPI PMH (HTN, HLD, UC, Anemia, GERD, B12 deficiency), PSH, FH, SH reviewed Home Medications Medication Instructions Recorded Cholecalciferol (Vitamin D3) 1,000 unit PO DAILY 06/25/17 [Vitamin D3] Doxycycline Monohydrate [Mondoxyne 100 mg PO BID 06/25/17 Nl] Ferrous Sulfate 325 mg PO TID 06/25/17 Mesalamine 4.8 gm PO DAILY 06/25/17 Metoprolol Tartrate 100 mg PO DAILY 06/25/17 Repaglinide [Prandin] 1 mg PO TIDCM 06/25/17 Simvastatin 20 mg PO HS 06/25/17 Lactobacillus Acidophilus [Bacid -] 2 tab PO DAILY tab 07/08/17 Alprazolam [Xanax] 0.25 mg PO DAILY 04/22/18 Hydralazine HCl 100 mg PO TID 04/23/18 Acetaminophen [Tylenol .Regular 650 mg PO Q6H PRN tablet 04/27/18 Strength -] Oxycodone HCl [Roxicodone] 5 mg PO PRN 01/28/19 Pantoprazole Sodium 40 mg PO DAILY 01/28/19 Rivaroxaban [Xarelto] 10 mg PO DAILY 01/28/19 OBJECTIVE: VS, labs, imaging reviewed NAD, AAO, resting comfortably in bed NC AT EOMI PERRLA RRR s1/2 no mgr Lungs CTAB, w/ sym exp NT ND +BS CN2-12 wnl, no fnd Normal mood, appropriate behavior ASSESSMENT AND PLAN: Patient with a history of anemia (follows with Dr. Taveras, has had xf in past, nc/nc, on TID FeSO4) presents with NC/NC anemia today with Hb of 7.9 here (7.1 at rehab). No acute signs of bleeding and negative FOBT. Repeating iron studies and transfusing one unit PRBC. Check B12/Folate and reticulocytes. 1) Normocytic anemia -Checking iron studies, retic count, B12 prior to xf. ER ordered 1 unit PRBC. Monitor on obs. Asx. Negative FOBT. -Noted RDW 16 (was 2017); continue home iron supplemenation -Consider nonurgent heme eval as has been seen by Dr. Taveras in past 2) Hx DM -Verify and continue home medications 3) HLD -Continue statin 4) HTN -Continue home meds 5) S/P Patellar repair -On xarelto for DVT px; fobt negative. continue. She can do weight bearing with PT. 6) UC -Continue mesalamine; no flare
[2019-01-29] MEDS ORDERED: hydrALAZINE HCL 25 MG TABLET (FP) ONE (00:05)
[2019-01-29] MEDS ORDERED: DOXYCYCLINE HYCLATE 100 MG CAPSULE PO ONE (00:05)
[2019-01-29] MEDS ORDERED: ATORVASTATIN CA 10 MG TABLET (FP) ONE (00:06)
--- NOTE | 2019-01-29 02:09 | HP ---
CHIEF COMPLAINT: anemia PCP: Mao HISTORY OF PRESENT ILLNESS: 78F with PMH of HTN, HLD, Anemia (of unspecified cause), ulcerative colitis, GERD, Vitamin B12 Deficiency sent by PCP for anemia found at her rehabilitation facility (there for patellar injury on L knee). At the outpatient facility, her hgb was noted to be 7.1, and so her PCP sent her in. She denies any symptoms of chest pain, SOB, dizziness, headaches, fatigue, nausea, vomiting, diarrhea. Last workup of anemia she reports was in [address] Hall. Reports she has had transfusions in the past without any issues or reactions. Reports that her baseline hemoglobin is around 9-10. ER course was notable for: (1) Hgb 7.1 (2) (3) Recent Travel: denies PAST MEDICAL HISTORY: HTN, HLD, Anemia (of unspecified cause), GERD, Vitamin B12 Deficiency sent by PCP for anemia PAST SURGICAL HISTORY: recent L knee surgeries Social History: Smoking: denies Alcohol: denies Drugs: denies Allergies Penicillins Allergy (Unknown, Verified 01/28/19 18:57) HOME MEDICATIONS: Home Medications Medication Instructions Recorded Cholecalciferol (Vitamin D3) 1,000 unit PO DAILY 06/25/17 [Vitamin D3] Doxycycline Monohydrate [Mondoxyne 100 mg PO BID 06/25/17 Nl] Ferrous Sulfate 325 mg PO TID 06/25/17 Mesalamine 4.8 gm PO DAILY 06/25/17 Metoprolol Tartrate 100 mg PO DAILY 06/25/17 Repaglinide [Prandin] 1 mg PO TIDCM 06/25/17 Simvastatin 20 mg PO HS 06/25/17 Lactobacillus Acidophilus [Bacid -] 2 tab PO DAILY tab 07/08/17 Alprazolam [Xanax] 0.25 mg PO DAILY 04/22/18 Hydralazine HCl 100 mg PO TID 04/23/18 Acetaminophen [Tylenol .Regular 650 mg PO Q6H PRN tablet 04/27/18 Strength -] Oxycodone HCl [Roxicodone] 5 mg PO PRN 01/28/19 Pantoprazole Sodium 40 mg PO DAILY 01/28/19 Rivaroxaban [Xarelto] 10 mg PO DAILY 01/28/19 REVIEW OF SYSTEMS CONSTITUTIONAL: Absent: fever, chills, diaphoresis, generalized weakness, malaise, loss of appetite, weight change HEENT: Absent: rhinorrhea, nasal congestion, throat pain, throat swelling, difficulty swallowing, mouth swelling, ear pain, eye pain, visual changes CARDIOVASCULAR: Absent: chest pain, syncope, palpitations, irregular heart rate, lightheadedness , peripheral edema RESPIRATORY: Absent: cough, shortness of breath, dyspnea with exertion, orthopnea, wheezing, stridor, hemoptysis GASTROINTESTINAL: Absent: abdominal pain, abdominal distension, nausea, vomiting, diarrhea, constipation, melena, hematochezia GENITOURINARY: Absent: dysuria, frequency, urgency, hesitancy, hematuria, flank pain, genital pain MUSCULOSKELETAL: Absent: myalgia, arthralgia, joint swelling, back pain, neck pain SKIN: Absent: rash, itching, pallor HEMATOLOGIC/IMMUNOLOGIC: Absent: easy bleeding, easy bruising, lymphadenopathy, frequent infections ENDOCRINE: Absent: unexplained weight gain, unexplained weight loss, heat intolerance, cold intolerance NEUROLOGIC: Absent: headache, focal weakness or paresthesias, dizziness, unsteady gait, seizure, mental status changes, bladder or bowel incontinence PSYCHIATRIC: Absent: anxiety, depression, suicidal or homicidal ideation, hallucinations. PHYSICAL EXAMINATION Vital Signs - 24 hr 01/28/19 18:55 Temperature 98.6 F Pulse Rate 69 Respiratory 18 Rate Blood Pressure 132/41 L O2 Sat by Pulse 100 Oximetry (%) GENERAL: A&Ox3, no acute distress EYES: PERRLA, EOMI ENT: Moist mucus membranes NECK: No JVD LUNGS: CTA, no wheezes HEART: RRR, no murmurs ABDOMEN: Soft, nontender, BS present MUSCULOSKELETAL: No CVA Tenderness EXTREMITIES: 2+ pulses, no edema. NEUROLOGICAL: Cranial nerves II-XII intact. Laboratory Results - last 24 hr 01/28/19 01/28/19 01/28/19 20:35 20:35 20:35 WBC 6.2 RBC 2.71 L Hgb 7.9 L Hct 24.4 L MCV 89.9 MCH 29.0 MCHC 32.3 RDW 16.1 H Plt Count 206 MPV 9.7 Absolute Neuts (auto) 4.6 Neutrophils % 73.5 Lymphocytes % 12.1 D Monocytes % 8.5 Eosinophils % 4.5 Basophils % 1.4 Nucleated RBC % 0 PT with INR 13.50 H INR 1.14 H Sodium 140 Potassium 4.2 Chloride 111 H Carbon Dioxide 22 Anion Gap 7 L BUN 33 H Creatinine 1.1 Creat Clearance w eGFR 48.29 Random Glucose 110 H Calcium 9.1 Total Bilirubin 0.2 AST 14 L ALT 16 Alkaline Phosphatase 98 Creatine Kinase 41 Troponin I < 0.02 Total Protein 6.3 L Albumin 3.5 Stool Occult Blood Blood Type Antibody Screen Crossmatch 01/28/19 01/28/19 01/28/19 20:35 23:30 23:35 WBC RBC Hgb Hct MCV MCH MCHC RDW Plt Count MPV Absolute Neuts (auto) Neutrophils % Lymphocytes % Monocytes % Eosinophils % Basophils % Nucleated RBC % PT with INR INR Sodium Potassium Chloride Carbon Dioxide Anion Gap BUN Creatinine Creat Clearance w eGFR Random Glucose Calcium Total Bilirubin AST ALT Alkaline Phosphatase Creatine Kinase Troponin I Total Protein Albumin Stool Occult Blood Negative Blood Type Cancelled O POSITIVE Antibody Screen Cancelled Negative Crossmatch See Detail ASSESSMENT/PLAN: 78F with PMH of HTN, HLD, Anemia (of unspecified cause), ulcerative colitis, GERD, Vitamin B12 Deficiency sent by PCP for anemia found at her rehabilitation facility #Anemia: normochromic, normocytic anemia likely 2/2 combination of iron deficiency vs anemia of chronic inflammation -sent iron studies, last iron panel was in 2017 -reticulocytes -transfuse 1U PRBCs -recheck CBC in AM -if Hgb improves, can likely DC in AM #HTN -continue metoprolol #HLD: continue statin #Ulcerative Colitis -continue home meselamine #Prolonged Immobility: patient has a torn patellar tendon for which she is currently at rehab -due to prolonged immobility, patient is on xarelto for DVT prophylaxis, continue this medication. #FEN -no standing fluids, blood -lytes normal -diet ordered #prophylaxis -SCDs #Disposition -admit obs, likely DC in AM Visit type - Emergency Visit Emergency Visit: Yes ED Registration Date: 01/28/19 Care time: The patient presented to the Emergency Department on the above date and was hospitalized for further evaluation of their emergent condition. - New Patient This patient is new to me today: Yes Date on this admission: 01/29/19 - Critical Care Critical Care patient: No
[2019-01-29] MEDS ORDERED: oxyCODONE HCL 5 MG TABLET PO SCH (02:30)
[2019-01-29 04:20] VITALS: BMI 40.6
[2019-01-29] MEDS ORDERED: hydrALAZINE HCL 50 MG TABLET (FP) PO SCH (06:00)
[2019-01-29] MEDS ORDERED: FERROUS SO4 325 MG TABLET (FP) PO SCH (06:00)
--- NOTE | 2019-01-29 09:39 | EKG ---
Test Reason : Blood Pressure : / mmHG Vent. Rate : 069 BPM Atrial Rate : 069 BPM P-R Int : 202 ms QRS Dur : 078 ms QT Int : 396 ms P-R-T Axes : 020 -02 053 degrees QTc Int : 424 ms NORMAL SINUS RHYTHM NORMAL ECG WHEN COMPARED WITH ECG OF 22-APR-2018 20:28, CRITERIA FOR SEPTAL INFARCT ARE NO LONGER PRESENT Confirmed by SAMIA BEY, ELIGIO ([id number]) on 01/29/2019 9:38:53 AM Referred By: Confirmed By:ELIGIO GRACIA MD
[2019-01-29] MEDS ORDERED: PT OWN MED DRAWER 7, Y5N ONE (09:49)
[2019-01-29] MEDS: ALPRAZolam 0.25 MG TABLET PO SCH ×2 (09:56→10:00)
[2019-01-29] MEDS: REPAGLINIDE 1 MG TABLET PO SCH ×2 (09:56→11:59)
[2019-01-29] MEDS: RIVAROXABAN 10 MG TABLET PO SCH ×2 (09:57→10:01)
[2019-01-29] MEDS ORDERED: PANTOPRAZOLE 40 MG TABLET (FP) PO SCH (10:00)
[2019-01-29] MEDS ORDERED: MESALAMINE 4.8 GM PO SCH (10:00)
[2019-01-29] MEDS ORDERED: LACTOBACILLUS ACIDOPHILUS 1 TABLET PO SCH (10:00)
[2019-01-29] MEDS ORDERED: METOPROLOL TARTRATE 50 MG TABLET (FP) PO SCH (10:00)
[2019-01-29 10:47] LABS: HEMATOCRIT 28.2 % (32.4-45.2); HEMOGLOBIN 9.2 GM/dL (10.7-15.3); MCH 29.6 pg (25.7-33.7); MCHC 32.7 g/dl (32.0-36.0); MEAN CELL VOLUME 90.5 fl (80-96); MEAN PLT VOLUME 9.6 fl (7.5-11.1); PLATELET COUNT 192 K/MM3 (134-434); RBC 3.12 M/mm3 (3.60-5.2); RDW 15.6 % (11.6-15.6); WHITE BLOOD COUNT 5.7 K/mm3 (4.0-10.0)
--- NOTE | 2019-01-29 10:50 | DS ---
Physical Examination Vital Signs: Vital Signs Temperature 37.1 C 01/29/19 06:00 Pulse Rate 77 01/29/19 06:00 Respiratory Rate 18 01/29/19 06:00 Blood Pressure 134/77 01/29/19 06:00 O2 Sat by Pulse Oximetry (%) 96 01/29/19 04:07 Constitutional: Yes: No Distress, Calm, Obese Cardiovascular: Yes: Regular Rate and Rhythm. No: Gallop, Murmur, Rub Respiratory: Yes: Regular, CTA Bilaterally. No: Rales, Rhonchi, Wheezes Gastrointestinal: Yes: Normal Bowel Sounds, Soft. No: Distention, Tenderness Extremities: Yes: Other (LLE in cast) Edema: No Labs: CBC, BMP 01/28/19 20:35 Discharge Summary Reason For Visit: ANEMIA Current Active Problems Anemia (Acute) Hospital Course: Ms Haile is a pleasant 78 year old female presenting with anemia and admitted under observation for transfusion. She was found to have a Hgb of 7.9 in the ED and transfused 1 unit pRBC and tolerated well. She is currently stable for discharge home, her Hgb is now 9.2. Condition: Stable - Instructions Diet, Activity, Other Instructions: resume previous diet and activity. Referrals: Eugene Mao MD [Primary Care Provider] - Disposition: HOME - Home Medications Comprehensive Discharge Medication List: Ambulatory Orders Cholecalciferol (Vitamin D3) [Vitamin D3] 1,000 unit PO DAILY 06/25/17 Doxycycline Monohydrate [Mondoxyne Nl] 100 mg PO BID 06/25/17 Ferrous Sulfate 325 mg PO TID 06/25/17 Mesalamine 4.8 gm PO DAILY 06/25/17 Metoprolol Tartrate 100 mg PO DAILY 06/25/17 Repaglinide [Prandin] 1 mg PO TIDCM 06/25/17 Simvastatin 20 mg PO HS 06/25/17 Lactobacillus Acidophilus [Bacid -] 2 tab PO DAILY tab 07/08/17 Alprazolam [Xanax] 0.25 mg PO DAILY 04/22/18 Hydralazine HCl 100 mg PO TID 04/23/18 Acetaminophen [Tylenol .Regular Strength -] 650 mg PO Q6H PRN tablet 04/27/18 Oxycodone HCl [Roxicodone] 5 mg PO PRN 01/28/19 Pantoprazole Sodium 40 mg PO DAILY 01/28/19 Rivaroxaban [Xarelto] 10 mg PO DAILY 01/28/19
[2019-01-29 11:42] VITALS: BP 137/67; PULSE 80; TEMP 98.3
[2019-01-29] MEDS ORDERED: RIVAROXABAN 10 MG TABLET PO ONE (20:52)
[2019-01-29] MEDS ORDERED: ATORVASTATIN CA 10 MG TABLET (FP) PO SCH (22:00)
[2019-01-30 08:08] LABS: SERUM IRON SATURATION 36 % (15-55); TOTAL IRON BINDING CAPACITY 206 ug/dL (250-450); UIBC 132 ug/dL (118-369)
== END 2019-01-29 16:05 | disposition home or self-care (01) ==
LOC: JER 18:48 → JERBED 23:53 → J8W 01-29 03:30
PROVIDERS: ADMIT Internal Medicine; ATTEND Internal Medicine
DX: D64.9 Anemia, unspecified (principal); I10 Essential (primary) hypertension; E78.5 Hyperlipidemia, unspecified; K21.9 Gastro-esophageal reflux disease without esophagitis; D51.9 Vitamin B12 deficiency anemia, unspecified; K51.90 Ulcerative colitis, unspecified, without complications; Z87.891 Personal history of nicotine dependence; Z79.01 Long term (current) use of anticoagulants; Z88.0 Allergy status to penicillin
CPT/HCPCS: 36415; 36430; 80053; 82272; 82550; 82728; 83540; 83550; 84484; 85025; 85027; 85044; 85610; 86850; 86900; 86901; 86922; 93005; 93010; 99284-25; G0378; P9038; P9058